=== PATIENT | male | born 1965 | race Caucasian/White ===

== ENCOUNTER → 2018-01-17 10:23 | Outpatient (CLI) | payer OTHER, SELFPAY ==
[2018-01-17 12:30] LABS: Hematocrit 45.5 % (40-54); Mean Corpuscular Hgb 28.1 pg (27.0-32.0); Mean Corpuscular Volume 85.4 fL (80-94); Mean Platelet Vol. 10.8 fl (6.2-12.0); Platelet Count 152 K/mm3 (150-450); RBC Distribution Width CV 13.4 % (11.6-14.6); RBC Distribution Width SD 41.2 fl (35.1-43.9); Red Blood Count 5.33 M/mm3 (4.6-6.2); White Blood Count 5.8 K/mm3 (4.4-11.0)
[2018-01-17 12:39] LABS: ALB/GLOB Ratio 0.9 RATIO (0.9-2.4); AST(SGOT) 23 U/L (15-37); Alanine Aminotransfer ALT/SGPT 50 U/L (16-61); Albumin, Serum 3.7 g/dL (3.2-5.0); Alkaline Phosphatase 77 U/L (45-117); Anion Gap 5 (5-15); BUN 16 mg/dL (7-18); BUN/Creat Ratio 20.4 RATIO (10-20); Calcium,Total 9.2 mg/dL (8.5-10.1); Chloride 102 mmol/L (98-107); Cholesterol 190 mg/dL (200); Creatinine, Serum 0.78 mg/dL (0.70-1.30); EST Glomerular Filtration Rate 110 mL/min (>60); Est Glom Filt Rate - Afr Amer 133 mL/min (>60); Globulin 3.9 g/dL (2.2-4.2); Glucose 96 mg/dL (74-106); High Density Lipoprotein 36 mg/dL; Potassium 3.9 mmol/L (3.5-5.1); Protein, Total 7.6 g/dL (6.4-8.2); Sodium Level 139 mmol/L (136-145); Triglycerides 289 mg/dL; Very Low Density Lipoprotein 58 mg/dL (5-40)
[2018-01-17 12:44] LABS: Scan Indicated on CBC? Y/N NO
[2018-01-17 12:56] LABS: BNP,B-Type NATRIURETIC PEPTIDE 6.3 pg/mL (0-100); Vitamin D,25 Hydroxy 38.8 ng/mL (19.95-100.01)
== END ==
PROVIDERS: Family Provider Family Medicine; PCP Family Medicine; Visit Provider Family Medicine
DX: E55.9 Vitamin D deficiency, unspecified (principal); E78.5 Hyperlipidemia, unspecified; K21.9 Gastro-esophageal reflux disease without esophagitis
CPT/HCPCS: 36415; 80053; 80061; 82306; 83880; 85027

== ENCOUNTER → 2018-02-04 06:13 | Outpatient (CLI) | payer OTHER, SELFPAY ==
--- NOTE | 2018-02-04 11:05 | PFT ---
INTRODUCTION: The patient is a 52-year-old male currently under the care of myself the presents for pulmonary function testing secondary to a diagnosis of restrictive lung disease. Respiratory therapy reports good patient effort reports no other concerns. Bronchodilators were used during testing. INTERPRETATION: Forced expiration spirometry demonstrates no evidence of a large airways obstructive ventilatory defect. There was no significant response to aerosolized bronchodilators, based upon strict ATS criteria. Spirogram is of good quality and plateau gradually indicating slow emptying of the lungs. Body plethysmography was performed and reveals a decreased TLC to 5.4 L, 83% of predicted, indicative of a mild restrictive ventilatory impairment. The remainder of the lung volumes are symmetrically reduced. Diffusing capacity by single breath CO is at the lower limits of normal at 79% of predicted. When compared to previous pulmonary function studies dated June 2017, there has been a 12% improvement in the patient's TLC. IMPRESSION: These pulmonary function studies demonstrate the presence of a mild restrictive ventilatory impairment with a symmetric reduction in diffusing capacity.
== END ==
PROVIDERS: Family Provider Family Medicine; PCP Family Medicine; Visit Provider Internal Medicine Critical Care Medicine
DX: G47.33 Obstructive sleep apnea (adult) (pediatric) (principal); J98.4 Other disorders of lung; F17.200 Nicotine dependence, unspecified, uncomplicated; I27.20 Pulmonary hypertension, unspecified
CPT/HCPCS: 94060; 94726; 94729

== ENCOUNTER → 2018-02-06 07:02 | Outpatient (CLI) | payer OTHER, SELFPAY ==
[2018-02-06 09:06] VITALS: PULSE 115; PULSE 75; PULSE 77; PULSE 97; PULSE 98; PULSE 99; O2SAT 92; O2SAT 93; O2SAT 94; O2SAT 95
--- NOTE | 2018-02-06 13:26 | WT_ITS ---
PSN 6 Minute Walk Test - 6 Minute Walk Test 6 Minute Walk Test: 6 Minute Walk Test PSN:6-Minute Walk Test Start: 02/06/18 09: 06 Freq: Status: Active Protocol: RESP.6MINW Document 02/06/18 09:06 CYNDY (Rec: 02/06/18 09:08 CYNDY [id number]) 6 Minute Walk Test Date Performed 02/06/18 Time Performed 08:50 Height 5 ft 9 in Weight: 300 lb Weight in Pounds 300.[address]: Alfredo Arias Assistive device used: None Pre-test Oxygen Delivery Method Room Air Pulse Ox (%) 93 Pulse Rate (60-100 beats/min) 77 1st minute Oxygen Delivery Method Room Air Pulse Ox (%) 92 Pulse Rate (60-100 beats/min) 97 2nd minute Oxygen Delivery Method Room Air Pulse Ox (%) 92 Pulse Rate (60-100 beats/min) 99 3rd minute Oxygen Delivery Method Room Air Pulse Ox (%) 94 Pulse Rate (60-100 beats/min) 115 H 4th minute Oxygen Delivery Method Room Air Pulse Ox (%) 94 Pulse Rate (60-100 beats/min) 99 5th minute Oxygen Delivery Method Room Air Pulse Ox (%) 93 Pulse Rate (60-100 beats/min) 99 6th minute Oxygen Delivery Method Room Air Pulse Ox (%) 92 Pulse Rate (60-100 beats/min) 98 Dyspnea Sole Scale (0-10) 0 Exertion Sole Scale (6-20) 12 Post-test Oxygen Delivery Method Room Air Pulse Ox (%) 95 Pulse Rate (60-100 beats/min) 75 Full Laps Walked 15 Partial Lap, Number of Tiles Walked 0 Total Distance Walked (ft) 885 - Interpretation Interpretation: The patient ambulated 885 feet over the course of 6 minutes on room air without assistive devices or braces. Pretesting oxygen saturation was noted to be 93% on room air. With ambulation, the lucio oxygen saturation was 92%. There was no significant exertional oxygen desaturation noted. - Recommendations Recommendations: There is no indication for the use of supplemental oxygen at this time.
== END ==
PROVIDERS: Family Provider Family Medicine; PCP Family Medicine; Visit Provider Internal Medicine Critical Care Medicine
DX: G47.33 Obstructive sleep apnea (adult) (pediatric) (principal); F17.200 Nicotine dependence, unspecified, uncomplicated; I27.20 Pulmonary hypertension, unspecified
CPT/HCPCS: 94618

== ENCOUNTER → 2018-03-13 12:53 | Outpatient (CLI) | payer OTHER, SELFPAY ==
--- NOTE | 2018-03-13 12:56 | STE_ITS ---
Reason For Study: DYSPNEA Stress Results Protocol: Dobutamine Stress Echocardiogram Maximum Predicted HR: 166 bpm Target HR: 141 bpm% Maximum Predicted HR: 87 % DurationHeart Rate Stage (mm:ss) (bpm) BPDos e Comment BASELINE 77 114/86 DILUTED DEFINITY 4 ML USED DSE- 10 MCG 3:09 90 134/6610.00 DSE- 20 MCG 3:08 12 0 122/7920.00 DSE- 30 MCG 4:36 14 4 104/6530.00 RECOVERY 98 126/66 Stress Duration: 10:53 mm:ss Maximum Stress HR: 144 bpm Baseline Echocardiogram Findings The estimated ejection fraction is 65 %. Stress Echo Wall motion Data Resting WMIntermediate WMStress WM Resting Wall Motion Wall Motion Stress No regional wall motion No regional wall motion abnormalities noted. abnormalities noted. EKG Data Normal intervals are noted. The baseline ECG displays normal sinus rhythm. The patient was titrated from 10 mcg to a maximun of 30 mcg of dobutamine during the stress. During dobutamine infusion, there were no ST or T wave changes noted to suggest ischemia. No clinical angina was noted. This was 86% of maximum predicted heart rate. The maximum heart rate attained was 144 beats per minute. Interpretation Summary The patient was titrated from 10 mcg to a maximun of 30 mcg of dobutamine during the stress. Normal adequate dobutamine echocardiogram. Negative for ischemia by EKG and echocardiographic criteria. No anginal symptoms noted. Appropriate blood pressure response to dobutamine. Final LVEF of 75%. Patient tolerated procedure well. Rare PVCs noted. Decreased sensitivity due to poor echo windows requiring Definity enhancing agent. No complications. Ordering Physician: Kamran Thornton Referring Physician: Kamran Thornton Performed By: Corrine Bills, RDJAQUELINE, RVT
== END ==
PROVIDERS: Family Provider Family Medicine; PCP Family Medicine; Visit Provider Internal Medicine Cardiovascular Disease
DX: I27.21 Secondary pulmonary arterial hypertension (principal); R06.02 Shortness of breath
CPT/HCPCS: 93017; 93350; J7030; Q9957; A4216; C8928

== ENCOUNTER → 2018-09-02 11:00 | Outpatient (CLI) | payer OTHER, SELFPAY | PROVIDERS: Family Provider Family Medicine; PCP Family Medicine; Visit Provider Nurse Practitioner Acute Care | DX: R09.02 Hypoxemia (principal) | CPT/HCPCS: 94762 ==

== ENCOUNTER → 2018-09-23 12:11 | Outpatient (CLI) | payer OTHER, SELFPAY ==
--- NOTE | 2018-09-23 12:13 | ECHOCS_ITS ---
Reason For Study: PHTN Procedure This was a 2D Doppler, Color Flow transthoracic echocardiogram. Contrast injection was performed. The study was technically difficult. Exam performed in department. Left Ventricle Normal size and thickness. The estimated ejection fraction is 55 %. Normal diastology for age. No regional wall motion abnormalities noted. Right Ventricle Mildly dilated right ventricle. Normal systolic function. Atria The left atrium is severely enlarged. Normal right atrium. Normal atrial septum. Mitral Valve The mitral valve is structurally normal. No prolapse or stenosis seen. Trivial mitral valve insufficiency. Tricuspid Valve Normal tricuspid valve. Trivial tricuspid valve insufficiency. Right ventricular systolic pressure estimated to be 34 mmHg. Aortic Valve Normal aortic valve. Trisinus/trileaflet aortic valve. Pulmonic Valve Normal pulmonic valve. Great Vessels Normal aortic root. Normal arch. Normal inferior vena cava. Inferior vena cava collapse with sniff. Pericardium/Pleural No pericardial effusion. Medication 22 gauge I.V. with prn adaptor inserted into right arm. Diluted definity 3.5ml given slow IV push to enhance endocardial definition. MMode/2D Measurements & Calculations LVIDd: 5.1 cm IVSd: 1.2 cm Ao root diam: 3.6 cm LVIDs: 3.8 cm LVPWd: 1.1 cm RVDd: 3.8 cm FS: 26.4 % LAV(MOD-bp): 77.1 ml EDV(MOD-sp4): 183.5 ml EDV(MOD-sp2): 160.8 ml LAV(MOD-bp) Indexed: 32.9 ml/m2 ESV(MOD-sp4): 95.9 ml EF(MOD-sp2): 51.3 % LAV(MOD-sp2): 64.0 ml EF(MOD-sp4): 47.8 % LAV(MOD-sp4): 84.7 ml SV(MOD-sp4): 87.7 ml SV(MOD-sp2): 82.5 ml LA A4 area: 26.0 cm2 LA dimension(2D): 4.5 cm RA A4 area: 18.8 cm2 Time Measurements MV dec time: 0.17 sec Doppler Measurements & Calculations MV E max reece: 107.3 cm/sec Lat Peak E' Reece: 15.6 cm/sec Med Peak E' Reece: 7.3 cm/sec MV A max reece: 81.2 cm/sec E/E' lat: 6.9 E/E' med: 14.7 MV E/A: 1.3 Ao V2 max: 135.7 cm/sec LV V1 max: 98.1 cm/sec PA V2 max: 99.8 cm/sec Ao max P.4 mmHg LV V1 max P.8 mmHg TR max reece: 265.8 cm/sec TR max P.3 mmHg Interpretation Summary The estimated ejection fraction is 55 %. Normal diastology for age. Mildly dilated right ventricle. The left atrium is severely enlarged. Trivial mitral valve insufficiency. Trivial tricuspid valve insufficiency. Right ventricular systolic pressure estimated to be 34 mmHg. Compared to echo report dated 06/24/2017, LV function has remained the same; RVSP has improved from 56 to 34 mm Hg. The study was technically difficult. Contrast injection was performed. Ordering Physician: Kamran Thornton Referring Physician: LILIA OSORIO Performed By: Savanna Mike, GRADY, RVT
== END ==
PROVIDERS: Family Provider Family Medicine; PCP Family Medicine; Referring Provider Internal Medicine Cardiovascular Disease; Visit Provider Internal Medicine Cardiovascular Disease
DX: G47.33 Obstructive sleep apnea (adult) (pediatric) (principal); R06.00 Dyspnea, unspecified; I50.32 Chronic diastolic (congestive) heart failure; I27.21 Secondary pulmonary arterial hypertension
CPT/HCPCS: 93306; Q9957; A4216; C8929

== ENCOUNTER → 2018-10-03 13:17 | Outpatient (CLI) | payer OTHER, SELFPAY ==
--- NOTE | 2018-10-03 13:19 | RAD_ITS ---
STUDY: X-RAY CHEST REASON FOR EXAM: Male, 53 years old. Bronchitis TECHNIQUE: 2 views COMPARISON: June 26, 2017 FINDINGS: There is no pneumonia or failure. There are bronchi with opaque cholecystectomy. Chronic bronchitis suspected. There are no pleural effusions.. Normal visualized thoracic spine. Normal visualized ribs, clavicles, and shoulders. There is no demonstrated abnormality of the visualized soft tissue structures of the upper abdomen. RAD/Chest PA and Lateral IMPRESSION: Mild chronic bronchitis. No acute pneumonia or failure. Electronically Signed: Paxton Pimentel MD at 4:31 EST Tel , Service support ,
== END ==
PROVIDERS: Family Provider Family Medicine; PCP Family Medicine; Referring Provider Family Medicine; Visit Provider Family Medicine
DX: J40 Bronchitis, not specified as acute or chronic (principal)
CPT/HCPCS: 71046

== ENCOUNTER → 2018-10-22 16:55 | Outpatient (CLI) | payer OTHER, SELFPAY ==
[2018-10-02 07:30] VITALS: BMI 40.0
--- NOTE | 2018-10-22 16:57 | RAD_ITS ---
HISTORY: Right chest pain COMPARISON: 2 view chest 10/03/2018 FINDINGS: XR Ribs Unilateral W/ PA Chest: 5 views Intact right ribs. No fracture or suspicious lesion. No pneumothorax or pleural fluid collection. An accompanying PA view of the chest shows no acute disease. RAD/Ribs Uni Min 3V w/PA Chest IMPRESSION: Negative right ribs. No fracture seen. at 0716 Reported and signed by: Red Groves MD Electronically Signed: Red Groves, at 7:14 EST Tel , Service support ,
--- OUTSIDE RECORDS SUMMARY | 2018-12-18 03:07 | XMS RPT_ITS ---
:1965 Author Organization OHIP Support Name Relationship Address Phone ERIKA KEARNEY Unavailable [address] + [place] [address] BALL, DAISHA Unavailable [address] + [place] [address] D Unavailable Unavailable Unavailable BALL, ERIKA Unavailable [address] + [place] [address] BALL, DAISHA Unavailable [address] + [place] [address] D Unavailable Unavailable Unavailable BALL, ERIKA Unavailable [address] + [place] [address] BALL, DAISHA Unavailable [address] + [place] [address] D Unavailable Unavailable Unavailable BALL, ERIKA Unavailable [address] + [place] [address] BALL, DAISHA Unavailable [address] + [place] [address] D Unavailable Unavailable Unavailable BALL, ERIKA Unavailable [address] + [place] [address] BALL, DAISHA Unavailable [address] + [place] [address] D Unavailable Unavailable Unavailable BALL, ERIKA Unavailable [address] + [place] [address] BALL, DAISHA Unavailable [address] + [place] [address] D Unavailable Unavailable Unavailable BALL, ERIKA Unavailable [address] + [place] [address] BALL, DAISHA Unavailable [address] + [place] [address] D Unavailable Unavailable Unavailable BALL, ERIKA Unavailable [address] + [place] [address] BALL, DAISHA Unavailable [address] + [place] [address] D Unavailable Unavailable Unavailable BALL, ERIKA Unavailable [address] + [place] [address] BALL, DAISHA Unavailable Unavailable + [place] [address] D Unavailable Unavailable Unavailable BALL, ERIKA Unavailable [address] + [place] [address] BALL, DAISHA Unavailable Unavailable + [place] [address] D Unavailable Unavailable Unavailable BALL, ERIKA Unavailable [address] + [place] [address] BALL, DAISHA Unavailable . + [place] [address] D Unavailable Unavailable Unavailable BALL, ERIKA Unavailable [address] + [place] [address] BALL, DAISHA Unavailable . + [place] [address] D Unavailable Unavailable Unavailable BALL, ERIKA Unavailable [address] + [place] [address] BALL, DAISHA Unavailable . + [place] [address] D Unavailable Unavailable Unavailable BALL, ERIKA Unavailable [address] + [place] [address] BALL, DAISHA Unavailable Unavailable + [place] [address] D Unavailable Unavailable Unavailable BALL, ERIKA Unavailable [address] + [place] [address] BALL, DAISHA Unavailable Unavailable + [place] [address] D Unavailable Unavailable Unavailable BALL, ERIKA Unavailable [address] + [place] [address] BALL, DAISHA Unavailable . + [place] [address] D Unavailable Unavailable Unavailable BALL, ERIKA Unavailable [address] + [place] [address] BALL, DAISHA Unavailable Unavailable + [place] [address] D Unavailable Unavailable Unavailable BALL, ERIKA Unavailable [address] + [place] [address] SLICK DAISHA Unavailable . + [place] [address] D Unavailable Unavailable Unavailable ERIKA KEARNEY Unavailable [address] + [place] [address] ELIZABETH KEARNEYEN Unavailable / + [place] [address] BOBSUMEREL Unavailable [address] + [place] [address] Care Team Providers Name Role Phone Lilia Hong Attending Unavailable Ranney, Christopher Primary Care Unavailable Carmen Moran.Ravinder. Attending Unavailable Carmen Moran.Jaime Referring Unavailable Ranney, Christopher Primary Care Unavailable Carmen Moran.O. Attending Unavailable Carmen Moran.O. Referring Unavailable Ranney, Christopher Primary Care Unavailable Mikaela Zaldivar Attending Unavailable Kamran Thornton Attending Unavailable Ranney, Christopher Referring Unavailable Ranney, Christopher Primary Care Unavailable Carmen Moran.O. Attending Unavailable Carmen Moran.O. Referring Unavailable Carmen Moran.Ravinder. Attending Unavailable Carmen Moran.O. Referring Unavailable Amita Neville Attending Unavailable Carmen Moran.Ravinder. Attending Unavailable Ranney, Christopher Referring Unavailable Ranney, Christopher Primary Care Unavailable Kamran Thornton Attending Unavailable Kamran Thornton Referring Unavailable Ranney, Christopher Primary Care Unavailable Kamran Thornton Attending Unavailable Kamran Thornton Referring Unavailable Reena Brooks Attending Unavailable Ranney, Christopher Referring Unavailable Reena Brooks Attending Unavailable Ranney, Christopher Primary Care Unavailable Kamran Thornton Attending Unavailable Ranney, Christopher Referring Unavailable Kamran Thornton Attending Unavailable Thornton, Kamran Referring Unavailable Ranney, Christopher Primary Care Unavailable Reena Brooks Attending Unavailable Ranney, Christopher Referring Unavailable Ranney, Christopher Attending Unavailable Ranney, Christopher Referring Unavailable Ranney, Christopher Primary Care Unavailable Kamran Thornton Attending Unavailable Kamran Thornton Referring Unavailable Ranney, Christlauraer Attending Unavailable Ranney, Christopher Referring Unavailable Ranney, Christopher Primary Care Unavailable PROBLEMS PROBLEMS DATE TYPE CONDITION / CODE ATTENDING STATUS SOURCE 10/22/2018 Unknown R07.81 - Hal, Active [facility] Pleurodynia / [facility] R07.81(ICD-10) Hospital Repository 10/03/2018 Unknown J40 - Bronchitis, Hal, Active [facility] not specified as [facility] acute or chronic / Hospital J40(ICD-10) Repository 10/09/2018 Unknown R06.09 - Other Kamran Thornton Active [facility] forms of dyspnea / Community R06.09(ICD-10) Hospital Repository 09/15/2018 Unknown G47.33 - Kamran Thornton Active [facility] Obstructive sleep Community apnea (adult) Hospital (pediatric) / Repository G47.33(ICD-10) 09/15/2018 Unknown I27.21 - Secondary Kamran Thornton Active [facility] pulmonary arterial Community hypertension / Hospital I27.21(ICD-10) Repository 09/15/2018 Unknown R06.00 - Dyspnea, Kamran Thornton Active [facility] unspecified / Community R06.00(ICD-10) Hospital Repository 09/15/2018 Unknown I50.32 - Chronic Kamran Thornton Active [facility] diastolic Community (congestive) heart Hospital failure / Repository I50.32(ICD-10) 09/15/2018 Unknown E78.5 - Kamran Thornton Active [facility] Hyperlipidemia, Community unspecified / Hospital E78.5(ICD-10) Repository 09/15/2018 Unknown Z72.0 - Tobacco use Kamran Thornton Active [facility] / Z72.0(ICD-10) [facility] Hospital Repository 09/05/2018 Unknown R09.02 - Hypoxemia Reena Brooks Active [facility] / R09.02(ICD-10) [facility] Hospital Repository 02/06/2018 Unknown I37.2 - Alfredo Arias D.O. Active [facility] Nonrheumatic [facility] pulmonary valve Hospital stenosis with Repository insufficiency / I37.2(ICD-10) 02/04/2018 Unknown I27.2 - Other Alfredo Arias D.O. Active [facility] secondary pulmonary Community hypertension / Hospital I27.2(ICD-10) Repository PROCEDURES PROCEDURES No Procedure Records FoundRESULTS RESULTS RIBS UNI MIN 3V Observed: 10/22/2018 Status: F Source: [place] W/PA CHEST 4:58 PM [facility] REPOSITORY [facility] Imaging Services [address] [place] [address] Ribs Uni Min 3V w/PA Chest MR#: [id number] Acct: [id number] Name: PEDRO LUIS KEARNEY R Rep #: [id number] : 1965 M 53 From: Red Groves MD PCP: Lilia Hong MD Status: REG CLI Study: Ribs Uni Min 3V w/PA Chest Date of Exam: 10/22/18 Exam# [id number] Ordering Dr: Abdifatah Hong MD HISTORY: Right chest pain COMPARISON: 2 view chest 10/03/2018 FINDINGS: XR Ribs Unilateral W/ PA Chest: 5 views Intact right ribs. No fracture or suspicious lesion. No pneumothorax or pleural fluid collection. An accompanying PA view of the chest shows no acute disease. RAD/Ribs Uni Min 3V w/PA Chest IMPRESSION: Negative right ribs. No fracture seen. at 0716 Reported and signed by: Red Groves MD Electronically Signed: Red Groves, at 7:14 EST Tel , Service support , CC: Lilia Hong MD Photo Mask Cleaner: Signed CHEST PA AND LATERAL Observed: 10/03/2018 Status: F Source: [place] 1:19 PM [facility] [place] Imaging Services [address] [place] [address] Chest PA and Lateral MR#: [id number] Acct: [id number] Name: PEDRO LUIS KEARNEY Rep #: [id number] : 1965 M 53 From: Paxton Pimentel MD PCP: Lilia Hong MD Status: REG CLI Study: Chest PA and Lateral Date of Exam: 10/03/18 Exam# [id number] Ordering Dr: Abdifatah Hong MD STUDY: X-RAY CHEST REASON FOR EXAM: Male, 53 years old. Bronchitis TECHNIQUE: 2 views COMPARISON: June 26, 2017 FINDINGS: There is no pneumonia or failure. There are bronchi with opaque cholecystectomy. Chronic bronchitis suspected. There are no pleural effusions.. Normal visualized thoracic spine. Normal visualized ribs, clavicles, and shoulders. There is no demonstrated abnormality of the visualized soft tissue structures of the upper abdomen. RAD/Chest PA and Lateral IMPRESSION: Mild chronic bronchitis. No acute pneumonia or failure. Electronically Signed: Paxton Pimentel MD at 4:31 EST Tel , Service support , CC: Lilia Hong MD Photo Mask Cleaner: Signed PULMONARY VISIT REPORT Observed: 10/02/2018 Status: F Source: [place] 10:54 AM [facility] [address] [place] [address] OFFICE VISIT Date of Service: 10/02/18 MR#: [id number] Acct: [id number] Name: PEDRO LUIS KEARNEY Rep #: [id number] : 1965 Provider: Reena Brooks Age/Sex: 53/M Location: [facility] Status: Signed Assessment AND Plan 1. DEBI (obstructive sleep apnea) G47.33 Plan Patient is using and benefiting from Pap therapy. No indication for titration study at this time. Continue to encourage weight loss. Encouraged to get a replacement cushion, as I believe this will alleviate or at least improve his difficulty with mask leaks. As he continues to lose weight it is quite possible that he may require less pressure, this was discussed with the patient at approximately after 20 pound weight loss he may require less pressure. Contact the office for any new or worsening symptoms in the meantime. Follow-up in 6 months. 2. Tobacco abuse Z72.0 Plan Encourage smoking cessation. Plan Detail Other Orders Orders: Follow Up 6 Months (DMB) HPI 1 M FU: Chief Complaint: Sore throat HPI Comments Details: This is a 53 year old M, here to follow up for sleep apnea. He reports that since his last office visit he has been treated for bronchitis with an antibiotic and prednisone, which he completed both. Currently he only has a sore throat that is remaining. He does have a dry cough that is occasional. He denies any sputum production or hemoptysis. He continues to have shortness of breath on exertion only, this has not worsened. He denies any shortness of breath with conversation or at rest. He has occasional wheezing and chest tightness. He continues to smoke a little over 1 pack/day per his own words. He has been successful at losing 9 pounds since his last office visit. He is intentionally trying to lose weight and would like to get down to 250 pounds before he tries to quit smoking. He is not currently on any maintenance inhalers. Current use of pressure support therapy is on average of 8 hours per night with current settings of 16 cmH2O. PEDRO LUIS denies any daytime somnolence, dry mouth in the morning, nocturia, snoring through the mask, or morning headaches, but is experiencing difficulty with mask leaks. PEDRO LUIS reports feeling rested in the morning and is benefitting from current therapy. Compliance report was reviewed and shows 100% compliance, AHI is controlled at an average of 2.6 events per hour and leaks appear to be a continued issue. Intake Vital Signs10/02/18 Height 5 ft 9 in 10/02/18 Weight: 271 lb Intake Visit Reasons: 1 M FU Physical Aerodynamicist Required: No DME Vendor: Linda Corrales Accompanied by: Self Is patient in pain?: Yes Allergies aspirin Allergy (Severe, Verified 10/02/18 06:36) Unknown NSAIDS (Non-Steroidal Anti-Inflamma Allergy (Verified 10/02/18 06:36) Swelling Medications Multivitamin [Multiple Vitamins] 1 ea PO DAILY 06/22/17 [History Confirmed 10/02/18] omeprazole 20 mg capsule,delayed release 20 mg PO QDAY 02/09/18 [History Confirmed 10/02/18] potassium chloride ER 20 mEq tablet,extended release 20 meq PO QDAY 02/09/18 [History Confirmed 10/02/18] cholecalciferol (vitamin D3) 2,000 unit capsule 2,000 unit PO QDAY cap 02/10/18 [History Confirmed 10/02/18] cyanocobalamin (vitamin B-12) 2,500 mcg tablet 2,500 mcg PO DAILY 09/15/18 [History Confirmed 10/02/18] furosemide 40 mg tablet 40 mg PO .COMPLEX tab 09/15/18 [History Confirmed 10/02/18] pravastatin 80 mg tablet 80 mg PO DAILY 09/15/18 [History Confirmed 10/02/18] [facility] Medical History Dyspnea (Resolved) DEBI (obstructive sleep apnea) (Chronic) Hypersomnia (Chronic) Pneumonia (Resolved) Non-rheumatic tricuspid valve insufficiency (Chronic) Chronic diastolic heart failure (Chronic) Restrictive lung disease (Chronic) Secondary pulmonary arterial hypertension (Chronic) Tobacco abuse (Chronic) Obesity (Chronic) GERD (gastroesophageal reflux disease) (Chronic) Hyperlipidemia (Chronic) Surgical History skin graft/muscle reconstruction of legs (Chronic) Family History Father Heart disease Sister Cancer Social History Smoking Status: Heavy Smoker (>10/day) second hand exposure: Yes alcohol intake: never substance use type: does not use caffeine: Yes Type: coffee Number of servings: 1 Review of Systems Const CONSTITUTIONAL: Negative anorexia, body ache, chills, daytime sleepiness, fever(s), night sweats, oral thrush, stops breathing during sleep, weight loss, sleeping in chair, fatigue, weight loss, weight gain, frequent colds, seasonal allergies, other, headache(s) or orthopnea EETM Ear Nose Throat Mouth: Positive hearing normal and sore throat; negative hard of hearing, hoarseness, dry mouth in morning, change in vision, itchy eyes, eye pain, swallowing Difficulty, ear pain, nose bleed, headache(s), mouth pain, nasal congestion, nasal discharge, post nasal drip, sinus pain, sinus pressure or other Cardio Cardiovascular: Positive edema Location: lower extremity Right/Left: Left; negative chest pain, chest pain at rest, chest pain with activity, irregular heart rhythm, shortness of breath when lying down, palpitations, murmur or other Resp Respiratory: Positive as per HPI, shortness of breath shortness of breath: Positive with activity, wheezing, cough cough: Positive non-productive and chest tightness; negative pain with cough, chest congestion, pain on inspiration, inhalers, increase use of rescue inhalers, snoring, apnea or other Gastro Gastrointestional: Negative bloody stools, change in appetite, difficulty swallowing, reflux, hematemesis, melena stool, loose stool, constipation or other Genitourinary: Negative blood in urine, nocturia, pain with urination or other Musc Musculoskeletal: Positive body pain; negative back pain, neck pain or other Skin/Breast Skin/Breast: Negative dry skin, itching, rash, unusual bruising, breast lump or other Neuro Neurological: Negative restless legs, confusion, weakness or other Psych Psychocological: Negative abnormal sleep pattern, anxiety, thoughts of hurting self/others, hopelessness or other Lymph Lymphatic: Negative easy bleeding, easy bruising, swollen lymph nodes or other Exam Const Constitutional: Positive conversant, cooperative, in no acute respiratory distress, healthy appearing, well developed, well nourished, good hygiene and obese Head Head: Positive normocephalic and atraumatic; negative cyanosis of lips/distal nose Eyes Eye: Positive clear conjunctiva; negative nystagmus or scleral abnormality Ears Ear: Positive hearing normal and external ears normal; negative hard of hearing Nose Nose: Positive external nose normal and no nasal discharge; negative epistaxis Mouth Mouth: Positive dentures, oral mucosae normal, no lesions and crowded posterior oropharynx; negative post nasal drip, malodorous breath or oral thrush present Mallampati Score: IV: Mallampati Score Neck Neck: Positive normal visual inspection, full ROM, trachea midline, thick neck and male neck greater than 43 cm (17 in); negative lymphadenopathy, JVD or tender Chest Wall Chest: Positive normal inspection of the chest and symmetric chest movement; negative increased A/P diameter Resp lung sounds: Positive clear to auscultation, good air exchange, normal expiratory time and normal respiratory effort; negative diminished, wheezes, rhonchi, rales, dullness to percussion or wheeze present on forced exhalation Cardio Cardiac: Positive regular rate, regular rhythm, S1 normal and S2 normal; negative murmur GI GI: Positive normal to inspection and obese; negative distended Genitourinary: Positive deferred Musc Musculoskeletal: Positive steady gait and ROM normal; negative kyphosis or scoliosis Skin Pulmonary Skin Exam: Positive intact; negative rash Pulses Pulse: Yes pulses normal x4 extremities Extremities Extremities: Yes capillary refill normal, No clubbing, No cyanosis Neuro Neurologic: Yes conversant, Yes no focal neuro deficits, Yes normal concentration, Yes understands questions, Yes cooperative, Yes normal cognition, Yes normal coordination Lymph Lymphatic: No lymphadenopathy, No tenderness, No cervical adenopathy Psych Appearance: Positive grossly normal, eye contact and well kempt Mental Status: Positive mental status grossly normal Mood: Positive congruent mood Affect: Positive normal affect Coding Level of Care Code Off vis,est,level 3 Diagnoses DEBI (obstructive sleep apnea) G47.33 Tobacco abuse Z72.0 10/02/18 1054 <Electronically signed by Reena ALICIAC> Date Reena Brooks NP-C Cosigner Signature: Date (if applicable) CC: Lilia Hong MD ECHO, COMPLETE W/ Observed: 09/23/2018 Status: F Source: [place] CONTRAST 4:44 PM [facility] [place] Cardiovascular Services [address] [place] [address] Echo Complete W/ Contrast 09/23/18 1256 MR#: [id number] Acct: [id number] Name: PEDRO LUIS KEARNEY Rep #: [id number] : 1965 53 From: Kamran Thornton MD Attending Dr: Kamran Thornton MD Status: [facility] Ordering Dr: Kamran Thornton MD Date: 09/23/18 Location: [facility] Sex: M C Admitted: Reason For Study: PHTN Procedure This was a 2D Doppler, Color Flow transthoracic echocardiogram. Contrast injection was performed. The study was technically difficult. Exam performed in department. Left Ventricle Normal size and thickness. The estimated ejection fraction is 55 %. Normal diastology for age. No regional wall motion abnormalities noted. Right Ventricle Mildly dilated right ventricle. Normal systolic function. Atria The left atrium is severely enlarged. Normal right atrium. Normal atrial septum. Mitral Valve The mitral valve is structurally normal. No prolapse or stenosis seen. Trivial mitral valve insufficiency. Tricuspid Valve Normal tricuspid valve. Trivial tricuspid valve insufficiency. Right ventricular systolic pressure estimated to be 34 mmHg. Aortic Valve Normal aortic valve. Trisinus/trileaflet aortic valve. Pulmonic Valve Normal pulmonic valve. Great Vessels Normal aortic root. Normal arch. Normal inferior vena cava. Inferior vena cava collapse with sniff. Pericardium/Pleural No pericardial effusion. Medication 22 gauge I.V. with prn adaptor inserted into right arm. Diluted definity 3.5ml given slow IV push to enhance endocardial definition. MMode/2D Measurements AND Calculations LVIDd: 5.1 cm IVSd: 1.2 cm Ao root diam: 3.6 cm LVIDs: 3.8 cm LVPWd: 1.1 cm RVDd: 3.8 cm FS: 26.4 % LAV(MOD-bp): 77.1 ml EDV(MOD-sp4): 183.5 ml EDV(MOD-sp2): 160.8 ml LAV(MOD-bp) Indexed: 32.9 ml/m2 ESV(MOD-sp4): 95.9 ml EF(MOD-sp2): 51.3 % LAV(MOD-sp2): 64.0 ml EF(MOD-sp4): 47.8 % LAV(MOD-sp4): 84.7 ml SV(MOD-sp4): 87.7 ml SV(MOD-sp2): 82.5 ml LA A4 area: 26.0 cm2 LA dimension(2D): 4.5 cm RA A4 area: 18.8 cm2 Time Measurements MV dec time: 0.17 sec Doppler Measurements AND Calculations MV E max reece: 107.3 cm/sec Lat Peak E' Reece: 15.6 cm/sec Med Peak E' Reece: 7.3 cm/sec MV A max reece: 81.2 cm/sec E/E' lat: 6.9 E/E' med: 14.7 MV E/A: 1.3 Ao V2 max: 135.7 cm/sec LV V1 max: 98.1 cm/sec PA V2 max: 99.8 cm/sec Ao max P.4 mmHg LV V1 max P.8 mmHg TR max reece: 265.8 cm/sec TR max P.3 mmHg Interpretation Summary The estimated ejection fraction is 55 %. Normal diastology for age. Mildly dilated right ventricle. The left atrium is severely enlarged. Trivial mitral valve insufficiency. Trivial tricuspid valve insufficiency. Right ventricular systolic pressure estimated to be 34 mmHg. Compared to echo report dated 06/24/2017, LV function has remained the same; RVSP has improved from 56 to 34 mm Hg. The study was technically difficult. Contrast injection was performed. Ordering Physician: Kamran Thornton Referring Physician: LILIA HONG Performed By: Savanna Mike, GRADY, RVT 09/23/18 1644 Date Kamran Thornton MD CC: Lilia Hong MD; Kamran Thornton MD Date Dictated: 09/23/18 1256 Date Transcribed: 09/23/181643 Photo Mask Cleaner: Signed CARDIOLOGY VISIT Observed: 09/15/2018 Status: F Source: [place] REPORT 2:53 PM [facility] [place] [address] [place] [address] OFFICE VISIT Date of Service: 09/15/18 MR#: [id number] Acct: [id number] Name: PEDRO LUIS KEARNEY Rep #: [id number] : 1965 Provider: Kamran Thornton MD Age/Sex: 53/M Location: [facility] Status: Signed HPI HPI Chief Complaint: Routine f/u Details: Mr. 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 Subsequent to that the patient has had multiple surgeries with skin grafting, and intermittently develops weepage from the medial portion of his left upper thigh. This occurred in late May 2017 which deteriorated into a cellulitis infection presenting to [facility] on 06/26/17 with shortness of breath and generalized weakness. He is a chronic smoker. Upon arrival to the ER he was tachypneic and tachycardic and hypoxic with 89% on room air requiring 4 L supplementation. Chest x-ray demonstrated cardiomegaly and bilateral interstitial infiltrates more prominent on the right. Patient was admitted for community acquired pneumonia and sepsis, developed acute hypoxia and hypercapnic respiratory failure requiring BiPAP therapy. CT scan of the chest demonstrated no acute pulmonary embolism but did confirm right upper lobe pneumonia. He was also treated with IV steroids, aerosols, and IV Lasix. Patient underwent a 2D echo with Doppler on 06/24/17 which demonstrated normal LV function at least moderate pulmonary hypertension with an RVSP of approximately 56 mmHg. He apparently has not had a stress test. Unfortunately he continues to smoke. His EKG dated 12/24/16 showed normal sinus rhythm with PACs, nonspecific lateral T-wave inversion. Patient apparently is doing better now, compliant with his CPAP, but unfortunately continues to smoke. His weepage in his legs has resolved, and he may require knee replacement surgery in the next year or so on the left side. As part of his cardiac workup he underwent a dobutamine echocardiogram on 03/13/18 which was negative for inducible ischemia. Patient has not undergone a repeat echocardiogram since his pulmonary embolism in May 2017. Since her last visit, the patient has been doing fairly well. He denies any chest pain, angina, is compliant with his CPAP every night as well as his oxygen, but does complain of mild left lower extremity edema. He is taking and tolerating his medicines well. He has lost about 35 pounds since her last visit intentionally. In our office today his blood pressure is 112/60, pulse is 80 and regular. Physical exam demonstrates distant breath sounds bilaterally, regular rate and rhythm, normal S1/S2, no S3-S4. Patient has 1+ bilateral lower extremity edema up to his knees. Lipids are pending. EKG dated 06/22/17 shows normal sinus rhythm with PACs, nonspecific lateral T-wave inversion, no previous myocardial infarction noted. Echocardiogram dated 06/24/17 showed mild concentric LVH, EF 55%, RVSP of 56 mmHg consistent with at least moderate pulmonary hypertension. Repeat echo is pending. His lipids as of 01/17/18 show an LDL of 96 and HDL 36. Intake Vital Signs09/15/18 Height 5 ft 9 in 09/15/18 Weight: 279 lb 09/15/18 Body Mass Index (BMI) 41.2 09/15/18 Blood Pressure 112/60 Intake Visit Reasons: 6 M Physical Aerodynamicist Required: No Accompanied by: Is patient in pain?: No Allergies aspirin Allergy (Severe, Verified 09/15/18 14:33) Unknown NSAIDS (Non-Steroidal Anti-Inflamma Allergy (Verified 09/15/18 14:33) Swelling Medications Multivitamin [Multiple Vitamins] 1 ea PO DAILY 06/22/17 [History Confirmed 09/15/18] omeprazole 20 mg capsule,delayed release 20 mg PO QDAY 02/09/18 [History Confirmed 09/15/18] potassium chloride ER 20 mEq tablet,extended release 20 meq PO QDAY 02/09/18 [History Confirmed 09/15/18] cholecalciferol (vitamin D3) 2,000 unit capsule 2,000 unit PO QDAY cap 02/10/18 [History Confirmed 09/15/18] cyanocobalamin (vitamin B-12) 2,500 mcg tablet 2,500 mcg PO DAILY 09/15/18 [History Confirmed 09/15/18] furosemide 40 mg tablet 40 mg PO .COMPLEX tab 09/15/18 [History Confirmed 09/15/18] pravastatin 80 mg tablet 80 mg PO DAILY 09/15/18 [History Confirmed 09/15/18] Ejection fraction %: 55 to 59 [facility] Medical History Dyspnea (Resolved) DEBI (obstructive sleep apnea) (Chronic) Hypersomnia (Chronic) Pneumonia (Resolved) Non-rheumatic tricuspid valve insufficiency (Chronic) Chronic diastolic heart failure (Chronic) Restrictive lung disease (Chronic) Secondary pulmonary arterial hypertension (Chronic) Tobacco abuse (Chronic) Obesity (Chronic) GERD (gastroesophageal reflux disease) (Chronic) Hyperlipidemia (Chronic) Surgical History skin graft/muscle reconstruction of legs (Chronic) Family History Father Heart disease Sister Cancer Social History Smoking Status: Heavy Smoker (>10/day) second hand exposure: Yes alcohol intake: never substance use type: does not use caffeine: Yes Type: coffee Number of servings: 1 ROS Const Const: Negative for fatigue, frequent falls, weakness, excessive sweating, headache(s) or difficulty sleeping Eyes Eyes: Negative for loss of peripheral vision, transient loss of vision, double vision, blurry vision or tunnel vision ENT ENT: Negative for headache(s), dizziness, Nosebleed/epistaxis or balance problems Cardio Chest Pain: No Palpitations: No Edema: Left Muscle aches with walking: None Resp Respiratory: Negative for SOB with activity, SOB at rest, SOB orthopnea\SOB lying down, Cough or paroxysmal nocturnal dyspnea GI GI: Negative nausea, vomiting, heartburn or black,tarry stools : Negative for hematuria Musc Musc: Negative for balance problems, muscle aches/ myalgia, muscle weakness or joint pain Skin Skin: Negative non-healing lesions, rash or unusual bruising Neuro Neuro: Negative for frequent falls, weakness, headache(s), double vision, blurry vision, dizziness, lightheadedness, near syncope, syncope or lack of coordination Torsten Hematologic/Lymphatic: Negative for easy bruising or easy bleeding Endo Endo: Negative for fatigue, excessive sweating or increased thirst/drinking Psych Psych: Negative for anxiety or depression Allergy Allergy/Immunology: Negative for rash, Negative for hives Cardiology Exam Const Appearance: cooperative, healthy appearing and no acute distress Nutritional Appearance: well nourished Orientation: alert, oriented x3 and oriented to person Head Head: normal to inspection, atraumatic and normocephalic Nose: external nose normal Face and Sinus: face symmetric Mouth: oral mucosae normal Eyes General: appearance normal, both eyes and all related structures Eyelids: eyelids normal Conjunctivae: conjunctivae normal Pupils: PERRL and normal by confrontation EOM: EOM intact bilaterally Neck Neck: normal visual inspection and full ROM Carotids: normal carotid upstroke Chest Chest inspection: normal inspection of the chest Auscultation: Bilateral: Clear to Auscultation Cardio Palpation: normal PMI Rate: regular rate Rhythm: regular rhythm Heart sounds: S1 normal and S2 normal GI GI: normal to inspection, no hepatosplenomegaly and bowel sounds present Neuro General: alert, oriented x3, awake, CN's II-XI intact bilaterally and moves all extremities Skin Skin: no rashes or lesions noted Extremities Pulses: Normal: Right Femoral Pulse, Left Femoral Pulse, Right Dorsalis Pedis Pulse, Left Dorsalis Pedis Pulse, Right Posterior Tibial Pulse, Left Posterior Tibial Pulse, Right Radial Pulse, Left Radial Pulse Lower Extremity Edema: None: Bilateral Psych Psychological: normal affect Assessment AND Plan 1. Secondary pulmonary arterial hypertension I27.21 Plan 1. Pulmonary hypertension: The patient has obstructive sleep apnea but is compliant with his CPAP. I recommended he undergo a repeat echocardiogram to determine if his pulmonary pressures have improved with medical therapy and CPAP. Recommend he continue his Lasix potassium supplementation. No indication for repeat stress testing at this time. I recommended the patient use Gordon bandages on a daily basis to assist with venous return versus increasing his Lasix as his blood pressure is somewhat on the low side anyhow. Patient agrees to live. Orders Orders: 2. Hyperlipidemia E78.5 Plan 2. Hyperlipidemia: His LDL and HDL cholesterol are fairly well-controlled. Continue Pravachol. 3. Tobacco abuse Z72.0 Plan 3. Tobacco abuse: I had a long and thorough discussion with the patient regarding tobacco abuse, and strongly recommended that he discontinue all tobacco products. Patient is voiced understanding and agrees to comply. 4. Return office in 6 months. This note was generated using a voice recognition system and there may be incorrect words, spelling or punctuation that were not noted when reviewing the office note prior to saving. Plan Detail Other Orders Orders: Other Medications Discontinued: albuterol sulfate Discontinued Reason: Pt2.5 mg (3 mL) Inhalation Q2H PRN PRN #25 0RF no longer taking SHORTNESS OF BREATH Follow Up +6M (Norberto) Coding Level of Care Code Off vis,est,level 3 Diagnoses Secondary pulmonary arterial hypertension I27.21 Hyperlipidemia E78.5 Tobacco abuse Z72.0 Coding Level of Care Code Off vis,est,level 3 Diagnoses Secondary pulmonary arterial hypertension I27.21 Hyperlipidemia E78.5 Tobacco abuse Z72.0 09/15/18 2305 <Electronically signed by Kamran Thornton MD> Date Kamran Thornton MD [facility] Signature: Date (if applicable) CC: Lilia Hong MD PULMONARY VISIT REPORT Observed: 09/01/2018 Status: F Source: [place] [facility] [place] [address] [place] [address] OFFICE VISIT Date of Service: 09/01/18 MR#: [id number] Acct: [id number] Name: PEDRO LUIS KEARNEY Rep #: [id number] : 1965 Provider: Reena Brooks Age/Sex: 53/M Location: [facility] Status: Signed Assessment AND Plan 1. DEBI (obstructive sleep apnea) G47.33 Plan Stable, using and benefitting from PAP. Change PAP setting from 50lxX6I to 16 cmH2O to assist with amount of leaks and as patient continues to lose weight. Nocturnal oximetry testing to assess further need for additional oxygen at night. Follow-up in 3 months to assess changes made to PAP therapy. 2. Chronic diastolic heart failure I50.32 PASP 56 mmHg Plan Currently stable. Nocturnal oximetry ordered. Spoke about need to decrease sodium intake in his diet. 3. Class 3 obesity due to excess calories with serious comorbidity and body mass index (BMI) of 45.0 to 49.9 in adult E66.09 Plan Continue with current weight loss plan with additional exercise and diet modifications. In place of high sodium foods for snacking, patient was encouraged to use healthy items such as vegetable (radishes, green peppers) that he can consume without the need for his lower dentures. As patient continues to lose weight, patient may require an additional titration study assessing continued need for PAP. Plan Detail Other Medications New: Follow Up 1 Month (CSM) HPI 6 M FU: Chief Complaint: none HPI Comments Details: This is a 53 year old M, here to follow up for sleep apnea. He is feeling well today, and has been waking up less tired in the morning from sleep. He denies shortness of breath or dyspnea. He has no complaints of dry mouth. He denies fever, cough, and nasal discharge. His flu vaccine was received prior to this visit. Current use of pressure support therapy is on average of 7 hours per night with current settings of 18 cmH2O. PEDRO LUIS denies any daytime somnolence, dry mouth in the morning, nocturia, snoring through the mask, or morning headaches, but is experiencing difficulty with mask leaks. PEDRO LUIS reports feeling rested in the morning and is benefitting from current therapy. Compliance report was reviewed and shows 100% compliance, AHI 1.8 events per hour and leaks do appear to be an issue. His weight has improved. He has lost > 20 lbs and is feeling better. Walks daily, and has improved his eating habits. He still eats all previous foods but in moderation. Reports eating cheese and crackers and cheese and peanut butter. This was discussed, and was told that these foods have high sodium content which will contribute to his lower extremity swelling and water weight gain. Alternatives were discussed, and he agrees to make changes. He denies any shortness of breath, chest pain or palpitations. He denies any cough, sputum production or hemoptysis. No fever, chills or body aches. He continues to smoke 1.5 PPD. Intake Vital Signs09/01/18 Height 5 ft 9 in 09/01/18 Weight: 280 lb Intake Visit Reasons: 6 M FU Chief Complaint: Routine f/u DME Vendor: [employer] Accompanied by: Self Allergies aspirin Allergy (Severe, Verified 09/01/18 07:30) Unknown NSAIDS (Non-Steroidal Anti-Inflamma Allergy (Verified 09/01/18 07:30) Swelling Medications Cyanocobalamin (Vitamin B-12) [B-12] 5,000 mcg PO DAILY 06/22/17 [History Confirmed 09/01/18] Multivitamin [Multiple Vitamins] 1 ea PO DAILY 06/22/17 [History Confirmed 09/01/18] Pravastatin [Pravachol] 40 mg PO DAILY 06/22/17 [History Confirmed 09/01/18] traMADol [Ultram] 1 - 2 mg PO Q12H PRN PRN 06/22/17 [History Confirmed 09/01/18] Albuterol Aerosols [Ventolin Aerosols] 2.5 mg INHALATION Q2H PRN PRN #25 06/27/17 [Rx Confirmed 09/01/18] omeprazole 20 mg capsule,delayed release 20 mg PO QDAY 02/09/18 [History Confirmed 09/01/18] potassium chloride ER 20 mEq tablet,extended release 20 meq PO QDAY 02/09/18 [History Confirmed 09/01/18] cholecalciferol (vitamin D3) 2,000 unit capsule 2,000 unit PO QDAY cap 02/10/18 [History Confirmed 09/01/18] furosemide 40 mg tablet 40 mg PO TID tab 10/08/18 [History Confirmed 09/01/18] [facility] Medical History Dyspnea (Acute) DEBI (obstructive sleep apnea) (Chronic) Hypersomnia (Chronic) Pneumonia (Acute) Non-rheumatic tricuspid valve insufficiency (Chronic) Chronic diastolic heart failure (Chronic) Restrictive lung disease (Chronic) Secondary pulmonary arterial hypertension (Chronic) Tobacco abuse (Chronic) Obesity (Chronic) GERD (gastroesophageal reflux disease) (Chronic) Hyperlipidemia (Chronic) Surgical History skin graft/muscle reconstruction of legs (Chronic) Family History Father Heart disease Sister Cancer Social History Smoking Status: Current every day smoker second hand exposure: Yes alcohol intake: never substance use type: does not use Review of Systems Const CONSTITUTIONAL: Positive weight loss; negative anorexia, body ache, chills, daytime sleepiness, fever(s), night sweats, oral thrush, stops breathing during sleep, weight loss, sleeping in chair, fatigue, weight gain, frequent colds, seasonal allergies, other, headache(s) or orthopnea EETM Ear Nose Throat Mouth: Positive hearing normal; negative hard of hearing, hoarseness, dry mouth in morning, change in vision, itchy eyes, eye pain, swallowing Difficulty, ear pain, nose bleed, headache(s), mouth pain, nasal congestion, nasal discharge, post nasal drip, sinus pain, sinus pressure, sore throat or other Cardio Cardiovascular: Positive edema Location: lower extremity; negative chest pain, chest pain at rest, chest pain with activity, irregular heart rhythm, shortness of breath when lying down, palpitations, murmur or other Resp Respiratory: Positive as per HPI; negative shortness of breath, pain with cough, wheezing, chest congestion, cough, chest tightness, pain on inspiration, inhalers, increase use of rescue inhalers, snoring, apnea or other Gastro Gastrointestional: Negative bloody stools, change in appetite, difficulty swallowing, reflux, hematemesis, melena stool, loose stool, constipation or other Genitourinary: Negative blood in urine, nocturia, pain with urination or other Musc Musculoskeletal: Negative body pain, back pain, neck pain or other Skin/Breast Skin/Breast: Negative dry skin, itching, rash, unusual bruising, breast lump or other Neuro Neurological: Negative restless legs, confusion, weakness or other Psych Psychocological: Negative abnormal sleep pattern, anxiety, thoughts of hurting self/others, hopelessness or other Lymph Lymphatic: Negative easy bleeding, easy bruising, swollen lymph nodes or other Exam Const Constitutional: Positive conversant, cooperative, in no acute respiratory distress, healthy appearing, well nourished, obese and smells of smoke Head Head: Positive normocephalic and atraumatic; negative cyanosis of lips/distal nose, frontal sinus tenderness or maxillary sinus tenderness Eyes Eye: Positive clear conjunctiva Ears Ear: Positive hearing normal and external ears normal; negative hard of hearing Nose Nose: Positive external nose normal and no nasal discharge; negative epistaxis, clear nasal discharge or purulent nasal discharge Mouth Mouth: Positive oral mucosae normal, no lesions and crowded posterior oropharynx; negative post nasal drip Mallampati Score: III: Mallampati Score Neck Neck: Positive normal visual inspection and trachea midline Chest Wall Chest: Positive normal inspection of the chest and symmetric chest movement Resp lung sounds: Positive clear to auscultation, good air exchange, normal expiratory time and normal respiratory effort; negative wheeze present on forced exhalation or increased work of breathing Cardio Cardiac: Positive regular rate and regular rhythm; negative murmur GI GI: Positive normal to inspection, normal bowel sounds and obese Genitourinary: Positive deferred Musc Musculoskeletal: Positive steady gait and using an assistive device for ambulation Skin Pulmonary Skin Exam: Positive intact; negative rash Pulses Pulse: Yes pulses normal x4 extremities Extremities Extremities: Yes capillary refill normal, No clubbing, Yes edema Location: lower extremity location: Bilateral Neuro Neurologic: Yes conversant, Yes no focal neuro deficits, Yes cooperative, Yes normal concentration Lymph Lymphatic: No lymphadenopathy, No tenderness, No cervical adenopathy Psych Appearance: Positive grossly normal Mental Status: Positive mental status grossly normal Mood: Positive congruent mood Affect: Positive normal affect Coding Level of Care Code Off vis,est,level 3 Diagnoses DEBI (obstructive sleep apnea) G47.33 Chronic diastolic heart failure I50.32 Class 3 obesity due to excess calories with serious comorbidity and body mass index (BMI) of 45.0 to 49.9 in adult E66.09 Obesity type: due to excess calories Obesity classification: adult class 3 (BMI >= 40) Serious obesity comorbidity presence: with serious comorbidity Body mass index: BMI 45.0-49.9 09/01/18 0842 <Electronically signed by Reena MARTINEZ> Date Reena MARTINEZ Cosigner Signature: Date (if applicable) CC: Lilia Hong MD STRESS TEST ECHO W/O Observed: 03/13/2018 Status: F Source: [place] CONTRAST 3:56 PM [facility] Cardi[facility] Services [address] [place] [id number] Stress Test Echo W/Contrast MR#: [id number] Acct: [id number] Name: PEDRO LUIS KEARNEY Rep #: [id number] : 1965 53 From: Kamran Thornton MD Primary Care: Lilia Hong MD Status: REG CLI Ordering Dr: Kamran Thornton MD Sex: M C Reason For Study: DYSPNEA Stress Results Protocol: Dobutamine Stress Echocardiogram Maximum Predicted HR: 166 bpm Target HR: 141 bpm% Maximum Predicted HR: 87 % DurationHeart Rate Stage (mm:ss) (bpm) BPDos e Comment BASELINE 77 114/86 DILUTED DEFINITY 4 ML USED DSE- 10 MCG 3:09 90 134/6610.00 DSE- 20 MCG 3:08 12 0 122/7920.00 DSE- 30 MCG 4:36 14 4 104/6530.00 RECOVERY 98 126/66 Stress Duration: 10:53 mm:ss Maximum Stress HR: 144 bpm Baseline Echocardiogram Findings The estimated ejection fraction is 65 %. Stress Echo Wall motion Data Resting WMIntermediate WMStress WM Resting Wall Motion Wall Motion Stress No regional wall motion No regional wall motion abnormalities noted. abnormalities noted. EKG Data Normal intervals are noted. The baseline ECG displays normal sinus rhythm. The patient was titrated from 10 mcg to a maximun of 30 mcg of dobutamine during the stress. During dobutamine infusion, there were no ST or T wave changes noted to suggest ischemia. No clinical angina was noted. This was 86% of maximum predicted heart rate. The maximum heart rate attained was 144 beats per minute. Interpretation Summary The patient was titrated from 10 mcg to a maximun of 30 mcg of dobutamine during the stress. Normal adequate dobutamine echocardiogram. Negative for ischemia by EKG and echocardiographic criteria. No anginal symptoms noted. Appropriate blood pressure response to dobutamine. Final LVEF of 75%. Patient tolerated procedure well. Rare PVCs noted. Decreased sensitivity due to poor echo windows requiring Definity enhancing agent. No complications. Ordering Physician: Kamran Thornton Referring Physician: Kamran Thornton Performed By: Corrine Bills, GRADY, RVT 03/13/18 1555 Date Kamran Thornton MD CC: Lilia Hong MD; Kamran Thornton MD Date Dictated: 03/13/18 1316 Date Transcribed: 03/13/18 1555 Photo Mask Cleaner: Signed PULMONARY VISIT REPORT Observed: 02/26/2018 Status: F Source: [place] 7:36 AM [facility] [address] [place] [address] OFFICE VISIT Date of Service: 02/26/18 MR#: [id number] Acct: [id number] Name: PEDRO LUIS KEARNEY Rep #: [id number] : 1965 Provider: Alfredo Brown, D.O. Age/Sex: 53/M [place] [facility] [place]: Signed Assessment AND Plan 1. Restrictive lung disease J98.4 Plan The patient's pulmonary function tests on several occasions has only demonstrated the presence of a mild restrictive ventilatory impairment, likely secondary to the patient's body habitus. He has not yet demonstrated evidence of obstructive lung disease on PFTs. However, he does continue to smoke 0.5 packs per day. We will plan to repeat PFTs in 1 year. For now, the patient has been counseled regarding the importance of smoking cessation. 2. Tobacco abuse Z72.0 Plan The patient is currently utilizing Chantix in hopes of quitting smoking very soon. Encouragement has been provided. 3. DEBI (obstructive sleep apnea) G47.33 Plan The patient has been compliant with use of his nocturnal CPAP therapy. We will plan to continue the same without change. He is benefiting clinically from use of nocturnal CPAP. 4. Class 3 obesity due to excess calories with serious comorbidity and body mass index (BMI) of 45.0 to 49.9 in adult E66.09 Plan Weight loss through dietary modification and a graded exercise regimen is strongly encouraged. Plan Detail Follow Up 6 Months (CSM) HPI HPI Comments Details: The patient is a 53-year-old male who presents to the clinic today for a routine scheduled follow-up office visit. If you recall, I initially saw the patient in May 2017 when he was admitted to the hospital with generalized weakness and shortness of breath. At that time, he was treated for acute combined respiratory failure secondary to a right upper lobe pneumonia. Pulmonary function testing completed in June 2017 revealed the presence of mild restrictive ventilatory defect with preserved diffusing capacity. A subsequent 6 minute walk test was completed and revealed significant oxygen desaturation to 91% with ambulation. Surface echocardiogram from May 2017 revealed mild concentric LVH with an ejection fraction of 55%. Right ventricular systolic pressure was estimated to be 56 mmHg. The patient underwent a split-night sleep study in June 2017 which revealed evidence of severe obstructive sleep apnea for which it was recommended that the patient be placed on CPAP therapy with a pressure setting of 18 cm of water with a 2 L supplemental oxygen bleed in. The patient currently smokes 1 pack of cigarettes daily. The patient did complete repeat 6 minute walk test in January 2018 which reveals no significant exertional oxygen desaturation. Repeat pulmonary function testing also completed in January 2018 again demonstrated the presence of a mild restrictive ventilatory impairment with symmetric reduction in diffusing capacity. The patient's nocturnal Pap compliance report was personally reviewed at today's office visit. Over the last 30 days, he has demonstrated 100% compliance with use of therapy. He is sleeping on average just under 8.5 hours per night. His current settings include CPAP with a pressure support setting of 18 cm water with humidification. He has a residual AHI of 2.2. There is a demonstrated significant air leak nightly. The patient reports that his degree of dyspnea is unchanged. He is currently utilizing Chantix in an attempt to quit smoking completely. He denies the presence of a cough, chest tightness or wheezing. His weight has been stable. Reports no issues with his CPAP machine and/or mask. He reports feeling refreshed upon awakening in the morning. He denies significant daytime hypersomnolence. He does report occasional afternoon naps. He denies fevers, chills or night sweats. He denies chest pain, dizziness or lightheadedness. Intake Vital Signs02/26/18 Height 5 ft 9 in 02/26/18 Weight: 304 lb Intake Visit Reasons: 6 M FU [facility] Vendor: [employer] Allergies aspirin Allergy (Severe, Verified 02/25/18 15:21) Unknown NSAIDS (Non-Steroidal Anti-Inflamma Allergy (Verified 02/25/18 15:21) Swelling Medications Cyanocobalamin (Vitamin B-12) [B-12] 5,000 mcg PO DAILY 06/22/17 [History Confirmed 02/10/18] Multivitamin [Multiple Vitamins] 1 ea PO DAILY 06/22/17 [History Confirmed 02/10/18] Pravastatin [Pravachol] 40 mg PO DAILY 06/22/17 [History Confirmed 02/10/18] traMADol [Ultram] 1 - 2 mg PO Q12H PRN PRN 06/22/17 [History Confirmed 02/10/18] Albuterol Aerosols [Ventolin Aerosols] 2.5 mg INHALATION Q2H PRN PRN #25 06/27/17 [Rx Confirmed 02/10/18] omeprazole 20 mg capsule,delayed release 20 mg PO QDAY 02/09/18 [History Confirmed 02/10/18] potassium chloride ER 20 mEq tablet,extended release 20 meq PO QDAY 02/09/18 [History Confirmed 02/10/18] cholecalciferol (vitamin D3) 2,000 unit capsule 2,000 unit PO QDAY cap 02/10/18 [History Confirmed 02/10/18] furosemide 40 mg tablet 40 mg PO QPM tab 02/10/18 [History Confirmed 02/10/18] furosemide 40 mg tablet 80 mg PO QAM tab 02/10/18 [History Confirmed 02/10/18] [facility] Medical History Dyspnea (Acute) DEBI (obstructive sleep apnea) (Chronic) Hypersomnia (Chronic) Pneumonia (Acute) Non-rheumatic tricuspid valve insufficiency (Chronic) Chronic diastolic heart failure (Chronic) Restrictive lung disease (Chronic) Secondary pulmonary arterial hypertension (Chronic) Tobacco abuse (Chronic) Obesity (Chronic) GERD (gastroesophageal reflux disease) (Chronic) Hyperlipidemia (Chronic) Surgical History skin graft/muscle reconstruction of legs (Chronic) Family History Father Heart disease Sister Cancer Social History Smoking Status: Current every day smoker second hand exposure: Yes alcohol intake: never substance use type: does not use Review of Systems Const CONSTITUTIONAL: Negative anorexia, body ache, chills, daytime sleepiness, fever(s), night sweats, oral thrush, stops breathing during sleep, weight loss, sleeping in chair, fatigue, weight loss, weight gain, frequent colds, seasonal allergies, other, headache(s) or orthopnea EETM Ear Nose Throat Mouth: Positive hearing normal and dry mouth in morning; negative hard of hearing, hoarseness, change in vision, itchy eyes, eye pain, swallowing Difficulty, ear pain, nose bleed (in the morning), headache(s), mouth pain, nasal congestion, nasal discharge, post nasal drip, sinus pain, sinus pressure, sore throat or other Cardio Cardiovascular: Negative chest pain, chest pain at rest, chest pain with activity, irregular heart rhythm, edema, shortness of breath when lying down, palpitations, murmur or other Resp Respiratory: Positive as per HPI; negative shortness of breath, pain with cough, wheezing, chest congestion, cough, chest tightness, pain on inspiration, inhalers, increase use of rescue inhalers, snoring, apnea or other Gastro Gastrointestional: Negative bloody stools, change in appetite, difficulty swallowing, reflux, hematemesis, melena stool, loose stool, constipation or other Genitourinary: Negative blood in urine, nocturia, pain with urination or other Musc Musculoskeletal: Negative body pain, back pain, neck pain or other Skin/Breast Skin/Breast: Negative dry skin, itching, rash, unusual bruising, breast lump or other Neuro Neurological: Negative restless legs, confusion, weakness or other Psych Psychocological: Negative abnormal sleep pattern, anxiety, thoughts of hurting self/others, hopelessness or other Lymph Lymphatic: Negative easy bleeding, easy bruising, swollen lymph nodes or other Exam Const Constitutional: Positive conversant, cooperative, in no acute respiratory distress, well developed, well nourished, smells of smoke and obese Head Head: Positive normocephalic and atraumatic; negative cyanosis of lips/distal nose Eyes Eye: Positive clear conjunctiva; negative nystagmus or scleral abnormality Ears Ear: Positive hearing normal and external ears normal; negative hard of hearing Nose Nose: Positive external nose normal; negative epistaxis (in the morning) Mouth Mouth: Positive oral mucosae normal and crowded posterior oropharynx; negative no lesions or post nasal drip Mallampati Score: II: Mallampati Score Neck Neck: Positive normal visual inspection, trachea midline and thick neck; negative lymphadenopathy Chest Wall Chest: Positive symmetric chest movement Normal AP diameter. Resp lung sounds: Positive diminished; negative wheezes, rhonchi or rales Cardio Cardiac: Positive regular rate, regular rhythm, S1 normal and S2 normal; negative rub, gallop or murmur GI GI: Positive normal bowel sounds and obese Soft without distention Genitourinary: Positive [place] [facility] [place] Musculoskeletal: Positive steady gait Skin Pulmonary Skin Exam: Positive intact; negative lesion, ulcers, dermal atrophy or rash Pulses Pulse: Yes Pedal pulses present: Extremities Extremities: No clubbing, No cyanosis, No edema Neuro Neurologic: Yes conversant, Yes no focal neuro deficits, Yes cooperative Lymph Lymphatic: No lymphadenopathy Psych Appearance: Positive grossly normal Mental Status: Positive mental status grossly normal Mood: Positive congruent mood Affect: Positive normal affect Coding Level of Care Code Off vis,est,level 3 Diagnoses Restrictive lung disease J98.4 Tobacco abuse Z72.0 DEBI (obstructive sleep apnea) G47.33 Class 3 obesity due to excess calories with serious comorbidity and body mass index (BMI) of 45.0 to 49.9 in adult E66.09 Body mass index: BMI 45.0-49.9 Obesity classification: adult class 3 (BMI >= 40) Obesity type: due to excess calories Serious obesity comorbidity presence: with serious comorbidity 02/26/18 0736 <Electronically signed by Alfredo Arias DO> Date Alfredo Arias DO Cosigner Signature: Date (if applicable) CC: Lilia Hong MD CARDIOLOGY VISIT Observed: 02/10/2018 Status: F Source: [place] RE[place] 3:04 PM [facility] [place] [address] [place] [address] OFFICE VISIT Date of Service: 02/10/18 MR#: [id number] Acct: [id number] Name: PEDRO LUIS KEARNEY Rep #: [id number] : 1965 Provider: Kamran Thornton MD Age/Sex: 52/M Location: [facility] [place] Status: Signed HPI HPI Chief Complaint: Routine f/u Details: Referring physician: Dr. Jeremy Ayon Mr. 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 Subsequent to that the patient has had multiple surgeries with skin grafting, and intermittently develops weepage from the medial portion of his left upper thigh. This occurred in late May 2017 which deteriorated into a cellulitis infection presenting to [facility] on 06/26/17 with shortness of breath and generalized weakness. He is a chronic smoker. Upon arrival to the ER he was tachypneic and tachycardic and hypoxic with 89% on room air requiring 4 L supplementation. Chest x-ray demonstrated cardiomegaly and bilateral interstitial infiltrates more prominent on the right. Patient was admitted for community acquired pneumonia and sepsis, developed acute hypoxia and hypercapnic respiratory failure requiring BiPAP therapy. CT scan of the chest demonstrated no acute pulmonary embolism but did confirm right upper lobe pneumonia. He was also treated with IV steroids, aerosols, and IV Lasix. Patient underwent a 2D echo with Doppler which demonstrated normal LV function at least moderate pulmonary hypertension with an RVSP of approximately 56 mmHg. He apparently has not had a stress test. Unfortunately he continues to smoke. His EKG dated 12/24/16 showed normal sinus rhythm with PACs, nonspecific lateral T-wave inversion. Patient apparently is doing better now, compliant with his CPAP, but unfortunately continues to smoke. His weepage in his legs has resolved, and he may require knee replacement surgery in the next year or so on the left side. The patient occasionally has atypical nonexertional sharp knifelike chest pain over his right chest, when he is cleaning himself up in the bathroom. He also complains of bilateral lower extremity edema, left greater than right and has been prescribed TI hose but has not been able to use them. His PCP increased his Lasix to 80 mg in the morning and 40 in the evening. In addition, the patient has complained of progressively worsening shortness of breath and dyspnea on exertion although for the most part he is in a chair most of the day. In addition he revealed he has a positive family history of triple bypass in his brother and double bypass in his father. He has never had a stress test or a catheterization. In our office today his blood pressure is 124/64, pulse is 78 and regular. Physical exam demonstrates distant breath sounds bilaterally, regular rate and rhythm, normal S1/S2, no S3-S4. Patient has 1+ bilateral lower extremity edema up to his knees. Lipids are pending. EKG dated 06/22/17 shows normal sinus rhythm with PACs, nonspecific lateral T-wave inversion, no previous myocardial infarction noted. Echocardiogram dated 06/24/17 showed mild concentric LVH, EF 55%, RVSP of 56 mmHg consistent with at least moderate pulmonary hypertension. His lipids as of 01/17/18 show an LDL of 96 and HDL 36. Intake Vital Signs02/10/18 Height 5 ft 9 in Intake Visit Reasons: 3 M FU Allergies NSAIDS (Non-Steroidal Anti-Inflamma Allergy (Verified 02/10/18 14:37) Swelling Medications Cyanocobalamin (Vitamin B-12) [B-12] 5,000 mcg PO DAILY 06/22/17 [History Confirmed 02/10/18] Multivitamin [Multiple Vitamins] 1 ea PO DAILY 06/22/17 [History Confirmed 02/10/18] Pravastatin [Pravachol] 40 mg PO DAILY 06/22/17 [History Confirmed 02/10/18] TraMADol [Ultram] 1 - 2 mg PO Q12H PRN PRN 06/22/17 [History Confirmed 02/10/18] Albuterol Aerosols [Ventolin Aerosols] 2.5 mg INHALATION Q2H PRN PRN #25 06/27/17 [Rx Confirmed 02/10/18] omeprazole 20 mg capsule,delayed release 20 mg PO QDAY 02/09/18 [History Confirmed 02/10/18] potassium chloride ER 20 mEq tablet,extended release 20 meq PO QDAY 02/09/18 [History Confirmed 02/10/18] cholecalciferol (vitamin D3) 2,000 unit capsule 2,000 unit PO QDAY cap 02/10/18 [History Confirmed 02/10/18] furosemide 40 mg tablet 40 mg PO QPM tab 02/10/18 [History Confirmed 02/10/18] furosemide 40 mg tablet 80 mg PO QAM tab 02/10/18 [History Confirmed 02/10/18] PFSH Medical History Non-rheumatic tricuspid valve insufficiency (Chronic) Chronic diastolic heart failure (Chronic) Restrictive lung disease (Chronic) Secondary pulmonary arterial hypertension (Chronic) Tobacco abuse (Chronic) Obesity (Chronic) GERD (gastroesophageal reflux disease) (Chronic) Hyperlipidemia (Chronic) Surgical History skin graft/muscle reconstruction of legs (Chronic) Family History Father Heart disease Sister Cancer Social History Smoking Status: Current every day smoker ROS Const Const: Positive for fatigue; negative for weakness, difficulty sleeping, frequent falls, headache(s) or excessive sweating Eyes Eyes: Negative for loss of peripheral vision, transient loss of vision, blurry vision or double vision ENT ENT: Negative for headache(s), dizziness, Nosebleed/epistaxis or balance problems Cardio Chest Pain: No Edema: None, Bilateral (Left > Right) Muscle aches with walking: None Resp Respiratory: Positive for SOB with activity and other (diminished T/O); negative for SOB at rest, SOB orthopnea\SOB lying down or paroxysmal nocturnal dyspnea GI GI: Negative nausea or heartburn : Negative for hematuria Musc Musc: Positive for muscle weakness (BLE weakness); negative for muscle aches/ myalgia, joint pain or balance problems Skin Skin: Negative non-healing lesions, unusual bruising or rash Neuro Neuro: Negative for weakness, frequent falls, blurry vision, headache(s), dizziness, lightheadedness, orthostatic symptoms or double vision [place] Hematologic/Lymphatic: Negative for easy bruising Endo Endo: Positive for fatigue; negative for excessive sweating or increased thirst/drinking Psych Psych: Negative for anxiety or depression Allergy Allergy/Immunology: Negative for hives, Negative for rash Cardiology Exam Const Appearance: cooperative, healthy appearing and no acute distress Nutritional Appearance: well nourished Orientation: alert, oriented x3 and oriented to person Head Head: normal to inspection, atraumatic and normocephalic Nose: external nose normal Face and Sinus: face symmetric Mouth: oral mucosae normal Eyes General: appearance normal, both eyes and all related structures Eyelids: eyelids normal Conjunctivae: conjunctivae normal Pupils: PERRL and normal by confrontation EOM: EOM intact bilaterally Neck Neck: normal visual inspection and full ROM Carotids: normal carotid upstroke Chest Chest inspection: normal inspection of the chest Auscultation: Bilateral: Clear to Auscultation Cardio Palpation: normal PMI Rate: regular rate Rhythm: regular rhythm Heart sounds: S1 normal and S2 normal GI GI: normal to inspection, no hepatosplenomegaly and bowel sounds present Neuro General: alert, oriented x3, awake, CN's II-XI intact bilaterally and moves all extremities Skin Skin: no rashes or lesions noted Extremities Pulses: Normal: Right Femoral Pulse, Left Femoral Pulse, Right Dorsalis Pedis Pulse, Left Dorsalis Pedis Pulse, Right Posterior Tibial Pulse, Left Posterior Tibial Pulse, Right Radial Pulse, Left Radial Pulse Lower Extremity Edema: None: Bilateral Psych Psychological: normal affect Assessment AND Plan 1. Dyspnea on exertion R06.09 Plan 1. Dyspnea on exertion: I am concerned that given the patient's risk factors of age, tobacco abuse, and strong positive family history, and the fact that his dyspnea on exertion is not really improving with antihypertensive medications and diuretics, that he may also have concomitant coronary artery disease. He has never had a stress test, and his edema in his legs may be compounded because of his previous injury. Nonetheless I recommend that he undergo a dobutamine echocardiogram to determine if he has any ischemia that may require further investigative work such as a diagnostic coronary angiogram. If his stress test is abnormal or even weekly positive, and have a low threshold for diagnostic coronary angiogram. In the meantime he will continue his Lasix 80 mg in the morning and 40 mg in the evening with potassium assistance. 2. Hyperlipidemia:His LDL and HDL cholesterol are fairly well-controlled given his risk factors. Continue pravastatin. 3. Return office in 6 months. This note was generated using a voice recognition system and there may be incorrect words, spelling or punctuation that were not noted when reviewing the office note prior to saving. Plan Detail Other Orders Orders: Follow Up 6 Months (Norberto) Coding Level of Care Code Off vis,est,level 3 Diagnoses Dyspnea on exertion R06.09 Coding Level of Care Code Off vis,est,level 3 Diagnoses Dyspnea on exertion R06.09 02/10/18 1504 <Electronically signed by Kamran Thornton MD> Date Kamran Thornton MD Cosigner Signature: Date (if applicable) CC: 6 MINUTE WALK TEST Observed: 02/06/2018 Status: F Source: [place] 1:26 PM [facility] [place] [facility] Pulmonary Services/Neurology [address] [place] [address] MR#: [id number] Acct: [id number] Name: PEDRO LUIS KEARNEY Luz Rep #: [id number] : 1965 52 From: Alfredo Arias DO Referring Dr: Alfredo Arias D.O. Date: Ordering Dr: Sex: M C Location: PSN PSN 6 Minute Walk Test - 6 Minute Walk Test 6 Minute Walk Test: 6 Minute Walk Test PSN:6-Minute Walk Test Start: 02/06/18 09:06 Freq: Status: Active Protocol: RESP.6MINW Document 02/06/18 09:06 CYNDY (Rec: 02/06/18 09:08 SFENTON [id number]) 6 Minute Walk Test Date Performed 02/06/18 Time Performed 08:50 Height 5 ft 9 in Weight: 300 lb Weight in Pounds 300.[address]: Alfredo Arias Assistive device used: None Pre-test Oxygen Delivery Method Room Air Pulse Ox (%) 93 Pulse Rate (60-100 beats/min) 77 1st minute Oxygen Delivery Method Room Air Pulse Ox (%) 92 Pulse Rate (60-100 beats/min) 97 2nd minute Oxygen Delivery Method Room Air Pulse Ox (%) 92 Pulse Rate (60-100 beats/min) 99 3rd minute Oxygen Delivery Method Room Air Pulse Ox (%) 94 Pulse Rate (60-100 beats/min) 115 H 4th minute Oxygen Delivery Method Room Air Pulse Ox (%) 94 Pulse Rate (60-100 beats/min) 99 5th minute Oxygen Delivery Method Room Air Pulse Ox (%) 93 Pulse Rate (60-100 beats/min) 99 6th minute Oxygen Delivery Method Room Air Pulse Ox (%) 92 Pulse Rate (60-100 beats/min) 98 Dyspnea Sole Scale (0-10) 0 Exertion Sole Scale (6-20) 12 Post-test Oxygen Delivery Method Room Air Pulse Ox (%) 95 Pulse Rate (60-100 beats/min) 75 Full Laps Walked 15 Partial Lap, Number of Tiles Walked 0 Total Distance Walked (ft) 885 - Interpretation Interpretation: The patient ambulated 885 feet over the course of 6 minutes on room air without assistive devices or braces. Pretesting oxygen saturation was noted to be 93% on room air. With ambulation, the lucio oxygen saturation was 92%. There was no significant exertional oxygen desaturation noted. - Recommendations Recommendations: There is no indication for the use of supplemental oxygen at this time. 02/06/18 1326 <Electronically signed by Alfredo Arias DO> Date Alfredo Arias DO CC: Date Dictated: 02/06/181324 Date Transcribed: 02/06/181324 Photo Mask Cleaner: Alfredo Arias DO Signed PULMONARY FUNCTION Observed: 02/04/2018 Status: F Source: [place] TEST 11:09 AM [facility] [place] [facility] Pulmonary Services/Neurology [address] [place] [address] MR#: [id number] Acct: [id number] Name: PEDRO LUIS KEARNEY Rep #: [id number] : 1965 52 From: Alfredo Arias DO Referring Dr: Alfredo Arias D.O. Status: REG CLI Ordering Dr: Date: Location: [facility] Sex: M C INTRODUCTION: The patient is a 52-year-old male currently under the care of myself the presents for pulmonary function testing secondary to a diagnosis of restrictive lung disease. Respiratory therapy reports good patient effort reports no other concerns. Bronchodilators were used during testing. INTERPRETATION: Forced expiration spirometry demonstrates no evidence of a large airways obstructive ventilatory defect. There was no significant response to aerosolized bronchodilators, based upon strict ATS criteria. Spirogram is of good quality and plateau gradually indicating slow emptying of the lungs. Body plethysmography was performed and reveals a decreased TLC to 5.4 L, 83% of predicted, indicative of a mild restrictive ventilatory impairment. The remainder of the lung volumes are symmetrically reduced. Diffusing capacity by single breath CO is at the lower limits of normal at 79% of predicted. When compared to previous pulmonary function studies dated June 2017, there has been a 12% improvement in the patient's TLC. IMPRESSION: These pulmonary function studies demonstrate the presence of a mild restrictive ventilatory impairment with a symmetric reduction in diffusing capacity. 02/04/181108 <Electronically signed by Alfredo Arias DO> Date Alfredo Arias DO CC: Lilia Hong MD; Alfredo Arias D.O. Date Dictated: 02/04/181104 Date Transcribed: 02/04/181104 Photo Mask Cleaner: MEGAN Signed COMPREHENSIVE METABOLIC Collected: 01/17/2018 Status: F Source: [place] 10:30 AM [facility] Order Comment: Order Date: 11/11/17 Order Info: [id number] - CMP Order Info: 48609-7 - LIPID TYPE CODE TESTS RESULT OUT OF RANGE REFERENCE UNITS LAB L501.0100 74-106 mg/dL Normal GLU 96 Result Comment: Please note revised GLUCOSE reference range effective 2017. LAB L501.1000 7-18 mg/dL Normal BUN 16 LAB L501.1100 0.70-1.30 mg/dL Normal CREAT,SERUM 0.78 Result Comment: The validity of the calculated GFR AND GFRAA in patients over 70 years has not been determined. Clinical correlation is essential. LAB L501.1110 >60 mL/min Normal EST GFR 110 Result Comment: Non- GFR Calc LAB L501.1115 >60 mL/min Normal EST GFR - AA 133 Result Comment: GFR Calc LAB L501.1300 10-20 RATIO High BUN/CRE 20.4 LAB L501.1500 6.4-8.2 g/dL T Normal PROT 7.6 LAB L501.1800 3.2-5.0 g/dL Normal ALB 3.7 LAB L501.1950 2.2-4.2 g/dL Normal GLOB 3.9 LAB L501.2000 0.9-2.4 RATIO Normal A/G 0.9 LAB L501.2200 8.5-10.1 mg/dL CA Normal 9.2 LAB L501.4100 15-37 U/L Normal AST 23 LAB L501.4305 45-117 U/L Normal ALK P 77 LAB L501.4405 16-61 U/L Normal ALT 50 Result Comment: Please note revised ALT reference range effective 2017. LAB L501.4600 0.20-1.00 mg/dL Normal T BILI 0.50 LAB L501.5300 136-145 mmol/L Normal NA 139 LAB L501.5600 3.5-5.1 mmol/L Normal K 3.9 LAB L501.5900 98-107 mmol/L Normal CL 102 LAB L501.6100 21.0-32.0 mmol/L Normal CO2 32.0 LAB L501.6200 5-15 Normal GAP 5 Performed By: #### L500.4050, L500.4100, L100.0500, L506.1000 #### [facility] [address] [place], [place], [address] LIPID PROFILE Collected: 01/17/2018 Status: F Source: [place] 10:30 AM [facility] Order Comment: Order Date: 11/11/17 Order Info: [id number] - CMP Order Info: [id number] - LIPID TYPE CODE TESTS RESULT OUT OF RANGE REFERENCE UNITS LAB L501.4900 200 mg/dL Normal CHOL 190 Result Comment: <200 mg/dL Desirable 200-240 mg/dL Borderline >240 mg/dL High Risk LAB L501.5000 mg/dL High TRIG 289 Result Comment: The drugs N-Acetylcysteine and Metamizole may falsely depress this assay. Serum Triglycerides Reference Interval Normal <150 mg/dL Borderline high 150 - 199 mg/dL High 200 - 499 mg/dL Very High > or = 500 mg/dL LAB L501.6400 mg/dL Low HDL 36 Result Comment: The drugs N-Acetylcysteine and Metamizole may falsely depress this assay. Reference Range HDL <40 mg/dL Low HDL Cholesterol HDL >or= 60 mg/dL High HDL Cholesterol LAB L501.6500 0-130 mg/dL Normal LDL 96 LAB L501.6600 5-40 mg/dL High VLDL 58 Performed By: #### L500.4050, L500.4100, L100.0500, L506.1000 #### [facility] [address] [place], [address] CBC-COMPLETE BLOOD CNT Collected: 01/17/2018 Status: F Source: [place] NO DIFF 10:30 AM [facility] Order Comment: Order Date: 11/11/17 Order Info: [id number] - CBC TYPE CODE TESTS RESULT OUT OF RANGE REFERENCE UNITS LAB L100.1000 4.4-11.0 K/mm3 Normal WBC 5.8 LAB L100.1200 4.6-6.2 M/mm3 Normal RBC 5.33 LAB L100.1300 13.0-16.5 g/dl Normal HGB 15.0 LAB L100.1400 40-54 % Normal HCT 45.5 LAB L100.1500 80-94 fL Normal MCV 85.4 LAB L100.1600 27.0-32.0 pg Normal MCH 28.1 LAB L100.1700 32-36 g/gl Normal MCHC 33.0 LAB L100.1810 11.6-14.6 % Normal RDW CV 13.4 LAB L100.1820 35.1-43.9 fl Normal RDW SD 41.2 LAB L100.1900 150-450 K/mm3 Normal PLT 152 LAB L100.2000 6.2-12.0 fl Normal MPV 10.8 Performed By: #### L500.4050, L500.4100, L100.0500, L506.1000 #### [facility] [address] [place], [place], [id number] VITAMIN D,25 HYDROXY Collected: 01/17/2018 Status: F Source: [place] 10:30 AM [facility] Order Comment: Order Date: 11/11/17 Order Info: [id number] - VITD25 TYPE CODE TESTS RESULT OUT OF RANGE REFERENCE UNITS LAB L506.1000 19.95-100.01 ng/mL Normal Vitamin D 38.8 25-OH Result Comment: Vitamin D 25(OH) Status Range Deficiency <20 ng/mL (50nmol/L) Insuffciency 20 - 30 ng/mL (50 - 75 nmol/L) Sufficiency 30 - 100 ng/mL (75 - 250 nmol/L) Toxicity >100 ng/mL (>250 nmol/L) Performed By: #### L500.4050, L500.4100, L100.0500, L506.1000 #### [facility] [address] [place], [place], [id number] BNP,B-TYPE NATRIURETIC Collected: 01/17/2018 Status: F Source: [place] PEPTIDE 10:30 AM [facility] [place] [place] TYPE CODE TESTS RESULT OUT OF RANGE REFERENCE UNITS LAB L503.6620 0-100 pg/mL Normal B-TYPE 6.3 RAMOS PEP Performed By: #### L503.6620 #### [facility] [address] [place], [place], [id number] ALLERGIES ALLERGIES DATE TYPE / CODE NAME / CODE REACTION SEVERITY SOURCE 10/02/2018 Drug NSAIDS Swelling Unknown [place] [facility] Allergy/4160 (Non-Steroidal Hospital 33418(SNOMED Anti-Inflamma/ Repository CT) [id number](RXN ORM) 10/02/2018 Drug aspirin/M99040 Unknown [place] [facility] Allergy/4160 1587(RXNORM) Hospital 59010(SNOMED Repository CT) ENCOUNTERS ENCOUNTERS ADMIT/DISCHARGE ACCOUNT ADMITTING ENCOUNTER LOCATION SOURCE NUMBER CLASS 10/22/2018 [id number] Ambulatory [place] 7 [facility] ing:MTRAD Repository 10/03/2018 [id number] Ambulatory [place] 1 [facility] ing:RAD.FUTUR Repository E 10/02/2018/ [id number] [place]ulatory [facility] [facility] [place] [place] 09/23/2018 [id number] Amb[place] 4 [facility] ing:[facility] Repository 09/23/2018 [id number] Ambulatory BMSBuilding:W [place] 7 [facility] Repository 09/15/2018/ [id number] Ambulatory BMSBuilding:B [place] 8 8 [facility] Repository 09/02/2018 [id number] [place]ulatory [place] [facility] ing: Repository 09/01/2018/ [id number] Ambulatory [facility] 8 [facility] [place] 03/13/2018 [id number] Ambulatory [place] 6 [facility] ing:[facility] Repository 03/13/2018 [id number] Ambulatory BMSBuilding:W [place] 6 [facility] Repository 02/26/2018/ [id number] Ambulatory [facility] 8 [facility] [place] [place] 02/25/2018 [id number] Ambulatory [facility] 8 [facility] Repository 02/10/2018/ [id number] Ambulatory BMSBuilding:B [place] 8 1 [facility] Repository 02/09/2018 [id number] Ambulatory B[facility]Building:B [place] 1 [facility] Repository 02/06/2018 [id number] [facility] [place] [facility] [place] ing:PSN Repository 02/06/2018 [id number] Ambulatory BMSBuilding:W [place] [facility] Repository 02/04/2018 [id number] Ambulatory [place] [facility] [place] ing:PSN Repository 02/04/2018 [id number] Ambulatory BMSBuilding:W [place] [facility] Repository 01/17/2018 [id number] Ambulatory Jacinda [place] [facility] [place] ing:MFPLAB Repository PAYERS PAYERS ENCOUNTER GUARANTOR PAYER SUBSCRIBER SOURCE 10/22/2018 PEDRO LUIS SCHAEFER: Jacinda [id number] [place] Insurance:MEDICAL [id number] [facility] [address]Qgd: (330) Number: Repository [phone] () [id number] Date:4545-54-68DV [place] [id number]: 10/22/2018 Secondary NOT GIVENUNK Jacinda Insurance:SELF PAY [facility] Number: Effective Repository Date:2018-10-22 10/03/2018 PEDRO LUIS SCHAEFER: [place] [id number] [place] Insurance:MEDICAL [id number] [facility] [address]Tve: (330) Number: Repository [phone] () [id number] Date:0929-55-70NAChrist[place] [id number]: 10/03/2018 Secondary NOT GIVENUNK [place] Insurance:SELF PAY [facility] Number: Effective Repository Date:2018-10-03 10/02/2018 PEDRO LUIS SCHAEFER: Jacinda [id number] [place] Insurance:MEDICAL [id number] Wert County Hospital [address]Nqi: (330) Number: Repository [phone] () [id number] Date:7548-05-59BV [place] [id number]: 10/02/2018 Secondary NOT GIVENUNK Jacinda Insurance:SELF PAY [facility] Number: Effective Repository Date:2018-09-25 09/23/2018 PEDRO LUIS VASQUEZB: [place] [id number] [place] Insurance:MEDICAL [id number] Wert County Hospital [address]Fti: [phone]) Number: Repository [phone] () [id number] Date:5918-07-52XP [place] [id number]: 09/23/2018 Secondary NOT GIVENUNK [place] Insurance:SELF PAY [facility] Number: Effective Repository Date:2018-09-15 09/23/2018 PEDRO LUIS VASQUEZB: [place] [id number] [place] Insurance:MEDICAL [id number] Wert County Hospital [address]Wgx: (330) Number: Repository [phone] () [id number] Date:6587-45-62WJ [place] [id number]: 09/23/2018 Secondary NOT GIVENUNK [place] Insurance:SELF PAY [facility] Number: Effective Repository Date:2018-09-23 09/15/2018 PEDRO LUIS VASQUEZB: [place] [id number] [place] Insurance:MEDICAL [id number] [facility]ert [facility] Hospital [address]Qih: (330) Number: Repository [phone] () [id number] Date:3060-36-18DS [address] [address]UE: 09/15/2018 Secondary NOT GIVENUNK Jac[place] Insurance:SELF PAY [facility] Number: Effective Repository Date:2018-09-15 09/02/2018 PEDRO LUIS VASQUEZB: Jacinda [id number] [place] Insurance:MEDICAL [id number] [facility] Hospital [address]Xng: [phone]) Number: Repository [phone] () [id number] Date:8872-26-88LL [address] [address]KU: 09/02/2018 Secondary NOT GIVENUNK [place] Insurance:SELF PAY [facility] Number: Effective Repository Date:2018-09-01 09/01/2018 PEDRO LUIS Escobar Primary ERIKA VASQUEZB: Jacinda [id number] [place] Insurance:MEDICAL [id number] [place] [address]Tel: [phone]) Number: Repository [phone] () [id number] Date:7634-72-96UL [place] [id number]: 09/01/2018 Secondary NOT GIVENUNK Jacinda Insurance:SELF PAY [facility] Number: Effective Repository Date:2018-08-25 03/13/2018 PEDRO LUIS Escobar Primary ERIKA VASQUEZB: [place] [id number] [place] Insurance:MEDICAL [id number] [place]ille [address]Tel: (330) Number: Repository [phone] () [id number] Date:1657-85-25LX [place] [id number]: 03/13/2018 Secondary NOT GIVENUNK [place] Insurance:SELF PAY [facility] Number: Effective Repository Date:2018-02-10 03/13/2018 PEDRO LUIS Escobar Primary ERIKA VASQUEZB: [place] [id number] [place] Insurance:MEDICAL [id number] [place] [address]Tel: (330) Number: Repository [phone] () [id number] Date:9027-48-31NG [place] [id number]: 03/13/2018 Secondary NOT GIVENUNK [place] Insurance:SELF PAY [facility] Number: Effective Repository Date:2018-03-13 02/26/2018 PEDRO LUIS Escobar Primary ERIKA VASQUEZB: Jacinda [id number] [place] Insurance:MEDICAL [id number] Wert County Hospital [address]Dqt: (330) Number: Repository [phone] () [id number] Date:9846-73-26FF [address] [place] [address]NB: 02/26/2018 Secondary NOT GIVENUNK [place] Insurance:SELF PAY [facility] Number: Effective Repository Date:2018-02-24 02/25/2018 PEDRO LUIS Escobar Primary ERIKA KEARNEYDOB: Jacinda [id number] [place] Insurance:MEDICAL [id number] Wert County Hospital [address]Uky: [phone]) Number: Repository [phone] () [id number] Date:5544-48-63XG [place] [id number]: 02/25/2018 Secondary NOT GIVENUNK [place] Insurance:SELF PAY [facility] Number: Effective Repository Date:2018-02-25 02/10/2018 PEDRO LUIS Escobar Primary ERIKA KEARNEYDOB: Jacinda [id number] [place] Insurance:MEDICAL [id number] Wert County Hospital [address]Ylt: (330) Number: Repository [phone] () [id number] Date:0464-36-45ME [address] [address]NO: 02/10/2018 Secondary NOT GIVENUNK [place] Insurance:SELF PAY [facility] Number: Effective Repository Date:2017-11-04 02/09/2018 Pedro Luis Escobar Primary ERIKA VASQUEZB: [place] [id number] [place] Insurance:MEDICAL [id number] County Hospital [address]Nlv: (330) Number: Repository [phone] () [id number] Date:6434-89-72KL [address] [place] [address]KR: 02/09/2018 Secondary NOT GIVENUNK [place] Insurance:SELF PAY [facility] Number: Effective Repository Date:2018-02-09 02/06/2018 Pedro Luis Escobar Primary ERIKA VASQUEZB: [place] [id number] [place] Insurance:MEDICAL [id number] County Hospital [address]Lge: (330) Number: Repository [phone] () [id number] Date:0568-18-66LH [place] [id number]: 02/06/2018 Secondary NOT GIVENUNK [place] Insurance:SELF PAY [facility] Number: Effective Repository Date:2017-08-27 02/06/2018 PEDRO LUIS Escobar Primary ERIKA VASQUEZB: [place] [id number] [place] Insurance:MEDICAL [id number] Wert County Hospital [address]Vnv: (330) Number: Repository [phone] () [id number] Date:1508-31-49JQ [place] [id number]: 02/06/2018 Secondary NOT GIVENUNK Jac[place] Insurance:SELF PAY [facility] Number: Effective Repository Date:2018-02-06 02/04/2018 Pedro Luis Escobar Primary ERIKA VASQUEZB: Jacinda [id number] [place] Insurance:MEDICAL [id number] County Hospital [address]Kew: (330) Number: Repository [phone] () [id number] Date:1227-31-39KX [place] [id number]: 02/04/2018 Secondary NOT GIVENUNK Jac[place] Insurance:SELF PAY [facility] Number: Effective Repository Date:2017-08-27 02/04/2018 PEDRO LUIS Escobar Primary ERIKA VASQUEZB: Jacinda [id number] [place] Insurance:MEDICAL [id number] Wert County Hospital [address]Bug: (330) Number: Repository [phone] () [id number] Date:1243-12-97AL [place] [id number]: 02/04/2018 Secondary NOT GIVENUNK Jac[place] Insurance:SELF PAY [facility] Number: Effective Repository Date:2018-02-04 01/17/2018 Pedro Luis SCHAEFER: Jacinda [id number] [place] Insurance:MEDICAL [id number] [facility] [address]Jaf: (330) Number: Repository [phone] () [id number] Date:9351-31-59RF [address], [place] [address]MR: 01/17/2018 Secondary NOT GIVENUNK [place] Insurance:SELF PAY [facility] Number: Effective Repository Date:2018-01-17
== END ==
PROVIDERS: Family Provider Family Medicine; PCP Family Medicine; Referring Provider Family Medicine; Visit Provider Family Medicine
DX: R07.81 Pleurodynia (principal)
CPT/HCPCS: 71101

== ENCOUNTER → 2019-01-12 09:05 | Outpatient (CLI) | payer OTHER, SELFPAY ==
[2019-01-12 10:43] LABS: ALB/GLOB Ratio 1.1 RATIO (0.9-2.4); AST(SGOT) 19 U/L (15-37); Alanine Aminotransfer ALT/SGPT 31 U/L (16-61); Albumin, Serum 4.1 g/dL (3.2-5.0); Alkaline Phosphatase 82 U/L (45-117); Anion Gap 10 (5-15); BUN 17 mg/dL (7-18); BUN/Creat Ratio 21.3 RATIO (10-20); Chloride 103 mmol/L (98-107); Cholesterol 173 mg/dL (200); EST Glomerular Filtration Rate 107 mL/min (>60); Est Glom Filt Rate - Afr Amer 130 mL/min (>60); Globulin 3.8 g/dL (2.2-4.2); Glucose 93 mg/dL (74-106); High Density Lipoprotein 38 mg/dL; Protein, Total 7.9 g/dL (6.4-8.2); Sodium Level 139 mmol/L (136-145); Thyroid Stim Hormone (TSH) 0.43 uIU/mL (0.358-3.74); Triglycerides 198 mg/dL; Very Low Density Lipoprotein 40 mg/dL (5-40)
[2019-01-12 11:14] LABS: Hematocrit 46.1 % (40-54); Hemoglobin 15.7 g/dl (13.0-16.5); Mean Corp Hgb Conc 34.1 g/gl (32-36); Mean Corpuscular Hgb 29.2 pg (27.0-32.0); Mean Corpuscular Volume 85.7 fL (80-94); Mean Platelet Vol. 10.8 fl (6.2-12.0); Platelet Count 163 K/mm3 (150-450); RBC Distribution Width CV 13.2 % (11.6-14.6); RBC Distribution Width SD 40.9 fl (35.1-43.9); Red Blood Count 5.38 M/mm3 (4.6-6.2); White Blood Count 6.3 K/mm3 (4.4-11.0)
[2019-01-12 11:15] LABS: Scan Indicated on CBC? Y/N NO
[2019-01-12 11:45] LABS: BNP,B-Type NATRIURETIC PEPTIDE 9.1 pg/mL (0-100)
== END ==
PROVIDERS: Family Provider Family Medicine; PCP Family Medicine; Visit Provider Family Medicine
DX: E11.9 Type 2 diabetes mellitus without complications (principal); E78.5 Hyperlipidemia, unspecified; I50.9 Heart failure, unspecified
CPT/HCPCS: 36415; 80053; 80061; 83880; 84403; 84443; 85027

== ENCOUNTER 2019-01-16 09:43 | Emergency (ER) | payer OTHER, SELFPAY ==
[2019-01-16 09:44] VITALS: BP 132/77; PULSE 75; RESP 20; TEMP 37.9; O2SAT 94; BMI 39.9
--- NOTE | 2019-01-16 09:55 | RAD_ITS ---
STUDY: X-RAY CHEST REASON FOR EXAM: Male, 53 years old. Wheezing and body aches TECHNIQUE: PA and lateral views of the chest. COMPARISON: 10/22/2018 FINDINGS: The lungs are clear and expanded. There is no demonstrated pleural abnormality. Normal size heart. Normal mediastinum and jaret. Normal visualized pulmonary arteries. Normal visualized aortic arch and descending thoracic aorta. Normal visualized thoracic spine. Normal visualized ribs, clavicles, and shoulders. There is no demonstrated abnormality of the visualized soft tissue structures of the upper abdomen. RAD/Chest PA and Lateral IMPRESSION: Normal x-ray examination of the chest. Electronically Signed: Donn Bill DO at 11:09 EST Tel , Service support ,
--- NOTE | 2019-01-16 09:55 | EKG12_ITS ---
Test Reason : SOB Blood Pressure : / mmHG Vent. Rate : 076 BPM Atrial Rate : 076 BPM P-R Int : 130 ms QRS Dur : 102 ms QT Int : 390 ms P-R-T Axes : 063 -02 056 degrees QTc Int : 438 ms Normal sinus rhythm Normal ECG Confirmed by MARCO ANTONIO MARTINEZ, LYNDSAY ([id number]), sports editor SHARAN GUERRIER ([id number]) on 01/20/2019 4:40:20 PM Referred By: SUMAYA Confirmed By:LYNDSAY BERNARD MD
--- NOTE | 2019-01-16 09:59 | ED.DCSUM_ITS ---
- ER Visit Summary Date of Service: 01/16/19 Chief Complaint: Cough, shortness of breath, nausea, diarrhea History of Present Illness: The patient is a 53 M with cough, congestion, fever, myalgias. Symptoms began about 36 hours ago. He states that he had a mild sore throat nasal congestion. The past 24 hours, he had worsening cough, fevers, chills, myalgias. He had 2 episodes of loose watery diarrhea. The patient is concerned because he does have a history of congestive heart failure. He states he was diagnosed with pneumonia before but they found that it was his heart. He denies any chest pain. He denies orthopnea. He denies any weight gain. He is been compliant with his medications. He did get a flu shot this year. Physical Examination: Vital signs reviewed General: Well-nourished, well-developed Head: Normocephalic, atraumatic Eyes: Pupils equal and reactive, extraocular muscles intact Neck, supple, no lymphadenopathy Heart: Regular rate and rhythm Respiratory: No distress, clear bilaterally Abdomen: Soft, nontender, nondistended, no peritoneal signs Back: Nontender Extremities: Nontender, no edema, no cords Skin: Normal color no rash Neuro: Alert and oriented, no focal or lateralizing deficits Test Results: [] Emergency Department Course and Treatment: The patient symptoms did seem most consistent with influenza. No focal change in lung sounds, but did have a scant wheeze. He was given nebulized breathing treatments and Tylenol. His rapid flu was positive. Chest x-ray shows no focal infiltrate. Treatments his aeration is improved. The patient does have oxygen at home. He was ambulated without oxygen. Saturations remained greater than 92% without tachypnea. He was also given Tamiflu. At this time, I do feel the patient is safe for outpatient therapy. He will be continued on prednisone and Tamiflu at home. He also has his inhaler. I did developmental training counselor him concerning symptoms and reasons to return. He wants to attempt outpatient management I feel this is reasonable. The patient will be discharged. Treatment Plan: [] Disposition: Discharge Impression: 1. Influenza This note was generated with [employer] software. It may contain incorrect words, spelling, and punctuation that were not noted in review of the chart prior to signing ED Disposition - Plan for ED Patient: Instructions: ED Flu Prescriptions: Prednisone [Deltasone] 40 mg PO DAILY #10 tab Oseltamivir Phosphate [Tamiflu] 75 mg PO BID #10 cap Referrals: Abdifatah Hong MD [Primary Care Provider] -
[2019-01-16] MEDS: Ipratropium/Albuterol Sulfate 3 ML AMPUL.NEB INHALATION (10:15)
[2019-01-16] MEDS: Ondansetron 4 MG/2 ML Vial IV (10:24)
[2019-01-16] MEDS: Acetaminophen 500 MG Tablet 1000 MG PO (10:24)
[2019-01-16 10:28] VITALS: O2SAT 88
[2019-01-16 10:32] LABS: Absolute Lymphocyte Count 0.79 X10^3/ul (0.83-4.51); Absolute Neutrophil Count 3.3 X10^3/uL (2.0-7.7); Basophil# 0.01 X10^3/uL; Basophil% 0.2 % (0-1); Eosinophil# 0.03 X10^3/uL; Eosinophils% 0.6 % (0-5); Hematocrit 43.4 % (40-54); Lymphocyte # 0.79 X10^3/ul (4.0); Lymphocyte % 16.9 % (19-41); Mean Corp Hgb Conc 32.3 g/gl (32-36); Mean Corpuscular Hgb 27.7 pg (27.0-32.0); Mean Corpuscular Volume 85.8 fL (80-94); Mean Platelet Vol. 10.1 fl (6.2-12.0); Monocyte# 0.58 X10^3/uL; Monocyte% 12.4 % (0-10); Neutrophil # 3.25 X10^3/uL (2.7-7.7); Neutrophil % 69.7 % (47-70); Platelet Count 145 K/mm3 (150-450); RBC Distribution Width CV 13.5 % (11.6-14.6); RBC Distribution Width SD 41.6 fl (35.1-43.9); Red Blood Count 5.06 M/mm3 (4.6-6.2); White Blood Count 4.7 K/mm3 (4.4-11.0)
[2019-01-16 10:33] LABS: POSITIVE COUNT NO; POSITIVE DIFFERENTIAL NO; POSITIVE MORPHOLOGY NO
[2019-01-16 10:51] LABS: ALB/GLOB Ratio 0.9 RATIO (0.9-2.4); AST(SGOT) 20 U/L (15-37); Alanine Aminotransfer ALT/SGPT 27 U/L (16-61); Albumin, Serum 3.7 g/dL (3.2-5.0); Alkaline Phosphatase 76 U/L (45-117); Anion Gap 6 (5-15); BUN 16 mg/dL (7-18); BUN/Creat Ratio 18.2 RATIO (10-20); Calcium,Total 8.5 mg/dL (8.5-10.1); Chloride 105 mmol/L (98-107); Creatinine, Serum 0.88 mg/dL (0.70-1.30); EST Glomerular Filtration Rate 96 mL/min (>60); Est Glom Filt Rate - Afr Amer 116 mL/min (>60); Estimated Creatinine Clearance 95.96 ml/min; Globulin 3.9 g/dL (2.2-4.2); Glucose 107 mg/dL (74-106); Potassium 3.9 mmol/L (3.5-5.1); Protein, Total 7.6 g/dL (6.4-8.2); Sodium Level 136 mmol/L (136-145)
[2019-01-16 11:26] VITALS: BP 130/57; PULSE 82; RESP 17; O2SAT 94; O2SAT 95
[2019-01-16] MEDS: Oseltamivir Phosphate 75 MG Capsule PO (11:31)
== END 2019-01-16 11:32 | disposition home or self-care (01) ==
PROVIDERS: Emergency Provider Emergency Medicine; Family Provider Family Medicine; PCP Family Medicine
DX: J11.1 Influenza due to unidentified influenza virus with other respiratory manifestations (principal); I50.9 Heart failure, unspecified; Z72.0 Tobacco use
CPT/HCPCS: 71046; 80053; 84484; 85025; 87804; 93005; 96374; 99285; A4216; J2405

== ENCOUNTER → 2019-03-10 06:51 | Outpatient (CLI) | payer OTHER, SELFPAY ==
--- NOTE | 2019-03-10 13:48 | PFTCOMP_ITS ---
COMPLETE PULMONARY FUNCTION TEST INTERPRETATION Brief HPI: Patient is a 54 year old male, currently under the care of Reena Brooks, who presents to [facility] for complete pulmonary function tests secondary to diagnosis of dyspnea. Respiratory therapist reports good effort and reproducible results. Interpretation: Forced expiration spirometry shows no large airways obstructive ventilatory defect with an FEV1 of 74% predicted. There is no significant bronchodilator response by strict ATS criteria. Spirograms are of good quality and plateau normally. The respiratory flow volume loop shows a normal pattern. Lung volumes by body plethysmography show a normal total lung capacity at 6.12 L, 94% predicted. All other lung volumes are within normal limits. Diffusion capacity by carbon monoxide is normal at 101% predicted. The airway resistance is elevated. Compared to previous pulmonary function tests from 02/04/2018, there has been a significant improvement in TLC and DLCO by 13% and 17% respectively. Impression: These pulmonary function tests are within normal limits. There has been significant improvement compared to 2018.
== END ==
PROVIDERS: Family Provider Family Medicine; PCP Family Medicine; Referring Provider Nurse Practitioner Acute Care; Visit Provider Nurse Practitioner Acute Care
DX: R06.00 Dyspnea, unspecified (principal)
CPT/HCPCS: 94060; 94726; 94729

== ENCOUNTER → 2019-04-07 08:00 | Outpatient (CLI) | payer OTHER, SELFPAY ==
[2019-03-26 07:39] VITALS: BMI 39.9
[2019-04-07 09:16] VITALS: PULSE 78; PULSE 79; PULSE 81; PULSE 85; PULSE 86; PULSE 87; O2SAT 95; O2SAT 96
--- NOTE | 2019-04-07 11:37 | WT_ITS ---
PSN 6 Minute Walk Test - 6 Minute Walk Test 6 Minute Walk Test: 6 Minute Walk Test PSN:6-Minute Walk Test Start: 04/07/19 09:16 Freq: Status: Active Protocol: RESP.6MINW Document 04/07/19 09:16 [facility] (Rec: 04/07/19 09:18 [facility] [id number]) 6 Minute Walk Test Date Performed 04/07/19 Time Performed 08:10 Height 5 ft 9 in Weight: 122.47 kg Weight in Pounds 270.[address]: Alfredo Arias Assistive device used: None Pre-test Oxygen Delivery Method Room Air Pulse Ox (%) 96 Pulse Rate (60-100 beats/min) 79 Dyspnea Sole Scale (0-10) 0 Exertion Sole Scale (6-20) 11 1st minute Oxygen Delivery Method Room Air Pulse Ox (%) 96 Pulse Rate (60-100 beats/min) 86 2nd minute Oxygen Delivery Method Room Air Pulse Ox (%) 95 Pulse Rate (60-100 beats/min) 85 3rd minute Oxygen Delivery Method Room Air Pulse Ox (%) 96 Pulse Rate (60-100 beats/min) 78 4th minute Oxygen Delivery Method Room Air Pulse Ox (%) 95 Pulse Rate (60-100 beats/min) 87 5th minute Oxygen Delivery Method Room Air Pulse Ox (%) 96 Pulse Rate (60-100 beats/min) 86 6th minute Oxygen Delivery Method Room Air Pulse Ox (%) 96 Pulse Rate (60-100 beats/min) 85 Post-test Oxygen Delivery Method Room Air Pulse Ox (%) 96 Pulse Rate (60-100 beats/min) 81 Dyspnea Sole Scale (0-10) 0 Exertion Sole Scale (6-20) 12 Full Laps Walked 18 Partial Lap, Number of Tiles Walked 25 Total Distance Walked (ft) 1087 - Interpretation Interpretation: Patient is able to ambulate 1087 feet over the course of 6 minutes on room air with no assistive devices or breaks. The patient experienced no significant desaturation or tachycardia during testing. These findings are consistent with a musculoskeletal limitation exercise tolerance. - Recommendations Recommendations: No supplemental oxygen is indicated at this time.
== END ==
PROVIDERS: Family Provider Family Medicine; PCP Family Medicine; Referring Provider Internal Medicine Critical Care Medicine; Visit Provider Internal Medicine Critical Care Medicine
DX: J98.4 Other disorders of lung (principal)
CPT/HCPCS: 94618

== ENCOUNTER → 2019-12-25 06:02 | Outpatient (CLI) | payer MEDICARE, SELFPAY ==
[2019-11-03 06:40] VITALS: BMI 40.4
[2019-12-25 07:30] LABS: Hematocrit 47.8 % (40-54); Hemoglobin 15.2 g/dL (13.0-16.5); Mean Corp Hgb Conc 31.8 g/dL (32-36); Mean Corpuscular Hgb 27.4 pg (27.0-32.0); Mean Corpuscular Volume 86.3 fL (80-94); Mean Platelet Vol. 10.5 fl (6.2-12.0); Platelet Count 155 K/mm3 (150-450); RBC Distribution Width CV 12.9 % (11.6-14.6); RBC Distribution Width SD 40.3 fl (35.1-43.9); Red Blood Count 5.54 M/mm3 (4.6-6.2); White Blood Count 6.2 K/mm3 (4.4-11.0)
[2019-12-25 07:59] LABS: AST(SGOT) 16 U/L (15-37); Alanine Aminotransfer ALT/SGPT 39 U/L (16-61); Albumin, Serum 3.8 g/dL (3.2-5.0); Alkaline Phosphatase 74 U/L (45-117); Anion Gap 2 (5-15); BUN 21 mg/dL (7-18); BUN/Creat Ratio 24.8 RATIO (10-20); Calcium,Total 9.2 mg/dL (8.5-10.1); Chloride 110 mmol/L (98-107); Cholesterol 194 mg/dL (200); Creatinine, Serum 0.85 mg/dL (0.70-1.30); EST Glomerular Filtration Rate 100 mL/min (>60); Est Glom Filt Rate - Afr Amer 121 mL/min (>60); Globulin 3.7 g/dL (2.2-4.2); Glucose 97 mg/dL (74-106); High Density Lipoprotein 41 mg/dL; PSA,Total - Annual Screen 0.13 ng/mL (0.00-4.00); Potassium 4.2 mmol/L (3.5-5.1); Protein, Total 7.5 g/dL (6.4-8.2); Sodium Level 141 mmol/L (136-145); Thyroid Stim Hormone (TSH) 1.03 uIU/mL (0.358-3.74); Triglycerides 181 mg/dL; Very Low Density Lipoprotein 36 mg/dL (5-40)
[2019-12-25 10:12] LABS: BNP,B-Type NATRIURETIC PEPTIDE 8.9 pg/mL (0-100)
== END ==
PROVIDERS: PCP Family Medicine; Referring Provider Family Medicine; Visit Provider Family Medicine
DX: Z00.00 Encounter for general adult medical examination without abnormal findings (principal); I50.9 Heart failure, unspecified; E11.9 Type 2 diabetes mellitus without complications; Z12.5 Encounter for screening for malignant neoplasm of prostate
CPT/HCPCS: 36415; 80053; 80061; 83880; 84153; 84403; 84443; 85027; G0103

== ENCOUNTER → 2020-01-07 06:27 | Outpatient (CLI) | payer MEDICARE, SELFPAY ==
[2019-11-03 06:40] VITALS: BMI 40.4
--- NOTE | 2020-01-07 06:29 | CT_ITS ---
STUDY: LOW DOSE CT LUNG CANCER SCREENING REASON FOR EXAM: Male, 54 years old. TOBACCO ABUSE, 1.5 PPD X 40 YRS, RM=138, HX-CHF RADIATION DOSAGE (If Supplied By Facility): CTDIvol = ( 4.02 ) mGy, DLP = ( 131.9 ) mGycm TECHNIQUE: No contrast was administered. Low dose technique was utilized (average mAS-38 and kVp 120). 1.25 mm axial source images with a slice interval of 1.25-mm were reconstructed in lung windows. 2.5 mm axial source images with a slice interval of 2.5-mm were reconstructed in lung windows. 5.0 mm axial source images with a slice interval of 5.0-mm were reconstructed in soft tissue windows. Nodule measured using lung windows on PACS and/or independent workstation with automated measurement of minimum and maximum diameter. Nodule measurement reported as average diameter rounded to the nearest whole number. Growth is defined as an increase ins size of greater than 1.5 mm. COMPARISON: CTA chest 06/22/2017. Findings: Heart and great vessels: Heart size upper normal. No aneurysm of the thoracic aorta. Coronary artery atherosclerosis. Lungs, pleura: No pneumonia, edema, or acute abnormality in the lungs. No pleural effusion. No pneumothorax. Coronary artery atherosclerosis. Mediastinum: No adenopathy or mass or hematoma. Osseous:No fracture or acute osseous abnormality. Degenerative changes thoracic spine and mild S-shaped scoliosis. Chest wall: No concerning findings. Upper abdomen: No acute findings. CT/Low Dose CT Lung Screening IMPRESSION: No acute findings. No nodules. Lung RADS 1. Continued annual screening suggested. IMPORTANT NOTES FOR USE: ACR Lung-RADS Version 1.0 Assessment Categories Release Date: March 22, 2014 Category: Coded 0-4 bases on nodule(s) with highest degree of suspicion. Negative screen is defined as categories 1 and 2; a positive screen is defined as categories 3 and 4. Category 3 and 4A nodules that are unchanged on interval CT should be coded as category 2, and individuals returned to screening in 12 months. Category 4X: Category 3 or 4 nodules with additional imaging findings that increase the suspicion of lung cancer, such as spiculation, GGN that doubles in size in 1 year, enlarged lymph notes, etc. Category Modifiers: S (significant finding unrelated to lung cancer) and C (prior history of treated lung cancer) may be added to the 0-4 Lung-RADS Electronically Signed: Conner Hernandez, at 7:54 EST Tel , Service support ,
== END ==
PROVIDERS: PCP Family Medicine; Referring Provider Family Medicine; Visit Provider Family Medicine
DX: F17.210 Nicotine dependence, cigarettes, uncomplicated (principal)
CPT/HCPCS: G0297

== ENCOUNTER → 2020-04-26 07:40 | Outpatient (CLI) | payer MEDICARE, SELFPAY ==
[2020-04-07 09:27] VITALS: BMI 42.0
--- NOTE | 2020-04-26 07:41 | ECHOCS_ITS ---
Reason For Study: PHTN Procedure This was a 2D Doppler, Color Flow transthoracic echocardiogram. The study was technically difficult. Contrast injection was performed. Exam performed in department. Left Ventricle Mild concentric left ventricular hypertrophy. The estimated ejection fraction is 55 %. Stage 2 diastolic dysfunction. No regional wall motion abnormalities noted. Right Ventricle Normal size and thickness. Normal systolic function. Atria The left atrium is moderately enlarged. The right atrium is moderately enlarged. Normal atrial septum. Mitral Valve The mitral valve is structurally normal. No prolapse or stenosis seen. Mild-Moderate (1-2+) eccentric mitral valve insufficiency. Tricuspid Valve Normal tricuspid valve. Mild (1+) tricuspid valve insufficiency. Right ventricular systolic pressure estimated to be 32 mmHg. Aortic Valve Trisinus/trileaflet aortic valve. Normal aortic valve. Pulmonic Valve Normal pulmonic valve. Great Vessels Normal aortic root. Normal arch. Normal inferior vena cava. Inferior vena cava collapse with sniff. Pericardium/Pleural No pericardial effusion. Medication 22 gauge I.V. with prn adaptor inserted into right arm. Diluted definity 3ml given slow IV push to enhance endocardial definition. MMode/2D Measurements & Calculations LVIDd: 5.5 cm IVSd: 1.4 cm Ao root diam: 3.8 cm LVIDs: 4.4 cm LVPWd: 1.3 cm LA dimension: 4.3 cm FS: 20.1 % LAV(MOD-bp): 96.1 ml LA A4 area: 27.1 cm2 RA A4 area: 23.8 cm2 LAV(MOD-bp) Indexed: 40.3 ml/m2 LAV(MOD-sp2): 87.8 ml LAV(MOD-sp4): 99.3 ml Time Measurements MV dec time: 0.25 sec Doppler Measurements & Calculations MV E max reece: 106.4 cm/sec Lat Peak E' Reece: 12.6 cm/sec Med Peak E' Reece: 8.5 cm/sec MV A max reece: 52.4 cm/sec E/E' lat: 8.5 E/E' med: 12.5 MV E/A: 2.0 MV V2 max: 109.8 cm/sec MV P1/2t max reece: 108.8 cm/sec Ao V2 max: 120.4 cm/sec MV max P.8 mmHg MV P1/2t: 128.3 msec Ao max P.8 mmHg MV V2 mean: 58.7 cm/sec MV dec slope: 248.5 cm/sec2 Ao V2 mean: 82.6 cm/sec MV mean P.6 mmHg Ao mean P.0 mmHg MV V2 VTI: 34.5 cm MVA(P1/2t): 1.7 cm2 Ao V2 VTI: 25.6 cm LV V1 max: 99.4 cm/sec PA V2 max: 94.4 cm/sec TR max reece: 261.1 cm/sec LV V1 max P.9 mmHg TR max P.3 mmHg LV V1 mean P.7 mmHg LV V1 mean: 57.5 cm/sec LV V1 VTI: 24.8 cm Interpretation Summary Mild concentric left ventricular hypertrophy. The estimated ejection fraction is 55 %. Stage 2 diastolic dysfunction. The left atrium is moderately enlarged. Mild-Moderate (1-2+) eccentric mitral valve insufficiency. Mild (1+) tricuspid valve insufficiency. Right ventricular systolic pressure estimated to be 32 mmHg. Compared to echo report dated 09/23/2018, LV function is about the same, patient now appears to have mild to moderate right regurgitation. RVSP is about the same. The study was technically difficult. Contrast injection was performed. Ordering Physician: Kamran Thornton Referring Physician: Kamran Thornton Performed By: Michael Olivera RCS
== END ==
PROVIDERS: PCP Family Medicine; Referring Provider Internal Medicine Cardiovascular Disease; Visit Provider Internal Medicine Cardiovascular Disease
DX: I27.21 Secondary pulmonary arterial hypertension (principal); G47.33 Obstructive sleep apnea (adult) (pediatric)
CPT/HCPCS: 93306; Q9957; A4216; C8929

== ENCOUNTER → 2020-09-26 05:55 | Outpatient (CLI) | payer MEDICARE, SELFPAY ==
[2020-05-16 12:36] VITALS: BMI 41.8
[2020-09-26 07:58] LABS: AST(SGOT) 18 U/L (15-37); Alanine Aminotransfer ALT/SGPT 38 U/L (16-61); Albumin, Serum 3.8 g/dL (3.2-5.0); Alkaline Phosphatase 80 U/L (45-117); Anion Gap 5 (5-15); BUN 15 mg/dL (7-18); BUN/Creat Ratio 18.5 RATIO (10-20); Bilirubin, Direct 0.16 mg/dL (0.00-0.30); Calcium,Total 9.1 mg/dL (8.5-10.1); Chloride 107 mmol/L (98-107); Cholesterol 181 mg/dL (200); Creatinine, Serum 0.81 mg/dL (0.70-1.30); EST Glomerular Filtration Rate 105 mL/min (>60); Est Glom Filt Rate - Afr Amer 127 mL/min (>60); Globulin 3.7 g/dL (2.2-4.2); Glucose 99 mg/dL (74-106); High Density Lipoprotein 39 mg/dL; Protein, Total 7.5 g/dL (6.4-8.2); Sodium Level 142 mmol/L (136-145); Triglycerides 191 mg/dL; Very Low Density Lipoprotein 38 mg/dL (5-40)
== END ==
PROVIDERS: PCP Family Medicine; Referring Provider Family Medicine; Visit Provider Family Medicine
DX: E11.9 Type 2 diabetes mellitus without complications (principal); E78.5 Hyperlipidemia, unspecified
CPT/HCPCS: 36415; 80053; 80061; 82248

== ENCOUNTER → 2021-01-20 07:27 | Outpatient (CLI) | payer MEDICARE, SELFPAY ==
[2020-11-15 06:33] VITALS: BMI 42.2
--- NOTE | 2021-01-20 07:29 | CT_ITS ---
STUDY: LOW DOSE CT LUNG CANCER SCREENING REASON FOR EXAM: Male, 55 years old. Tobacco Dependency, smokes average 2 packs/day x 40+ years. RADIATION DOSAGE (If Supplied By Facility): CTDIvol = ( 4.02 ) mGy, DLP = ( 140.44 ) mGycm TECHNIQUE: No contrast was administered. Low dose technique was utilized (average mAS-38 and kVp 120). 1.25 mm axial source images with a slice interval of 1.25-mm were reconstructed in lung windows. 2.5 mm axial source images with a slice interval of 2.5-mm were reconstructed in lung windows. 5.0 mm axial source images with a slice interval of 5.0-mm were reconstructed in soft tissue windows. Nodule measured using lung windows on PACS and/or independent workstation with automated measurement of minimum and maximum diameter. Nodule measurement reported as average diameter rounded to the nearest whole number. Growth is defined as an increase ins size of greater than 1.5 mm. COMPARISON: Comparison is made with prior examination dated 01/07/2020. NODULES: No nodules are seen. Emphysema: Minimal degree of increased linear markings at the lung bases suggestive of minimal scarring. Endobronchial lesion: None Aorta: Minimal atherosclerotic calcific plaque seen at the level of the aortic arch. Coronary arteries: Mild Coronary artery calcification. Heart: Unremarkable Pulmonary artery: Unremarkable Mediastinal nodes: Small benign-appearing mediastinal lymph nodes. Other chest and abdominal findings: CT/Low Dose CT Lung Screening IMPRESSION: Lung-RADS category 2 - Continue annual screening with LDCT in 12 months. IMPORTANT NOTES FOR USE: ACR Lung-RADS Version 1.0 Assessment Categories Release Date: March 22, 2014 Category: Coded 0-4 bases on nodule(s) with highest degree of suspicion. Negative screen is defined as categories 1 and 2; a positive screen is defined as categories 3 and 4. Category 3 and 4A nodules that are unchanged on interval CT should be coded as category 2, and individuals returned to screening in 12 months. Category 4X: Category 3 or 4 nodules with additional imaging findings that increase the suspicion of lung cancer, such as spiculation, GGN that doubles in size in 1 year, enlarged lymph notes, etc. Category Modifiers: S (significant finding unrelated to lung cancer) and C (prior history of treated lung cancer) may be added to the 0-4 Lung-RADS Electronically Signed: Denny Melendez MD at 9:17 EST , Service support ,
== END ==
PROVIDERS: PCP Family Medicine; Referring Provider Internal Medicine Critical Care Medicine; Visit Provider Internal Medicine Critical Care Medicine
DX: Z12.2 Encounter for screening for malignant neoplasm of respiratory organs (principal); F17.210 Nicotine dependence, cigarettes, uncomplicated
CPT/HCPCS: 71271

== ENCOUNTER → 2021-01-27 05:59 | Outpatient (CLI) | payer MEDICARE, SELFPAY ==
[2020-11-15 06:33] VITALS: BMI 42.2
[2021-01-27 08:03] LABS: ALB/GLOB Ratio 1.1 RATIO (0.9-2.4); AST(SGOT) 25 U/L (15-37); Alanine Aminotransfer ALT/SGPT 42 U/L (16-61); Albumin, Serum 3.8 g/dL (3.2-5.0); Alkaline Phosphatase 78 U/L (45-117); Anion Gap 3 (5-15); BUN 18 mg/dL (7-18); BUN/Creat Ratio 21.3 RATIO (10-20); Calcium,Total 8.7 mg/dL (8.5-10.1); Chloride 108 mmol/L (98-107); Cholesterol 189 mg/dL (200); Creatinine, Serum 0.85 mg/dL (0.70-1.30); EST Glomerular Filtration Rate 99 mL/min (>60); Est Glom Filt Rate - Afr Amer 120 mL/min (>60); Globulin 3.6 g/dL (2.2-4.2); Glucose 106 mg/dL (74-106); High Density Lipoprotein 36 mg/dL; PSA,Total - Annual Screen 0.84 ng/mL (0.00-4.00); Protein, Total 7.4 g/dL (6.4-8.2); Sodium Level 142 mmol/L (136-145); Thyroid Stim Hormone (TSH) 0.87 uIU/mL (0.358-3.74); Triglycerides 193 mg/dL; Very Low Density Lipoprotein 39 mg/dL (5-40)
== END ==
PROVIDERS: PCP Family Medicine; Referring Provider Family Medicine; Visit Provider Family Medicine
DX: E55.9 Vitamin D deficiency, unspecified (principal); E11.9 Type 2 diabetes mellitus without complications; Z12.5 Encounter for screening for malignant neoplasm of prostate
CPT/HCPCS: 36415; 80053; 80061; 82306; 84153; 84403; 84443; G0103

== ENCOUNTER → 2021-06-15 07:48 | Outpatient (CLI) | payer MEDICARE, SELFPAY ==
[2021-06-02 08:07] VITALS: BMI 41.6
--- NOTE | 2021-06-15 07:50 | VDLE_ITS ---
Reason For Study: pain Procedure LEFT This is a venous duplex using B-mode, color GSV is normal. flow and spectral Doppler. CFV is compressible, spontaneous, phasic, Exam performed in department. competent, and demonstrates normal The exam was abbreviated due to the COVID 19 augmentation. protocol. FV is compressible, spontaneous, phasic, The exam was of fair technical quality due competent and demonstrates normal to swelling and previous trauma. augmentation. A preliminary report was called and/or faxed POP V is compressible, spontaneous, phasic, to Dr. aJved. competent and demonstrates normal augmentation. T/P Trunk is compressible. PTV is compressible. LT PerV is compressible. VL/Venous Duplex US, Unilateral Interpretation Summary Deep veins of the left lower extremity are patent and compressible segmentally. There is no evidence of left lower extremity deep vein thrombosis. Valvular competence appears intac t within the proximal deep venous system on the left . The left great saphenous vein appears patent a nd compressible segmentally. Ordering Physician: Adolfo Javed Performed By: Edgar Palencia RVT and Student
== END ==
PROVIDERS: PCP Family Medicine; Referring Provider Specialist; Visit Provider Specialist
DX: M79.662 Pain in left lower leg (principal)
CPT/HCPCS: 93971

== ENCOUNTER → 2021-08-17 10:32 | Outpatient (CLI) | payer MEDICARE, SELFPAY ==
--- NOTE | 2021-08-17 10:34 | VDLE_ITS ---
Reason For Study: edema Procedure LEFT This is a venous duplex using B-mode, color GSV is normal. flow and spectral Doppler. CFV is compressible, spontaneous, phasic, Exam performed in department. competent, and demonstrates normal The exam was abbreviated due to the COVID 19 augmentation. protocol. FV is compressible, spontaneous, phasic, The exam was diagnostic. competent and demonstrates normal A preliminary report was called and/or faxed augmentation. to Dr. Hong. POP V is compressible, spontaneous, phasic, competent and demonstrates normal augmentation. T/P Trunk is compressible. PTV is compressible. LT PerV is compressible. VL/Venous Duplex US, Unilateral Interpretation Summary There is no evidence of left lower extremity deep vein thrombosis. Left great s aphenous vein appears patent and compressible segmentally. Abbreviated COVID-19 protocol Ordering Physician: Abdifatah Hong Performed By: Pedro Palencia RVT
== END ==
PROVIDERS: PCP Family Medicine; Referring Provider Family Medicine; Visit Provider Family Medicine
DX: R60.0 Localized edema (principal)
CPT/HCPCS: 93971

== ENCOUNTER → 2021-08-21 10:59 | Outpatient (CLI) | payer MEDICARE, SELFPAY ==
[2021-08-21 12:33] LABS: Anion Gap 3 (5-15); BUN 15 mg/dL (7-18); BUN/Creat Ratio 19.9 RATIO (10-20); Calcium,Total 9.4 mg/dL (8.5-10.1); Chloride 104 mmol/L (98-107); Creatinine, Serum 0.75 mg/dL (0.70-1.30); EST Glomerular Filtration Rate 113 mL/min (>60); Est Glom Filt Rate - Afr Amer 137 mL/min (>60); Glucose 120 mg/dL (74-106); Potassium 3.8 mmol/L (3.5-5.1); Sodium Level 139 mmol/L (136-145)
== END ==
PROVIDERS: PCP Family Medicine; Visit Provider Family Medicine
DX: R60.9 Edema, unspecified (principal)
CPT/HCPCS: 36415; 80048

== ENCOUNTER → 2021-10-02 17:57 | Outpatient (CLI) | payer MEDICARE, SELFPAY | PROVIDERS: PCP Family Medicine; Visit Provider Family Medicine | DX: Z20.822 Contact with and (suspected) exposure to COVID-19 (principal) | CPT/HCPCS: 87635; U0005; U0003 ==

== ENCOUNTER 2021-12-06 10:31 | Outpatient (CLI) | payer MEDICARE, SELFPAY ==
[2021-12-06 11:38] LABS: Erythrocyte Sedimentation Rate 19 mm/hr (0-20)
[2021-12-06 11:39] LABS: Absolute Neutrophil Count 3.8 X10^3/uL (2.0-7.7); Basophil# 0.01 X10^3/uL; Basophil% 0.1 % (0-1); Eosinophil# 0.17 X10^3/uL; Eosinophils% 2.5 % (0-5); Hematocrit 44.4 % (40-54); Hemoglobin 14.2 g/dL (13.0-16.5); Lymphocyte % 32.6 % (19-41); Mean Corpuscular Hgb 26.7 pg (27.0-32.0); Mean Corpuscular Volume 83.6 fL (80-94); Mean Platelet Vol. 10.4 fl (6.2-12.0); Monocyte# 0.51 X10^3/uL; Monocyte% 7.6 % (0-10); NRBC Flagged by Analyzer 0 % (0-5); Neutrophil # 3.82 X10^3/uL (2.7-7.7); Neutrophil % 56.8 % (47-70); Platelet Count 192 K/mm3 (150-450); RBC Distribution Width CV 13.4 % (11.6-14.6); Red Blood Count 5.31 M/mm3 (4.6-6.2); White Blood Count 6.7 K/mm3 (4.4-11.0)
== END 2021-12-06 23:59 | disposition short-term general hospital (02) ==
LOC: LAB 10:36
PROVIDERS: PCP Family Medicine; Referring Provider Specialist; Visit Provider Specialist
DX: Z96.652 Presence of left artificial knee joint (principal)
CPT/HCPCS: 36415; 85025; 85652; 86140

== ENCOUNTER 2022-01-03 05:59 | Outpatient (CLI) | payer MEDICARE, SELFPAY ==
[2022-01-03 07:04] LABS: Hematocrit 47.6 % (40-54); Hemoglobin 15.7 g/dL (13.0-16.5); Mean Corpuscular Hgb 27.8 pg (27.0-32.0); Mean Corpuscular Volume 84.4 fL (80-94); Mean Platelet Vol. 10.8 fl (6.2-12.0); Platelet Count 157 K/mm3 (150-450); RBC Distribution Width CV 13.3 % (11.6-14.6); RBC Distribution Width SD 41.2 fl (35.1-43.9); Red Blood Count 5.64 M/mm3 (4.6-6.2); White Blood Count 5.7 K/mm3 (4.4-11.0)
[2022-01-03 07:37] LABS: Anion Gap 4 (5-15); BUN 17 mg/dL (7-18); BUN/Creat Ratio 22.1 RATIO (10-20); Calcium,Total 9.4 mg/dL (8.5-10.1); Chloride 103 mmol/L (98-107); Creatinine, Serum 0.77 mg/dL (0.70-1.30); EST Glomerular Filtration Rate 110 mL/min (>60); Est Glom Filt Rate - Afr Amer 134 mL/min (>60); Glucose 105 mg/dL (74-106); Potassium 4.1 mmol/L (3.5-5.1); Sodium Level 138 mmol/L (136-145)
[2022-01-03 07:39] LABS: Cholesterol 164 mg/dL (200); High Density Lipoprotein 41 mg/dL; Triglycerides 128 mg/dL; Very Low Density Lipoprotein 26 mg/dL (5-40)
[2022-01-03 10:00] LABS: BNP,B-Type NATRIURETIC PEPTIDE 18.2 pg/mL (0-100)
== END 2022-01-03 23:59 | disposition home or self-care (01) ==
LOC: LAB 06:01
PROVIDERS: Nurse Practitioner Family; PCP Family Medicine; Referring Provider Family Medicine; Visit Provider Family Medicine
DX: I11.0 Hypertensive heart disease with heart failure (principal); I50.32 Chronic diastolic (congestive) heart failure; R60.0 Localized edema; R06.00 Dyspnea, unspecified; E78.5 Hyperlipidemia, unspecified
CPT/HCPCS: 36415; 80048; 80061; 83880; 85027

== ENCOUNTER 2022-01-16 07:38 | Outpatient (CLI) | payer MEDICARE, SELFPAY ==
[2022-01-16 08:11] VITALS: PULSE 100; PULSE 84; PULSE 91; PULSE 92; PULSE 93; PULSE 94; PULSE 95; PULSE 97; O2SAT 94; O2SAT 95; O2SAT 96; O2SAT 97; O2SAT 98
--- NOTE | 2022-01-17 10:31 | WT_ITS ---
PSN 6 Minute Walk Test 6 Minute Walk Test 6 Minute Walk Test: 6 Minute Walk Test PSN:6-Minute Walk Test Start: 01/16/22 08:10 Freq: Status: Active Protocol: [id number] Document 01/16/22 08:11 URIEL (Rec: 01/16/22 08:13 URIEL [id number]) 6 Minute Walk Test Date Performed 01/16/22 Time Performed 08:00 Height 5 ft 9 in Weight: 135.171 kg Weight in Pounds 298.[address]: Reena Brooks [employer] Assistive device used: None Pre-test Oxygen Delivery Method Room Air Pulse Ox (%) 97 Pulse Rate (60-100 beats/min) 92 Dyspnea Sole Scale (0-10) 0 Exertion Sole Scale (6-20) 6 1st minute Oxygen Delivery Method Room Air Pulse Ox (%) 96 Pulse Rate (60-100 beats/min) 93 2nd minute Oxygen Delivery Method Room Air Pulse Ox (%) 94 Pulse Rate (60-100 beats/min) 97 3rd minute Oxygen Delivery Method Room Air Pulse Ox (%) 95 Pulse Rate (60-100 beats/min) 95 4th minute Oxygen Delivery Method Room Air Pulse Ox (%) 96 Pulse Rate (60-100 beats/min) 91 5th minute Oxygen Delivery Method Room Air Pulse Ox (%) 97 Pulse Rate (60-100 beats/min) 94 6th minute Oxygen Delivery Method Room Air Pulse Ox (%) 97 Pulse Rate (60-100 beats/min) 100 Dyspnea Sole Scale (0-10) 0 Exertion Sole Scale (6-20) 11 Post-test Oxygen Delivery Method Room Air Pulse Ox (%) 98 Pulse Rate (60-100 beats/min) 84 Full Laps Walked 15 Partial Lap, Number of Tiles Walked 10 Total Distance Walked (ft) 895 Interpretation Interpretation: The patient ambulated 895 feet over the course of 6 minutes beginning on room air without assistive devices. Pretesting oxygen saturation was noted to be 97% on room air. With ambulation, the lucio oxygen saturation was 94%. There was no significant exertional oxygen desaturation. Recommendations Recommendations: There is no indication for the use of supplemental oxygen at this time.
== END 2022-01-16 23:59 | disposition home or self-care (01) ==
LOC: PSN 07:39
PROVIDERS: PCP Family Medicine; Referring Provider Nurse Practitioner Acute Care; Visit Provider Nurse Practitioner Acute Care
DX: R06.00 Dyspnea, unspecified (principal)
CPT/HCPCS: 94618

== ENCOUNTER 2022-07-24 08:32 | Outpatient (RCR) | payer MEDICARE, SELFPAY ==
[2022-07-24 08:44] VITALS: BP 140/70; PULSE 70; RESP 18; TEMP 36; BMI 43.9
--- NOTE | 2022-07-25 07:47 | PCM.WC.HP ---
History of Present Illness Date of Service: 07/24/22 Chief Complaint: Lower extremity swelling and edema History of Wound: This is a 57-year-old male who presents with swelling and edema in his lower extremities, particularly on the left. In 1990, the patient suffered a severe left thigh injury as a result of trauma from a reinforcement maker. He sustained left femur fractures and extensive soft tissue injury. He required 6 reconstructive surgical procedures. Since that time, the patient has had severe swelling and edema in his left leg. The swelling is said to be worse late in the day. He obtained bach-oul-gxjowin compression stockings, that have been difficult to don, and the degree of compression is uncertain. He has not been compliant in wearing the compression stockings. Patient also underwent a left total knee replacement procedure in May 2021. He has a chronically draining site in a focal area on the left medial thigh which intermittently drains serous fluid. The swelling and edema in his left lower extremity is painful. He denies a history of thrombophlebitis. The patient is active. He sleeps on a flat mattress at night. The patient has multiple pre-existing medical problems, as listed below. [facility] Medical History (Updated 07/25/22 @ 07:[address] Bradley Hayes MD) Chronic diastolic heart failure Chronic venous insufficiency Dependence on nocturnal oxygen therapy Diabetes mellitus Dyspnea Gastroesophageal reflux disease GERD (gastroesophageal reflux disease) Hyperlipidemia Hypersomnia Leg edema Leg swelling Mild pulmonary arterial systolic hypertension Morbid obesity Obesity DEBI (obstructive sleep apnea) Restrictive lung disease Varicose veins of both lower extremities with inflammation Home Medications multivitamin 1 ea PO DAILY 06/22/17 [History Last Taken 06/22/17] omeprazole 20 mg capsule,delayed release 20 mg PO QDAY 02/09/18 [History Last Taken Unknown] potassium chloride 20 mEq tablet,extended release 20 meq PO QDAY 02/09/18 [History Last Taken Unknown] cholecalciferol (vitamin D3) 50 mcg (2,000 unit) capsule 2,000 unit PO QDAY 02/10/18 [History Last Taken Unknown] cyanocobalamin (vitamin B-12) 2,500 mcg tablet 2,500 mcg PO Q OTHER DAY 11/06/21 [History Last Taken Unknown] furosemide 40 mg tablet 40 mg PO .COMPLEX 11/06/21 [History Last Taken Unknown] rosuvastatin 40 mg tablet 40 mg PO DAILY 06/21/22 [History Last Taken Unknown] acetaminophen 500 mg tablet 500 mg PO TID PRN PRN Pain 07/24/22 [History Last Taken Unknown] coenzyme Q10 100 mg capsule (CoQ-10) 100 mg PO 3XD 07/24/22 [History Last Taken Unknown] turmeric 400 mg capsule 400 mg PO DAILY 07/24/22 [History Last Taken Unknown] Allergy/AdvReac Type Severity Reaction Status Date / Time aspirin Allergy Severe Unknown Verified 06/21/22 13:02 NSAIDS (Non-Steroidal Allergy Swelling Verified 06/21/22 13:02 Anti-Inflamma Family History Father Heart disease Sister Cancer Surgical History History of total left knee replacement (06/06/21) skin graft/muscle reconstruction of legs Social History Smoking Status: Current every day smoker tobacco type: cigarettes Tobacco: How many years used: 35 second hand exposure: Yes alcohol intake: never substance use type: does not use caffeine: Yes Type: coffee Number of servings: 6 Vital Signs Vital Signs Vital Signs: 07/24/22 08:44 Temperature 96.8 F L Temperature Source Temporal Pulse Rate 70 Respiratory Rate 18 Blood Pressure 140/70 H Blood Pressure Mean 93 Blood Pressure Source Monitor Blood Pressure Position Sitting Blood Pressure Location Left Arm Oxygen Delivery Method Room Air Weight Weight: 298 lb Body Mass Index (BMI) 43.9 Physical Exam Const alert, oriented x3, no apparent distress and well nourished Constitutional Narrative: The patient is morbidly obese. General Appearance: cooperative, comfortable and well developed Orientation / Consciousness: awake, oriented to person, oriented to place and oriented to time Exam Limitations: no limitations HEENT normocephalic and head/scalp atraumatic Head and Scalp: normal to inspection, normocephalic and atraumatic External Ear: external ears normal Eyes PERRL and EOMs intact bilaterally General Eye: normal appearance of both eyes Resp normal respiratory effort, normal air movement, no retractions and no use of accessory muscles Effort and Inspection: able to speak in complete sentences Extremity no calf tenderness General Extremity: Negative for clubbing or cyanosis Skin Wound Narrative: Severe swelling and edema noted in the patient's left lower extremity. Extensive scarring and deformity is noted in the patient's left thigh, the site of a remote traumatic injury requiring extensive reconstructive surgery. There are no open wounds or ulcerations. Scattered telangiectasias are noted in the lower extremities bilaterally. Alonso phlebectasia Is noted at ankle level bilaterally. Neuro oriented x3, CN's II-XII intact bilaterally, moves all extremities and no focal motor deficits Sensorium / Orientation: awake, alert, oriented to person, oriented to place and oriented to time Psych Appearance: grossly normal and appropriate Attitude: calm Activity / Motor Behavior: appropriate eye contact Speech: normal speech Mood & Affect: euthymic mood Thought Process: normal thought process Thought Content: normal thought content Attention / Concentration: attention grossly intact Debridement Note Debridement Note No debridement was completed: No debridement was completed today (There are no open wounds or ulcerations.) Post-Debridement Measurements and Additional Note: Post-Debridement Measurements/Treatment JULIETTE - Nurse 1 - General Ulcer Assessment Start: 07/24/22 08:44 Freq: Status: Active Protocol: RENÉ Activity Type Activity Date Activity User E-sign Co-sign Detail Recorded Client Recorded Date Recorded By Document 07/24/22 08:44 MW [id number] 07/24/22 08:54 MW 07/24/22 08:44 - Today's Visit Information Type of service Initial Visit Arrival Mode Ambulatory,Cane Transfer Assistance None Accompanied by self Patient Identification Verified (Name & Yes ) Patient Requires Transmission-Based No Precautions Safety Precautions NA Height and Weight Height 5 ft 9 in Weight 298 lb Weight in Pounds 298.0 lbs Weight Measurement Method Estimated by Patient Body Mass Index (BMI) 43.9 BMI Classification Obese BSA - [employer] 2.45 Vital Signs Temperature (97.8 F-99.1 F) 96.8 F L Temperature Source Temporal Pulse Rate (60-100) 70 Pulse Location Monitor Respiratory Rate (12-18) 18 Respiratory rate source Observation Oxygen Delivery Method Room Air Blood Pressure (90/60-120/80) 140/70 H Blood Pressure Mean 93 Source Monitor Position Sitting Blood Pressure Location Left Arm History Since Last Visit- (Skip if this is Patient's initial visit) Left Footwear Regular Shoe Right Footwear Regular Shoe Pain Scale: 0-10 Numeric Is Patient Pain Free? Yes Lower Extremity Assessment/ Foot Assessment/ Toe Nail Assessment Right -Posterior Tibial Palpable No -Posterior Tibial Doppler Multiphasic -Dorsalis Pedis Palpable Yes -Dorsalis Pedis Doppler Multiphasic -Extremity Color Normal -Hair Growth on Legs Yes -Hair Growth on Toes Yes -Temperature of Extremity Warm -Capillary Refill Less than 3 Seconds -Dependent Rubor No -Lipodermatosclerosis No Left -Claudication Assessment None -Posterior Tibial Palpable No -Posterior Tibial Doppler Multiphasic -Dorsalis Pedis Palpable Yes -Dorsalis Pedis Doppler Multiphasic -Extremity Color Normal -Hair Growth on Legs Yes -Hair Growth on Toes Yes -Temperature of Extremity Warm -Capillary Refill Less than 3 Seconds -Dependent Rubor No -Lipodermatosclerosis No -Other Deformity No -Prior Foot Ulcer No -Charcot Joint No -Prior Amputation No -Thick No -Discolored No -Deformed No -Improper Length & Hygeine No Neuropathy Assessment Feet - Top Side and Bottom <Entered> (a) Communication Assessment Preferred language Stateless Pattern Marker Required No Able to Read Yes Able to Write Yes Communication Tools None Right Hearing Abillity Normal Left Hearing Abillity Normal Visual Assistive Devices Glasses Teaching Assessment Preferences Verbal,Written, Audio/Visual, Demonstration Barriers to Learning None Readiness To Learn Excellent Willingness to Engage in Self Management High Activies Readiness to Engage in Self Management High Activities Anxiety Level Calm Cooperation Cooperative Perception Coherent Interest in Health Problem Asks Questions Education Importance Acknowledges Need Does Patient Smoke tobacco or other Yes substances Smoking Status Current every day smoker Is Patient Diabetic No Functional Assessment Recent Decline in Ability to Perform Denies Any Declines Assistive Device With Patient Yes List Device(s) with Patient cane Culture/Yarsani/Chain Saw Driver Cultural/Yarsani Needs that may affect No Treatment Plan Would you allow our hospital aerospace physiological technician to No meet you for the purpose of spiritual/ emotional support? Chain Saw Driver to contact place of orthodox No (a) 1 - - 2 - + 3 - + WC - Nurse 1 - General Ulcer Measurement Start: 07/24/22 08:44 Freq: Status: Active Protocol: Activity Type Activity Date Activity User E-sign Co-sign Detail Recorded Client Recorded Date Recorded By Document 07/24/22 08:44 MW [id number] 07/24/22 08:54 MW 07/24/22 08:44 Wound Center Nurse 1 Lower Limb Edema Present Yes Right Calf (cm) 46.0 Right Ankle (cm) 27.0 Left Calf (cm) 52.0 Left Ankle (cm) 31.0 WC - Nurse 3 - General Ulcer D/C NN Start: 07/24/22 08:44 Freq: Status: Active Protocol: Activity Type Activity Date Activity User E-sign Co-sign Detail Recorded Client Recorded Date Recorded By Document 07/24/22 09:50 MW [id number] 07/24/22 09:51 MW 07/24/22 09:50 Wound Care Nurse 3 bilateral LE -Lotion applied to leg before No compression wrap -Multi-Layered Wrap Application Multi-Layer Comp - Bilat ($ ) Pain Scale: 0-10 Numeric Is Patient Pain Free? Yes Teaching: Wound Center Compression Wraps & Stockings -Person Taught Patient -Teaching Method Discussion, Demonstration -Response to teaching Verbalize understanding Control Swelling with Leg Elevation -Person Taught Patient -Teaching Method Discussion -Response to teaching Verbalize understanding WC - Visit Discharge Discharge Condition Stable Ambulatory Status Ambulatory,Cane Transportation Private Auto Accompanied by self Medication Reconcilliation completed & No provided to patient/care provider Clinical Summary of Care Provided Yes Assessment/Plan Assessment/Plan (1) Leg swelling: CODE(S): M79.89 - Other specified soft tissue disorders (2) Leg edema: CODE(S): R60.0 - Localized edema (3) Chronic diastolic heart failure: CODE(S): I50.32 - Chronic diastolic (congestive) heart failure (4) Mild pulmonary arterial systolic hypertension: CODE(S): I27.21 - Secondary pulmonary arterial hypertension (5) Hyperlipidemia: CODE(S): E78.5 - Hyperlipidemia, unspecified QUALIFIERS: Hyperlipidemia type: unspecified Qualified Code(s): E78.5 - Hyperlipidemia, unspecified (6) Nicotine dependence, cigarettes, uncomplicated: CODE(S): F17.210 - Nicotine dependence, cigarettes, uncomplicated (7) DEBI (obstructive sleep apnea): CODE(S): G47.33 - Obstructive sleep apnea (adult) (pediatric) (8) Hypersomnia: CODE(S): G47.10 - Hypersomnia, unspecified (9) Smoking greater than 20 pack years: CODE(S): F17.210 - Nicotine dependence, cigarettes, uncomplicated (10) Restrictive lung disease: CODE(S): J98.4 - Other disorders of lung (11) Morbid obesity: CODE(S): E66.01 - Morbid (severe) obesity due to excess calories (12) Diabetes mellitus: CODE(S): E11.9 - Type 2 diabetes mellitus without complications (13) Dependence on nocturnal oxygen therapy: CODE(S): Z99.81 - Dependence on supplemental oxygen (14) Gastroesophageal reflux disease: CODE(S): K21.9 - Gastro-esophageal reflux disease without esophagitis (15) Varicose veins of both lower extremities with inflammation: CODE(S): I83.11 - Varicose veins of right lower extremity with inflammation; I83.12 - Varicose veins of left lower extremity with inflammation (16) Chronic venous insufficiency: CODE(S): I87.2 - Venous insufficiency (chronic) (peripheral) PLAN: Plan This is a 57-year-old male who presents with bilateral lower extremity swelling and edema, more severe in the left lower extremity, presumably due to a severe traumatic injury many years ago. There are no open wounds or ulcerations. We are to implement conservative treatment measures as initial management. These measures have been discussed with the patient in detail. It is felt that the swelling in his left leg is due to a combination of prolonged idle sitting, morbid obesity, lack of activity, and the injury sustained in the remote past. It is likely that his left thigh injury has resulted in impairment of venous and lymphatic outflow from the left lower extremity. We have discussed leg elevation. The patient sleeps on a flat mattress at night, and is to continue doing so. He has been encouraged to elevate his lower extremities even during daytime hours. His legs are to be elevated to heart level, or higher. Activity has been encouraged. Prolonged idle sitting has been discouraged. Weight loss has also been advised. We are to implement compression to the lower extremities by means of 3M 2 layer compression wraps which will be applied bilaterally. These will be changed twice weekly. Patient is to return in 1 week for reassessment. The goal is to minimize the swelling in the patient's lower extremities to baseline, then to provide the patient with a means of compression for the long-term, whether by graduated compression stockings or CircAid garments. Patient may also benefit from pneumatic mechanical compression pumps as well. Total time: 45 minutes
== END 2022-07-25 23:59 | disposition home or self-care (01) ==
LOC: WC 08:32
PROVIDERS: PCP Family Medicine; Visit Provider Surgery
DX: M79.89 Other specified soft tissue disorders (principal); E11.51 Type 2 diabetes mellitus with diabetic peripheral angiopathy without gangrene; I11.0 Hypertensive heart disease with heart failure; I50.32 Chronic diastolic (congestive) heart failure; E11.40 Type 2 diabetes mellitus with diabetic neuropathy, unspecified; E11.59 Type 2 diabetes mellitus with other circulatory complications; E66.01 Morbid (severe) obesity due to excess calories; K21.9 Gastro-esophageal reflux disease without esophagitis; Z99.81 Dependence on supplemental oxygen; E78.5 Hyperlipidemia, unspecified; G47.10 Hypersomnia, unspecified; I83.93 Asymptomatic varicose veins of bilateral lower extremities; I87.2 Venous insufficiency (chronic) (peripheral); G47.33 Obstructive sleep apnea (adult) (pediatric); F17.210 Nicotine dependence, cigarettes, uncomplicated; R60.0 Localized edema; I83.11 Varicose veins of right lower extremity with inflammation; I83.12 Varicose veins of left lower extremity with inflammation; J98.4 Other disorders of lung
CPT/HCPCS: 29581; 99213; G0463

== ENCOUNTER 2022-08-14 08:15 | Outpatient (RCR) | payer MEDICARE, SELFPAY ==
[2022-07-26 00:48] VITALS: BP 140/70; PULSE 70; RESP 18; TEMP 36; BMI 43.9
[2022-07-27 12:47] VITALS: BP 133/75; PULSE 77; RESP 20; TEMP 36.3; BMI 43.9
[2022-07-31 08:52] VITALS: BP 143/85; PULSE 79; RESP 17; TEMP 36.1; BMI 43.9
--- NOTE | 2022-07-31 09:17 | PCM.WC.HP ---
History of Present Illness Date of Service: 07/31/22 Chief Complaint: Lower extremity swelling and edema History of Wound: This is a 57-year-old male who presented with swelling and edema in his lower extremities, particularly on the left. 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 He sustained left femur fractures and extensive soft tissue injury. He required 6 reconstructive surgical procedures. Since that time, the patient has had severe swelling and edema in his left leg. The swelling is said to be worse late in the day. He obtained [id number] compression stockings, that have been difficult to don, and the degree of compression is uncertain. He has not been compliant in wearing the compression stockings. Patient also underwent a left total knee replacement procedure in May 2021. He has a chronically draining site in a focal area on the left medial thigh which intermittently drains serous fluid. The swelling and edema in his left lower extremity is painful. He denies a history of thrombophlebitis. The patient is active. He sleeps on a flat mattress at night. The patient has multiple pre-existing medical problems, as listed below. [facility] Medical History Chronic diastolic heart failure Chronic venous insufficiency Dependence on nocturnal oxygen therapy Diabetes mellitus Dyspnea Gastroesophageal reflux disease GERD (gastroesophageal reflux disease) Hyperlipidemia Hypersomnia Leg edema Leg swelling Mild pulmonary arterial systolic hypertension Morbid obesity Obesity DEBI (obstructive sleep apnea) Restrictive lung disease Varicose veins of both lower extremities with inflammation Home Medications multivitamin 1 ea PO DAILY 06/22/17 [History Last Taken 06/22/17] omeprazole 20 mg capsule,delayed release 20 mg PO QDAY 02/09/18 [History Last Taken Unknown] potassium chloride 20 mEq tablet,extended release 20 meq PO QDAY 02/09/18 [History Last Taken Unknown] cholecalciferol (vitamin D3) 50 mcg (2,000 unit) capsule 2,000 unit PO QDAY 02/10/18 [History Last Taken Unknown] cyanocobalamin (vitamin B-12) 2,500 mcg tablet 2,500 mcg PO Q OTHER DAY 11/06/21 [History Last Taken Unknown] furosemide 40 mg tablet 40 mg PO .COMPLEX 11/06/21 [History Last Taken Unknown] rosuvastatin 40 mg tablet 40 mg PO DAILY 06/21/22 [History Last Taken Unknown] acetaminophen 500 mg tablet 500 mg PO TID PRN PRN Pain 07/24/22 [History Last Taken Unknown] coenzyme Q10 100 mg capsule (CoQ-10) 100 mg PO 3XD 07/24/22 [History Last Taken Unknown] turmeric 400 mg capsule 400 mg PO DAILY 07/24/22 [History Last Taken Unknown] Allergy/AdvReac Type Severity Reaction Status Date / Time aspirin Allergy Severe Unknown Verified 06/21/22 13:02 NSAIDS (Non-Steroidal Allergy Swelling Verified 06/21/22 13:02 Anti-Inflamma Family History Father Heart disease Sister Cancer Surgical History History of total left knee replacement (06/06/21) skin graft/muscle reconstruction of legs Social History Smoking Status: Current every day smoker tobacco type: cigarettes Tobacco: How many years used: 35 second hand exposure: Yes alcohol intake: never substance use type: does not use caffeine: Yes Type: coffee Number of servings: 6 Vital Signs Vital Signs Vital Signs: 07/31/22 08:52 Temperature 97.0 F L Temperature Source Temporal Pulse Rate 79 Respiratory Rate 17 Blood Pressure 143/85 H Blood Pressure Mean 104 Blood Pressure Source Monitor Blood Pressure Position Sitting Blood Pressure Location Right Arm Weight Weight: 298 lb Body Mass Index (BMI) 43.9 Physical Exam Const alert, oriented x3, no apparent distress and well nourished Constitutional Narrative: The patient is morbidly obese. General Appearance: cooperative, comfortable and well developed Orientation / Consciousness: awake, oriented to person, oriented to place and oriented to time Exam Limitations: no limitations HEENT normocephalic and head/scalp atraumatic Head and Scalp: normal to inspection, normocephalic and atraumatic External Ear: external ears normal Eyes PERRL and EOMs intact bilaterally General Eye: normal appearance of both eyes Resp normal respiratory effort, normal air movement, no retractions and no use of accessory muscles Effort and Inspection: able to speak in complete sentences Extremity no calf tenderness General Extremity: Negative for clubbing or cyanosis Skin Wound Narrative: Mild swelling and edema noted in the patient's left lower extremity. Only slight swelling is noted in the patient's right lower extremity. The swelling has improved significantly within the last week. Extensive scarring and deformity is noted in the patient's left thigh, the site of a remote traumatic injury requiring extensive reconstructive surgery. There are no open wounds or ulcerations. Scattered telangiectasias are noted in the lower extremities bilaterally. Alonso phlebectasia is noted at ankle level bilaterally. Neuro oriented x3, CN's II-XII intact bilaterally, moves all extremities and no focal motor deficits Sensorium / Orientation: awake, alert, oriented to person, oriented to place and oriented to time Psych Appearance: grossly normal and appropriate Attitude: calm Activity / Motor Behavior: appropriate eye contact Speech: normal speech Mood & Affect: euthymic mood Thought Process: normal thought process Thought Content: normal thought content Attention / Concentration: attention grossly intact Debridement Note Debridement Note No debridement was completed: No debridement was completed today (There are no open wounds or ulcerations.) Post-Debridement Measurements and Additional Note: Post-Debridement Measurements/Treatment - Nurse 1 - General Ulcer Assessment Start: 07/27/22 12:47 Freq: Status: Active Protocol: WC.LOWILDAT Activity Type Activity Date Activity User E-sign Co-sign Detail Recorded Client Recorded Date Recorded By Document 07/27/22 12:47 KR [id number] 07/27/22 12:52 KR Document 07/31/22 08:52 ML [id number] 07/31/22 09:00 ML 07/27/22 07/31/22 12:47 08:52 - Today's Visit Information Type of service Nurse-only Follow-up Visit 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 ) Arrival Mode Ambulatory Ambulatory,Cane Transfer Assistance None None Patient Identification Verified (Name & Yes Yes ) Patient Requires Transmission-Based No No Precautions Safety Precautions NA Height and Weight Body Mass Index (BMI) 43.9 43.9 BMI Classification Obese Obese Vital Signs Temperature (97.8 F-99.1 F) 97.3 F L 97.0 F L Temperature Source Temporal Temporal Pulse Rate (60-100) 77 79 Pulse Location Monitor Monitor Respiratory Rate (12-18) 20 H 17 Respiratory rate source Observation Observation Blood Pressure (90/60-120/80) 133/75 H 143/85 H Blood Pressure Mean 94 104 Source Monitor Monitor Position Sitting Blood Pressure Location Right Arm History Since Last Visit- (Skip if this is Patient's initial visit) Have you changed medications since your No No last visit? Any new allergies or adverse reactions No No Had a fall/change in ADL's that may No No increase risk of falls Signs or symptoms of abuse and/or No No neglect since last visit Have you been in the hospital since your No No last visit? Has dressing in place as prescribed Yes No Has compression in place as prescribed Yes N/A Has offloadiing in place as prescribed N/A N/A Experienced any changes in pain level or No No management Left Footwear Regular Shoe Right Footwear Regular Shoe Pain Scale: 0-10 Numeric Is Patient Pain Free? Yes Yes - Nurse 1 - General Ulcer Measurement Start: 07/27/22 12:47 Freq: Status: Active Protocol: Activity Type Activity Date Activity User E-sign Co-sign Detail Recorded Client Recorded Date Recorded By Document 07/27/22 12:47 KR [id number] 07/27/22 12:52 KR Document 07/31/22 08:52 ML [id number] 07/31/22 09:00 ML 07/27/22 07/31/22 12:47 08:52 Wound Center Nurse 1 Right Calf (cm) 44.7 45 Right Ankle (cm) 26.8 27 Left Calf (cm) 48.5 48 Left Ankle (cm) 29.8 30 - Nurse 3 - General Ulcer D/C NN Start: 07/27/22 12:47 Freq: Status: Active Protocol: Activity Type Activity Date Activity User E-sign Co-sign Detail Recorded Client Recorded Date Recorded By Document 07/27/22 12:47 KR [id number] 07/27/22 12:52 KR 07/27/22 12:47 Vital Signs Temperature (97.8 F-99.1 F) 97.3 F L Temperature Source Temporal Pulse Rate (60-100) 77 Pulse Location Monitor Respiratory Rate (12-18) 20 H Respiratory rate source Observation Blood Pressure (90/60-120/80) 133/75 H Blood Pressure Mean 94 Source Monitor Pain Scale: 0-10 Numeric Is Patient Pain Free? Yes Wound Care Nurse 3 Right -Multi-Layered Wrap Application Multi-Layer Comp - Bilat ($ ) Treatment Response Procedure Tolerated Well WC - Visit Discharge Discharge Condition Stable Ambulatory Status Ambulatory Transportation Private Auto Assessment/Plan Assessment/Plan (1) Leg swelling: CODE(S): M79.89 - Other specified soft tissue disorders (2) Leg edema: CODE(S): R60.0 - Localized edema (3) Chronic venous insufficiency: CODE(S): I87.2 - Venous insufficiency (chronic) (peripheral) (4) Varicose veins of both lower extremities with inflammation: CODE(S): I83.11 - Varicose veins of right lower extremity with inflammation; I83.12 - Varicose veins of left lower extremity with inflammation (5) Chronic diastolic heart failure: CODE(S): I50.32 - Chronic diastolic (congestive) heart failure (6) Mild pulmonary arterial systolic hypertension: CODE(S): I27.21 - Secondary pulmonary arterial hypertension (7) Hyperlipidemia: CODE(S): E78.5 - Hyperlipidemia, unspecified QUALIFIERS: Hyperlipidemia type: unspecified Qualified Code(s): E78.5 - Hyperlipidemia, unspecified (8) Nicotine dependence, cigarettes, uncomplicated: CODE(S): F17.210 - Nicotine dependence, cigarettes, uncomplicated (9) DEBI (obstructive sleep apnea): CODE(S): G47.33 - Obstructive sleep apnea (adult) (pediatric) (10) Hypersomnia: CODE(S): G47.10 - Hypersomnia, unspecified (11) Smoking greater than 20 pack years: CODE(S): F17.210 - Nicotine dependence, cigarettes, uncomplicated (12) Restrictive lung disease: CODE(S): J98.4 - Other disorders of lung (13) Morbid obesity: CODE(S): E66.01 - Morbid (severe) obesity due to excess calories (14) Diabetes mellitus: CODE(S): E11.9 - Type 2 diabetes mellitus without complications (15) Dependence on nocturnal oxygen therapy: CODE(S): Z99.81 - Dependence on supplemental oxygen (16) Gastroesophageal reflux disease: CODE(S): K21.9 - Gastro-esophageal reflux disease without esophagitis PLAN: Plan This is a 57-year-old male who presented with bilateral lower extremity swelling and edema, more severe in the left lower extremity, presumably due to a severe traumatic injury many years ago. There are no open wounds or ulcerations. We are to continue conservative treatment measures as initial management. These measures have been discussed with the patient in detail. It is felt that the swelling in his left leg is due to a combination of prolonged idle sitting, morbid obesity, lack of activity, and the injury sustained in the remote past. It is likely that his left thigh injury has resulted in impairment of venous and lymphatic outflow from the left lower extremity. We have discussed leg elevation. The patient sleeps on a flat mattress at night, and is to continue doing so. He has been encouraged to elevate his lower extremities even during daytime hours. His legs are to be elevated to heart level, or higher. Activity has been encouraged. Prolonged idle sitting has been discouraged. Weight loss has also been advised. We are to implement compression to the lower extremities by means of Tubigrip's of 20 to 30 mmHg compression. He has also been provided a prescription for knee-high graduated compression stockings of 20 to 30 mmHg compression, and is to present to a local medical supply store for proper fitting. These are to be worn on a daily basis. Patient is to return in 2 weeks for reassessment. If the patient continues to show the expected improvement, it is likely that discharge can be considered within the next several weeks. Total time: 29 minutes
[2022-08-14 08:17] VITALS: TEMP 35.9; BMI 43.9
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
== END 2022-08-14 16:05 | disposition home or self-care (01) ==
LOC: WC 08:15
PROVIDERS: PCP Family Medicine; Visit Provider Surgery
DX: M79.89 Other specified soft tissue disorders (principal); I11.0 Hypertensive heart disease with heart failure; I50.32 Chronic diastolic (congestive) heart failure; E66.01 Morbid (severe) obesity due to excess calories; K21.9 Gastro-esophageal reflux disease without esophagitis; G47.33 Obstructive sleep apnea (adult) (pediatric); I83.11 Varicose veins of right lower extremity with inflammation; E78.5 Hyperlipidemia, unspecified; Z99.81 Dependence on supplemental oxygen; F17.210 Nicotine dependence, cigarettes, uncomplicated; Z79.899 Other long term (current) drug therapy; R60.0 Localized edema
CPT/HCPCS: 29581; 36415; 80053; 80061; 85027; 99212; 99213; G0463

== ENCOUNTER → 2022-08-14 | Outpatient (CLI) | payer MEDICARE, SELFPAY ==
[2022-08-14 07:28] LABS: Hematocrit 46.2 % (40-54); Mean Corp Hgb Conc 32.5 g/dL (32-36); Mean Corpuscular Hgb 27.9 pg (27.0-32.0); Mean Platelet Vol. 10.8 fl (6.2-12.0); Platelet Count 169 K/mm3 (150-450); RBC Distribution Width SD 40.4 fl (35.1-43.9); Red Blood Count 5.37 M/mm3 (4.6-6.2); White Blood Count 5.8 K/mm3 (4.4-11.0)
[2022-08-14 08:16] LABS: ALB/GLOB Ratio 0.9 RATIO (0.9-2.4); AST(SGOT) 19 U/L (15-37); Alanine Aminotransfer ALT/SGPT 39 U/L (16-61); Albumin, Serum 3.7 g/dL (3.2-5.0); Alkaline Phosphatase 73 U/L (45-117); Anion Gap 7 (5-15); BUN 17 mg/dL (7-18); BUN/Creat Ratio 20.2 RATIO (10-20); Calcium,Total 9.2 mg/dL (8.5-10.1); Chloride 106 mmol/L (98-107); Cholesterol 148 mg/dL (200); Creatinine, Serum 0.84 mg/dL (0.70-1.30); EST Glomerular Filtration Rate 100 mL/min (>60); Est Glom Filt Rate - Afr Amer 121 mL/min (>60); Globulin 3.9 g/dL (2.2-4.2); Glucose 107 mg/dL (74-106); High Density Lipoprotein 37 mg/dL; Potassium 4.1 mmol/L (3.5-5.1); Protein, Total 7.6 g/dL (6.4-8.2); Sodium Level 142 mmol/L (136-145); Triglycerides 175 mg/dL; Very Low Density Lipoprotein 35 mg/dL (5-40)
== END | disposition home or self-care (01) ==
LOC: LAB 06:00
PROVIDERS: PCP Family Medicine; Referring Provider Family Medicine; Visit Provider Family Medicine
DX: E11.9 Type 2 diabetes mellitus without complications (principal); J44.9 Chronic obstructive pulmonary disease, unspecified; I50.9 Heart failure, unspecified
CPT/HCPCS: 36415; 80053; 80061; 85027

== ENCOUNTER → 2022-08-20 | Outpatient (CLI) | payer MEDICARE, SELFPAY ==
[2022-08-20 21:50] LABS: Probe Check PASS; Specimen Processing Control PASS
== END | disposition home or self-care (01) ==
PROVIDERS: PCP Family Medicine; Visit Provider Family Medicine
DX: Z20.822 Contact with and (suspected) exposure to COVID-19 (principal)
CPT/HCPCS: 87635; U0003; U0005

== ENCOUNTER 2022-08-26 08:48 | Emergency (ER) | payer MEDICARE, SELFPAY ==
[2022-08-26 08:50] VITALS: BP 129/70; PULSE 89; RESP 20; TEMP 38.2; O2SAT 94; BMI 42.3
--- NOTE | 2022-08-26 09:17 | RAD_ITS ---
EXAM: XR CHEST, 2 VIEWS CLINICAL INDICATION: cough, chest tightness, sob TECHNIQUE: Frontal and lateral views of the chest. This report was created using MD-IT report generation technology. COMPARISON: XR Chest dated 01/16/2019 FINDINGS: LUNGS AND PLEURAL SPACES: Bilateral peribronchial thickening suggestive of chronic inflammatory change. No pneumothorax. No effusion. HEART: Normal heart size. MEDIASTINUM: No mediastinal or hilar mass. BONES/JOINTS: No acute abnormality. SOFT TISSUES: Normal. RAD/Chest PA and Lateral IMPRESSION: Chronic peribronchial thickening. Electronically Signed: Scot Rojas MD at 10:09 EDT ,
--- NOTE | 2022-08-26 09:19 | EDS_ITS ---
HPI History of Present Illness Chief Complaint: Shortness of Breath Informant: patient Onset/Context/Timing Onset: Days (10) Context: gradual and onset Timing: Waxes and wanes Quality: Positive for Dyspnea on exertion, Orthopnea and Wheezing Current Severity: Moderate Maximum Severity: Moderate Worsened by: Exertion, Lying flat and Coughing Relieved by: Rest; Not Relieved By Albuterol (tried MDI at home) Associated Symptoms cough Chest Pain: Positive for Tightness (off and on when more sob) Narrative Narrative: Patient has been having an illness with congestion and a cough for the past 10 days or so, gradually getting more wheezy/short of breath. Associated with chest tightness. No diaphoresis or syncope or palpitations. He has a history of smoking heavily. Never been diagnosed with COPD but he does have heart failure, his last echocardiogram which was a little more than 2 years ago showed stage II diastolic dysfunction with a normal EF of 55% and 2+ mitral insufficiency. He has chronic leg edema he states that does not seem any worse than usual. He denies any fevers or chills although he has a temperature of 100.8 here. He saw his PCP for this in the past week and was put on antibiotics did not seem to do anything. Cough is nonproductive. Had a negative COVID test about 3 days ago. Is vaccinated against COVID. [facility] Medical History Chronic diastolic heart failure Chronic venous insufficiency Dependence on nocturnal oxygen therapy Diabetes mellitus Dyspnea Gastroesophageal reflux disease GERD (gastroesophageal reflux disease) Hyperlipidemia Hypersomnia Leg edema Leg swelling Mild pulmonary arterial systolic hypertension Morbid obesity Obesity DEBI (obstructive sleep apnea) Restrictive lung disease Varicose veins of both lower extremities with inflammation Home Medications multivitamin 1 ea PO DAILY 06/22/17 [History Last Taken 06/22/17] omeprazole 20 mg capsule,delayed release 20 mg PO QDAY 02/09/18 [History Last Taken Unknown] potassium chloride 20 mEq tablet,extended release 20 meq PO QDAY 02/09/18 [History Last Taken Unknown] cholecalciferol (vitamin D3) 50 mcg (2,000 unit) capsule 2,000 unit PO QDAY 02/10/18 [History Last Taken Unknown] cyanocobalamin (vitamin B-12) 2,500 mcg tablet 2,500 mcg PO Q OTHER DAY 11/06/21 [History Last Taken Unknown] furosemide 40 mg tablet 40 mg PO .COMPLEX 11/06/21 [History Last Taken Unknown] rosuvastatin 40 mg tablet 40 mg PO DAILY 06/21/22 [History Last Taken Unknown] acetaminophen 500 mg tablet 500 mg PO TID PRN PRN Pain 07/24/22 [History Last Taken Unknown] coenzyme Q10 100 mg capsule (CoQ-10) 100 mg PO 3XD 07/24/22 [History Last Taken Unknown] turmeric 400 mg capsule 400 mg PO DAILY 07/24/22 [History Last Taken Unknown] prednisone 20 mg tablet 40 mg PO DAILY #8 TABLETS 08/26/22 [Rx Last Taken Unknown] Allergy/AdvReac Type Severity Reaction Status Date / Time aspirin Allergy Severe Swelling Verified 08/26/22 08:50 NSAIDS (Non-Steroidal Allergy Swelling Verified 08/26/22 08:50 Anti-Inflamma Family History Father Heart disease Sister Cancer Surgical History History of total left knee replacement (06/06/21) skin graft/muscle reconstruction of legs Social History Smoking Status: Current every day smoker tobacco type: cigarettes Tobacco: How many years used: 35 second hand exposure: Yes alcohol intake: never substance use type: does not use caffeine: Yes Type: coffee Number of servings: 6 ROS ROS ED Constitutional Constitutional ED: Reports body ache(s) and malaise; Denies chills or fever(s) Eyes Eyes: Denies change in vision or diplopia ENT ENT ED: Denies rhinorrhea or sore throat Cardiovascular Cardiovascular: Reports as per HPI, chest pain, leg edema and orthopnea; Denies palpitations Respiratory/Chest Respiratory/Chest: Reports cough, dyspnea, dyspnea on exertion and orthopnea; Denies sputum Gastrointestinal Gastrointestinal: Reports diarrhea; Denies abdominal pain, nausea or vomiting Genitourinary Genitourinary ED: Denies dysuria or hematuria Musculoskeletal Musculoskeletal: Denies back pain or neck pain Integumentary Denies abscess or rash Neurologic Neurologic: Denies headache(s), paresthesias or weakness Psychiatric Psychiatric: Denies anxiety or suicidal thoughts EXAM Physical Exam Const Vital Signs: 08/26/22 08:50 08/26/22 09:44 08/26/22 09:40 Temperature 100.8 F H Temperature Source Temporal Pulse Rate 89 82 Respiratory Rate 20 H 24 H Respiratory Effort Short of Breath Respiratory Depth Shallow Respiratory Pattern Tachypnea Blood Pressure 129/70 H Blood Pressure Mean 89 Pulse Ox 94 Oxygen Delivery Method Room Air Oxygen Flow Rate (L/min) 08/26/22 09:40 08/26/22 09:46 Temperature Temperature Source Pulse Rate Respiratory Rate Respiratory Effort Respiratory Depth Respiratory Pattern Blood Pressure Blood Pressure Mean Pulse Ox 89 93 Oxygen Delivery Method Room Air Nasal Cannula Oxygen Flow Rate (L/min) 2 Positive well nourished, well developed and obese General Appearance ED: well developed and NAD Nutritional Appearance: obese HEENT Reports moist mucous membranes normocephalic and atraumatic Eyes PERRL and EOMs intact bilaterally Neck full ROM, supple and no JVD Resp normal respiratory effort Effort and Inspection: able to speak in complete sentences Auscultation: wheezes expiratory wheezes (end-expiratory) and throughout (More prominent at bases) Cardio regular rate, regular rhythm and no murmurs GI non-tender and non-distended Auscultation: normoactive bowel sounds Palpation: soft Back/Spine no CVA tenderness General Back: other FROM Extremity normal to inspection General Extremety ED: Yes edema; Negative for pulses abnormal or tenderness General Extremity: edema bilateral lower extremity Details: moderate; Negative for pulses abnormal Neuro oriented x3, CN's II-XII intact bilaterally and no sensory deficits noted Sensorium / Orientation: awake and alert Gait (Neuro): normal gait Motor Exam: strength 5/5 throughout Skin no rashes or lesions noted and no wounds MDM MDM MDM Narrative Medical decision making narrative: Patient was given a set of aerosol treatments which really helped his breathing. He does have a temperature here of 100.8 which I treated with Tylenol, for this reason I did an infectious work-up in addition to a cardiac given his orthopnea, bibasilar wheezes, and history of diastolic heart failure. His chest x-ray 2 views of my interpretation does not show CHF, radiology is in agreement, it also does not show infiltrates/acute pneumonia. His EKG does not show acute injury, his troponin and BNP are within normal limits he does not have significant leukocytosis. He already had a negative COVID test. In my judgment this is probably viral bronchitis which is why the antibiotics are not curing him, I see no reason to change that but since he started them I see no problem continuing them. If he has undiagnosed COPD, this could be reactive airway, which is why he is needing beta agonist. I will start him on some prednisone but will just do a short burst since he already has lower extremity edema that is chronic, in case this is COPD, as it might help then, he was advised that if this is just viral bronchitis with wheezing and he has no component of COPD then steroids may not help. He understands that has an inhaler at home to use as needed. We discussed reasons to return. Lab Data Attestation: I reviewed the patient's lab results. Labs: Laboratory Results - last 24 hr 08/26/22 08/26/22 08/26/22 09:30 09:30 09:30 WBC 8.6 RBC 5.64 Hgb 16.0 Hct 46.6 MCV 82.6 MCH 28.4 MCHC 34.3 RDW Std Deviation 38.6 RDW Coeff of Carri 12.9 Plt Count 141 L MPV 10.2 Immature Gran % (Auto) 0.400 Neut % (Auto) 81.9 H Lymph % (Auto) 11.0 L [place] % (Auto) 6.5 Eos % (Auto) 0.1 Baso % (Auto) 0.1 Absolute Neuts (auto) 7.0 Absolute Lymphs (auto) 0.94 Nucleated RBC % 0 Sodium 136 Potassium 3.9 Chloride 98 Carbon Dioxide 28.0 Anion Gap 10 BUN 14 Creatinine 1.01 Estim Creat Clear Calc 79.72 Est GFR (MDRD) Af Amer 97 Est GFR (MDRD) Non-Af 81 BUN/Creatinine Ratio 13.9 Glucose 127 H Calcium 9.2 Troponin I High Sens 22 B-Natriuretic Peptide 33.2 Radiography Chest X-Ray - ED: 2 View and Read by ED Physician Diagnostic Testing: Clinical Impression(s) from Imaging Studies Chest X-Ray 08/26/22 09:17 IMPRESSION: Chronic peribronchial thickening. Electronically Signed: Scot Rojas MD at 10:09 EDT , Rhythm Strip Rhythm Strip: Sinus Rhythm Rate: 90 Ectopy: None Discharge Plan Triage Chief Complaint: Shortness of Breath ED Provider: Edmond Magallanes Dx/Rx/DC Orders Clinical Impression: Acute bronchitis with wheezing, Chronic diastolic heart failure, Chest tightness Instructions: Acute Bronchitis Prescriptions: New prednisone 20 mg tablet 40 mg PO DAILY Qty: 8 0RF Rx Instructions: start 08/27 No Action cholecalciferol (vitamin D3) 2,000 unit capsule 2,000 unit PO QDAY omeprazole 20 mg capsule,delayed release(DR/EC) 20 mg PO QDAY potassium chloride 20 mEq tablet extended release 20 meq PO QDAY cyanocobalamin (vitamin B-12) 2,500 mcg tablet 2,500 mcg PO Q OTHER DAY rosuvastatin 40 mg tablet 40 mg PO DAILY multivitamin 1 EACH tablet 1 ea PO DAILY Label Comments: VITAMIN furosemide 40 mg tablet 40 mg PO .COMPLEX Rx Instructions: 40 mg PO; 2 tabs qam, 1 tab qpm acetaminophen 500 mg Tablet 500 mg PO TID PRN PRN (Reason: Pain) coenzyme Q10 [CoQ-10] 100 mg Capsule 100 mg PO 3XD turmeric 400 mg Capsule 400 mg PO DAILY Primary Care Provider: Abdifatah Hong Referrals: Abdifatah Hong MD [Primary Care Provider] - 3-5 Days if not improving Disposition Disposition: Home, Self Care
[2022-08-26] MEDS: Albuterol 2.5 MG/3 ML VIAL.NEB. INHALATION (09:29)
[2022-08-26] MEDS: Ipratropium/Albuterol Sulfate 3 ML AMPUL.NEB INHALATION (09:29)
[2022-08-26 09:40] VITALS: PULSE 82; RESP 24; O2SAT 89
[2022-08-26 09:42] LABS: Absolute Lymphocyte Count 0.94 X10^3/uL (0.83-4.51); Basophil# 0.01 X10^3/uL; Basophil% 0.1 % (0-1); Eosinophil# 0.01 X10^3/uL; Eosinophils% 0.1 % (0-5); Hematocrit 46.6 % (40-54); Lymphocyte # 0.94 X10^3/ul (0.83-4.51); Mean Corp Hgb Conc 34.3 g/dL (32-36); Mean Corpuscular Hgb 28.4 pg (27.0-32.0); Mean Corpuscular Volume 82.6 fL (80-94); Mean Platelet Vol. 10.2 fl (6.2-12.0); Monocyte# 0.56 X10^3/uL; Monocyte% 6.5 % (0-10); NRBC Flagged by Analyzer 0 % (0-5); Neutrophil # 7.01 X10^3/uL (2.7-7.7); Neutrophil % 81.9 % (47-70); Platelet Count 141 K/mm3 (150-450); RBC Distribution Width CV 12.9 % (11.6-14.6); RBC Distribution Width SD 38.6 fl (35.1-43.9); Red Blood Count 5.64 M/mm3 (4.6-6.2); White Blood Count 8.6 K/mm3 (4.4-11.0)
[2022-08-26 09:46] VITALS: O2SAT 93
[2022-08-26 09:56] LABS: BNP,B-Type NATRIURETIC PEPTIDE 33.2 pg/mL (0-100)
[2022-08-26 10:12] LABS: Anion Gap 10 (5-15); BUN 14 mg/dL (7-18); BUN/Creat Ratio 13.9 RATIO (10-20); Calcium,Total 9.2 mg/dL (8.5-10.1); Chloride 98 mmol/L (98-107); Creatinine, Serum 1.01 mg/dL (0.70-1.30); EST Glomerular Filtration Rate 81 mL/min (>60); Est Glom Filt Rate - Afr Amer 97 mL/min (>60); Estimated Creatinine Clearance 79.72 ml/min; Glucose 127 mg/dL (74-106); Potassium 3.9 mmol/L (3.5-5.1); Sodium Level 136 mmol/L (136-145); Troponin-I HS 22 pg/mL (3.0-78.0)
[2022-08-26] MEDS: predniSONE 20 MG Tablet 40 MG PO (10:38)
[2022-08-26] MEDS: Acetaminophen 500 MG Tablet 1000 MG PO (10:38)
[2022-08-26 11:32] VITALS: BP 117/65; PULSE 84; RESP 18; O2SAT 98
== END 2022-08-26 11:33 | disposition home or self-care (01) ==
PROVIDERS: Emergency Provider Emergency Medicine; PCP Family Medicine; Visit Provider Emergency Medicine
DX: J20.9 Acute bronchitis, unspecified (principal); I50.32 Chronic diastolic (congestive) heart failure; E11.9 Type 2 diabetes mellitus without complications; I34.0 Nonrheumatic mitral (valve) insufficiency; R07.89 Other chest pain; F17.210 Nicotine dependence, cigarettes, uncomplicated; R06.01 Orthopnea; E78.5 Hyperlipidemia, unspecified
CPT/HCPCS: 71046; 80048; 83880; 84484; 85025; 93005; 94640; 99285; A4216

== ENCOUNTER → 2022-11-22 | Outpatient (CLI) | payer MEDICARE, SELFPAY ==
--- NOTE | 2022-11-22 07:04 | CT_ITS ---
STUDY: LOW DOSE CT LUNG CANCER SCREENING REASON FOR EXAM: Male, 57 years old. 1 1/2 pack per day smoker x45 years RADIATION DOSAGE (If Supplied By Facility): CTDIvol = ( 4.02 ) mGy, DLP = ( 156.02 ) mGycm TECHNIQUE: No contrast was administered. Low dose technique was utilized (average mAS-38 and kVp 120). 1.25 mm axial source images with a slice interval of 1.25-mm were reconstructed in lung windows. 2.5 mm axial source images with a slice interval of 2.5-mm were reconstructed in lung windows. 5.0 mm axial source images with a slice interval of 5.0-mm were reconstructed in soft tissue windows. COMPARISON: 01/20/2021 FINDINGS: Lung windows show the lungs to be normally expanded. Chronic interstitial changes noted in both lung henry without a superimposed infiltrate, or suspicious noncalcified mass or nodule. No significant interval change is noted since the previous study. Limited soft tissue evaluation shows a normal appearing thyroid gland. No suspicious adenopathy. There are calcified coronary vessels. No pleural or pericardial effusions. Bony structures show degenerative change. Limited cuts through the upper abdomen do not show a suspicious abnormality. CT/Low Dose CT Lung Screening IMPRESSION: Lung-RADS category 2 - Continue annual screening with LDCT in 12 months. IMPORTANT NOTES FOR USE: ACR Lung-RADS Version 1.1 Assessment Categories Release Date: 2018 Category: Coded 0-4 bases on nodule(s) with highest degree of suspicion. Negative screen is defined as categories 1 and 2; a positive screen is defined as categories 3 and 4. Category 3 and 4A nodules that are unchanged on interval CT should be coded as category 2, and individuals returned to screening in 12 months. Category 4X: Category 3 or 4 nodules with additional imaging findings that increase the suspicion of lung cancer, such as spiculation, GGN that doubles in size in 1 year, enlarged lymph notes, etc. Category Modifiers: S (significant finding unrelated to lung cancer) Electronically Signed: Matty Barrios MD at 11:57 EST ,
== END | disposition home or self-care (01) ==
PROVIDERS: PCP Family Medicine; Visit Provider Internal Medicine Critical Care Medicine
DX: Z12.2 Encounter for screening for malignant neoplasm of respiratory organs (principal); R91.8 Other nonspecific abnormal finding of lung field; M19.90 Unspecified osteoarthritis, unspecified site; F17.210 Nicotine dependence, cigarettes, uncomplicated
CPT/HCPCS: 71271

== ENCOUNTER → 2023-04-09 | Outpatient (CLI) | payer MEDICARE, SELFPAY ==
[2023-04-09 17:37] LABS: Hematocrit 47.3 % (40-54); Hemoglobin 15.4 g/dL (13.0-16.5); Mean Corp Hgb Conc 32.6 g/dL (32-36); Mean Corpuscular Hgb 27.9 pg (27.0-32.0); Mean Corpuscular Volume 85.8 fL (80-94); Mean Platelet Vol. 10.7 fl (6.2-12.0); Platelet Count 178 K/mm3 (150-450); RBC Distribution Width SD 40.3 fl (35.1-43.9); Red Blood Count 5.51 M/mm3 (4.6-6.2); White Blood Count 7.9 K/mm3 (4.4-11.0)
[2023-04-09 18:50] LABS: BNP,B-Type NATRIURETIC PEPTIDE 11.8 pg/mL (0-100)
[2023-04-09 18:57] LABS: AST(SGOT) 26 U/L (15-37); Alanine Aminotransfer ALT/SGPT 41 U/L (16-61); Albumin, Serum 3.9 g/dL (3.2-5.0); Alkaline Phosphatase 77 U/L (45-117); Anion Gap 7 (5-15); BUN 23 mg/dL (7-18); BUN/Creat Ratio 21.5 RATIO (10-20); Calcium,Total 9.5 mg/dL (8.5-10.1); Chloride 106 mmol/L (98-107); Creatinine, Serum 1.07 mg/dL (0.70-1.30); EST Glomerular Filtration Rate 75 mL/min (>60); Est Glom Filt Rate - Afr Amer 91 mL/min (>60); Glucose 129 mg/dL (74-106); Potassium 3.9 mmol/L (3.5-5.1); Protein, Total 7.9 g/dL (6.4-8.2); Sodium Level 140 mmol/L (136-145); Thyroid Stim Hormone (TSH) 0.74 uIU/mL (0.358-3.74)
== END | disposition home or self-care (01) ==
LOC: MFPLAB 14:25
PROVIDERS: PCP Family Medicine; Visit Provider Family Medicine
DX: I50.9 Heart failure, unspecified (principal); E11.9 Type 2 diabetes mellitus without complications
CPT/HCPCS: 36415; 80053; 83880; 84443; 85027

== ENCOUNTER 2023-08-29 16:05 | Inpatient (IN) | payer MEDICARE, SELFPAY ==
[2023-08-29] VITALS (11 sets, daily range): BP systolic 87–119; BP diastolic 56–88; PULSE 103–161; RESP 14–35; TEMP 36.9–37.1; O2SAT 90–97; BMI 42.8
--- NOTE | 2023-08-29 17:27 | EKG12_ITS ---
Test Reason : SOB Blood Pressure : / mmHG Vent. Rate : 154 BPM Atrial Rate : 154 BPM P-R Int : 130 ms QRS Dur : 092 ms QT Int : 270 ms P-R-T Axes : 077 -30 175 degrees QTc Int : 432 ms Critical Test Result: High HR Atrial Flutter with occasional Premature ventricular complexes Left axis deviation T wave abnormality, consider lateral ischemia Abnormal ECG Confirmed by MARCO ANTONIO MARTINEZ, LYNDSAY ([id number]), material expeditor SAMAN HORTON ([id number]) on 09/03/2023 12:25:33 PM Referred By: Confirmed By:LYNDSAY BERNARD MD
[2023-08-29] MEDS: Ipratropium/Albuterol Sulfate 3 ML AMPUL.NEB INHALATION (17:44)
[2023-08-29 17:59] LABS: Absolute Lymphocyte Count 1.93 X10^3/uL (0.83-4.51); Absolute Neutrophil Count 9.5 X10^3/uL (2.0-7.7); Basophil# 0.02 X10^3/uL; Basophil% 0.2 % (0-1); Eosinophil# 0.06 X10^3/uL; Eosinophils% 0.5 % (0-5); Hematocrit 46.8 % (40-54); Hemoglobin 15.4 g/dL (13.0-16.5); Lymphocyte # 1.93 X10^3/ul (0.83-4.51); Lymphocyte % 15.4 % (19-41); Mean Corp Hgb Conc 32.9 g/dL (32-36); Mean Corpuscular Hgb 27.7 pg (27.0-32.0); Mean Corpuscular Volume 84.3 fL (80-94); Mean Platelet Vol. 10.5 fl (6.2-12.0); Monocyte# 1.01 X10^3/uL; NRBC Flagged by Analyzer 0 % (0-5); Neutrophil % 75.6 % (47-70); Platelet Count 161 K/mm3 (150-450); RBC Distribution Width CV 13.1 % (11.6-14.6); RBC Distribution Width SD 39.9 fl (35.1-43.9); Red Blood Count 5.55 M/mm3 (4.6-6.2); White Blood Count 12.6 K/mm3 (4.4-11.0)
--- NOTE | 2023-08-29 18:10 | RAD_ITS ---
STUDY: X-RAY CHEST REASON FOR EXAM: Male, 58 years old. Dyspnea TECHNIQUE: Single frontal view of the chest. COMPARISON: August 26, 2022 FINDINGS: Possible subtle interstitial infiltrates on the right. There is no demonstrated pleural abnormality. Normal size heart. Normal mediastinum and jaret. Normal visualized pulmonary arteries. Normal visualized aortic arch and descending thoracic aorta. Normal visualized thoracic spine. Normal visualized ribs, clavicles, and shoulders. There is no demonstrated abnormality of the visualized soft tissue structures of the upper abdomen. RAD/Chest PA and Lateral IMPRESSION: Possible mild interstitial infiltrates in the right Electronically Signed: Cr Jimenez MD at 18:28 EDT ,
[2023-08-29 18:17] LABS: Anion Gap 4 (5-15); BUN 19 mg/dL (7-18); BUN/Creat Ratio 18.4 RATIO (10-20); Calcium,Total 8.9 mg/dL (8.5-10.1); Chloride 106 mmol/L (98-107); Creatinine, Serum 1.03 mg/dL (0.70-1.30); EST Glomerular Filtration Rate 78 mL/min (>60); Est Glom Filt Rate - Afr Amer 95 mL/min (>60); Estimated Creatinine Clearance 77.22 ml/min; Glucose 120 mg/dL (74-106); Potassium 3.7 mmol/L (3.5-5.1); Sodium Level 138 mmol/L (136-145); Troponin-I HS 32 pg/mL (3.0-78.0)
--- NOTE | 2023-08-29 18:39 | EDS_ITS ---
HPI History of Present Illness Chief Complaint: Shortness of Breath Informant: patient Onset/Context/Timing Onset: Days (3) Context: gradual Timing: Continuous Quality: Positive for Dyspnea on exertion Worsened by: Nothing Relieved by: Nothing Associated Symptoms cough and rhinorrhea; Negative for post nasal drip, ear pain, fever, sore throat, chills, sweats, clear sputum, white sputum, yellow sputum or green sputum Chest Pain: Positive for Dull and Tightness Narrative Narrative: Patient presents with shortness of breath that has been getting worse over the last 3 days. Patient states it has been constant. Patient states he feels some tightness in his chest. Patient states nothing makes it better and nothing makes it worse. Patient admits to a cough but denies any sputum production. Patient admits to some lightheadedness and dizziness. Patient admits to some rhinorrhea. Patient denies any fevers or chills. PE Risk Factors: Negative for Cancer, OCP + Smoking + > 35, Prior DVT or PE, Recent immobilization or Recent surgery PFSH [facility] Medical History Chronic diastolic heart failure Chronic venous insufficiency Dependence on nocturnal oxygen therapy Diabetes mellitus Dyspnea Gastroesophageal reflux disease GERD (gastroesophageal reflux disease) Hyperlipidemia Hypersomnia Leg edema Leg swelling Mild pulmonary arterial systolic hypertension Morbid obesity Obesity DEBI (obstructive sleep apnea) Restrictive lung disease Varicose veins of both lower extremities with inflammation Home Medications multivitamin 1 ea PO DAILY 06/22/17 [History Last Taken 06/22/17] omeprazole 20 mg capsule,delayed release 20 mg PO QDAY 02/09/18 [History Last Taken Unknown] potassium chloride 20 mEq tablet,extended release 20 meq PO QDAY 02/09/18 [History Last Taken Unknown] cholecalciferol (vitamin D3) 50 mcg (2,000 unit) capsule 2,000 unit PO QDAY 02/10/18 [History Last Taken Unknown] cyanocobalamin (vitamin B-12) 2,500 mcg tablet 2,500 mcg PO Q OTHER DAY 11/06/21 [History Last Taken Unknown] furosemide 40 mg tablet 40 mg PO .COMPLEX 11/06/21 [History Last Taken Unknown] rosuvastatin 40 mg tablet 40 mg PO DAILY 06/21/22 [History Last Taken Unknown] acetaminophen 500 mg tablet 500 mg PO TID PRN PRN Pain 07/24/22 [History Last Taken Unknown] coenzyme Q10 100 mg capsule (CoQ-10) 100 mg PO 3XD 07/24/22 [History Last Taken Unknown] turmeric 400 mg capsule 400 mg PO DAILY 07/24/22 [History Last Taken Unknown] Allergy/AdvReac Type Severity Reaction Status Date / Time aspirin Allergy Severe Swelling Verified 08/29/23 16:07 NSAIDS (Non-Steroidal Allergy Swelling Verified 08/29/23 16:07 Anti-Inflamma Family History Father Heart disease Sister Cancer Surgical History History of total left knee replacement (06/06/21) skin graft/muscle reconstruction of legs Social History Smoking Status: Current every day smoker tobacco type: cigarettes Tobacco: How many years used: 35 second hand exposure: Yes alcohol intake: never substance use type: does not use caffeine: Yes Type: coffee Number of servings: 6 ROS ROS ED Constitutional Constitutional ED: Denies chills or fever(s) Eyes Eyes: Denies blurry vision or change in vision ENT ENT ED: Denies rhinorrhea or sore throat Cardiovascular Cardiovascular: Reports chest pain; Denies palpitations Respiratory/Chest Respiratory/Chest: Reports cough and dyspnea Gastrointestinal Gastrointestinal: Denies nausea or vomiting Genitourinary Genitourinary ED: Denies dysuria or hematuria Musculoskeletal Musculoskeletal: Reports myalgias; Denies back pain or neck pain Integumentary Denies abscess or rash Neurologic Neurologic: Denies headache(s) or weakness Allergic/Immunologic Allergic/Immunologic ED: Denies mouth swelling or urticaria EXAM Physical Exam Const Vital Signs: 08/29/23 16:08 08/29/23 17:06 08/29/23 17:45 Temperature 98.4 F Temperature Source Temporal Pulse Rate 103 H 120 H Respiratory Rate 18 16 Respiratory Effort Normal Respiratory Pattern Normal Normal Blood Pressure 119/88 H Blood Pressure Mean 98 Pulse Ox 97 Oxygen Delivery Method Room Air 08/29/23 19:49 08/29/23 20:00 08/29/23 21:00 Temperature Temperature Source Pulse Rate 161 H 135 H 153 H Respiratory Rate 28 H 27 H 17 Respiratory Effort Respiratory Pattern Blood Pressure Blood Pressure Mean Pulse Ox 95 Oxygen Delivery Method 08/29/23 22:00 08/29/23 22:29 Temperature Temperature Source Pulse Rate 151 H 154 H Respiratory Rate 34 H 35 H Respiratory Effort Respiratory Pattern Blood Pressure Blood Pressure Mean Pulse Ox 90 94 Oxygen Delivery Method Room Air Positive well nourished, well developed and obese General Appearance ED: well developed and NAD Nutritional Appearance: obese HEENT Reports moist mucous membranes Neck supple and no JVD Resp normal respiratory effort Auscultation: diminished lung sounds Cardio regular rhythm Rate: tachycardic GI non-tender and non-distended Palpation: soft Extremity General Extremety ED: Yes edema; Negative for tenderness General Extremity: edema Neuro oriented x3, CN's II-XII intact bilaterally and no sensory deficits noted Palo Coma Scale: document GCS findings Spontaneous Obeys Commands Oriented 15 Sensorium / Orientation: alert Speech: speech normal Motor Exam: strength 5/5 throughout Psych mental status grossly normal MDM MDM MDM Narrative Medical decision making narrative: Differential diagnosis includes cardiac dysrhythmia, cardiac ischemia, pneumonia, COVID-19 infection, influenza infection, viral upper respiratory inf ection, congestive heart failure, and asthma. EKG will be obtained to assess for cardiac dysrhythmia and cardiac ischemia. Chest x-ray will be obtained to assess for pneumonia and congestive heart failure. CBC will be obtained to assess for leukocytosis and anemia. Basic metabolic profile will be obtained to assess for electrolyte abnormality and renal function. High-sensitivity troponin will be obtained to assess for cardiac ischemia. COVID-19 rapid antigen will be obtained to assess for COVID-19 infection influenza A and influenza B antigens will be obtained to assess for influenza infection. Lab Data Attestation: I reviewed the patient's lab results. Lab results narrative: CBC was reviewed. There is a mild leukocytosis of 12.6. The remainder is within normal limits. Basic metabolic profile was reviewed and was essentially within normal limits. High-sensitivity troponin was reviewed and was normal at 32. BNP was reviewed and was slightly elevated at 123.2. 19 rapid antigen was reviewed and was negative. Influenza A and influenza B antigens were reviewed and were negative. Labs: Laboratory Results - last 24 hr 08/29/23 08/29/23 17:46 18:20 WBC 12.6 H RBC 5.55 Hgb 15.4 Hct 46.8 MCV 84.3 MCH 27.7 MCHC 32.9 RDW Std Deviation 39.9 RDW Coeff of Carri 13.1 Plt Count 161 MPV 10.5 Immature Gran % (Auto) 0.300 Neut % (Auto) 75.6 H Lymph % (Auto) 15.4 L [place] % (Auto) 8.0 Eos % (Auto) 0.5 Baso % (Auto) 0.2 Absolute Neuts (auto) 9.5 H Absolute Lymphs (auto) 1.93 Nucleated RBC % 0 Sodium 138 Potassium 3.7 Chloride 106 Carbon Dioxide 28.0 Anion Gap 4 L BUN 19 H Creatinine 1.03 Estim Creat Clear Calc 77.22 Est GFR (MDRD) Af Amer 95 Est GFR (MDRD) Non-Af 78 BUN/Creatinine Ratio 18.4 Glucose 120 H Calcium 8.9 Troponin I High Sens 32 B-Natriuretic Peptide Cancelled 123.2 H Radiography Chest X-Ray - ED: 2 View, Read by ED Physician, Read by Radiologist and No Acute Disease Diagnostic Testing: Clinical Impression(s) from Imaging Studies Chest X-Ray 08/29/23 18:10 IMPRESSION: Possible mild interstitial infiltrates in the right Electronically Signed: Cr Jimenez MD at 18:28 EDT , Chest CTA 08/29/23 20:56 IMPRESSION: Possible pancreatic mass. Recommend follow-up dedicated CT of the pancreas and abdomen and pelvis with IV contrast. Otherwise no acute disease. Electronically Signed: Cr Jimenez MD at 22:19 EDT , PA and lateral chest x-ray was obtained. There are 2 views. On my independent interpretation, lung henry show questionable interstitial infiltrates on the right. There is normal cardiac silhouette. Bony thorax is normal. There is no acute process noted. Radiologist also interpreted the x-ray and agrees. Because of the persistent tachycardia, CTA of the chest was obtained. There is no pulmonary embolism noted. There is no aortic dissection. There is a questionable pancreatic mass. EKG Initial EKG: Attestation: I personally reviewed and interpreted this EKG as follows: Interpretation: Sinus Tachycardia (154) and Non-Specific ST Changes Comments: EKG was obtained. On my independent interpretation, it shows sinus tachycardia with a rate of 154 with occasional PVCs. NH interval was normal at 130 ms. QRS interval was normal at 92 ms. QTc interval was normal at 432 ms. There is left axis deviation at -30. There are nonspecific ST-T wave changes noted. This is unchanged compared to previous EKG dated 08/26/2022. Prior EKG tracings: available for review Prior: Unchanged (09-15) Management Discussion w/another healthcare provider: Hospitalist Additional Tests and Interventions Additional Tests or Interventions: Because of the CT findings, lipase was added. Treatment and Re-Evaluation :: Patient was given a bolus of Cardizem initially. Patient had minimal improvement with this. Patient was given a dose of adenosine with no change. Patient was given a repeat dose of adenosine 12 mg with no change. Patient was then started on a Cardizem drip. Case was discussed with the hospitalist. He will admit the patient to her service. Patient understood and was agreeable with the plan. All questions were answered. Discharge Plan Dx/Rx/DC Orders Clinical Impression: DEBI (obstructive sleep apnea), Dyspnea, Tachycardia Disposition Disposition: Acute Care Hospital [facility]
[2023-08-29 19:27] LABS: BNP,B-Type NATRIURETIC PEPTIDE 123.2 pg/mL (0-100)
[2023-08-29] MEDS: dilTIAZem 25 MG/5 ML Vial IV BOLUS (19:54)
--- NOTE | 2023-08-29 20:56 | CT_ITS ---
STUDY: CTA CHEST REASON FOR EXAM: Male, 58 years old. Pulmonary embolus RADIATION DOSAGE (If Supplied By Facility): CTDIvol = ( 12.66 ) mGy, DLP = ( 600.80 ) mGycm TECHNIQUE: The examination was performed with the intravenous administration of IV 100mL [id number]-[id number]. Post-processing of the angiographic images was performed, with multiplanar reformation and 3D reconstruction. Individualized dose optimization techniques were used for this CT. COMPARISON: CT chest June 22, 2017. FINDINGS: Normal enhancement of the main pulmonary artery and right and left pulmonary arteries. Normal enhancement of the bilateral peripheral pulmonary arteries. There is no demonstrated pulmonary embolism. Normal thoracic aorta and visualized great vessels. There is no demonstrated aortic dissection. Normal heart and pericardium. Normal mediastinum. Normal hilar regions. Normal visualized trachea and bronchi. The lungs are well expanded. Normal pulmonary parenchyma. Normal pleura. Normal chest wall structures. Slight anterior wedging mid thoracic spine unchanged. There appears to be fullness in the possible ill-defined hypodense mass within the tail of the pancreas measuring up to 3.[address]/CTA Chest W/WO Contrast IMPRESSION: Possible pancreatic mass. Recommend follow-up dedicated CT of the pancreas and abdomen and pelvis with IV contrast. Otherwise no acute disease. Electronically Signed: Cr Jimenez MD at 22:19 EDT ,
[2023-08-29] MEDS: Adenosine 6 MG/2 ML Syringe IV (22:29)
[2023-08-29] MEDS: Adenosine 6 MG/2 ML Syringe 12 MG IV (22:33)
--- NOTE | 2023-08-29 22:36 | HP.PCM.HOS_ITS ---
HPI - General General Date of Admission: 08/29/23 Date of Service: 08/29/23 Chief Complaint: Dyspnea, cough, congestion, rhinorrhea. HPI Narrative The patient is a 58 y/o M w/ PMHx: Chronic Diastolic CHF, HTN, HLD, Diabetes mellitus type II, GERD, BL LE Chronic venous stasis disease, Morbid obesity, DEBI on CPAP nightly, Restrictive lung disease, Mild Pulmonary Hypertension, Chronic BL LE Lymphedema, Tobacco use who presents to the [facility] ED on 08/29/23 with history of shortness of breath, worse with exertion with cough and rhinorrhea with sensation of chest congestion and tightness worsening over the last 3 days, constant in nature with no markedly productive sputum but some lightheadedness and dizziness with no fevers or chills prompting eventual ED evaluation. He denies any sensation of palpitations or racing heart. Work-up in the ED included T98.4, heart rate initially 103 however increased in the ED into the 140 and 150s, most recently 120, BP 119/88, respiratory rate 18, 97% on room air, CBC with WBC 12.6, hemoglobin 15.4, platelet 161 with left shift, BMP with BUN/creatinine 19/1.03, glucose 120 otherwise not marked appearing, troponin 32, BNP 123.2, chest x-ray with possible mild interstitial infiltrates in the right, rapid SARS COVID and influenza negative, CTPA with no evidence of PE, normal- appearing heart and pericardium, lungs well-expanded with no acute findings with normal pulmonary parenchyma, unchanged slight anterior wedging of the mid thoracic spine, notable fullness within the tail of the pancreas possibly hypodense mass measuring up to 3.8 cm in diameter, EKG with suspected sinus tachycardia with visible P waves with no acute evidence of ischemia. In the ED patient ministered DuoNeb therapy as well as diltiazem 25 mg IV x1. Patient did transiently improve with Cardizem bolus with then trial of adenosine initially 6 mg and then 12 mg IV without any change. Patient was then placed on a Cardizem drip. [facility] Medical History Chronic diastolic heart failure Chronic venous insufficiency Dependence on nocturnal oxygen therapy Diabetes mellitus Dyspnea Gastroesophageal reflux disease GERD (gastroesophageal reflux disease) Hyperlipidemia Hypersomnia Leg edema Leg swelling Mild pulmonary arterial systolic hypertension Morbid obesity Obesity DEBI (obstructive sleep apnea) Restrictive lung disease Varicose veins of both lower extremities with inflammation Home Medications multivitamin 1 ea PO DAILY 06/22/17 [History Last Taken 06/22/17] omeprazole 20 mg capsule,delayed release 20 mg PO QDAY 02/09/18 [History Last Taken Unknown] potassium chloride 20 mEq tablet,extended release 20 meq PO QDAY 02/09/18 [History Last Taken Unknown] cholecalciferol (vitamin D3) 50 mcg (2,000 unit) capsule 2,000 unit PO QDAY 02/10/18 [History Last Taken Unknown] cyanocobalamin (vitamin B-12) 2,500 mcg tablet 2,500 mcg PO Q OTHER DAY 11/06/21 [History Last Taken Unknown] furosemide 40 mg tablet 40 mg PO .COMPLEX 11/06/21 [History Last Taken Unknown] rosuvastatin 40 mg tablet 40 mg PO DAILY 06/21/22 [History Last Taken Unknown] acetaminophen 500 mg tablet 500 mg PO TID PRN PRN Pain 07/24/22 [History Last Taken Unknown] coenzyme Q10 100 mg capsule (CoQ-10) 100 mg PO 3XD 07/24/22 [History Last Taken Unknown] turmeric 400 mg capsule 400 mg PO DAILY 07/24/22 [History Last Taken Unknown] Allergy/AdvReac Type Severity Reaction Status Date / Time aspirin Allergy Severe Swelling Verified 08/29/23 16:07 NSAIDS (Non-Steroidal Allergy Swelling Verified 08/29/23 16:07 Anti-Inflamma Family History Father Heart disease Sister Cancer Surgical History History of total left knee replacement (06/06/21) skin graft/muscle reconstruction of legs Social History (Updated 08/29/23 @ 23:[address] Jerica Hou MD) household members: spouse Smoking Status: Current every day smoker tobacco type: cigarettes Smoking packs per day: 1.5 Smoking cigarettes per day: 30.0 Tobacco: How many years used: 35 second hand exposure: Yes alcohol intake: never substance use type: does not use caffeine: Yes Type: coffee Number of servings: 6 ROS ROS Narrative Admission Review of Systems: CONSTITUTIONAL: No weight loss, fever, chills, + weakness or fatigue. HEENT: + Congestion, rhinorrhea. Eyes: No visual loss, blurred vision, double vision or yellow sclerae. Ears, Nose, Throat: No hearing loss, sneezing, sore throat. SKIN: No rash or itching, lesions, wounds except + chronic venous stasis skin changes. CARDIOVASCULAR: + Chest tightness, lightheadedness, dizziness, chronic lower extremity lymphedema. No orthopnea, syncopal events. RESPIRATORY: + shortness of breath, cough without marked sputum. No wheezing, hemoptysis. GASTROINTESTINAL: No anorexia, nausea, vomiting or diarrhea, abdominal pain, melena, BRBPR. GENITOURINARY: No dysuria, frequency, urgency or retention. NEUROLOGICAL: + Lightheadedness/dizziness. No headache, syncope, paralysis, ataxia, numbness or tingling in the extremities, focal weakness, change in bowel or bladder control, seizure. MUSCULOSKELETAL: + muscle, back pain, joint pain or stiffness. HEMATOLOGIC: No anemia, bleeding or bruising. LYMPHATICS: No enlarged nodes. No history of splenectomy. PSYCHIATRIC: No history of depression or anxiety. ENDOCRINOLOGIC: No reports of sweating, cold or heat intolerance. No polyuria or polydipsia. ALLERGIES: + history of rhinitis. Vital Signs Vital Signs Vital Signs: 08/29/23 16:08 08/29/23 17:06 08/29/23 17:45 Temperature 98.4 F Temperature Source Temporal Pulse Rate 103 H 120 H Respiratory Rate 18 16 Respiratory Effort Normal Respiratory Pattern Normal Normal Blood Pressure 119/88 H Blood Pressure Mean 98 Pulse Ox 97 Oxygen Delivery Method Room Air 08/29/23 19:49 08/29/23 20:00 08/29/23 21:00 Temperature Temperature Source Pulse Rate 161 H 135 H 153 H Respiratory Rate 28 H 27 H 17 Respiratory Effort Respiratory Pattern Blood Pressure Blood Pressure Mean Pulse Ox 95 Oxygen Delivery Method 08/29/23 22:00 08/29/23 22:29 Temperature Temperature Source Pulse Rate 151 H 154 H Respiratory Rate 34 H 35 H Respiratory Effort Respiratory Pattern Blood Pressure Blood Pressure Mean Pulse Ox 90 94 Oxygen Delivery Method Room Air Weight Weight: 290 lb 6.4 oz Body Mass Index (BMI) 42.8 Physical Exam Narrative Physical Examination: General: Awake, alert, oriented x 3 and cooperative, seated upright in the ED bed in no apparent distress, denies any current chest discomfort or dyspnea but he is at rest. Skin: Normal color, normal turgor, no icterus, no cyanosis. HEENT: AT/NC, EOMI, PERRLA, MMM, no carotid bruits, no obvious appreciated JVD however thickened neck makes evaluation difficult. Lungs: Mildly diminished, greater bases, mildly increased respiratory rate but no distress, no rales, ronchi or wheezing. Heart: Tachycardic, regular; no gallop, rub audible. Abdomen: Soft, morbidly obese, NTTP, distant BS, difficult to discern distention or HSM given habitus. Extremities: No cyanosis, no clubbing, bilateral lower extremity lymphedema, left greater than right secondary to prior orthopedic surgical interventions and grafting. Neurological: Patient awake, alert, oriented as noted, cognitive function intact; pupils equally reactive to light and accommodation, cranial nerves grossly normal, moving all 4 extremities, no focal deficits, strength moderately to severely decreased secondary to acute complaints. Psychiatric: Affect appears fatigued otherwise normal, no acute evidence of depressive or anxiety feelings. Results Lab / Micro Data 08/29/23 17:46 08/29/23 17:46 Labs: Laboratory Results - last 24 hr 08/29/23 17:46: WBC 12.6 H, RBC 5.55, Hgb 15.4, Hct 46.8, MCV 84.3, MCH 27.7, MCHC 32.9, RDW Std Deviation 39.9, RDW Coeff of Carri 13.1, Plt Count 161, MPV 10.5, Immature Gran % (Auto) 0.300, Neut % (Auto) 75.6 H, Lymph % (Auto) 15.4 L, [place] % (Auto) 8.0, Eos % (Auto) 0.5, Baso % (Auto) 0.2, Absolute Neuts (auto) 9.5 H, Absolute Lymphs (auto) 1.93, Nucleated RBC % 0, Sodium 138, Potassium 3.7, Chloride 106, Carbon Dioxide 28.0, Anion Gap 4 L, BUN 19 H, Creatinine 1.0 3, Estim Creat Clear Calc 77.22, Est GFR (MDRD) Af Amer 95, Est GFR (MDRD) Non- Af 78, BUN/Creatinine Ratio 18.4, Glucose 120 H, Calcium 8.9, Troponin I High Sens 32, B-Natriuretic Peptide Cancelled 08/29/23 18:20: B-Natriuretic Peptide 123.2 H Micro: Microbiology 08/29/23 17:45 Nasal Secretion SARS-CoV-2 & FLU Antigen (Rapid) - Final Radiology Impression Chest X-Ray 08/29/23 18:10 IMPRESSION: Possible mild interstitial infiltrates in the right Electronically Signed: Cr Jimenez MD at 18:28 EDT , Chest CTA 08/29/23 20:56 IMPRESSION: Possible pancreatic mass. Recommend follow-up dedicated CT of the pancreas and abdomen and pelvis with IV contrast. Otherwise no acute disease. Electronically Signed: Cr Jimenez MD at 22:19 EDT , Assessment & Plan Assessment/Plan (1) Tachycardia: PLAN: Plan The patient is a 58 y/o M w/ PMHx: Chronic Diastolic CHF, HTN, HLD, Diabetes mellitus type II, GERD, BL LE Chronic venous stasis disease, Morbid obesity, DEBI on CPAP nightly, Restrictive lung disease, Mild Pulmonary Hypertension, Chronic BL LE Lymphedema, Tobacco use who presents to the [facility] ED on 08/29/23 with history of shortness of breath, worse with exertion with cough and rhinorrhea with se nsation of chest congestion and tightness worsening over the last 3 days, constant in nature with no markedly productive sputum but some lightheadedness and dizziness with no fevers or chills prompting eventual ED evaluation. #1. Suspected Acute Viral Syndrome with recent Dyspnea, Cough, Rhinorrhea worsened by #2: Will admit to PCU especially given #2, will maintain on oxygen with wean as tolerated to room air, continue ATC budesonide, HOB, IS parameters, request COVID PCR, request full respiratory viral panel. #2. Suspect SVT: Suspect secondary to #1, possibly #3 but also recent aerosols administered in the ED, improved with IV cardizem, no change with adenosine, will continue Cardizem drip initiated in the ED and if not effective may need to trial lopressor with labetolol transition if necessary but responded initially in the ED, will maintain on telemetry, will continue to cycle cardiac enzymes, TSH requested, magnesium level requested, echocardiogram requested, FLP in AM, will request cardiology involvement. #3. Incidental Possible Pancreatic Mass: CTPA with no evidence of PE, normal- appearing heart and pericardium, lungs well-expanded with no acute findings with normal pulmonary parenchyma, unchanged slight anterior wedging of the mid thoracic spine, notable fullness within the tail of the pancreas possibly hypodense mass measuring up to 3.8 cm in diameter, given recent contrast administration will need to wait and will request CT pancrease/abd/pelvis 08/30/23 with IV contrast to further assess and to decide on hematology oncology consultant involvement. #4. HFpEF: ECHO 04/26/2020 with mild concentric LVH, EF 55%, stage II diastolic dysfunction, moderately enlarged LA, mild to moderate MVI, mild TVI, RVSP 32 mmHg with RSVP similar to previous however onset of valvular changes. We will continue aspirin, statin, Lasix, not on beta-laura nor GORDON inhibitor/ARB with last cardiology visit noted 11/06/2021. #5. Chart reported borderline diabetes mellitus type II: Noted chart history, clarifying as per current list not on medication, will add once reconciled, will in the interim obtain hemoglobin A1c and maintain on ADA diet, accu checks w/ ISS. #6. Restrictive lung disease, pulmonary hypertension: Following with Dr. Arias although last note 11/12/2022, most recent echocardiogram noted 04/26/2020 with mild concentric LVH, EF 55%, stage II diastolic dysfunction, moderately enlarged LA, mild to moderate MVI, mild TVI, RVSP 32 mmHg with RSVP similar to previous, encourage continued outpatient follow-up and evaluation. #7. Hypertension: Continue home regimen including Lasix, PRN hydralazine. #8. Hyperlipidemia: Continue home statin regimen. AM FLP. #9. Morbid Obesity: Weight loss and lifestyle changes encouraged. #10. DEBI: We will continue CPAP therapy nightly with 2 L nasal cannula bled in noted to be most recently per pulmonary note to be 16 cm of water. #11. Chronic bilateral lower extremity lymphedema, L > R (secondary to prior surgical intervention/ortho and skin grafting: We will place neck Gordon wraps with elevation. #12. Tobacco Abuse: Encouraged cessation, inpatient consultation per RT, NR if desired. #13. GERD: Within the patient on PPI. #14. DVT prophylaxis: Lovenox. #15. 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 Discussed CODE status at length including difference between FULL code, DNR-CCA and DNR-CC status. Following discussions about the differences in these status, requested Full Code. Advanced Care Planning Face to Face Time: 16 minutes. Charges/Coding Visit Charges Inpatient E&M: 60053 Init Hosp L3 Procedures Hospitalists Procedures: 39958 Advncd Care Plan 30 Min
[2023-08-29] MEDS: Diltiazem 125 MG in Dextrose 5%-Water (100mL Bag) 100 ML CONT INF (22:38)
[2023-08-29 23:00] LABS: Lipase 32 U/L (13-75)
[2023-08-29 23:25] LABS: Magnesium 1.9 mg/dL (1.6-2.6)
[2023-08-30] VITALS (33 sets, daily range): BP systolic 92–126; BP diastolic 57–101; PULSE 64–145; RESP 12–35; TEMP 36.1–36.7; O2SAT 88–98; BMI 44.1; BMI 44.6
[2023-08-30 00:11] LABS: Procalcitonin < 0.04 ng/mL (0.00-0.09)
--- NOTE | 2023-08-30 00:46 | ECHOCS_ITS ---
Reason For Study: Arrhythmia Procedure This was a 2D Doppler, Color Flow transthoracic echocardiogram. The study was technically difficult. Contrast injection was performed. Exam performed portable in patient room. Left Ventricle Normal LV size. The left ventricular ejection fraction is 50 %. Stage 3 diastolic dysfunction. [place] : Hypokinetic. Right Ventricle Normal RV size. Normal systolic function. Atria The left atrium is mildly enlarged. The right atrium is mildly enlarged. Mitral Valve Mitral valve not well visualized. Tricuspid Valve The tricuspid valve is not well visualized. Aortic Valve The aortic valve is not well visualized. Pulmonic Valve The pulmonic valve is not well visualized. Great Vessels Normal aortic root. The pulmonary artery is normal size. Pericardium/Pleural No pericardial effusion. Medication Diluted definity 4ml given slow IV push to enhance endocardial definition. MMode/2D Measurements & Calculations LVIDd: 6.0 cm IVSd: 0.89 cm Ao root diam: 3.3 cm LVIDs: 4.6 cm LVPWd: 1.0 cm LA dimension: 4.6 cm FS: 23.0 % LAV(MOD-bp): 100.5 ml LA A4 area: 24.9 cm2 RA A4 area: 21.7 cm2 LAV(MOD-bp) Indexed: 41.5 ml/m2 LAV(MOD-sp2): 91.5 ml LAV(MOD-sp4): 76.5 ml Time Measurements MV dec time: 0.14 sec Doppler Measurements & Calculations MV E max reece: 105.3 cm/sec Lat Peak E' Reece: 14.8 cm/sec Med Peak E' Reece: 7.1 cm/sec MV A max reece: 43.6 cm/sec E/E' lat: 7.1 E/E' med: 14.8 MV E/A: 2.4 MV V2 max: 124.5 cm/sec MV dec slope: 762.8 cm/sec2 Ao V2 max: 92.6 cm/sec MV max P.2 mmHg Ao max P.4 mmHg MV V2 mean: 63.1 cm/sec MV mean P.0 mmHg MV V2 VTI: 23.7 cm LV V1 max: 65.9 cm/sec PA V2 max: 60.7 cm/sec LV V1 max P.7 mmHg ECHO/Echo Complete W/ Contrast Interpretation Summary The left ventricular ejection fraction is 50 %. Stage 3 diastolic dysfunction. Normal LV size. Contrast injection was performed. The study was technically difficult. Ordering Physician: Jerica Hou Performed By: Michael Olivera RCS
[2023-08-30] MEDS: Enoxaparin 40 MG/0.4 ML Syringe SC (01:31)
[2023-08-30 02:01] LABS: Troponin-I HS 33 pg/mL (3.0-78.0)
[2023-08-30] MEDS: Metoprolol Tartrate 5 MG/5 ML Vial IV (02:52)
[2023-08-30] MEDS: 0.9% Saline Lock 10 ML Syringe IV ×2 (02:52→20:27)
[2023-08-30 03:41] LABS: Absolute Lymphocyte Count 1.78 X10^3/uL (0.83-4.51); Absolute Neutrophil Count 3.9 X10^3/uL (2.0-7.7); Basophil# 0.01 X10^3/uL; Basophil% 0.2 % (0-1); Eosinophils% 1.6 % (0-5); Hematocrit 44.5 % (40-54); Hemoglobin 14.5 g/dL (13.0-16.5); Lymphocyte # 1.78 X10^3/ul (0.83-4.51); Lymphocyte % 28.3 % (19-41); Mean Corp Hgb Conc 32.6 g/dL (32-36); Mean Corpuscular Hgb 27.9 pg (27.0-32.0); Mean Corpuscular Volume 85.6 fL (80-94); Mean Platelet Vol. 10.7 fl (6.2-12.0); Monocyte# 0.48 X10^3/uL; Monocyte% 7.6 % (0-10); NRBC Flagged by Analyzer 0 % (0-5); Neutrophil # 3.91 X10^3/uL (2.7-7.7); Platelet Count 138 K/mm3 (150-450); RBC Distribution Width CV 13.2 % (11.6-14.6); White Blood Count 6.3 K/mm3 (4.4-11.0)
[2023-08-30 04:05] LABS: Troponin-I HS 34 pg/mL (3.0-78.0)
[2023-08-30] MEDS: Insulin Lispro 100 UNIT/ML INSULN.PEN SC (06:54)
[2023-08-30 07:22] LABS: Bedside Glucose 164 mg/dL (74-106)
[2023-08-30] MEDS: Budesonide Respules 0.5 MG/2 ML AMPUL.NEB. INHALATION ×2 (07:29→20:00)
[2023-08-30] MEDS: Diltiazem 125 MG in Dextrose 5%-Water (100mL Bag) 100 ML 15 MG CONT INF (07:40)
[2023-08-30 07:55] LABS: AST(SGOT) 13 U/L (15-37); Alanine Aminotransfer ALT/SGPT 30 U/L (16-61); Albumin, Serum 3.6 g/dL (3.2-5.0); Alkaline Phosphatase 65 U/L (45-117); Anion Gap 3 (5-15); BUN 18 mg/dL (7-18); BUN/Creat Ratio 20.3 RATIO (10-20); Calcium,Total 8.7 mg/dL (8.5-10.1); Chloride 108 mmol/L (98-107); Cholesterol 126 mg/dL (200); Creatinine, Serum 0.89 mg/dL (0.70-1.30); EST Glomerular Filtration Rate 93 mL/min (>60); Est Glom Filt Rate - Afr Amer 113 mL/min (>60); Estimated Creatinine Clearance 86.46 ml/min; Globulin 3.5 g/dL (2.2-4.2); Glucose 148 mg/dL (74-106); High Density Lipoprotein 32 mg/dL; Potassium 3.6 mmol/L (3.5-5.1); Protein, Total 7.1 g/dL (6.4-8.2); Sodium Level 140 mmol/L (136-145); Thyroid Stim Hormone (TSH) 0.71 uIU/mL (0.358-3.74); Triglycerides 180 mg/dL; Troponin-I HS 32 pg/mL (3.0-78.0); Very Low Density Lipoprotein 36 mg/dL (5-40)
[2023-08-30 07:59] LABS: Hemoglobin A1c 6.4 % (3.8-5.6)
[2023-08-30] MEDS: Furosemide 40 MG/4 ML Vial IV ×3 (08:41→20:27)
[2023-08-30] MEDS: Metoprolol Tartrate 25 MG Tablet PO ×2 (08:42→20:26)
[2023-08-30] MEDS: Potassium Chloride Oral Tablet 20 MEQ PO (08:42)
[2023-08-30] MEDS: Enoxaparin 150 MG/ML Syringe 130 MG SC ×2 (08:42→20:27)
[2023-08-30] MEDS: Pantoprazole Sodium 20 MG Tablet PO (08:43)
--- NOTE | 2023-08-30 09:23 | PCM.PN.HOSP ---
Reason for Visit Reason for Visit: Diagnoses Tachycardia, unspecified (08/29/23) Subjective Subjective Patient is a 58-year-old gentleman admitted with progressive shortness of breath. Patient was found to be in PSVT on admission admitted to monitored bed for further management Objective Data Objective Data Vital Signs: Vital Signs Temp Pulse Resp BP Pulse Ox O2 Del Method O2 Flow Rate 98.0 F 77 35 H 108/82 H 89 Nasal Cannula 2 08/30/23 00:50 08/30/23 08:42 08/30/23 07:40 08/30/23 07:40 08/30/23 07:40 08/30/23 07:40 08/30/23 07:40 FiO2 35 08/30/23 02:05 Oxygen Flow Rate (L/min) 2 Oxygen Delivery Method Nasal Cannula Weight: 133.3 kg Body Mass Index (BMI) 44.6 Intake & Output: Intake and Output for Last 24 Hours 08/28/23 08/29/23 08/30/23 23:59 23:59 23:59 Intake Total 9.17 / 9.17 115.83 / 115.83 Balance 9.17 / 9.17 115.83 / 115.83 Lab / Micro Data 08/30/23 03:26 08/30/23 07:10 Labs: Laboratory Results - last 24 hr 08/29/23 17:46: WBC 12.6 H, RBC 5.55, Hgb 15.4, Hct 46.8, MCV 84.3, MCH 27.7, MCHC 32.9, RDW Std Deviation 39.9, RDW Coeff of Carri 13.1, Plt Count 161, MPV 10.5, Immature Gran % (Auto) 0.300, Neut % (Auto) 75.6 H, Lymph % (Auto) 15.4 L, [place] % (Auto) 8.0, Eos % (Auto) 0.5, Baso % (Auto) 0.2, Absolute Neuts (auto) 9.5 H, Absolute Lymphs (auto) 1.93, Nucleated RBC % 0, Sodium 138, Potassium 3.7, Chloride 106, Carbon Dioxide 28.0, Anion Gap 4 L, BUN 19 H, Creatinine 1.03, Estim Creat Clear Calc 77.22, Est GFR (MDRD) Af Amer 95, Est GFR (MDRD) Non-Af 78, BUN/Creatinine Ratio 18.4, Glucose 120 H, Calcium 8.9, Magnesium 1.9, Troponin I High Sens 32, B-Natriuretic Peptide Cancelled, Lipase 32 08/29/23 18:20: B-Natriuretic Peptide 123.2 H 08/29/23 23:20: Procalcitonin < 0.04 08/30/23 01:35: Troponin I High Sens 33 08/30/23 03:26: WBC 6.3, RBC 5.20, Hgb 14.5, Hct 44.5, MCV 85.6, MCH 27.9, MCHC 32.6, RDW Std Deviation 41.0, RDW Coeff of Carri 13.2, Plt Count 138 L, MPV 10.7, Immature Gran % (Auto) 0.300, Neut % (Auto) 62.0, Lymph % (Auto) 28.3, [place] % (Auto) 7.6, Eos % (Auto) 1.6, Baso % (Auto) 0.2, Absolute Neuts (auto) 3.9, Absolute Lymphs (auto) 1.78, Nucleated RBC % 0, Hemoglobin A1c 6.4 H, Troponin I High Sens 34 08/30/23 06:48: POC Glucose 164 H 08/30/23 07:10: Sodium 140, Potassium 3.6, Chloride 108 H, Carbon Dioxide 29.0, Anion Gap 3 L, BUN 18, Creatinine 0.89, Estim Creat Clear Calc 86.46, Est GFR (MDRD) Af Amer 113, Est GFR (MDRD) Non-Af 93, BUN/Creatinine Ratio 20.3 H, Glucose 148 H, Calcium 8.7, Total Bilirubin 0.70, AST 13 L, ALT 30, Alkaline Phosphatase 65, Troponin I High Sens 32, Total Protein 7.1, Albumin 3.6, Globulin 3.5, Albumin/Globulin Ratio 1.0, Triglycerides 180, Cholesterol 126, LDL Cholesterol 58, VLDL Cholesterol 36, HDL Cholesterol 32 L, TSH 0.71 Micro: Microbiology 08/30/23 02:00 Mucosa - Nose Coronavirus COVID-19 PCR - Final 08/30/23 02:00 Mucosa - Nose Respiratory Panel (PCR) - Final Rhinovirus 08/29/23 17:45 Nasal Secretion SARS-CoV-2 & FLU Antigen (Rapid) - Final Radiography Diagnostic Testing: Radiology Impression Chest X-Ray 08/29/23 18:10 IMPRESSION: Possible mild interstitial infiltrates in the right Electronically Signed: Cr Jimenez MD at 18:28 EDT Reading Location ID and State: [facility] / [place] Tel , Service support , Chest CTA 08/29/23 20:56 IMPRESSION: Possible pancreatic mass. Recommend follow-up dedicated CT of the pancreas and abdomen and pelvis with IV contrast. Otherwise no acute disease. Electronically Signed: Cr Jimenez MD at 22:19 EDT , Physical Exam Narrative GENERAL: cooperative HEENT: Atraumatic; normocephalic EYES; Anicteric, Normal Conjunctiva NECK; supple, normal thyroid, RESPIRATORY: Diminished to auscultation CARDIOVASCULAR: Irregular S1-S2 GI: soft, normoactive bowel sounds, : No Renal angle tenderness; EXTREMITIES: Bilateral stasis dermatitis MUSCULOSKELETAL: no muscle wasting NEURO: Awake; no lateralizing signs. SKIN: No Rash PSYCH; Flat affect Assessment & Plan Assessment/Plan (1) Tachycardia: PLAN: Plan Patient is a 58-year-old gentleman admitted with progressive shortness of breath. Patient was found to be in PSVT on admission admitted to monitored bed for further management 1. Acute dyspnea ? Suspected to be secondary to acute on chronic congestive heart failure with preserved ejection fraction. Patient is known to have congestive heart failure with preserved ejection fraction started on diuretics echo ordered for further evaluation patient was also placed on fluid restriction, strict input and output, daily weights and low-sodium diet 2. Acute viral syndrome with rhino virus ? Symptomatic treatment with bronchodilator treatment 3. New onset A-flutter ? Noticed on continuous telemetry. On Cardizem drip. Patient is on beta-blockers ordered 2D echo TSH and started on systemic anticoagulation with therapeutic Lovenox 4. Tobacco dependence - Counseled on cessation, offered nicotine patch for tobacco cravings 5. Suspected pancreatic mass ? MRI of the abdomen ordered for further eval 6. Obstructive sleep apnea ? Consistent use of CPAP encouraged 7. GERD ? On PPI 8. Class III obesity with BMI of 44.7 ? Complicating care weight loss advised 9. Dyslipidemia -Patient is on statin therapy, continued at home dose 10. Chronic bilateral stasis dermatitis ? Wound care consulted 11. DVT prophylaxis ? SC Lovenox Time spent in the patient's overall evaluation,decision-making process, review of diagnostic data, adjustment of management, discussion with other providers, nursing nursing and ancillary staff involved in patient's care documentation, 50 Minutes
--- NOTE | 2023-08-30 10:20 | CT_ITS ---
STUDY: CT ABDOMEN AND PELVIS WITH AND WITHOUT CONTRAST REASON FOR EXAM: Male, 58 years old. Pancreatic mass concern -- CT A/P with pancreatic focus also RADIATION DOSAGE (If Supplied By Facility): CTDIvol = ( 27.46 ) mGy, DLP = ( 2671.33 ) mGycm TECHNIQUE: Transaxial images were obtained from the dome of the diaphragm to the symphysis pubis with oral contrast. IV 100mL [id number]-300 was administered. Sagittal and coronal images were reconstructed. Individualized dose optimization techniques were used for this CT. COMPARISON: Comparison is made with prior CTA of the chest dated August 29, 2023. FINDINGS: The visualized lung bases are unremarkable. The visualized portions of the heart are within normal limits. There is decreased attenuation of the liver consistent with steatosis. Mild hepatomegaly. Normal gallbladder and extrahepatic biliary system. Normal spleen. There is evidence of a 3.3 cm x 3.5 cm mass in the tail of the pancreas. A neoplastic process should be ruled out. Normal bilateral adrenal glands. Punctate nonobstructive calculus in the lower pole calyx of the right kidney. Normal left kidney. Normal visualized stomach. Normal small intestine. There are scattered colonic diverticula consistent with diverticulosis. The appendix is visualized and appears normal. There is scattered atherosclerotic calcification of the abdominal aorta, without a demonstrated aneurysm. Normal inferior vena cava. Normal retroperitoneum. Normal urinary bladder. Normal abdominal wall. There are mild degenerative changes of the visualized lumbar spine. Disc space narrowing and sclerosis of the T10 and T11 vertebrae. CT/CT Abd/Pelvis W/WO Contrast IMPRESSION: 3.3 cm x 3.5 cm mass in the tail the pancreas. A neoplastic process should BE ruled out. Punctate nonobstructive calculus in the lower pole calyx of the right kidney. Degenerative changes at the T10-T11 level with the foci of sclerosis in the vertebral bodies. Electronically Signed: Denny Melendez MD at 10:42 EDT ,
[2023-08-30 11:13] LABS: Thyroid Stim Hormone (TSH) 0.87 uIU/mL (0.358-3.74)
[2023-08-30 12:06] LABS: Bedside Glucose 138 mg/dL (74-106)
--- NOTE | 2023-08-30 12:15 | CASEMGMT ---
Addendum entered by Mino Arambula 08/30/23 17:02: also informed about Eliquis savings card, instructed on use, and questions answered. Addendum entered by Mino Arambula 08/30/23 14:32: Per Dr Ross, anticipates pt will discharge on Eliquis. Eliquis 30-day savings card provided to pt and instructed on use. Original Note: RN?CM?APPLICATION SYSTEMS ENGINEER?CM?to room to meet with patient for initial transition planning/care coordination?assessment.?RN?CM?introduced self and role at [facility].? Pt voices understanding and consents to?assessment?at this time.? Pt sitting on edge of bed in no distress at this time.? and dtr, Lorie, @ bedside and pt agreeable to them being present during assessment. Pt is A/O at this time and answers all questions appropriately.?? Care providers, pharmacy, and demographics verified/updated at this time. PCP: Dr Hong Specialists: WALTER/Cardiology, Dr Arias/pulmonology, Dr Javed/ortho [facility] Insurance: [place] Cover[place] Prescription Benefit:? Yes Living Will/HPOA:? Pt does not currently have LW/HCPOA LNOK: , Elle. One adult child--dtrLorie. Brother, Mateusz Living Arrangements: Lives w/his in one-story home w/2 steps to enter. Independent w/ADL's. and pt share home mgnt tasks. Transportation:?Pt states drives self and states no transportation concerns at this time.? also drives. DME: ?States has the following DME:?Pt has a cane he uses on occasion and a CPAP that he got from [facility]. Has O2 concentrator that he got from [facility] years ago and states he wears O2 @ 2 l/m @ HS via bleed-in to CPAP. Pt does not have portability. Discussed possibility of needing home O2 @ discharge. Questions answered. Pt made aware, if he discharges over the weekend that [facility] does not do new Home o2 set-ups on the weekend. Discussed other DME options. Pt chooses [employer]. Pt states no need for further DME at this time.? HHC/SNF: No hx of SNF. Had HHC many (over 30) yrs ago. Denies need for HHC. Discussed Pt Link, but pt declines at this time. Pt wishes to return home and states has no concerns with going home at time of discharge.? CM?to follow for home oxygen needs and any further discharge planning/needs.? Pt voices no further concerns/needs at this time.? Advised pt to ask for?CM?if any further questions/concerns/needs arise.? Voices understanding. PLAN:??Home w/spousal support and discharge plans in place. Follow for possilbe need of Home O2. If pt qualifies for any O2 @ rest or w/exertion, he will need new Home O2 set-up. Green sheet placed on chart. Linda BSN?RN?CM
--- NOTE | 2023-08-30 15:46 | CON.PCM.CA_ITS ---
Assessment & Plan Assessment/Plan (1) Atrial flutter: PLAN: Patient presents with atrial flutter with a rapid ventricular response rate. The above is likely secondary to his respiratory condition. His heart rate is better controlled at this time. His echocardiogram demonstrated borderline ejection fraction of 50% with mild apical hypokinesis. My recommendation will be to continue with intravenous diltiazem * Transition to oral beta-laura or calcium channel laura * Anticoagulation * Continue to treat respiratory infection * Further recommendations will depend on the response to the above (2) Chronic diastolic heart failure: PLAN: He does have evidence of chronic diastolic heart failure. We will continue to treat blood pressure as well as the underlying cause. He does have mild segmental wall motion abnormality involving the apex and I will recommend repeating the echocardiogram in a few weeks. Thank you for allowing me to participate in the care of your patient. Please don't hesitate to call if any issues arise. HPI Consult Data Date of Consult: 08/30/23 HPI Narrative HPI Narrative: PEDRO LUIS KRUGER, is a 58 M who presents to the emergency room with shortness of breath worse with exertion associated with a cough rhinorrhea and a sensation of chest congestion which has been worsening over the preceding 3 to 4 days. In the emergency room he was noted to be afebrile tachycardic with an EKG demonstrating a narrow complex tachycardia with a rate of 140 250 bpm. COVID test was negative and CT demonstrated no evidence of pulmonary embolism. Troponins were noted to be normal. However the patient continued to be tachycardic and was placed on diltiazem with improvement in his heart rate. EKG then showed evidence of atrial flutter with a controlled ventricular response rate. Patient turned out to be positive for rhinovirus. Cardiology was called for further evaluation and management. At this time he appears to be stable. He has had no dizziness or diaphoresis near syncope or syncope. His past medical history is significant for hypertension, diastolic heart failure, diabetes mellitus, and chronic venous stasis in addition to morbid obesity. [facility] Medical History Chronic diastolic heart failure Chronic venous insufficiency Dependence on nocturnal oxygen therapy Diabetes mellitus Dyspnea Gastroesophageal reflux disease GERD (gastroesophageal reflux disease) Hyperlipidemia Hypersomnia Leg edema Leg swelling Mild pulmonary arterial systolic hypertension Morbid obesity Obesity DEBI (obstructive sleep apnea) Restrictive lung disease Varicose veins of both lower extremities with inflammation Home Medications multivitamin 1 ea PO DAILY supplement 06/22/17 [History Last Taken 06/22/17] omeprazole 20 mg capsule,delayed release 20 mg PO QDAY acid reflux 02/09/18 [History Last Taken Unknown] potassium chloride 20 mEq tablet,extended release 20 meq PO QDAY supplement 02/09/18 [History Last Taken Unknown] cholecalciferol (vitamin D3) 50 mcg (2,000 unit) capsule 2,000 unit PO QDAY supplement 02/10/18 [History Last Taken Unknown] cyanocobalamin (vitamin B-12) 2,500 mcg tablet 2,500 mcg PO Q OTHER DAY supplement 11/06/21 [History Last Taken Unknown] furosemide 40 mg tablet 40 mg PO .COMPLEX diuresis 11/06/21 [History Last Taken Unknown] rosuvastatin 40 mg tablet 40 mg PO DAILY cholesterol 06/21/22 [History Last Taken Unknown] acetaminophen 500 mg tablet 500 mg PO TID PRN PRN Pain 07/24/22 [History Last Taken Unknown] coenzyme Q10 100 mg capsule (CoQ-10) 100 mg PO DAILY antioxidant 07/24/22 [History Last Taken Unknown] turmeric 400 mg capsule 400 mg PO DAILY supplement 07/24/22 [History Last Taken Unknown] Allergy/AdvReac Type Severity Reaction Status Date / Time aspirin Allergy Severe Swelling Verified 08/29/23 16:07 NSAIDS (Non-Steroidal Allergy Swelling Verified 08/29/23 16:07 Anti-Inflamma Family History Father Heart disease Sister Cancer Surgical History History of total left knee replacement (06/06/21) skin graft/muscle reconstruction of legs Social History household members: spouse Smoking Status: Current every day smoker tobacco type: cigarettes Smoking packs per day: 1.5 Smoking cigarettes per day: 30.0 Tobacco: How many years used: 35 second hand exposure: Yes alcohol intake: never substance use type: does not use caffeine: Yes Type: coffee Number of servings: 6 ROS Constitutional Constitutional: Denies fever(s) or weight loss Eyes Eyes: Reports systems reviewed and no addt'l complaints, except as documented ENT HEENT: Reports systems reviewed and no addt'l complaints, except as documented Cardiovascular Cardiovascular: Denies chest pain at rest, chest pain with activity, dyspnea at rest, dyspnea on exertion, edema, palpitations or paroxysmal nocturnal dyspnea Respiratory/Chest Respiratory/Chest: Reports dyspnea on exertion, shortness of breath at rest and shortness of breath with exertion; Denies productive cough Gastrointestinal Gastrointestinal: Denies change in bowel habits, nausea, vomiting or weight changes Genitourinary Genitourinary: Denies difficulty urinating Musculoskeletal Musculoskeletal: Denies joint stiffness or muscle weakness Integumentary Integumentary: Denies lesions Neurologic Neurologic: Denies dizziness or syncope Psychiatric Psychiatric: Denies anxiety Endocrine Endocrinology: Denies excessive sweating or fatigue Hematologic/Lymphatic Hematologic/Lymphatic: Denies anemia Allergic/Immunologic Allergic/Immunologic: Denies seasonal rhinorrhea Physical Exam Const alert, oriented x3 and no apparent distress General Appearance: cooperative HEENT hearing grossly normal bilaterally Head and Scalp: atraumatic Eyes EOMs intact bilaterally Neck General: normal visual inspection Chest inspection of chest normal and palpation of chest normal Resp normal respiratory effort Auscultation: clear to auscultation bilaterally Cardio regular rate, regular rhythm, S1 normal heart sound and S2 normal heart sound Jugular Venous Distention: JVD GI normal to inspection, nondistended, normoactive bowel sounds Extremity normal capillary refill and no pedal edema Peripheral Pulses: Yes pulses 2+ throughout and femoral pulses present Skin no rashes or lesions noted Neuro oriented x3 and CN's II-XII intact bilaterally Psych Appearance: grossly normal and appropriate Risk Stratification Risk Stratification Applicable: No Objective Data Vital Signs: Vital Signs Temp Pulse Resp BP Pulse Ox O2 Del Method O2 Flow Rate 97.6 F L 76 25 H 108/80 97 Nasal Cannula 4 08/30/23 12:00 08/30/23 12:00 08/30/23 12:00 08/30/23 12:00 08/30/23 12:00 08/30/23 12:00 08/30/23 12:00 FiO2 35 08/30/23 02:05 Oxygen Flow Rate (L/min) 4 Oxygen Delivery Method Nasal Cannula Weight: 293 lb 14.019 oz Body Mass Index (BMI) 44.6 Intake & Output: Intake and Output for Last 24 Hours 08/28/23 08/29/23 08/30/23 23:59 23:59 23:59 Intake Total 9. / 9. 300.83 / 300.83 Balance 9.17 / .17 300.83 / 300.83 Lab / Micro Data 08/30/23 03:26 08/30/23 07:10 Labs: Laboratory Results - last 24 hr 08/29/23 17:46: WBC 12.6 H, RBC 5.55, Hgb 15.4, Hct 46.8, MCV 84.3, MCH 27.7, MCHC 32.9, RDW Std Deviation 39.9, RDW Coeff of Carri 13.1, Plt Count 161, MPV 10.5, Immature Gran % (Auto) 0.300, Neut % (Auto) 75.6 H, Lymph % (Auto) 15.4 L, [place] % (Auto) 8.0, Eos % (Auto) 0.5, Baso % (Auto) 0.2, Absolute Neuts (auto) 9.5 H, Absolute Lymphs (auto) 1.93, Nucleated RBC % 0, Sodium 138, Potassium 3.7 , Chloride 106, Carbon Dioxide 28.0, Anion Gap 4 L, BUN 19 H, Creatinine 1.03, Estim Creat Clear Calc 77.22, Est GFR (MDRD) Af Amer 95, Est GFR (MDRD) Non-Af 78, BUN/Creatinine Ratio 18.4, Glucose 120 H, Calcium 8.9, Magnesium 1.9, Troponin I High Sens 32, B-Natriuretic Peptide Cancelled, Lipase 32 08/29/23 18:20: B-Natriuretic Peptide 123.2 H 08/29/23 23:20: Procalcitonin < 0.04 08/30/23 01:35: Troponin I High Sens 33 08/30/23 03:26: WBC 6.3, RBC 5.20, Hgb 14.5, Hct 44.5, MCV 85.6, MCH 27.9, MCHC 32.6, RDW Std Deviation 41.0, RDW Coeff of Carri 13.2, Plt Count 138 L, MPV 10.7, Immature Gran % (Auto) 0.300, Neut % (Auto) 62.0, Lymph % (Auto) 28.3, [place] % (Auto) 7.6, Eos % (Auto) 1.6, Baso % (Auto) 0.2, Absolute Neuts (auto) 3.9, Absolute Lymphs (auto) 1.78, Nucleated RBC % 0, Hemoglobin A1c 6.4 H, Troponin I High Sens 34, TSH 0.87 08/30/23 06:48: POC Glucose 164 H 08/30/23 07:10: Sodium 140, Potassium 3.6, Chloride 108 H, Carbon Dioxide 29.0, Anion Gap 3 L, BUN 18, Creatinine 0.89, Estim Creat Clear Calc 86.46, Est GFR (MDRD) Af Amer 113, Est GFR (MDRD) Non-Af 93, BUN/Creatinine Ratio 20.3 H, Glucose 148 H, Calcium 8.7, Total Bilirubin 0.70, AST 13 L, ALT 30, Alkaline P hosphatase 65, Troponin I High Sens 32, Total Protein 7.1, Albumin 3.6, Globulin 3.5, Albumin/Globulin Ratio 1.0, Triglycerides 180, Cholesterol 126, LDL Cholesterol 58, VLDL Cholesterol 36, HDL Cholesterol 32 L, TSH 0.71 08/30/23 11:48: POC Glucose 138 H Micro: Microbiology 08/30/23 02:00 Mucosa - Nose Coronavirus COVID-19 PCR - Final 08/30/23 02:00 Mucosa - Nose Respiratory Panel (PCR) - Final Rhinovirus 08/29/23 17:45 Nasal Secretion SARS-CoV-2 & FLU Antigen (Rapid) - Final Cardiology Labs/Tests 08/29/23 17:46: WBC 12.6 H, RBC 5.55, Hgb 15.4, Hct 46.8, MCV 84.3, MCH 27.7, MCHC 32.9, Plt Count 161, MPV 10.5, Immature Gran % (Auto) 0.300, Neut % (Auto) 75.6 H, Lymph % (Auto) 15.4 L, [place] % (Auto) 8.0, Eos % (Auto) 0.5, Baso % (Auto) 0.2, Absolute Neuts (auto) 9.5 H, Nucleated RBC % 0, Sodium 138, Potassium 3.7, Chloride 106, Carbon Dioxide 28.0, Anion Gap 4 L, BUN 19 H, Creatinine 1.03, Est GFR (MDRD) Af Amer 95, Est GFR (MDRD) Non-Af 78, BUN/Creatinine Ratio 18.4, Glucose 120 H, Calcium 8.9, Magnesium 1.9, B- Natriuretic Peptide Cancelled 08/29/23 18:20: B-Natriuretic Peptide 123.2 H 08/30/23 03:26: WBC 6.3, RBC 5.20, Hgb 14.5, Hct 44.5, MCV 85.6, MCH 27.9, MCHC 32.6, Plt Count 138 L, MPV 10.7, Immature Gran % (Auto) 0.300, Neut % (Auto) 62.0, Lymph % (Auto) 28.3, [place] % (Auto) 7.6, Eos % (Auto) 1.6, Baso % (Auto) 0.2, Absolute Neuts (auto) 3.9, Nucleated RBC % 0, Hemoglobin A1c 6.4 H 08/30/23 07:10: Sodium 140, Potassium 3.6, Chloride 108 H, Carbon Dioxide 29.0, Anion Gap 3 L, BUN 18, Creatinine 0.89, Est GFR (MDRD) Af Amer 113, Est GFR (MDRD) Non-Af 93, BUN/Creatinine Ratio 20.3 H, Glucose 148 H, Calcium 8.7, Total Bilirubin 0.70, Triglycerides 180, Cholesterol 126, LDL Cholesterol 58, VLDL Cholesterol 36, HDL Cholesterol 32 L Rhythm: EKG: ECHO: Stress Test: Cardiac Cath: PCI: CT Surgery: Holter monitor: EPS: PPM: CXR: Chest CT Scan: Radiography Diagnostic Testing: Radiology Impression Chest X-Ray 08/29/23 18:10 IMPRESSION: Possible mild interstitial infiltrates in the right Electronically Signed: Cr Jimenez MD at 18:28 EDT Reading Location ID and State: [address] [place] [address] Tel , Service support , Chest CTA 08/29/23 20:56 IMPRESSION: Possible pancreatic mass. Recommend follow-up dedicated CT of the pancreas and abdomen and pelvis with IV contrast. Otherwise no acute disease. Electronically Signed: Cr Jimenez MD at 22:19 EDT Reading Location ID and State: [address] [place] [address] Tel , Service support , Echocardiogram 08/30/23 00:46 Interpretation Summary The left ventricular ejection fraction is 50 %. Stage 3 diastolic dysfunction. Normal LV size. Contrast injection was performed. The study was technically difficult. Ordering Physician: Jerica Hou Performed By: Michael Olivera RCS Abdomen/Pelvis CT 08/30/23 10:20 IMPRESSION: 3.3 cm x 3.5 cm mass in the tail the pancreas. A neoplastic process should BE ruled out. Punctate nonobstructive calculus in the lower pole calyx of the right kidney. Degenerative changes at the T10-T11 level with the foci of sclerosis in the vertebral bodies. Electronically Signed: Denny Melendez MD at 10:42 EDT ,
[2023-08-30 17:12] LABS: Bedside Glucose 131 mg/dL (74-106)
--- NOTE | 2023-08-30 19:33 | EKG12_ITS ---
Test Reason : RHYTHM CHANGE Blood Pressure : / mmHG Vent. Rate : 076 BPM Atrial Rate : 076 BPM P-R Int : 144 ms QRS Dur : 102 ms QT Int : 376 ms P-R-T Axes : 068 -14 118 degrees QTc Int : 423 ms Sinus rhythm with Premature atrial complexes Nonspecific T wave abnormality Abnormal ECG When compared with ECG of 29-AUG-2023 17:47, MANUAL COMPARISON REQUIRED, DATA IS UNCONFIRMED Confirmed by MARCO ANTONIO MARTINEZ, LYNDSAY ([id number]), subeditor DONY MANCUSO ([id number]) on 09/19/2023 11:32:33 AM Referred By: MARCO ANTONIO Confirmed By:LYNDSAY BERNARD MD
[2023-08-30] MEDS: Atorvastatin Calcium 80 MG Tablet PO (20:26)
[2023-08-30 21:44] LABS: Bedside Glucose 136 mg/dL (74-106)
[2023-08-31] VITALS (9 sets, daily range): BP systolic 101–127; BP diastolic 59–82; PULSE 65–77; RESP 14–20; TEMP 35.6–36.9; O2SAT 94–98; BMI 44.3
[2023-08-31] MEDS: Furosemide 40 MG/4 ML Vial IV (06:30)
[2023-08-31] MEDS: 0.9% Saline Lock 10 ML Syringe IV (06:30)
[2023-08-31 06:33] LABS: Absolute Lymphocyte Count 2.37 X10^3/uL (0.83-4.51); Absolute Neutrophil Count 5.7 X10^3/uL (2.0-7.7); Basophil# 0.04 X10^3/uL; Basophil% 0.4 % (0-1); Eosinophil# 0.13 X10^3/uL; Eosinophils% 1.4 % (0-5); Hematocrit 46.7 % (40-54); Hemoglobin 14.7 g/dL (13.0-16.5); Lymphocyte # 2.37 X10^3/ul (0.83-4.51); Lymphocyte % 26.3 % (19-41); Mean Corp Hgb Conc 31.5 g/dL (32-36); Mean Corpuscular Hgb 27.5 pg (27.0-32.0); Mean Corpuscular Volume 87.3 fL (80-94); Mean Platelet Vol. 10.5 fl (6.2-12.0); Monocyte# 0.71 X10^3/uL; Monocyte% 7.9 % (0-10); NRBC Flagged by Analyzer 0 % (0-5); Neutrophil # 5.73 X10^3/uL (2.7-7.7); Neutrophil % 63.6 % (47-70); Platelet Count 156 K/mm3 (150-450); RBC Distribution Width CV 13.2 % (11.6-14.6); RBC Distribution Width SD 42.2 fl (35.1-43.9); Red Blood Count 5.35 M/mm3 (4.6-6.2)
[2023-08-31] MEDS: Budesonide Respules 0.5 MG/2 ML AMPUL.NEB. INHALATION ×2 (06:51→19:32)
[2023-08-31 06:53] LABS: Bedside Glucose 139 mg/dL (74-106)
[2023-08-31 06:56] LABS: Anion Gap 4 (5-15); BUN 20 mg/dL (7-18); Calcium,Total 9.4 mg/dL (8.5-10.1); Chloride 103 mmol/L (98-107); Creatinine, Serum 0.95 mg/dL (0.70-1.30); EST Glomerular Filtration Rate 86 mL/min (>60); Est Glom Filt Rate - Afr Amer 104 mL/min (>60); Glucose 147 mg/dL (74-106); Magnesium 2.2 mg/dL (1.6-2.6); Phosphorus 3.5 mg/dL (2.5-4.9); Potassium 3.7 mmol/L (3.5-5.1); Sodium Level 137 mmol/L (136-145)
[2023-08-31] MEDS: Enoxaparin 150 MG/ML Syringe 130 MG SC ×2 (08:45→20:54)
[2023-08-31] MEDS: Potassium Chloride Oral Tablet 20 MEQ PO (08:45)
[2023-08-31] MEDS: Metoprolol Tartrate 25 MG Tablet PO (08:45)
[2023-08-31] MEDS: Pantoprazole Sodium 20 MG Tablet PO (08:45)
--- NOTE | 2023-08-31 09:30 | PN.HOSP_ITS ---
Reason for Visit Reason for Visit: Diagnoses Unspecified atrial flutter (08/29/23) Chronic diastolic (congestive) heart failure (08/29/23) Tachycardia, unspecified (08/29/23) Subjective Subjective Patient anxious to hear about his CT results, no chest pain or shortness of breath Objective Data Objective Data Vital Signs: Vital Signs Temp Pulse Resp BP Pulse Ox O2 Del Method O2 Flow Rate 97.9 F 73 18 127/77 H 95 Nasal Cannula 3 08/31/23 08:00 08/31/23 08:45 08/31/23 08:00 08/31/23 08:45 08/31/23 08:00 08/31/23 08:00 08/31/23 08:00 FiO2 35 08/31/23 02:10 Oxygen Flow Rate (L/min) 3 Oxygen Delivery Method Nasal Cannula Weight: 132.3 kg Body Mass Index (BMI) 44.3 Intake & Output: Intake and Output for Last 24 Hours 08/29/23 08/30/23 08/31/23 23:59 23:59 23:59 Intake Total 9.17 / 9.17 600.83 / 600.83 Output Total 400 / 400 1000 / 1000 Balance 9.17 / .17 200.83 / 200.83 -1000 / -1000 Lab / Micro Data 08/31/23 06:25 08/31/23 06:25 Labs: Laboratory Results - last 24 hr 08/30/23 03:26: TSH 0.87 08/30/23 11:48: POC Glucose 138 H 08/30/23 16:50: POC Glucose 131 H 08/30/23 20:34: POC Glucose 136 H 08/31/23 06:25: WBC 9.0, RBC 5.35, Hgb 14.7, Hct 46.7, MCV 87.3, MCH 27.5, MCHC 31.5 L, RDW Std Deviation 42.2, RDW Coeff of Carri 13.2, Plt Count 156, MPV 10.5, Immature Gran % (Auto) 0.400, Neut % (Auto) 63.6, Lymph % (Auto) 26.3, [place] % (Auto) 7.9, Eos % (Auto) 1.4, Baso % (Auto) 0.4, Absolute Neuts (auto) 5.7, Absolute Lymphs (auto) 2.37, Nucleated RBC % 0, Sodium 137, Potassium 3.7, Chloride 103, Carbon Dioxide 30.0, Anion Gap 4 L, BUN 20 H, Creatinine 0.95, Estim Creat Clear Calc 81.00, Est GFR (MDRD) Af Amer 104, Est GFR (MDRD) Non-Af 86, BUN/Creatinine Ratio 21.0 H, Glucose 147 H, Calcium 9.4, Phosphorus 3.5, Magnesium 2.2 08/31/23 06:29: POC Glucose 139 H Micro: Microbiology 08/30/23 02:00 Mucosa - Nose Coronavirus COVID-19 PCR - Final 08/30/23 02:00 Mucosa - Nose Respiratory Panel (PCR) - Final Rhinovirus 08/29/23 17:45 Nasal Secretion SARS-CoV-2 & FLU Antigen (Rapid) - Final Radiography Diagnostic Testing: Radiology Impression Echocardiogram 08/30/23 00:46 Interpretation Summary The left ventricular ejection fraction is 50 %. Stage 3 diastolic dysfunction. Normal LV size. Contrast injection was performed. The study was technically difficult. Ordering Physician: Jerica Hou Performed By: Michael Olivera RCS Abdomen/Pelvis CT 08/30/23 10:20 IMPRESSION: 3.3 cm x 3.5 cm mass in the tail the pancreas. A neoplastic process should BE ruled out. Punctate nonobstructive calculus in the lower pole calyx of the right kidney. Degenerative changes at the T10-T11 level with the foci of sclerosis in the vertebral bodies. Electronically Signed: Denny Melendez MD at 10:42 EDT , Physical Exam Narrative General: Alert, oriented, no apparent distress HEENT: Atraumatic, normocephalic Eyes: Anicteric, normal conjunctiva, extraocular movements grossly intact Neck: Supple Respiratory: Clear to auscultation bilaterally, normal respiratory effort Cardiovascular: Regular rate GI: Slightly firm, nontender, no rebound, guarding, rigidity Extremities: No edema Musculoskeletal: Moving all extremities Neuro: No overt focal neurological deficits Skin: No rashes appreciated Psych: Cooperative Assessment & Plan Assessment/Plan (1) Tachycardia: PLAN: Plan Patient is a 58-year-old gentleman admitted with progressive shortness of breath. Patient was found to be in PSVT on admission admitted to monitored bed for further management 1. Acute dyspnea-secondary to rhinovirus, with possible component of fluid overload ? Suspected to be secondary to acute on chronic congestive heart failure with preserved ejection fraction. Patient is known to have congestive heart failure with preserved ejection fraction started on diuretics echo ordered for further evaluation patient was also placed on fluid restriction, strict input and output, daily weights and low-sodium diet -08/31: Negative roughly 1 L, continue diuresis, this was changed to p.o. today. Echocardiogram with some mild segmental wall motion abnormality of the apex and borderline ejection fraction of 50%, cardiology recommended repeating echocardiogram in several weeks. De-escalating Lasix to twice daily p.o. 2. Acute viral syndrome with rhino virus ? Symptomatic treatment with bronchodilator treatment -08/31: Continue supportive care 3. New onset A-flutter ? Noticed on continuous telemetry. On Cardizem drip. Patient is on beta- blockers ordered 2D echo TSH and started on systemic anticoagulation with therapeutic Lovenox -08/31: Transitioning to beta-blockers, may be able to avoid long-term anticoagulation per cardiology, off Cardizem drip 4. Tobacco dependence - Counseled on cessation, offered nicotine patch for tobacco cravings 5. Suspected pancreatic mass ? MRI of the abdomen ordered for further eval -08/31: CT scan with 3.3 cm x 3.5 cm mass in pancreatic tail suspicious for malignancy. Talked with Dr. Vo, oncologist on-call, who recommended patient call his office Saturday morning for follow-up and further coordination and work-up. Discussed this with patient and daughter and they verbalized understanding 6. Obstructive sleep apnea ? Consistent use of CPAP encouraged -08/31: Continue to advise Pap therapy 7. GERD ? On PPI 8. Class III obesity with BMI of 44.3 ? Complicating care weight loss advised 9. Dyslipidemia -Patient is on statin therapy, continued at home dose 10. Chronic bilateral stasis dermatitis ? Wound care consulted 11. DVT prophylaxis ? SC Lovenox Time spent in the patient's overall evaluation,decision-making process, review of diagnostic data, adjustment of management, discussion with other providers, nursing nursing and ancillary staff involved in patient's care documentation, 51 Minutes Charges/Coding Visit Charges Inpatient E&M: 62667 Subs Hosp L3
--- NOTE | 2023-08-31 10:20 | PN.CARD_ITS ---
Subjective Subjective Patient seen and evaluated Objective Data Vital Signs: Vital Signs Temp Pulse Resp BP Pulse Ox O2 Del Method O2 Flow Rate 97.9 F 73 18 127/77 H 95 Nasal Cannula 3 08/31/23 08:00 08/31/23 08:45 08/31/23 08:00 08/31/23 08:45 08/31/23 08:00 08/31/23 08:30 08/31/23 08:00 FiO2 35 08/31/23 02:10 Oxygen Flow Rate (L/min) 3 Oxygen Delivery Method Nasal Cannula Weight: 291 lb 10.745 oz Body Mass Index (BMI) 44.3 Intake & Output: Intake and Output for Last 24 Hours 08/29/23 08/30/23 08/31/23 23:59 23:59 23:59 Intake Total 9.17 / 9.17 600.83 / 600.83 Output Total 400 / 400 1000 / 1000 Balance 9.17 / .17 200.83 / 200.83 -1000 / -1000 Lab / Micro Data 08/31/23 06:25 08/31/23 06:25 Labs: Laboratory Results - last 24 hr 08/30/23 03:26: TSH 0.87 08/30/23 11:48: POC Glucose 138 H 08/30/23 16:50: POC Glucose 131 H 08/30/23 20:34: POC Glucose 136 H 08/31/23 06:25: WBC 9.0, RBC 5.35, Hgb 14.7, Hct 46.7, MCV 87.3, MCH 27.5, MCHC 31.5 L, RDW Std Deviation 42.2, RDW Coeff of Carri 13.2, Plt Count 156, MPV 10.5, Immature Gran % (Auto) 0.400, Neut % (Auto) 63.6, Lymph % (Auto) 26.3, [place] % (Auto) 7.9, Eos % (Auto) 1.4, Baso % (Auto) 0.4, Absolute Neuts (auto) 5.7, Absolute Lymphs (auto) 2.37, Nucleated RBC % 0, Sodium 137, Potassium 3.7, C hloride 103, Carbon Dioxide 30.0, Anion Gap 4 L, BUN 20 H, Creatinine 0.95, Estim Creat Clear Calc 81.00, Est GFR (MDRD) Af Amer 104, Est GFR (MDRD) Non-Af 86, BUN/Creatinine Ratio 21.0 H, Glucose 147 H, Calcium 9.4, Phosphorus 3.5, Magnesium 2.2 08/31/23 06:29: POC Glucose 139 H Micro: Microbiology 08/30/23 02:00 Mucosa - Nose Coronavirus COVID-19 PCR - Final 08/30/23 02:00 Mucosa - Nose Respiratory Panel (PCR) - Final Rhinovirus Cardiology Labs/Tests 08/31/23 06:25: WBC 9.0, RBC 5.35, Hgb 14.7, Hct 46.7, MCV 87.3, MCH 27.5, MCHC 31.5 L, Plt Count 156, MPV 10.5, Immature Gran % (Auto) 0.400, Neut % (Auto) 63.6, Lymph % (Auto) 26.3, [place] % (Auto) 7.9, Eos % (Auto) 1.4, Baso % (Auto) 0.4, Absolute Neuts (auto) 5.7, Nucleated RBC % 0, Sodium 137, Potassium 3.7, Chloride 103, Carbon Dioxide 30.0, Anion Gap 4 L, BUN 20 H, Creatinine 0.95, Est GFR (MDRD) Af Amer 104, Est GFR (MDRD) Non-Af 86, BUN/Creatinine Ratio 21.0 H, Glucose 147 H, Calcium 9.4, Phosphorus 3.5, Magnesium 2.2 Rhythm: EKG: ECHO: Stress Test: Cardiac Cath: PCI: CT Surgery: Holter monitor: EPS: PPM: CXR: Chest CT Scan: Radiography Diagnostic Testing: Radiology Impression Echocardiogram 08/30/23 00:46 Interpretation Summary The left ventricular ejection fraction is 50 %. Stage 3 diastolic dysfunction. Normal LV size. Contrast injection was performed. The study was technically difficult. Ordering Physician: Jerica Hou Performed By: Michael Olivera RCS Abdomen/Pelvis CT 08/30/23 10:20 IMPRESSION: 3.3 cm x 3.5 cm mass in the tail the pancreas. A neoplastic process should BE ruled out. Punctate nonobstructive calculus in the lower pole calyx of the right kidney. Degenerative changes at the T10-T11 level with the foci of sclerosis in the vertebral bodies. Electronically Signed: Denny Melendez MD at 10:42 EDT , Physical Exam Const alert, oriented x3 and no apparent distress General Appearance: cooperative HEENT hearing grossly normal bilaterally Head and Scalp: atraumatic Eyes EOMs intact bilaterally Neck General: normal visual inspection Chest inspection of chest normal and palpation of chest normal Resp normal respiratory effort Auscultation: clear to auscultation bilaterally Cardio regular rate, regular rhythm, S1 normal heart sound and S2 normal heart sound Jugular Venous Distention: JVD GI normal to inspection, nondistended, normoactive bowel sounds Extremity normal capillary refill and no pedal edema Peripheral Pulses: Yes pulses 2+ throughout and femoral pulses present Skin no rashes or lesions noted Neuro oriented x3 and CN's II-XII intact bilaterally Psych Appearance: grossly normal and appropriate Assessment & Plan Assessment/Plan (1) Atrial flutter: PLAN: Patient presents with atrial flutter with a rapid ventricular response rate. The above is likely secondary to his respiratory condition. His heart r ate is better controlled at this time. His echocardiogram demonstrated borderline ejection fraction of 50% with mild apical hypokinesis. My recommendation will be to continue with intravenous diltiazem * Transition to oral beta-laura or calcium channel laura * Will hold off on anticoagulation for now * Continue to treat respiratory infection * Further recommendations will depend on the response to the above (2) Chronic diastolic heart failure: PLAN: He does have evidence of chronic diastolic heart failure. We will continue to treat blood pressure as well as the underlying cause. He does have mild segmental wall motion abnormality involving the apex and I will recommend repeating the echocardiogram in a few weeks. Thank you for allowing me to participate in the care of your patient. Please don't hesitate to call if any issues arise.
[2023-08-31 11:16] LABS: Bedside Glucose 122 mg/dL (74-106)
[2023-08-31] MEDS: Furosemide 40 MG Tablet PO (16:12)
[2023-08-31] MEDS: Atorvastatin Calcium 80 MG Tablet PO (20:54)
[2023-08-31] MEDS: Metoprolol Tartrate 50 MG Tablet PO (20:58)
[2023-09-01 03:20] VITALS: BP 99/58; PULSE 90; RESP 18; TEMP 36.6; O2SAT 100
--- NOTE | 2023-09-01 04:24 | NURSING ---
Informed pt that he is on a 1500 ml fluid restriction pt states I need my morning coffees and I'm going to be discharged today anyway Assured pt that we are just needing to monitor his intake and output because he is on a fluid restriction and on diuretics. Coffee given per request.
[2023-09-01 04:47] VITALS: BMI 44.5
[2023-09-01 06:30] LABS: Absolute Lymphocyte Count 2.33 X10^3/uL (0.83-4.51); Absolute Neutrophil Count 4.4 X10^3/uL (2.0-7.7); Basophil# 0.02 X10^3/uL; Basophil% 0.3 % (0-1); Eosinophil# 0.09 X10^3/uL; Eosinophils% 1.2 % (0-5); Hematocrit 43.5 % (40-54); Hemoglobin 13.9 g/dL (13.0-16.5); Lymphocyte # 2.33 X10^3/ul (0.83-4.51); Lymphocyte % 31.5 % (19-41); Mean Corpuscular Hgb 27.2 pg (27.0-32.0); Mean Corpuscular Volume 85.1 fL (80-94); Mean Platelet Vol. 10.3 fl (6.2-12.0); Monocyte# 0.58 X10^3/uL; Monocyte% 7.8 % (0-10); NRBC Flagged by Analyzer 0 % (0-5); Neutrophil # 4.36 X10^3/uL (2.7-7.7); Neutrophil % 58.9 % (47-70); Platelet Count 147 K/mm3 (150-450); RBC Distribution Width SD 40.1 fl (35.1-43.9); Red Blood Count 5.11 M/mm3 (4.6-6.2); White Blood Count 7.4 K/mm3 (4.4-11.0)
[2023-09-01] MEDS: Budesonide Respules 0.5 MG/2 ML AMPUL.NEB. INHALATION (07:19)
[2023-09-01 07:32] LABS: Anion Gap 4 (5-15); BUN 18 mg/dL (7-18); Calcium,Total 9.3 mg/dL (8.5-10.1); Chloride 105 mmol/L (98-107); Creatinine, Serum 0.82 mg/dL (0.70-1.30); EST Glomerular Filtration Rate 102 mL/min (>60); Est Glom Filt Rate - Afr Amer 123 mL/min (>60); Estimated Creatinine Clearance 93.84 ml/min; Glucose 133 mg/dL (74-106); Potassium 3.8 mmol/L (3.5-5.1); Sodium Level 138 mmol/L (136-145)
[2023-09-01 07:45] VITALS: O2SAT 91
[2023-09-01 08:51] VITALS: BP 118/82; PULSE 72; RESP 18; TEMP 36.7; O2SAT 95
[2023-09-01] MEDS: Enoxaparin 150 MG/ML Syringe 130 MG SC (09:02)
[2023-09-01 09:03] VITALS: BP 118/82; PULSE 72
[2023-09-01] MEDS: Potassium Chloride Oral Tablet 20 MEQ PO (09:03)
[2023-09-01] MEDS: Metoprolol Tartrate 50 MG Tablet PO (09:03)
[2023-09-01] MEDS: Pantoprazole Sodium 20 MG Tablet PO (09:03)
[2023-09-01] MEDS: Furosemide 40 MG Tablet PO (09:04)
--- NOTE | 2023-09-01 09:30 | PN.CARD_ITS ---
Subjective Subjective Patient seen and evaluated. Appears to be doing well. In sinus rhythm. Objective Data Vital Signs: Vital Signs Temp Pulse Resp BP Pulse Ox O2 Del Method O2 Flow Rate 98.0 F 72 18 118/82 H 95 Room Air 2 09/01/23 08:51 09/01/23 09:03 09/01/23 08:51 09/01/23 09:03 09/01/23 08:51 09/01/23 09:00 09/01/23 07:45 FiO2 30 08/31/23 19:33 Oxygen Flow Rate (L/min) 2 Oxygen Delivery Method Room Air Weight: 292 lb 15.909 oz Body Mass Index (BMI) 44.5 Intake & Output: Intake and Output for Last 24 Hours 08/30/23 08/31/23 09/01/23 23:59 23:59 23:59 Intake Total 600.83 / 600.83 720 / 720 Output Total 400 / 400 1000 / 1000 Balance 200.83 / 200.83 -1000 / -760 720 / 720 Lab / Micro Data 09/01/23 06:17 09/01/23 06:17 Labs: Laboratory Results - last 24 hr 08/31/23 10:54: POC Glucose 122 H 09/01/23 06:17: WBC 7.4, RBC 5.11, Hgb 13.9, Hct 43.5, MCV 85.1, MCH 27.2, MCHC 32.0, RDW Std Deviation 40.1, RDW Coeff of Carri 13.0, Plt Count 147 L, MPV 10.3, Immature Gran % (Auto) 0.300, Neut % (Auto) 58.9, Lymph % (Auto) 31.5, [place] % (Auto) 7.8, Eos % (Auto) 1.2, Baso % (Auto) 0.3, Absolute Neuts (auto) 4.4, Absolute Lymphs (auto) 2.33, Nucleated RBC % 0, Sodium 138, Potassium 3.8, Chloride 105, Carbon Dioxide 29.0, Anion Gap 4 L, BUN 18, Creatinine 0.82, Estim Creat Clear Calc 93.84, Est GFR (MDRD) Af Amer 123, Est GFR (MDRD) Non-Af 102, BUN/Creatinine Ratio 22.0 H, Glucose 133 H, Calcium 9.3 Cardiology Labs/Tests 09/01/23 06:17: WBC 7.4, RBC 5.11, Hgb 13.9, Hct 43.5, MCV 85.1, MCH 27.2, MCHC 32.0, Plt Count 147 L, MPV 10.3, Immature Gran % (Auto) 0.300, Neut % (Auto) 58.9, Lymph % (Auto) 31.5, [place] % (Auto) 7.8, Eos % (Auto) 1.2, Baso % (Auto) 0.3, Absolute Neuts (auto) 4.4, Nucleated RBC % 0, Sodium 138, Potassium 3.8, Chloride 105, Carbon Dioxide 29.0, Anion Gap 4 L, BUN 18, Creatinine 0.82, Est GFR (MDRD) Af Amer 123, Est GFR (MDRD) Non-Af 102, BUN/Creatinine Ratio 22.0 H, Glucose 133 H, Calcium 9.3 Rhythm: EKG: ECHO: Stress Test: Cardiac Cath: PCI: CT Surgery: Holter monitor: EPS: PPM: CXR: Chest CT Scan: Physical Exam Const alert, oriented x3 and no apparent distress General Appearance: cooperative HEENT hearing grossly normal bilaterally Head and Scalp: atraumatic Eyes EOMs intact bilaterally Neck General: normal visual inspection Chest inspection of chest normal and palpation of chest normal Resp normal respiratory effort Auscultation: clear to auscultation bilaterally Cardio regular rate, regular rhythm, S1 normal heart sound and S2 normal heart sound Jugular Venous Distention: JVD GI normal to inspection, nondistended, normoactive bowel sounds Extremity normal capillary refill and no pedal edema Peripheral Pulses: Yes pulses 2+ throughout and femoral pulses present Skin no rashes or lesions noted Neuro oriented x3 and CN's II-XII intact bilaterally Psych Appearance: grossly normal and appropriate Assessment & Plan Assessment/Plan (1) Atrial flutter: PLAN: Patient presents with atrial flutter with a rapid ventricular response rate. The above is likely secondary to his respiratory condition. His heart rate is better controlled at this time. His echocardiogram demonstrated b orderline ejection fraction of 50% with mild apical hypokinesis. My recommendation will be to continue with intravenous diltiazem * Continue current dose of beta-laura * No anticoagulation for now. * Patient is in sinus rhythm and the plan to be to continue current management. (2) Chronic diastolic heart failure: PLAN: He does have evidence of chronic diastolic heart failure. We will continue to treat blood pressure as well as the underlying cause. He does have mild segmental wall motion abnormality involving the apex and I will recommend repeating the echocardiogram in a few weeks. Thank you for allowing me to participate in the care of your patient. Please don't hesitate to call if any issues arise.
--- NOTE | 2023-09-01 10:07 | DCINST_ITS ---
Discharge Instructions Diet Discharge Diet: - (-DASH diet, 3000 mg sodium restriction, 2 L fluid restriction) Activity Discharge Activity: Return to Normal Activity Follow Up Care Test Results: Test results from this visit will be discussed in further detail at your follow- up appointment, if applicable. Discharge Plan Admission Admit Date/Time: 08/29/23 23:02 Primary Reason for Your Visit: Shortness of breath Attending Provider: Sona Pierre Primary Care Provider: Abdifatah Hong Consulting Providers: Ethan Stanford; Jerica Hou; Melo Ross Instructions Patient Instructions: Understanding the Cold Virus Additional Instructions / Restrictions: DISCHARGE INSTRUCTIONS PLEASE READ *Please take this with you to your next doctors appointment* -You will be discharged on metoprolol tartrate 50 mg twice daily, you were deemed to not need to take a blood thinner on discharge at this time but you will need to follow up with cardiology -You will need to follow-up with cardiology upon discharge, please call the office of Dr. Stanford upon discharge to schedule your hospital follow-up appointment ). You will need a repeat echocardiogram in several weeks, this can be coordinated through the cardiology office -Please follow-up with Dr. Vo with oncology upon discharge for further evaluation and/or management of the mass seen on your pancreas. Please call their office Saturday morning to schedule hospital follow-up appointment upon discharge. -Please call your primary care provider's office upon discharge to schedule a hospital follow up within 1 week. -For any concerning signs or symptoms please call 911 or proceed to the nearest emergency department Discharge Orders/Prescriptions Prescriptions: New metoprolol tartrate 50 mg Tablet 50 mg PO BID 30 Days Qty: 60 0RF Continued cholecalciferol (vitamin D3) 2,000 unit capsule 2,000 unit PO QDAY omeprazole 20 mg capsule,delayed release(DR/EC) 20 mg PO QDAY potassium chloride 20 mEq tablet extended release 20 meq PO QDAY cyanocobalamin (vitamin B-12) 2,500 mcg tablet 2,500 mcg PO Q OTHER DAY rosuvastatin 40 mg tablet 40 mg PO DAILY multivitamin 1 EACH tablet 1 ea PO DAILY Patient Comments: VITAMIN furosemide 40 mg tablet 40 mg PO .COMPLEX Rx Instructions: 40 mg PO; 2 tabs qam, 1 tab qpm acetaminophen 500 mg Tablet 500 mg PO TID PRN PRN (Reason: Pain) coenzyme Q10 [CoQ-10] 100 mg Capsule 100 mg PO DAILY turmeric 400 mg Capsule 400 mg PO DAILY Referrals / Follow Up: Ethan Stanford MD [Med Staff - Active Staff] - Within 2 Weeks Abdifatah Hong MD [Primary Care Provider] - Within 1 Week Anastasiya Vo MD [Med Staff - Active Staff] - Within 1 Week Disposition Disposition (needs filled in before D/C Order can be placed): Home, Self Care
--- NOTE | 2023-09-01 10:09 | PCM.DC.SUM ---
Providers Date of Admission: 08/29/23 Date of Discharge: 09/01/23 Primary Care Physician: Dr. Abdifatah Hong MD Consultations 08/30/23 00:46 Consult: Cardiology Routine Consulting Provider: Ethan Stanford Reason for Consult: SVT EMERGENT Consult: No MD Notified: Yes Date Notified: 08/29/23 Time Notified: 23:03 Method of Notification: Text Reason For Visit: VIRAL SYNDROME, SVT, POSSIBLE PANCREATIC MASS Diagnosis Discharge Diagnosis (1) Atrial flutter: Status: Acute Code(s): I48.92 - Unspecified atrial flutter (2) Chronic diastolic heart failure: Status: Chronic Code(s): I50.32 - Chronic diastolic (congestive) heart failure Plan #Acute dyspnea-secondary to rhinovirus#New onset A-flutter- resolved #Chronic diastolic heart failure #Wall motion abnormalities on echo #Tobacco dependence #pancreatic mass- CT scan with 3.3 cm x 3.5 cm mass in pancreatic tail suspicious for malignancy #Obstructive sleep apnea #GERD #Class III obesity with BMI of 44.3 #Dyslipidemia #Chronic bilateral stasis dermatitis Medications at Discharge Home Medications multivitamin 1 ea PO DAILY supplement 06/22/17 omeprazole 20 mg capsule,delayed release 20 mg PO QDAY acid reflux 02/09/18 potassium chloride 20 mEq tablet,extended release 20 meq PO QDAY supplement 02/09/18 cholecalciferol (vitamin D3) 50 mcg (2,000 unit) capsule 2,000 unit PO QDAY supplement 02/10/18 cyanocobalamin (vitamin B-12) 2,500 mcg tablet 2,500 mcg PO Q OTHER DAY supplement 11/06/21 furosemide 40 mg tablet 40 mg PO .COMPLEX diuresis 11/06/21 rosuvastatin 40 mg tablet 40 mg PO DAILY cholesterol 06/21/22 acetaminophen 500 mg tablet 500 mg PO TID PRN PRN Pain 07/24/22 coenzyme Q10 100 mg capsule (CoQ-10) 100 mg PO DAILY antioxidant 07/24/22 turmeric 400 mg capsule 400 mg PO DAILY supplement 07/24/22 metoprolol tartrate 50 mg tablet 50 mg PO BID 30 days #60 tabs 09/01/23 Hospital Course Summary of Care Provided Minutes Spent on Discharge: 35 Hospital Course: The patient is a 58 y/o M w/ PMHx: Chronic Diastolic CHF, HTN, HLD, Diabetes mellitus type II, GERD, BL LE Chronic venous stasis disease, Morbid obesity, DEBI on CPAP nightly, Restrictive lung disease, Mild Pulmonary Hypertension, Chronic BL LE Lymphedema, Tobacco use who presents to the [facility] ED on 08/29/23 with worsening shortness of breath. He was found to have new onset a flutter and was placed on Cardizem drip and therapeutic Lovenox. He was found to have rhinovirus which was thought to be the impetus of his a flutter and he was transition to oral beta-blockers and cardiology recommended to hold long-term anticoagulation at this time. He also had borderline EF with wall motion abnormalities and it was recommended to repeat echocardiogram in several weeks on outpatient basis. During his admission he also had a CT scan with 3.3 cm x 3.5 cm mass in pancreatic tail suspicious for malignancy. Talked with Dr. Vo, oncologist on-call, who recommended patient call his office Saturday morning for follow-up and further coordination and work-up. This was discussed with patient and his daughter and they verbalized their understanding. On day of discharge patient feeling better and anxious to go home. Discharge instructions as follows: DISCHARGE INSTRUCTIONS PLEASE READ *Please take this with you to your next doctors appointment* -You will be discharged on metoprolol tartrate 50 mg twice daily, you were deemed to not need to take a blood thinner on discharge at this time but you will need to follow up with cardiology -You will need to follow-up with cardiology upon discharge, please call the office of Dr. Stanofrd upon discharge to schedule your hospital follow-up appointment (ph [phone]). You will need a repeat echocardiogram in several weeks, this can be coordinated through the cardiology office -Please follow-up with Dr. Vo with oncology upon discharge for further evaluation and/or management of the mass seen on your pancreas. Please call their office Saturday morning to schedule hospital follow-up appointment upon discharge. -Please call your primary care provider's office upon discharge to schedule a hospital follow up within 1 week. -For any concerning signs or symptoms please call 911 or proceed to the nearest emergency department Physical Exam Narrative General: Alert, oriented, no apparent distress HEENT: Atraumatic, normocephalic Eyes: Anicteric, normal conjunctiva, extraocular movements grossly intact Neck: Supple Respiratory: Clear to auscultation bilaterally, normal respiratory effort Cardiovascular: Regular rate GI: Slightly firm, nontender, no rebound, guarding, rigidity Extremities: No edema Musculoskeletal: Moving all extremities Neuro: No overt focal neurological deficits Skin: No rashes appreciated Psych: Cooperative Weight / BMI Weight Weight: 132.9 kg Body Mass Index (BMI) 44.5 ABG / Lab / Microbiology Data 09/01/23 06:17 09/01/23 06:17 Laboratory: Laboratory Results - last 24 hr 08/31/23 10:54: POC Glucose 122 H 09/01/23 06:17: WBC 7.4, RBC 5.11, Hgb 13.9, Hct 43.5, MCV 85.1, MCH 27.2, MCHC 32.0, RDW Std Deviation 40.1, RDW Coeff of Carri 13.0, Plt Count 147 L, MPV 10.3, Immature Gran % (Auto) 0.300, Neut % (Auto) 58.9, Lymph % (Auto) 31.5, [place] % (Auto) 7.8, Eos % (Auto) 1.2, Baso % (Auto) 0.3, Absolute Neuts (auto) 4.4, Absolute Lymphs (auto) 2.33, Nucleated RBC % 0, Sodium 138, Potassium 3.8, Chloride 105, Carbon Dioxide 29.0, Anion Gap 4 L, BUN 18, Creatinine 0.82, Estim Creat Clear Calc 93.84, Est GFR (MDRD) Af Amer 123, Est GFR (MDRD) Non-Af 102, BUN/Creatinine Ratio 22.0 H, Glucose 133 H, Calcium 9.3 Microbiology: Microbiology 08/30/23 02:00 Mucosa - Nose Coronavirus COVID-19 PCR - Final 08/30/23 02:00 Mucosa - Nose Respiratory Panel (PCR) - Final Rhinovirus 08/29/23 17:45 Nasal Secretion SARS-CoV-2 & FLU Antigen (Rapid) - Final D/C Instructions Discharge Diet: - (-DASH diet, 3000 mg sodium restriction, 2 L fluid restriction) Meaningful Use Info Meaningful Use Diagnoses (Choose all that apply): None applicable Discharge Plan Admission Admit Date/Time: 08/29/23 23:02 Primary Reason for Your Visit: Shortness of breath Attending Provider: Sona Pierre Primary Care Provider: Abdifatah Hong Consulting Providers: Abdoulaye,[place]; Jerica Hou; Melo Ross Instructions Patient Instructions: Understanding the Cold Virus Additional Instructions / Restrictions: DISCHARGE INSTRUCTIONS PLEASE READ *Please take this with you to your next doctors appointment* -You will be discharged on metoprolol tartrate 50 mg twice daily, you were deemed to not need to take a blood thinner on discharge at this time but you will need to follow up with cardiology -You will need to follow-up with cardiology upon discharge, please call the office of Dr. Stanford upon discharge to schedule your hospital follow-up appointment ). You will need a repeat echocardiogram in several weeks, this can be coordinated through the cardiology office -Please follow-up with Dr. Vo with oncology upon discharge for further evaluation and/or management of the mass seen on your pancreas. Please call their office Saturday to schedule hospital follow-up appointment upon discharge. -Weigh yourself every day. A sudden weight gain can mean you are retaining fluid. Weigh yourself at the same time of day and in the same kind of clothes. Ideally, weigh yourself first thing in the morning after you empty your bladder, but before you eat breakfast. -Please call your physician if your weight goes up by more than 2 pounds in 1 day or 5 pounds in 1 week. This can be a sign that you are retaining more fluid than you should be. Clues to weight gain include checking your ankles for swelling, or noticing you are short of breath when you lie down -Please limit your sodium intake to less than 3 g/day. Here are tips: Limit canned, dried, packaged, and fast foods. Don't add salt to your food at the table. Season foods with herbs instead of salt when you cook. When you eat out, ask that the underwriting operations manager not add any salt to your dish. Don't eat fried or greasy foods. Be careful of bottled beverages. They can contain a lot of salt -Call 911 right away if you have: -Severe shortness of breath, such that you can't catch your breath even while resting -Severe chest pain that does not resolve with rest or nitroglycerin -[place], foamy mucus with cough and shortness of breath -An ongoing rapid or irregular heartbeat -Passing out or fainting -Stroke symptoms such as sudden numbness or weakness on one side of your face, arm, or leg or sudden confusion, trouble speaking or vision changes -Please call your primary care provider's office upon discharge to schedule a hospital follow up within 1 week. -For any concerning signs or symptoms please call 911 or proceed to the nearest emergency department Discharge Orders/Prescriptions Prescriptions: New metoprolol tartrate 50 mg Tablet 50 mg PO BID 30 Days Qty: 60 0RF Continued cholecalciferol (vitamin D3) 2,000 unit capsule 2,000 unit PO QDAY omeprazole 20 mg capsule,delayed release(DR/EC) 20 mg PO QDAY potassium chloride 20 mEq tablet extended release 20 meq PO QDAY cyanocobalamin (vitamin B-12) 2,500 mcg tablet 2,500 mcg PO Q OTHER DAY rosuvastatin 40 mg tablet 40 mg PO DAILY multivitamin 1 EACH tablet 1 ea PO DAILY Patient Comments: VITAMIN furosemide 40 mg tablet 40 mg PO .COMPLEX Rx Instructions: 40 mg PO; 2 tabs qam, 1 tab qpm acetaminophen 500 mg Tablet 500 mg PO TID PRN PRN (Reason: Pain) coenzyme Q10 [CoQ-10] 100 mg Capsule 100 mg PO DAILY turmeric 400 mg Capsule 400 mg PO DAILY Referrals / Follow Up: Ethan Stanford MD [Med Staff - Active Staff] - Within 2 Weeks Abdifatah Hong MD [Primary Care Provider] - Within 1 Week Anastasiya Vo MD [Med Staff - Active Staff] - Within 1 Week Disposition Disposition (needs filled in before D/C Order can be placed): Home, Self Care Charges/Coding Visit Charges Inpatient E&M: 98774 Disch Hosp >30min
[2023-09-01 11:00] VITALS: BP 118/82; PULSE 72; RESP 18; TEMP 36.7; O2SAT 95
== END 2023-09-01 11:12 | disposition home or self-care (01) | DRG 309 ==
LOC: ED 22:52 → PCU 23:13
PROVIDERS: Internal Medicine; Admitting Provider Family Medicine; Emergency Provider Emergency Medicine; PCP Family Medicine; Visit Provider Internal Medicine
DX: I48.92 Unspecified atrial flutter (principal); I50.32 Chronic diastolic (congestive) heart failure; Z68.41 Body mass index [BMI] 40.0-44.9, adult; I11.0 Hypertensive heart disease with heart failure; B34.8 Other viral infections of unspecified site; E66.01 Morbid (severe) obesity due to excess calories; G47.33 Obstructive sleep apnea (adult) (pediatric); K21.9 Gastro-esophageal reflux disease without esophagitis; F17.210 Nicotine dependence, cigarettes, uncomplicated; E78.5 Hyperlipidemia, unspecified; I87.2 Venous insufficiency (chronic) (peripheral); K86.9 Disease of pancreas, unspecified; R93.1 Abnormal findings on diagnostic imaging of heart and coronary circulation; Z79.899 Other long term (current) drug therapy
CPT/HCPCS: 36415; 71046; 71275; 74178; 80048; 80053; 80061; 82962; 83036; 83690; 83735; 83880; 84100; 84145; 84443; 84484; 85025; 87428; 87633; 87635; 93005; 93306; 94002; 94640; 94660; 94668; 99284; Q9957; Q9967; A4216; C8929; J0153; J1940

== ENCOUNTER → 2023-09-19 | Outpatient (CLI) | payer MEDICARE, SELFPAY ==
[2023-09-19] VITALS (9 sets, daily range): BP systolic 116–125; BP diastolic 63–81; PULSE 63–80; RESP 18; TEMP 36.6–36.7; O2SAT 92–98; BMI 43.8
--- NOTE | 2023-09-19 | ASPIGT_PTH ---
PATIENT: PEDRO LUIS KRUGER LOC: CT U#:[id number] AGE/SX: 58/M ROOM: RE09/19/[address]: Dr. Anastasiya Vo MD : 1965 BED: DIS: 09/19/2023 SPEC #: [id number] RECD: 09/19/23 10:17 STATUS: ROSEANNA DERICK #: [id number] PRINCE: 09/19/23 00:[address]: Anastasiya Vo DEPT: SURGICAL PATHOLOGY RECD BY: Amy Garcia ENTERED: 09/19/23 10:18 SP TYPE: ASP RAD OTHR DR: Dr. Julio Hong MD Tissues: Pancreas, NOS Procedures: FNA Specimen Adequacy Special Stain Group II Surgery Specimen Level IV Surgery Specimen Level Imprint (control) HEADER OPERATION: CT-guided pancreatic biopsy PRE-OP DIAGNOSIS: Pancreatic mass TISSUE SUBMITTED: Pancreatic mass 18-gauge x5 MICROSCOPIC DIAGNOSIS Pancreatic mass, CT-guided core biopsy: Negative for carcinoma. See comment. YADIEL:kirstie 09/23/2023 COMMENT The specimen is evaluated at the time of biopsy by Dr. Goldberg. Immediate Evaluation = Negative for malignant cells. Immunohistochemistry ([id number]) supports the above diagnosis, IHC profile suggests benign vascular neoplasm. Correlation with clinical, radiologic findings and appropriate follow up are necessary. Case has been reviewed in consultation with Dr. Lew who concurs with the above diagnosis. IDC:AM MICROSCOPIC DESCRIPTION Slides are reviewed. GROSS DESCRIPTION Received in fixative is one container labeled with the patient's name and designated pancreatic mass. The specimen consists of multiple irregular fragments of denney soft tissue that in aggregate measure 1.5 x 0.1 x 0.1 cm. The specimen is totally submitted in one cassette. Four touch imprints are prepared at the time of core biopsy. / YADIEL:kirstie 09/19/2023 TC:1 CPT: 52288, 95281
--- NOTE | 2023-09-19 | IMM_PTH ---
PATIENT: PEDRO LUIS KRUGER LOC: CT U#:[id number] AGE/SX: 58/M ROOM: RE09/19/[address]: Dr. Anastasiya Vo MD : [id number] BED: DIS: 09/19/2023 SPEC #: [id number] RECD: 09/20/23 12:55 STATUS: ROSEANNA REAnnetta #: [id number] PRINCE: 09/19/23 00:[address]: Anastasiya Vo DEPT: IMMUNOHISTOCHEMISTRY RECD BY: Gia Griffiths ENTERED: 09/20/23 12:56 SP TYPE: IMMUNO OTHR DR: Dr. Julio Hong MD Tissues: Pancreas, NOS Procedures: Jm Ret (add) CD31 (add) CK7 (add) CK8 (add) Vimentin (add) FACTOR VIII (add) Pankeratin (initial) PHYSICIAN & INSTITUTION [place] [address] SPECIMEN INFORMATION: Tissue Source: Pancreatic biopsy Clinical Info: Pancreatic mass Specimen Number: [id number] CPT code: 62520, 39539 x6 METHODOLOGY: Deparaffinized sections of prefer/formalin-fixed tissue or PAP/DQ stained slides are incubated with monoclonal/polyclonal antibodies/oligonucleotide probes. Localization is made via biotin free immunoperoxidase method. Appropriate controls are performed and reacted as expected. Results on target cell population are indicated in the following table: RESULTS: ANTIBODY / CLONE RESULT AE1-3 (AE1/AE3/PCK26) negative CK7 (OV-TL12/30) negative CK8 (80hjssV70) negative Vimentin (V9) positive CD31 (VAISHALI/70A) positive Factor VIII (R Ag) positive CALRET (polyclonal) negative These tests were developed and their performance characteristics determined by [facility]. They may not have been cleared or approved by the U.S. Food and Drug Administration. The FDA has determined that such clearance or approval is not necessary. The above immunohistochemical/dualISH markers are ordered and reviewed by the Pathologist. INTERPRETATION: Pancreatic mass, CT-guided core biopsy: Negative for carcinoma. See comment. YADIEL:kirstie 09/23/2023 Comment: IHC profile suggests benign vascular neoplasm. Case has been reviewed in consultation with Dr. Lew who concurs with the above diagnosis. IDC:[id number]
--- NOTE | 2023-09-19 07:36 | CT_ITS ---
PROCEDURE: CT GUIDED biopsy of the tail of the pancreas. DATE: September 19, 2023. INDICATION: Male, 58 years old. Mass in the tail of the pancreas. PHYSICIAN: Denny Melendez M.D. RADIATION DOSAGE (If Supplied By Facility): CTDIvol = ( 23 ) mGy, DLP = ( 771.75 ) mGycm. Individualized dose optimization techniques were utilized. PROCEDURE: The risks, benefits, and alternatives to the procedure were explained to the patient. The specific risk of hemorrhage requiring further treatment or intervention was detailed and accepted. Follow-up instructions were discussed with the patient as well. Written informed consent was obtained. The patient was brought into the CT suite and placed in the supine position. . An appropriate entry site was identified. The overlying skin was prepped and draped in the usual sterile fashion. 1% lidocaine was administered subcutaneously for local anesthesia. Conscious sedation was performed. The patient received 2 mg of Versed and 50 mcg of fentanyl intravenously. Conscious sedation was started at 9:20 AM and terminated at 9:46 AM. The Patient was independently monitored by the department nurse. Under CT guidance, a total of 5 passes were performed utilizing an 18-gauge core biopsy needle system. The specimens were then placed in the appropriate fluid and transported to the laboratory for analysis. Hemostasis was obtained. The patient tolerated the procedure well without immediate complications. CT/Biopsy/Inj or Needle Placement IMPRESSION: Successful CT guided biopsy of the tail of the pancreas, as described above. Conscious sedation protocol was followed. Electronically Signed: Denny Melendez MD at 10:37 EDT ,
[2023-09-19 07:41] LABS: Platelet Count 150 K/mm3 (150-450)
[2023-09-19 08:06] LABS: International Normalized Ratio 0.9; Prothrombin Time (Protime)PT. 12.4 SECONDS (11.7-14.9)
[2023-09-19 08:07] LABS: Partial Thromboplast Time 25.3 Seconds (24.1-36.2)
[2023-09-19] MEDS: 0.9% Saline Lock 10 ML Syringe IV (08:30)
[2023-09-19] MEDS: 0.9% Normal Saline (250mL Bag) 250 ML 15 ML IV (09:20)
[2023-09-19] MEDS: fentaNYL 100 MCG/2 ML Ampul IV (09:20)
[2023-09-19] MEDS: Midazolam 2 MG/2 ML Syringe IV (09:20)
[2023-09-19] MEDS: Lidocaine 2% (20 ml mdv) 20 ML Vial INFILT (09:30)
--- NOTE | 2023-09-19 09:58 | PRO.PCM_ITS ---
Procedures Radiology Radiology CT Procedures: [id number] Biopsy Lymph Node/gland/etc
--- NOTE | 2023-09-19 09:58 | PCM.OP.PRO ---
Procedures Radiology Radiology CT Procedures: [id number] Biopsy Lymph Node/gland/etc
== END | disposition home or self-care (01) ==
PROVIDERS: Nurse Practitioner Acute Care; PCP Family Medicine; Referring Provider Internal Medicine Hematology & Oncology; Visit Provider Internal Medicine Hematology & Oncology
DX: K86.89 Other specified diseases of pancreas (principal); Z01.818 Encounter for other preprocedural examination
CPT/HCPCS: 48102; 36415; 77012; 85049; 85610; 85730; 88172; 88305; 88309; 88313; 88341; 88342; 99156; J7050; A4216

== ENCOUNTER → 2023-11-28 | Outpatient (CLI) | payer MEDICARE, SELFPAY ==
--- NOTE | 2023-11-28 12:39 | CT_ITS ---
STUDY: LOW DOSE CT LUNG CANCER SCREENING REASON FOR EXAM: Male, 58 years old. smoker and gt; 20 pack years RADIATION DOSAGE (If Supplied By Facility): CTDIvol = ( 4.02 ) mGy, DLP = ( 143.46 ) mGycm TECHNIQUE: No contrast was administered. Low dose technique was utilized (average mAS-38 and kVp 120). 1.25 mm axial source images with a slice interval of 1.25-mm were reconstructed in lung windows. 2.5 mm axial source images with a slice interval of 2.5-mm were reconstructed in lung windows. 5.0 mm axial source images with a slice interval of 5.0-mm were reconstructed in soft tissue windows. COMPARISON: 11/22/2022 Emphysema: Mild emphysema. No noncalcified nodule or mass Endobronchial lesion: None Aorta: Some calcified plaque in the aortic arch but no aortic aneurysm. CORONARY ARTERIES: Coronary artery calcification is seen. Heart: No cardiomegaly. Pulmonary artery: Normal Mediastinal nodes: Normal Other chest and abdominal findings: None CT/Low Dose CT Lung Screening IMPRESSION: Lung-RADS category 1 - Continue annual screening with LDCT in 12 months. IMPORTANT NOTES FOR USE: ACR Lung-RADS Version 1.1 Assessment Categories Release Date: 2018 Category: Coded 0-4 bases on nodule(s) with highest degree of suspicion. Negative screen is defined as categories 1 and 2; a positive screen is defined as categories 3 and 4. Category 3 and 4A nodules that are unchanged on interval CT should be coded as category 2, and individuals returned to screening in 12 months. Category 4X: Category 3 or 4 nodules with additional imaging findings that increase the suspicion of lung cancer, such as spiculation, GGN that doubles in size in 1 year, enlarged lymph notes, etc. Category Modifiers: S (significant finding unrelated to lung cancer) Electronically Signed: Richard Sharp MD at 23:45 EST ,
--- NOTE | 2023-11-28 12:39 | ECHOCS_ITS ---
Reason For Study: Dyspnea/SOB Procedure This was a 2D Doppler, Color Flow transthoracic echocardiogram. The study was technically difficult. Contrast injection was performed. Exam performed in department. Left Ventricle Normal LV size. Left ventricular systolic function is lower limits of normal. The estimated ejection fraction is 50 %. Depauw : Hypokinetic. Right Ventricle Normal RV size. Normal systolic function. Atria The left atrium is moderately enlarged. Normal right atrium. Mitral Valve Mitral valve not well visualized. Tricuspid Valve The tricuspid valve is not well visualized. Aortic Valve The aortic valve is not well visualized. Pulmonic Valve The pulmonic valve is not well visualized. Great Vessels Normal aortic root. The pulmonary artery is normal size. Pericardium/Pleural No pericardial effusion. Medication 22 gauge I.V. with prn adaptor inserted into left arm. Diluted definity 4ml given slow IV push to enhance endocardial definition. MMode/2D Measurements & Calculations LVIDd: 6.3 cm IVSd: 1.1 cm LA dimension: 5.1 cm LVIDs: 4.9 cm LVPWd: 1.2 cm RVDd: 4.1 cm FS: 22.2 % LAV(MOD-bp): 86.2 ml LA A4 area: 26.2 cm2 RA A4 area: 21.6 cm2 LAV(MOD-bp) Indexed: 35.0 ml/m2 LAV(MOD-sp2): 81.8 ml LAV(MOD-sp4): 90.5 ml Time Measurements MV dec time: 0.24 sec Doppler Measurements & Calculations MV E max reece: 92.8 cm/sec Lat Peak E' Reece: 11.0 cm/sec Med Peak E' Reece: 7.2 cm/sec MV A max reece: 52.5 cm/sec E/E' lat: 8.4 E/E' med: 12.9 MV E/A: 1.8 MV V2 max: 121.4 cm/sec MV P1/2t max reece: 120.4 cm/sec Ao V2 max: 136.9 cm/sec MV max P.9 mmHg MV P1/2t: 90.6 msec Ao max P.5 mmHg MV V2 mean: 65.8 cm/sec MV dec slope: 389.4 cm/sec2 MV mean P.1 mmHg MV V2 VTI: 32.9 cm MVA(P1/2t): 2.4 cm2 LV V1 max: 100.8 cm/sec PA V2 max: 105.2 cm/sec LV V1 max P.1 mmHg ECHO/Echo Complete W/ Contrast Interpretation Summary Normal LV size. Left ventricular systolic function is lower limits of normal. The estimated ejection fraction is 50 %. Depauw : Hypokinetic. Contrast injection was performed. Ordering Physician: Eri Gutierrez Referring Physician: Reena Brooks Performed By: Michael Olivera RCS
== END | disposition home or self-care (01) ==
LOC: CVS 12:35
PROVIDERS: PCP Family Medicine; Referring Provider Nurse Practitioner Acute Care; Visit Provider Nurse Practitioner Acute Care
DX: I50.32 Chronic diastolic (congestive) heart failure (principal); F17.210 Nicotine dependence, cigarettes, uncomplicated
CPT/HCPCS: 71271; 93306; Q9957; A4216; C8929

== ENCOUNTER → 2024-05-09 | Outpatient (CLI) | payer MEDICARE, SELFPAY ==
[2024-05-09 11:53] LABS: International Normalized Ratio 1.4; Prothrombin Time (Protime)PT. 16.6 SECONDS (11.7-14.9)
== END | disposition home or self-care (01) ==
LOC: LAB 11:05
PROVIDERS: PCP Family Medicine; Referring Provider Nurse Practitioner Gerontology; Visit Provider Nurse Practitioner Gerontology
DX: I48.92 Unspecified atrial flutter (principal); Z79.01 Long term (current) use of anticoagulants
CPT/HCPCS: 36415; 85610

== ENCOUNTER 2024-06-15 05:55 | Outpatient (RCR) | payer MEDICARE, SELFPAY ==
[2024-05-30 12:15] LABS: International Normalized Ratio 1.3; Prothrombin Time (Protime)PT. 15.9 SECONDS (11.7-14.9)
[2024-06-06 10:11] LABS: International Normalized Ratio 1.6; Prothrombin Time (Protime)PT. 18.6 SECONDS (11.7-14.9)
[2024-06-15 06:39] LABS: International Normalized Ratio 1.6; Prothrombin Time (Protime)PT. 18.9 SECONDS (11.7-14.9)
[2024-06-15 06:44] LABS: AST(SGOT) 19 U/L (15-37); Alanine Aminotransfer ALT/SGPT 33 U/L (16-61); Albumin, Serum 3.7 g/dL (3.2-5.0); Alkaline Phosphatase 63 U/L (45-117); Anion Gap 4 (5-15); BUN 19 mg/dL (7-18); BUN/Creat Ratio 24.6 RATIO (10-20); Calcium,Total 9.2 mg/dL (8.5-10.1); Chloride 106 mmol/L (98-107); Cholesterol 156 mg/dL (200); Creatinine, Serum 0.77 mg/dL (0.70-1.30); EST Glomerular Filtration Rate 109 mL/min (>60); Est Glom Filt Rate - Afr Amer 132 mL/min (>60); Globulin 3.7 g/dL (2.2-4.2); Glucose 130 mg/dL (74-106); High Density Lipoprotein 41 mg/dL; PSA,Total - Annual Screen 0.12 ng/mL (0.00-4.00); Potassium 4.1 mmol/L (3.5-5.1); Protein, Total 7.4 g/dL (6.4-8.2); Sodium Level 138 mmol/L (136-145); Triglycerides 176 mg/dL; Very Low Density Lipoprotein 35 mg/dL (5-40)
== END 2024-06-24 18:00 | disposition home or self-care (01) ==
LOC: LAB 05:55
PROVIDERS: PCP Family Medicine; Referring Provider Nurse Practitioner Gerontology; Visit Provider Nurse Practitioner Gerontology
DX: Z79.01 Long term (current) use of anticoagulants (principal); I48.92 Unspecified atrial flutter; E11.9 Type 2 diabetes mellitus without complications; Z12.5 Encounter for screening for malignant neoplasm of prostate
CPT/HCPCS: 36415; 80053; 80061; 84153; 85610; G0103

== ENCOUNTER 2024-07-06 13:19 | Outpatient (RCR) | payer MEDICARE, SELFPAY ==
[2024-06-30 06:58] LABS: International Normalized Ratio 1.6; Prothrombin Time (Protime)PT. 19.2 SECONDS (11.7-14.9)
[2024-07-06 15:57] LABS: International Normalized Ratio 2.5; Prothrombin Time (Protime)PT. 26.5 SECONDS (11.7-14.9)
== END 2024-07-06 18:00 | disposition home or self-care (01) ==
LOC: LAB 13:19
PROVIDERS: PCP Family Medicine; Referring Provider Nurse Practitioner Gerontology; Visit Provider Nurse Practitioner Gerontology
DX: Z79.01 Long term (current) use of anticoagulants (principal); I48.92 Unspecified atrial flutter
CPT/HCPCS: 36415; 85610

== ENCOUNTER 2024-08-03 10:12 | Emergency (ER) | payer MEDICARE, SELFPAY ==
[2024-08-03] VITALS (9 sets, daily range): BP systolic 79–145; BP diastolic 54–117; PULSE 103–150; RESP 20–28; TEMP 36.1; O2SAT 84–97; BMI 42.8
--- NOTE | 2024-08-03 10:25 | ED.VIS.DYS ---
HPI History of Present Illness Chief Complaint: Shortness of Breath [facility] Medical History (Updated 08/03/24 @ 14:[address] Froylan Mason, DO) FDC (current) use of anticoagulants Pancreatic cyst Wears dentures Wears glasses Former smoker CPAP (continuous positive airway pressure) dependence On home oxygen therapy Mass of pancreas Atrial flutter Chronic venous insufficiency Varicose veins of both lower extremities with inflammation Gastroesophageal reflux disease Dependence on nocturnal oxygen therapy Diabetes mellitus Morbid obesity Leg edema Leg swelling Mild pulmonary arterial systolic hypertension Dyspnea DEBI (obstructive sleep apnea) Hypersomnia Chronic diastolic heart failure Restrictive lung disease Obesity GERD (gastroesophageal reflux disease) Hyperlipidemia Home Medications ?Medication ?Instructions ?Recorded ?Last Taken ?Type multivitamin 1 ea PO DAILY supplement 06/22/17 06/22/17 History omeprazole 20 mg capsule,delayed 20 mg PO QDAY acid reflux 02/09/18 Unknown History release potassium chloride 20 mEq 20 meq PO QDAY supplement 02/09/18 Unknown History tablet,extended release cholecalciferol (vitamin D3) 50 2,000 unit PO QDAY supplement 02/10/18 Unknown History mcg (2,000 unit) capsule cyanocobalamin (vitamin B-12) 2,500 mcg PO Q OTHER DAY supplement 11/06/21 Unknown History 2,500 mcg tablet furosemide 40 mg tablet 40 mg PO .COMPLEX diuresis 11/06/21 Unknown History rosuvastatin 40 mg tablet 40 mg PO DAILY cholesterol 06/21/22 Unknown History acetaminophen 500 mg tablet 500 mg PO TID PRN PRN Pain 07/24/22 Unknown History coenzyme Q10 100 mg capsule 100 mg PO DAILY antioxidant 07/24/22 Unknown History (CoQ-10) turmeric 400 mg capsule 400 mg PO DAILY supplement 07/24/22 Unknown History semaglutide 3 mg tablet (Rybelsus) 3 mg PO DAILY 09/05/23 Unknown History albuterol sulfate 90 mcg/actuation 2 inh inhalation Q4-6H PRN 03/04/24 Unknown History aerosol inhaler warfarin 4 mg tablet 4 mg PO .COMPLEX #60 tabs 06/17/24 Unknown Rx Allergy/AdvReac Type Severity Reaction Status Date / Time aspirin Allergy Severe Swelling Verified 08/03/24 10:13 NSAIDS (Non-Steroidal Allergy Swelling Verified 08/03/24 10:13 Anti-Inflamma Family History Father Heart disease Sister Cancer GI Brother Leukemia Mother COPD (chronic obstructive pulmonary disease) Parkinson disease Emphysema lung Daughter Ovarian cancer Cervical cancer Surgical History History of total left knee replacement (06/06/21) skin graft/muscle reconstruction of legs Social History household members: spouse Smoking Status: Current every day smoker tobacco type: cigarettes Tobacco: How many years used: 35 how long ago did patient quit smokin09/04/23 second hand exposure: Yes alcohol intake: never substance use type: does not use caffeine: Yes Type: coffee Number of servings: 6 EXAM Physical Exam Const Vital Signs: 08/03/24 10:13 08/03/24 10:13 08/03/24 10:28 Temperature 96.9 F L Temperature Source Temporal Pulse Rate 150 H Respiratory Rate 24 H Respiratory Effort Short of Breath Respiratory Depth Normal Respiratory Pattern Normal Blood Pressure 138/117 H Blood Pressure Mean 124 Pulse Ox 91 Oxygen Delivery Method Room Air Room Air Room Air 08/03/24 11:00 08/03/24 12:00 08/03/24 12:15 Temperature Temperature Source Pulse Rate 107 H 111 H 103 H Respiratory Rate 28 H 27 H 20 H Respiratory Effort Respiratory Depth Respiratory Pattern Blood Pressure 99/68 79/54 L Blood Pressure Mean 78 62 Pulse Ox 91 97 Oxygen Delivery Method 08/03/24 12:18 08/03/24 12:30 08/03/24 13:00 Temperature Temperature Source Pulse Rate 113 H 108 H 106 H Respiratory Rate 28 H 20 H 25 H Respiratory Effort Respiratory Depth Respiratory Pattern Blood Pressure 99/68 98/65 84/66 L Blood Pressure Mean 79 77 72 Pulse Ox 84 96 Oxygen Delivery Method Room Air MDM MDM MDM Narrative Medical decision making narrative: HISTORY OF PRESENT ILLNESS: 59-year-old male presents with concern for shortness of breath. per triage note the patient complaint of shortness of breath and weakness. The patient states he is experiencing more shortness of breath. Notes a cough. Denies hemoptysis. Denies leg swelling. The patient denies recent surgery in the last 4 weeks or immobilization in the last 3 days, denies previous diagnosis of DVT or PE, hemoptysis, unilateral leg swelling or malignancy with treatment the last 6 months or palliative. No estrogen use noted. Notes compliance with warfarin REVIEW OF SYSTEMS: Pertinent positives: Shortness of breath, weakness Pertinent negatives: Chest pain, bleeding diathesis PHYSICAL EXAM: Nursing triage notes reviewed, Vital signs reviewed Constitutional: please see mdm HENT: MMM Eyes: Pupils equal round and reactive to light, Extraocular muscles intact Neck: No stridor, no JVD, full neck ROM Lungs: Clear to auscultation, No wheezing or rales. No increased work of breathing, no conversational dyspnea, no accessory muscle use, no nasal flaring. No respiratory distress noted Heart: Regular rate and rhythm, No murmurs, No rubs and No gallops, 2+ distal pulses (radial, femoral, posterior tibial) in all extremities Abdomen: Soft, there is no tenderness, rigidity, rebound or guarding, no obvious peritoneal signs, no palpable pulsatile abdominal masses, no auscultated abdominal bruit : No CVAT Extremities: No edema Neuro: No focal neurological deficits, cranial nerves II through XII intact, 5/5 strength in all extremities. Intact sensation to light touch in all extremities, 2+ reflexes bilateral patella tendons. Normal gait. No ataxia. Skin: No rash or lesions noted MEDICAL DECISION MAKING: Chief Complaint: Shortness of breath, weakness External records reviewed: Imaging reviewed: Echocardiogram from 2023 shows ejection fraction 50%, hypokinetic apex factors affecting care: A-flutter, DEBI, CHF, type 2 diabetes, former smoker, hyperlipidemia, GERD, pancreatic mass, morbid obesity Social determinants of health: Prior smoking history noted History obtained from others: none Consults: none [facility] Narrative: Patient was initially tachycardic at a rate of 150, tachypneic at a rate of 24, saturating 91% on room air I considered the following differential diagnosis: ACS, arrhythmia, anemia, electrolyte disturbance, dehydration, CRISTINO, COVID, flu, RSV, pneumonia, PE I obtained a broad lab and imaging workup to further elucidate etiology of the patient's complaint. ALL IMAGES (IF OBTAINED) HAVE BEEN PERSONALLY REVIEWED AND INTERPRETED BY MYSELF. EKG shows A-fib with RVR rate of 127, left axis deviation, prolonged QTc, no obvious STEMI or ischemic changes High-sensitivity troponin is negative, no evidence of myocardial ischemia x 2 BNP slightly elevated this consistent with volume overload CBC without leukocytosis, severe anemia, no thrombocytopenia. INR therapeutic making VTE less likely BMP without evidence of significant electrolyte abnormalities, no anion gap, no acute kidney injury. I have a low suspicion for PE given lack of PE risk factors, negative Wells score, no hypoxia, therapeutic INR. The patient was ambulated without significant hypoxia (95%). Heart rate improved to upper 90s after 1 dose of diltiazem I suspect his presentation secondary to A-fib/Aflutter with RVR. This was corrected with 1 dose of IV diltiazem. Patient is currently prescribed Lasix for diuresis and encouraged to continue this. He was encouraged to continue taking his home warfarin. He is encouraged to follow with his historiographer. Strict return precautions were discussed. The patient and/or family, caregivers express understanding. The patient and/or family, caregivers agrees with the plan. Shared decision making: I will have a discussion with the patient and or visitors regarding risk/benefits of further testing or admission. They will be made aware of of the risk/benefits inherent in this decision they will be given the opportunity to voice understanding. Total critical care time today provided was at least 0 minutes. This excludes separately billable procedures. Critical care time (if documented) is secondary to the patient having high probability of clinically significant/life threatening deterioration in the patient's condition which required my urgent intervention. Impression: 1. Dyspnea 2. A-fib with RVR Dispo: Discharge home This note was generated with [employer] dictation software. It may contain incorrect words, spelling, and punctuation that were not noted in review of the chart prior to signing. Lab Data Labs: Laboratory Results - last 24 hr 08/03/24 08/03/24 10:31 12:44 WBC 8.3 RBC 5.22 Hgb 14.1 Hct 44.9 MCV 86.0 MCH 27.0 MCHC 31.4 L RDW Std Deviation 41.9 RDW Coeff of Carri 13.5 Plt Count 181 MPV 10.7 Immature Gran % (Auto) 0.500 Neut % (Auto) 81.8 H Lymph % (Auto) 14.2 L Coffey % (Auto) 3.1 Eos % (Auto) 0.2 Baso % (Auto) 0.2 Absolute Neuts (auto) 6.8 Absolute Lymphs (auto) 1.18 Nucleated RBC % 0 PT 33.7 H INR 3.3 Sodium 141 Potassium 3.9 Chloride 105 Carbon Dioxide 28.0 Anion Gap 8 BUN 21 H Creatinine 1.06 Estim Creat Clear Calc 99.62 Est GFR (MDRD) Af Amer 92 Est GFR (MDRD) Non-Af 76 BUN/Creatinine Ratio 19.8 Glucose 224 H Calcium 9.3 Troponin I High Sens 20 18 B-Natriuretic Peptide 163.0 H Radiography Diagnostic Testing: Clinical Impression(s) from Imaging Studies Chest X-Ray 08/03/24 10:40 IMPRESSION: No radiographic evidence of acute cardiopulmonary disease. Electronically Signed: Frank Green MD at 11:10 EDT , Discharge Plan Triage Chief Complaint: Shortness of Breath ED Provider: Froylan Mason Dx/Rx/DC Orders Clinical Impression: Atrial flutter Instructions: ED Atrial Flutter Prescriptions: No Action cholecalciferol (vitamin D3) 2,000 unit capsule 2,000 unit PO QDAY omeprazole 20 mg capsule,delayed release(DR/EC) 20 mg PO QDAY potassium chloride 20 mEq tablet extended release 20 meq PO QDAY cyanocobalamin (vitamin B-12) 2,500 mcg tablet 2,500 mcg PO Q OTHER DAY rosuvastatin 40 mg tablet 40 mg PO DAILY Rybelsus 3 mg tablet 3 mg PO DAILY albuterol sulfate 90 mcg/actuation HFA aerosol inhaler 2 inh inhalation Q4-6H PRN multivitamin 1 EACH tablet 1 ea PO DAILY Patient Comments: VITAMIN furosemide 40 mg tablet 40 mg PO .COMPLEX Rx Instructions: 40 mg PO; 2 tabs qam, 1 tab qpm acetaminophen 500 mg Tablet 500 mg PO TID PRN PRN (Reason: Pain) coenzyme Q10 [CoQ-10] 100 mg Capsule 100 mg PO DAILY turmeric 400 mg Capsule 400 mg PO DAILY warfarin 4 mg tablet 4 mg PO .COMPLEX Qty: 60 11RF Protocol: Dose Management Condition: Saturday Dose/Route: 8 mg Instruction: 2 x 4 mg tablets Condition: Saturday Dose/Route: 8 mg Instruction: 2 x 4 mg tablets Condition: Saturday Dose/Route: 8 mg Instruction: 2 x 4 mg tablets Condition: Saturday Dose/Route: 8 mg Instruction: 2 x 4 mg tablets Condition: Dose/Route: 8 mg Instruction: 2 x 4 mg tablets Condition: Saturday Dose/Route: 8 mg Instruction: 2 x 4 mg tablets Condition: Saturday Dose/Route: 8 mg Instruction: 2 x 4 mg tablets Protocol Text: Adjustment Start Date: Saturday08/03/24 INR Value: 3.2 INR Date: 08/01/24 Recheck Date: 08/17/24 Rx Instructions: 8 mg (2 tabs)Sat-Sat; 4mg (1 tab) Sat/Sun; or as directed Primary Care Provider: Julio Hong Referrals: Julio Hong MD [Primary Care Provider] - Activity Restrictions/Additional Instructions: Thank you for trusting us with your care today! Please take Tylenol (2 pills, 650 mg), ibuprofen (2 pills, 400 mg) every 6 hours as needed for pain and fever control. Please take home Lasix daily for the next 5 days. Please return to the emergency department if your symptoms change or worsen. Specific develop rapid heart rate, shortness of breath or leg swelling Please follow with your primary care physician for further outpatient evaluation and management. Print Language: Greenlandic Disposition Disposition: Home, Self Care
--- NOTE | 2024-08-03 10:28 | EKG12_ITS ---
Test Reason : CP Blood Pressure : / mmHG Vent. Rate : 127 BPM Atrial Rate : 000 BPM P-R Int : 000 ms QRS Dur : 100 ms QT Int : 318 ms P-R-T Axes : 000 -21 157 degrees QTc Int : 462 ms Atrial fibrillation with rapid ventricular response ST & T wave abnormality, consider lateral ischemia Abnormal ECG Confirmed by MARCO ANTONIO MARTINEZ, LYNDSAY ([id number]), film editor supervisor ALEXANDRIA CLAY ([id number]) on 08/04/2024 7:39:39 AM Referred By: DEVON/RACHELLE Confirmed By:LYNDSAY BERNARD MD
--- NOTE | 2024-08-03 10:40 | RAD_ITS ---
INDICATION: Dyspnea EXAMINATION/TECHNIQUE: X-RAY - XR Chest 1 View COMPARISON: Prior study dated: 08/29/2023 FINDINGS: LINES/DEVICES: None. LUNGS: No consolidation, edema or effusion. No pneumothorax. MEDIASTINUM AND CARDIOVASCULAR STRUCTURES: Cardiac silhouette not enlarged. Central airways and mediastinal contour are unremarkable. BONES AND SOFT TISSUES: Unremarkable. RAD/Chest 1 View (Portable) IMPRESSION: No radiographic evidence of acute cardiopulmonary disease. Electronically Signed: Frank Green MD at 11:10 EDT ,
[2024-08-03] MEDS: dilTIAZem 25 MG/5 ML Vial 10 MG IV BOLUS (10:48)
[2024-08-03 10:50] LABS: Absolute Lymphocyte Count 1.18 X10^3/uL (0.83-4.51); Absolute Neutrophil Count 6.8 X10^3/uL (2.0-7.7); Basophil# 0.02 X10^3/uL; Basophil% 0.2 % (0-1); Eosinophil# 0.02 X10^3/uL; Eosinophils% 0.2 % (0-5); Hematocrit 44.9 % (40-54); Hemoglobin 14.1 g/dL (13.0-16.5); Lymphocyte # 1.18 X10^3/ul (0.83-4.51); Lymphocyte % 14.2 % (19-41); Mean Corp Hgb Conc 31.4 g/dL (32-36); Mean Platelet Vol. 10.7 fl (6.2-12.0); Monocyte# 0.26 X10^3/uL; Monocyte% 3.1 % (0-10); NRBC Flagged by Analyzer 0 % (0-5); Neutrophil # 6.81 X10^3/uL (2.7-7.7); Neutrophil % 81.8 % (47-70); Platelet Count 181 K/mm3 (150-450); RBC Distribution Width CV 13.5 % (11.6-14.6); RBC Distribution Width SD 41.9 fl (35.1-43.9); Red Blood Count 5.22 M/mm3 (4.6-6.2); White Blood Count 8.3 K/mm3 (4.4-11.0)
[2024-08-03 11:12] LABS: Anion Gap 8 (5-15); BUN 21 mg/dL (7-18); BUN/Creat Ratio 19.8 RATIO (10-20); Calcium,Total 9.3 mg/dL (8.5-10.1); Chloride 105 mmol/L (98-107); Creatinine, Serum 1.06 mg/dL (0.70-1.30); EST Glomerular Filtration Rate 76 mL/min (>60); Est Glom Filt Rate - Afr Amer 92 mL/min (>60); Estimated Creatinine Clearance 99.62 ml/min; Glucose 224 mg/dL (74-106); Potassium 3.9 mmol/L (3.5-5.1); Sodium Level 141 mmol/L (136-145); Troponin-I HS 20 pg/mL (3.0-78.0)
[2024-08-03 13:13] LABS: Troponin-I HS 18 pg/mL (3.0-78.0)
[2024-08-03 13:43] LABS: International Normalized Ratio 3.3; Prothrombin Time (Protime)PT. 33.7 SECONDS (11.7-14.9)
== END 2024-08-03 14:32 | disposition home or self-care (01) ==
PROVIDERS: Emergency Provider Emergency Medicine; PCP Family Medicine; Visit Provider Emergency Medicine
DX: I48.92 Unspecified atrial flutter (principal); I50.32 Chronic diastolic (congestive) heart failure; I48.91 Unspecified atrial fibrillation; E66.01 Morbid (severe) obesity due to excess calories; E11.9 Type 2 diabetes mellitus without complications; K86.89 Other specified diseases of pancreas; Z87.891 Personal history of nicotine dependence; G47.33 Obstructive sleep apnea (adult) (pediatric); E78.5 Hyperlipidemia, unspecified; K21.9 Gastro-esophageal reflux disease without esophagitis; Z79.01 Long term (current) use of anticoagulants; R06.02 Shortness of breath; Z99.89 Dependence on other enabling machines and devices
CPT/HCPCS: 71045; 80048; 83880; 84484; 85025; 85610; 87631; 93005; 99284; A4216

== ENCOUNTER 2024-08-11 18:38 | Inpatient (IN) | payer MEDICARE, SELFPAY ==
[2024-08-11] VITALS (9 sets, daily range): BP systolic 95–151; BP diastolic 64–87; PULSE 68–72; RESP 16–24; TEMP 36.4–37; O2SAT 93–96; BMI 42.7
[2024-08-11 19:10] LABS: Absolute Lymphocyte Count 3.17 X10^3/uL (0.83-4.51); Absolute Neutrophil Count 7.4 X10^3/uL (2.0-7.7); Basophil# 0.04 X10^3/uL; Basophil% 0.3 % (0-1); Eosinophil# 0.08 X10^3/uL; Eosinophils% 0.7 % (0-5); Hematocrit 45.5 % (40-54); Hemoglobin 14.3 g/dL (13.0-16.5); Lymphocyte # 3.17 X10^3/ul (0.83-4.51); Lymphocyte % 27.2 % (19-41); Mean Corp Hgb Conc 31.4 g/dL (32-36); Mean Corpuscular Hgb 26.9 pg (27.0-32.0); Mean Corpuscular Volume 85.5 fL (80-94); Mean Platelet Vol. 10.9 fl (6.2-12.0); Monocyte# 0.85 X10^3/uL; Monocyte% 7.3 % (0-10); NRBC Flagged by Analyzer 0 % (0-5); Neutrophil # 7.44 X10^3/uL (2.7-7.7); Platelet Count 181 K/mm3 (150-450); RBC Distribution Width CV 13.4 % (11.6-14.6); RBC Distribution Width SD 41.6 fl (35.1-43.9); Red Blood Count 5.32 M/mm3 (4.6-6.2); White Blood Count 11.6 K/mm3 (4.4-11.0)
--- NOTE | 2024-08-11 19:15 | EDS_ITS ---
HPI History of Present Illness Chief Complaint: Chest Pain Informant: patient Onset/Context/Timing Onset: Weeks (1) Activity at onset: gradual Timing: Continuous Quality: Positive for Aching Location: Left Chest Worsened By: Nothing Relieved By: Nothing Associated Symptoms: Positive for Nausea, Vomiting, Diaphoresis, Dyspnea, Cough, Lightheadedness and Palpitations; Negative for Fever or Acid Reflux Narrative Narrative: Patient presents with chest pain and shortness of breath is getting worse over the past week. Patient is gradually getting worse. Patient states he developed some nausea and vomiting today. Patient admits to shortness of breath and cough with it. Patient states it is mainly over the left side of his chest. Patient states he also felt lightheaded and some palpitations with his pain today. Patient admits to some subjective chills but denies any fevers. CVD Risk Factors: Positive for Hypercholesterolemia, Family History 1' </=55 and Smoking; Negative for Hypertension or Diabetes PE Risk Factors: Negative for Recent Travel/Surgery, Recent Immobilization, Prior DVT or PE, Cancer or OCP + Smoking + >/=35 PFSH PFSH Medical History Rheumatoid arthritis Smoker CPAP (continuous positive airway pressure) dependence Sleep apnea On home oxygen therapy COPD (chronic obstructive pulmonary disease) Atrial fibrillation Congestive heart failure (CHF) Chest pain FPC (current) use of anticoagulants Pancreatic cyst Wears dentures Wears glasses Former smoker CPAP (continuous positive airway pressure) dependence On home oxygen therapy Mass of pancreas Atrial flutter Chronic venous insufficiency Varicose veins of both lower extremities with inflammation Gastroesophageal reflux disease Dependence on nocturnal oxygen therapy Diabetes mellitus Morbid obesity Leg edema Leg swelling Mild pulmonary arterial systolic hypertension Dyspnea DEBI (obstructive sleep apnea) Hypersomnia Chronic diastolic heart failure Restrictive lung disease Obesity GERD (gastroesophageal reflux disease) Hyperlipidemia Home Medications ?Medication ?Instructions ?Recorded ?Last Taken ?Type multivitamin 1 ea PO DAILY supplement 06/22/17 06/22/17 History omeprazole 20 mg capsule,delayed 20 mg PO QDAY acid reflux 02/09/18 Unknown History release potassium chloride 20 mEq 20 meq PO QDAY supplement 02/09/18 Unknown History tablet,extended release cholecalciferol (vitamin D3) 50 2,000 unit PO QDAY supplement 02/10/18 Unknown History mcg (2,000 unit) capsule cyanocobalamin (vitamin B-12) 2,500 mcg PO Q OTHER DAY supplement 11/06/21 Unknown History 2,500 mcg tablet furosemide 40 mg tablet 40 mg PO .COMPLEX diuresis 11/06/21 Unknown History rosuvastatin 40 mg tablet 40 mg PO DAILY cholesterol 06/21/22 Unknown History acetaminophen 500 mg tablet 500 mg PO TID PRN PRN Pain 07/24/22 Unknown History albuterol sulfate 90 mcg/actuation 2 inh inhalation Q4-6H PRN 03/04/24 Unknown History aerosol inhaler shortness of breath or wheezing warfarin 4 mg tablet 4 mg PO .COMPLEX #60 tabs 06/17/24 Unknown Rx coenzyme Q10 100 mg capsule 200 mg PO DAILY antioxidant 08/06/24 Unknown History (CoQ-10) metoprolol tartrate 50 mg tablet 50 mg PO BID 08/11/24 Unknown History Allergy/AdvReac Type Severity Reaction Status Date / Time aspirin Allergy Severe Swelling Verified 08/11/24 18:40 NSAIDS (Non-Steroidal Allergy Swelling Verified 08/11/24 18:40 Anti-Inflamma Family History Father Heart disease Sister Cancer GI Brother Leukemia Mother COPD (chronic obstructive pulmonary disease) Parkinson disease Emphysema lung Daughter Ovarian cancer Cervical cancer Surgical History History of total left knee replacement (06/06/21) skin graft/muscle reconstruction of legs Social History household members: spouse Smoking Status: Current every day smoker tobacco type: cigarettes Tobacco: How many years used: 35 how long ago did patient quit smokin09/04/23 second hand exposure: Yes alcohol intake: never substance use type: does not use caffeine: Yes Type: coffee Number of servings: 6 ROS ROS ED Constitutional Constitutional ED: Reports chills, subjective and sweats; Denies fever(s) Eyes Eyes: Denies blurry vision or change in vision ENT ENT ED: Reports rhinorrhea; Denies sore throat Cardiovascular Cardiovascular: Reports as per HPI, chest pain and palpitations Respiratory/Chest Respiratory/Chest: Reports cough and dyspnea Gastrointestinal Gastrointestinal: Reports diarrhea, nausea and vomiting Genitourinary Genitourinary ED: Denies dysuria or hematuria Musculoskeletal Musculoskeletal: Denies back pain or neck pain Integumentary Denies abscess or rash Neurologic Neurologic: Denies headache(s) or weakness Allergic/Immunologic Allergic/Immunologic ED: Denies mouth swelling or urticaria EXAM Physical Exam Const Vital Signs: 08/11/24 18:39 08/11/24 19:29 08/11/24 19:35 Temperature 97.5 F L Temperature Source Temporal Pulse Rate 71 Respiratory Rate 16 Respiratory Effort Short of Breath Blood Pressure 116/79 Blood Pressure Mean 91 Pulse Ox 94 Oxygen Delivery Method Room Air Nasal Cannula Oxygen Flow Rate (L/min) 3 08/11/24 19:38 08/11/24 19:43 08/11/24 19:52 Temperature Temperature Source Pulse Rate 72 72 71 Respiratory Rate 24 H Respiratory Effort Blood Pressure 104/75 100/70 96/74 Blood Pressure Mean 84 Pulse Ox 96 Oxygen Delivery Method Nasal Cannula Oxygen Flow Rate (L/min) 3 08/11/24 20:00 08/11/24 21:00 Temperature Temperature Source Pulse Rate 70 69 Respiratory Rate 23 H 16 Respiratory Effort Blood Pressure 95/69 106/69 Blood Pressure Mean 77 81 Pulse Ox 93 96 Oxygen Delivery Method Nasal Cannula Nasal Cannula Oxygen Flow Rate (L/min) 3 3 Positive well nourished and well developed General Appearance ED: well developed HEENT Reports moist mucous membranes Neck supple Resp normal respiratory effort Auscultation: rhonchi and diminished lung sounds Cardio regular rate and regular rhythm GI soft to palpation, non-tender and non-distended Extremity General Extremety ED: Negative for tenderness Neuro oriented x3, CN's II-XII intact bilaterally and no sensory deficits noted Sensorium / Orientation: awake and alert Motor Exam: strength 5/5 throughout Psych mental status grossly normal Heart Score History: Moderately Suspicious ECG: Nonspecific Repolarization Age: >45 - <65 years Risk Factors: >/= 3 Risk Factors or History of CAD Troponin: </= Normal Limit Score: 5 MDM MDM MDM Narrative Medical decision making narrative: Differential diagnosis includes cardiac dysrhythmia, cardiac ischemia, congestive heart failure, pneumonia, pneumothorax, and pulmonary embolism. CBC will be obtained to assess for leukocytosis and anemia. Basic metabolic profile will be obtained to assess for electrolyte abnormality and renal function. PT with INR and PTT will be obtained to assess for coagulopathy and therapeutic effect of Coumadin. High-sensitivity troponin will be obtained to assess for cardiac ischemia. 2-hour repeat high-sensitivity troponin will be obtained to assess for ongoing cardiac ischemia. BNP will be obtained to assess for congestive heart failure. EKG will be obtained to assess for cardiac dysrhythmia and cardiac ischemia. Chest x-ray will be obtained to assess for pneumonia and pneumothorax. Lab Data Attestation: I reviewed the patient's lab results. Lab results narrative: CBC was reviewed. There is a mild leukocytosis of 11.6. The remainder is within normal limits. Basic metabolic profile was reviewed. BUN was slightly elevated at 28 and creatinine was 1.43. This is slightly increased from previous result. PT with INR and PTT were reviewed. Pro time was 21.4 and INR is 1.9. PTT was 29.4. High-sensitivity troponin was reviewed and was normal at 24. BNP was reviewed and was 127.1. This is improved from previous result. 2- hour repeat high-sensitivity troponin was reviewed and was normal at 29. Labs: Laboratory Results - last 24 hr 08/11/24 08/11/24 08/11/24 19:00 19:59 22:30 WBC 11.6 H RBC 5.32 Hgb 14.3 Hct 45.5 MCV 85.5 MCH 26.9 L MCHC 31.4 L RDW Std Deviation 41.6 RDW Coeff of Carri 13.4 Plt Count 181 MPV 10.9 Immature Gran % (Auto) 0.500 Neut % (Auto) 64.0 Lymph % (Auto) 27.2 [place] % (Auto) 7.3 Eos % (Auto) 0.7 Baso % (Auto) 0.3 Absolute Neuts (auto) 7.4 Absolute Lymphs (auto) 3.17 Nucleated RBC % 0 PT 21.4 H INR 1.9 APTT 29.4 Sodium 137 Potassium 4.7 Chloride 103 Carbon Dioxide 28.0 Anion Gap 6 BUN 28 H Creatinine 1.43 H Estim Creat Clear Calc 73.70 Est GFR (MDRD) Af Amer 65 Est GFR (MDRD) Non-Af 54 L BUN/Creatinine Ratio 19.6 Glucose 165 H Calcium 9.3 Troponin I High Sens 24 29 B-Natriuretic Peptide 127.1 H Radiography Diagnostic Testing: Clinical Impression(s) from Imaging Studies Chest X-Ray 08/11/24 20:10 IMPRESSION: Patchy pulmonary opacities increasing throughout the right lung and in the left lung base. Electronically Signed: Florian Ramírez MD at 20:34 EDT , Chest CTA 08/11/24 21:34 IMPRESSION: Negative for PE. No thoracic aortic dissection. Interval development of minimal patchy airspace disease in the right lower lobe, consistent with pneumonia. Minimal mediastinal and hilar adenopathy. Stable ill-defined mass within the pancreatic tail. Electronically Signed: Bandar Zuñiga MD at 22:13 EDT , Portable 1 view chest x-ray was obtained. On my independent interpretation, there are patchy infiltrates in the lung bases bilaterally. This could be infiltrate or edema. Radiologist also interpreted the x-ray and agrees. Radiologist recommended CT scan for further evaluation of infiltrate versus edema. The radiologist recommendation, CTA of the chest was obtained. There is no pulmonary embolism or aortic dissection. There is patchy airspace disease in the right lower lobe consistent with pneumonia. There is mediastinal hilar lynsey nopathy. This was interpreted by the radiologist was also independently reviewed by myself. EKG Initial EKG: Attestation: I personally reviewed and interpreted this EKG as follows: Interpretation: Sinus Rhythm (73) and Non-Specific ST Changes Comments: EKG was obtained. On my independent interpretation, it showed a normal sinus rhythm with a rate of 73. CT interval, QRS interval, and QTc intervals were all normal. There is a borderline left axis deviation at -17. There are nonspecific ST-T wave changes. Prior EKG tracings: available for review Prior: Unchanged (08/06/2024) Management Discussion w/another healthcare provider: Hospitalist Treatment and Re-Evaluation :: Smoking cessation was discussed. Patient was given sublingual nitroglycerin here. Patient is allergic to aspirin and nonsteroidal anti-inflammatory medicine so aspirin was withheld. Patient was advised of his findings. Patient has a HEART score of 5. Blood culture was obtained. Patient was started on Rocephin and Zithromax for his infiltrates. Patient was advised of the need for admission to the hospital for observation. Case was discussed with the hospitalist. She will admit the patient to her service. Patient understood and was agreeable with the plan. All questions were answered. Discharge Plan Dx/Rx/DC Orders Clinical Impression: Pneumonia, Smoking greater than 20 pack years, FPC (current) use of anticoagulants, Dependence on nocturnal oxygen therapy Disposition Disposition: Acute Care Hospital [facility]
[2024-08-11 19:28] LABS: Anion Gap 6 (5-15); BUN 28 mg/dL (7-18); BUN/Creat Ratio 19.6 RATIO (10-20); Calcium,Total 9.3 mg/dL (8.5-10.1); Chloride 103 mmol/L (98-107); Creatinine, Serum 1.43 mg/dL (0.70-1.30); EST Glomerular Filtration Rate 54 mL/min (>60); Est Glom Filt Rate - Afr Amer 65 mL/min (>60); Glucose 165 mg/dL (74-106); Potassium 4.7 mmol/L (3.5-5.1); Sodium Level 137 mmol/L (136-145); Troponin-I HS (w/2H Reflex) 24 pg/mL (3.0-78.0)
[2024-08-11] MEDS: Nitroglycerin SL (ED/IMG/CATH) 0.4 MG TABLET SL ×2 (19:43→19:52)
--- NOTE | 2024-08-11 20:10 | RAD_ITS ---
STUDY: X-RAY CHEST REASON FOR EXAM: Male, 59 years old. chest pain TECHNIQUE: Single AP portable view of the chest. COMPARISON: 08/03/2024. FINDINGS: Normal lung volumes. Increasing ill-defined patchy pulmonary opacities of the right lung and left lung base. Findings could be multifocal pneumonia or patchy pulmonary edema. Suggest further evaluation with CT scan. Normal size heart. Normal mediastinum and jaret. Normal visualized pulmonary arteries. Normal visualized aortic arch and descending thoracic aorta. There are diffuse degenerative changes of the visualized thoracic spine. Normal visualized ribs, clavicles, and shoulders. There is no demonstrated abnormality of the visualized soft tissue structures of the upper abdomen. RAD/Chest 1 View (Portable) IMPRESSION: Patchy pulmonary opacities increasing throughout the right lung and in the left lung base. Electronically Signed: Florian Ramírez MD at 20:34 EDT ,
[2024-08-11 20:11] LABS: BNP,B-Type NATRIURETIC PEPTIDE 127.1 pg/mL (0-100)
--- NOTE | 2024-08-11 20:15 | ED.RN ---
pt was 88% on room air and very sob, placed on 3lnc
[2024-08-11 20:27] LABS: International Normalized Ratio 1.9; Prothrombin Time (Protime)PT. 21.4 SECONDS (11.7-14.9)
[2024-08-11 20:28] LABS: Partial Thromboplast Time 29.4 Seconds (24.1-36.2)
[2024-08-11 21:07] LABS: Reflex Troponin-HS? (from REC) Y
--- NOTE | 2024-08-11 21:34 | CT_ITS ---
EXAM: CT ANGIOGRAPHY CHEST WITHOUT AND WITH INTRAVENOUS CONTRAST CLINICAL INDICATION: Dyspnea TECHNIQUE: Helically acquired angiography images were obtained of the chest without and with intravenous contrast. This CT exam was performed using one or more of the following dose reduction techniques: automated exposure control, adjustment of the mA and/or kV according to patient size, and/or use of iterative reconstruction technique. MIP reconstructed images were created and reviewed. CONTRAST: IV 100mL [id number] RADIATION DOSE: Total DLP: 572.60 mGy-cm. COMPARISON: Portable chest radiograph of this date. CTA chest of 08/29/2023. CT abdomen and pelvis of 08/30/2023. FINDINGS: LIMITATIONS: Respiratory motion. PULMONARY ARTERIES: Unremarkable. Normal in caliber. No evidence of pulmonary embolism, when allowing for the respiratory motion.. AORTA: Thoracic aorta is minimally calcific and is normal in caliber. No aneurysm or intimal flap. GREAT VESSELS OF AORTIC ARCH: Unremarkable. Normal in caliber. No evidence of dissection. LUNGS AND PLEURAL SPACES: Minimal asymmetric patchy subpleural airspace disease has developed posteriorly within the right lower lobe. Mild peribronchial cuffing is present bilaterally indicating bronchial wall inflammation. No mass. HEART: Coronary artery calcification is present. No significant pericardial effusion. MEDIASTINUM: Numerous normal-sized mediastinal lymph nodes are present. A borderline enlarged pretracheal lymph node is present measuring 10 mm in short axis diameter, slightly larger than on the prior study. A 1.5 cm short axis diameter lymph nodes seen to the left of the distal trachea in the AP window region. A slightly enlarged left hilar lymph node has developed measuring 11 mm in short axis diameter. Interposed between the descending thoracic aorta and left atrium is a developing borderline size measuring 10 mm in short axis diameter. At the right hilum, a slightly enlarged node measuring 11 mm short axis diameter is present, unchanged. No axillary adenopathy. Esophagus is unremarkable. No hiatal hernia. THYROID: Unremarkable. No thyroid lesions. BONES/JOINTS: Flowing osteophytes throughout the mid to lower thoracic spine. Degenerative vacuum disc phenomenon and endplate sclerosis at the T11/12 level. INTRAPERITONEAL SPACE: There is reflux of contrast into the IVC and hepatic veins, which may be due to the rapid bolus infusion of contrast versus right heart dysfunction. Visualized portions of the spleen and adrenal glands and renal upper poles are unremarkable. There is ill-defined enlargement of the pancreatic tail, again suspicious for mass , which measures approximately 3.5 cm in diameter unchanged. No pneumoperitoneum is noted. CT/CTA Chest W/WO Contrast IMPRESSION: Negative for PE. No thoracic aortic dissection. Interval development of minimal patchy airspace disease in the right lower lobe, consistent with pneumonia. Minimal mediastinal and hilar adenopathy. Stable ill-defined mass within the pancreatic tail. Electronically Signed: Bandar Zuñiga MD at 22:13 EDT ,
[2024-08-11 22:49] LABS: Troponin-I HS 29 pg/mL (3.0-78.0)
--- NOTE | 2024-08-11 23:00 | PCM.HP.STD ---
HPI - General General Date of Admission: 08/11/24 Date of Service: 08/11/24 Chief Complaint: Dyspnea, URI symptoms, cough, malaise, LH/Dizziness, chest discomfort. HPI Narrative The patient is a 59 y/o M w/ PMHx: Diabetes mellitus type II, CKD stage II per GFR trending, Morbid obesity, DEBI on CPAP w/ 2L NC q HS bled in, COPD/RLD, PAF/Flutter, HTN, HLD, Tobacco use, Rheumatoid arthritis, PVD, Chronic pancreatic cyst/benign vascular neoplasm, Chronic BL LE edema/lymphedema, HFpEF, GERD who presents to the [facility] ED on 08/11/24 with continuous aching chest discomfort reporting primarily sensation in his left chest with associated nausea, emesis, diaphoresis, dyspnea, cough, lightheadedness, loose stools, congestion and palpitations worsening over the last week and ongoing not abating with subjective chills but denies any specific fevers prompting eventual ED evaluation to be cautious. He notes that he has had no sick contacts and his with whom he lives has been well. Workup in the ED included T97.5, heart 71, BP 116/79, respiratory rate 16, 94% on room air noted initially however eventually transitioned to 3 L nasal cannula with most recent repeat vital signs pulse ox 96% on 3 L nasal cannula (not hypoxic in the ED but given supplementation for comfort per discussion with ED physician), CBC with WC 11.6, human 14.3, platelets 181 without shift, coags with PT 21.4, INR 1.9, PTT 29.4, BMP with BUN/creatinine 28/1.43, GFR 54, glucose 165, BNP mildly elevated 127.1, troponin 24 with repeat delta 29, chest x-ray with patchy pulmonary opacities increasing throughout the right lung and in the left lung base, follow-up CTPA with no evidence of pulmonary emboli, no evidence of any thoracic aortic dissection, interval development of minimal patchy airspace disease in the right lower lobe consistent with pneumonia, minimal mediastinal and hilar adenopathy, stable ill-defined mass within the pancreatic tail, EKG with with sinus rhythm with nonspecific ST-T wave changes with no acute evidence of ischemia unchanged from previous. In the ED patient ministered Rocephin 2 g IV x 1 as well as azithromycin 500 mg IV x 1 in addition to sublingual nitroglycerin. 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 Pancreatic cyst Wears dentures Wears glasses Former smoker CPAP (continuous positive airway pressure) dependence On home oxygen therapy Mass of pancreas Atrial flutter Chronic venous insufficiency Varicose veins of both lower extremities with inflammation Gastroesophageal reflux disease Dependence on nocturnal oxygen therapy Diabetes mellitus Morbid obesity Leg edema Leg swelling Mild pulmonary arterial systolic hypertension Dyspnea DEBI (obstructive sleep apnea) Hypersomnia Chronic diastolic heart failure Restrictive lung disease Obesity GERD (gastroesophageal reflux disease) Hyperlipidemia Home Medications ?Medication ?Instructions ?Recorded ?Last Taken ?Type multivitamin 1 ea PO DAILY supplement 06/22/17 06/22/17 History omeprazole 20 mg capsule,delayed 20 mg PO QDAY acid reflux 02/09/18 Unknown History release potassium chloride 20 mEq 20 meq PO QDAY supplement 02/09/18 Unknown History tablet,extended release cholecalciferol (vitamin D3) 50 2,000 unit PO QDAY supplement 02/10/18 Unknown History mcg (2,000 unit) capsule cyanocobalamin (vitamin B-12) 2,500 mcg PO Q OTHER DAY supplement 11/06/21 Unknown History 2,500 mcg tablet furosemide 40 mg tablet 40 mg PO .COMPLEX diuresis 11/06/21 Unknown History rosuvastatin 40 mg tablet 40 mg PO DAILY cholesterol 06/21/22 Unknown History acetaminophen 500 mg tablet 500 mg PO TID PRN PRN Pain 07/24/22 Unknown History albuterol sulfate 90 mcg/actuation 2 inh inhalation Q4-6H PRN 03/04/24 Unknown History aerosol inhaler shortness of breath or wheezing warfarin 4 mg tablet 4 mg PO .COMPLEX #60 tabs 06/17/24 Unknown Rx coenzyme Q10 100 mg capsule 200 mg PO DAILY antioxidant 08/06/24 Unknown History (CoQ-10) metoprolol tartrate 50 mg tablet 50 mg PO BID 08/11/24 Unknown History Allergy/AdvReac Type Severity Reaction Status Date / Time aspirin Allergy Severe Swelling Verified 08/11/24 18:40 NSAIDS (Non-Steroidal Allergy Swelling Verified 08/11/24 18:40 Anti-Inflamma Family History Father Heart disease Sister Cancer GI Brother Leukemia Mother COPD (chronic obstructive pulmonary disease) Parkinson disease Emphysema lung Daughter Ovarian cancer Cervical cancer Surgical History History of total left knee replacement (06/06/21) skin graft/muscle reconstruction of legs Social History household members: spouse Smoking Status: Current every day smoker tobacco type: cigarettes Tobacco: How many years used: 35 how long ago did patient quit smokin09/04/23 second hand exposure: Yes alcohol intake: never substance use type: does not use caffeine: Yes Type: coffee Number of servings: 6 ROS ROS Narrative Admission Review of Systems: CONSTITUTIONAL: No weight loss, fever, +chills, weakness or fatigue. HEENT: + Congestion, rhinorrhea. Eyes: No visual loss, blurred vision, double vision or yellow sclerae. Ears, Nose, Throat: No hearing loss, sneezing. SKIN: No rash or itching, lesions, wounds. CARDIOVASCULAR: + Lightheadedness/dizziness, chronic edema. No chest pain, chest pressure or chest discomfort, palpitations, orthopnea, syncopal events. RESPIRATORY: + shortness of breath, cough with occasional sputum production. No wheezing, hemoptysis. GASTROINTESTINAL: + anorexia, nausea, vomiting, loose stools. No abdominal pain, melena, BRBPR. GENITOURINARY: No dysuria, frequency, urgency or retention. NEUROLOGICAL: + Dizziness/lightheadedness. No syncope, paralysis, ataxia, numbness or tingling in the extremities, focal weakness, change in bowel or bladder control, seizure. MUSCULOSKELETAL: + muscle, back pain, joint pain or stiffness. HEMATOLOGIC: No anemia. + Easy bleeding/bruising LYMPHATICS: No enlarged nodes. No history of splenectomy. PSYCHIATRIC: No history of depression or anxiety. ENDOCRINOLOGIC: + reports of sweating, cold or heat intolerance. No polyuria or polydipsia. ALLERGIES: No history of asthma, hives, eczema or rhinitis. Vital Signs Vital Signs Vital Signs: 08/11/24 18:39 08/11/24 19:29 08/11/24 19:35 Temperature 97.5 F L Temperature Source Temporal Pulse Rate 71 Respiratory Rate 16 Respiratory Effort Short of Breath Blood Pressure 116/79 Blood Pressure Mean 91 Pulse Ox 94 Oxygen Delivery Method Room Air Nasal Cannula Oxygen Flow Rate (L/min) 3 08/11/24 19:38 08/11/24 19:43 08/11/24 19:52 Temperature Temperature Source Pulse Rate 72 72 71 Respiratory Rate 24 H Respiratory Effort Blood Pressure 104/75 100/70 96/74 Blood Pressure Mean 84 Pulse Ox 96 Oxygen Delivery Method Nasal Cannula Oxygen Flow Rate (L/min) 3 08/11/24 20:00 08/11/24 21:00 Temperature Temperature Source Pulse Rate 70 69 Respiratory Rate 23 H 16 Respiratory Effort Blood Pressure 95/69 106/69 Blood Pressure Mean 77 81 Pulse Ox 93 96 Oxygen Delivery Method Nasal Cannula Nasal Cannula Oxygen Flow Rate (L/min) 3 3 Weight Weight: 289 lb Body Mass Index (BMI) 42.7 Physical Exam Narrative Physical Examination: General: Awake, alert, oriented x 3 and cooperative, seated upright in the ED bed, fatigued and ill-appearing, mildly increased respiratory rate, occasional cough. Skin: Normal color, normal turgor, no icterus, no cyanosis except bilateral lower extremity venous stasis skin changes HEENT: AT/NC, EOMI, PERRLA, moderately dry MM, no carotid bruits or JVD noted; however thickened neck makes evaluation difficult. Lungs: Diffusely diminished, greater bases, right greater than left, mildly increased respiratory rate but no distress noted, no rales, ronchi or wheezing. Heart: Currently regular rate with regular rhythm; no gallop, rub audible. Abdomen: Soft, morbidly obese, no obvious TTP, unable to discern distention given habitus, distant hyperactive bowel sounds, unable to discern HSM secondary to habitus. Extremities: No cyanosis, no clubbing, chronic bilateral lower extremity edema, not markedly pitting, unchanged per patient report. Neurological: Patient awake, alert, oriented as noted, cognitive function intact; pupils equally reactive to light and accommodation, cranial nerves grossly normal, moving all 4 extremities, no focal deficits, strength moderately to severely global decrease secondary to acute presentation. Psychiatric: Affect appears fatigued, ill-appearing, no acute evidence of depressive or anxiety feelings. Results Lab / Micro Data 08/11/24 19:00 08/11/24 19:00 Labs: Laboratory Results - last 24 hr 08/11/24 19:00: WBC 11.6 H, RBC 5.32, Hgb 14.3, Hct 45.5, MCV 85.5, MCH 26.9 L, MCHC 31.4 L, RDW Std Deviation 41.6, RDW Coeff of Carri 13.4, Plt Count 181, MPV 10.9, Immature Gran % (Auto) 0.500, Neut % (Auto) 64.0, Lymph % (Auto) 27.2, Stark % (Auto) 7.3, Eos % (Auto) 0.7, Baso % (Auto) 0.3, Absolute Neuts (auto) 7.4, Absolute Lymphs (auto) 3.17, Nucleated RBC % 0, Sodium 137, Potassium 4.7, Chloride 103, Carbon Dioxide 28.0, Anion Gap 6, BUN 28 H, Creatinine 1.43 H, Estim Creat Clear Calc 73.70, Est GFR (MDRD) Af Amer 65, Est GFR (MDRD) Non-Af 54 L, BUN/Creatinine Ratio 19.6, Glucose 165 H, Calcium 9.3, Troponin I High Sens 24, B-Natriuretic Peptide 127.1 H 08/11/24 19:59: PT 21.4 H, INR 1.9, APTT 29.4 08/11/24 22:30: Troponin I High Sens 29 Imaging Radiology Impression Chest X-Ray 08/11/24 20:10 IMPRESSION: Patchy pulmonary opacities increasing throughout the right lung and in the left lung base. Electronically Signed: Florian Ramírez MD at 20:34 EDT , Chest CTA 08/11/24 21:34 IMPRESSION: Negative for PE. No thoracic aortic dissection. Interval development of minimal patchy airspace disease in the right lower lobe, consistent with pneumonia. Minimal mediastinal and hilar adenopathy. Stable ill-defined mass within the pancreatic tail. Electronically Signed: Bandar Zuñiga MD at 22:13 EDT , Assessment & Plan Assessment/Plan (1) Pneumonia: PLAN: Plan The patient is a 59 y/o M w/ PMHx: Diabetes mellitus type II, CKD stage II per GFR trending, Morbid obesity, DEBI on CPAP w/ 2L NC q HS bled in, COPD/RLD, PAF/Flutter, HTN, HLD, Tobacco use, Rheumatoid arthritis, PVD, Chronic pancreatic cyst/benign vascular neoplasm, Chronic BL LE edema/lymphedema, HFpEF, GERD who presents to the [facility] ED on 08/11/24 with continuous aching chest discomfort reporting primarily sensation in his left chest with associated nausea, emesis, diaphoresis, dyspnea, cough, lightheadedness, loose stools, congestion and palpitations worsening over the last week and ongoing not abating with subjective chills but denies any specific fevers prompting eventual ED evaluation to be cautious. #1. RLL Pneumonia: Will admit to [facility], in the emergency room per discussion with ED physician he was not noted to be specifically hypoxic but was placed on oxygen for comfort as he uses 2 L nasal cannula nightly bled into his CPAP, will wean to room air as able, continue ATC budesonide, PRN albuterol, maintained on IV Rocephin and Azithromycin, HOB, IS parameters w/ pending sputum cultures, full respiratory viral panel and COVID PCR and urine antigens. Bld cx x 2 obtained in the ED. #2. Acute renal insufficiency/elevated creatinine on Chronic Kidney Disease Stage II per prior GFR trend: Admission BUN/Cr 28/1.43, baseline renal function primarily 0.7 to more recently 1.0 on 08/03/2024, repeat BMP in AM. #3. Diabetes mellitus type II: Noted history, notable hyperglycemia from review of previous blood sugar checks, will obtain hemoglobin A1c and in the interim maintain on ADA diet, accu checks w/ ISS. #4. CKD stage II per GFR trending: Admission BUN/creatinine 28/1.43, GFR 54, baseline creatinine 0.8-1.0 primarily most recently 08/03/24 creatinine 1.06, continue to monitor renal function and if necessary may adjust nephrotoxic medication/hold. #5. COPD/RLD: Per outpatient list not on any chronic therapy, encouraged tobacco cessation, complicated by #1, will maintain on ATC budesonide therapy, PRN albuterol, HOB, IS parameters. #6. HFpEF: 11/28/2023 echocardiogram with normal LV size, LV systolic function lower limits normal, EF 50%, apex hypokinetic. Will continue patient home Coumadin with INR trending, statin therapy, metoprolol, not on GORDON number/RB, continue Lasix judiciously given renal insufficiency with adjustments as needed. #7. PAF/Flutter: We will continue patient Coumadin with INR trending as well as home metoprolol regimen. #8. Rheumatoid arthritis: Noted in chart history, not on any rheumatological medications, encourage continued outpatient follow-up with rheumatology as previously arranged #9. Hypertension: Continue home regimen including metoprolol, Lasix with continued renal function monitoring, PRN hydralazine. #10. Hyperlipidemia: We will continue patient on statin therapy. #11. Chronic pancreatic cyst/benign vascular neoplasm: CT as noted with stable ill-defined mass within the pancreatic tail with known pancreatic cyst as well as benign vascular neoplasm previously referred to [facility] with biopsy performed consistent with benign vascular neoplasm, encourage continued outpatient follow-up. #12. Chronic BL LE edema/lymphedema: Will place neck Gordon wraps with elevation. #13. Tobacco Abuse: Encouraged cessation, inpatient consultation per RT, NR if desired. #14. Morbid Obesity: Weight loss and lifestyle changes encouraged. #15. DEBI: Will maintain on CPAP w/ 2L NC q HS bled in. #16. GERD: We will continue patient on PPI. #17. DVT prophylaxis: We will continue patient Coumadin with INR trending. #18. CODE status: Patient does not have healthcare power of senior attorney or living will in place but notes his and daughter would be his decision makers if necessary. Discussed CODE status at length including difference between FULL code, DNR-CCA and DNR-CC status. Following discussions about the differences in these status, requested Full Code status. Advanced Care Planning Face to Face Time: 16 minutes. Charges/Coding Visit Charges Inpatient E&M: 79797 Init Hosp L3 Procedures Hospitalists Procedures: 11524 Advncd Care Plan 30 Min
[2024-08-11] MEDS: Ceftriaxone 2 GM in 0.9% Normal Saline (50mL MB+) 50 ML IV (23:17)
[2024-08-11] MEDS: Azithromycin 500 MG in Dextrose 5%-Water (250mL Bag) 250 ML 250 MG IV (23:36)
[2024-08-12] VITALS (22 sets, daily range): BP systolic 93–118; BP diastolic 51–86; PULSE 66–97; RESP 12–34; TEMP 36.4–36.9; O2SAT 87–98; BMI 42.8; BMI 43.5
[2024-08-12 01:32] LABS: Bedside Glucose 276 mg/dL (74-106)
[2024-08-12] MEDS: 0.9% Normal Saline (1000mL) 1,000 ML 100 ML IV (01:42)
[2024-08-12 06:31] LABS: Bedside Glucose 126 mg/dL (74-106)
[2024-08-12] MEDS: Budesonide Respules 0.5 MG/2 ML AMPUL.NEB. INHALATION ×2 (07:11→17:52)
[2024-08-12] MEDS: Albuterol 2.5 MG/3 ML VIAL.NEB. INHALATION ×2 (07:11→12:21)
--- NOTE | 2024-08-12 07:57 | PCM.PN.HOSP ---
Reason for Visit Reason for Visit: Diagnoses Pneumonia, unspecified organism (08/11/24) Objective Data Objective Data Vital Signs: Vital Signs Temp Pulse Resp BP Pulse Ox O2 Del Method O2 Flow Rate 97.5 F L 71 18 118/69 96 Nasal Cannula 2 08/12/24 05:14 08/12/24 07:13 08/12/24 07:13 08/12/24 05:14 08/12/24 07:16 08/12/24 07:16 08/12/24 07:16 FiO2 30 08/12/24 05:08 Oxygen Flow Rate (L/min) 2 Oxygen Delivery Method Nasal Cannula Weight: 290 lb 2.053 oz Body Mass Index (BMI) 42.8 Intake & Output: Intake and Output for Last 24 Hours 08/10/24 08/11/24 08/12/24 23:59 23:59 23:59 Intake Total 505 / 505 Balance 505 / 505 Lab / Micro Data 08/12/24 06:36 08/12/24 06:36 Labs: Laboratory Results - last 24 hr 08/11/24 19:00: WBC 11.6 H, RBC 5.32, Hgb 14.3, Hct 45.5, MCV 85.5, MCH 26.9 L, MCHC 31.4 L, RDW Std Deviation 41.6, RDW Coeff of Carri 13.4, Plt Count 181, MPV 10.9, Immature Gran % (Auto) 0.500, Neut % (Auto) 64.0, Lymph % (Auto) 27.2, Ritchie % (Auto) 7.3, Eos % (Auto) 0.7, Baso % (Auto) 0.3, Absolute Neuts (auto) 7.4, Absolute Lymphs (auto) 3.17, Nucleated RBC % 0, Sodium 137, Potassium 4.7, Chloride 103, Carbon Dioxide 28.0, Anion Gap 6, BUN 28 H, Creatinine 1.43 H, Estim Creat Clear Calc 73.70, Est GFR (MDRD) Af Amer 65, Est GFR (MDRD) Non-Af 54 L, BUN/Creatinine Ratio 19.6, Glucose 165 H, Calcium 9.3, Troponin I High Sens 24, B-Natriuretic Peptide 127.1 H 08/11/24 19:59: PT 21.4 H, INR 1.9, APTT 29.4 08/11/24 22:30: Troponin I High Sens 29 08/12/24 01:10: POC Glucose 276 H 08/12/24 06:13: POC Glucose 126 H Micro: Microbiology 08/12/24 05:05 Urine, Clean Catch Legionella Antigen - Final 08/12/24 05:05 Urine, Clean Catch Streptococcus pneumoniae Antigen (M - Final 08/11/24 13:45 Mucosa - Nasopharyngeal Respiratory Panel (PCR) - Final 08/11/24 13:45 Mucosa - Nasopharyngeal Coronavirus COVID-19 PCR - Final Radiography Diagnostic Testing: Radiology Impression Chest X-Ray 08/11/24 20:10 IMPRESSION: Patchy pulmonary opacities increasing throughout the right lung and in the left lung base. Electronically Signed: Florian Ramírez MD at 20:34 EDT , Chest CTA 08/11/24 21:34 IMPRESSION: Negative for PE. No thoracic aortic dissection. Interval development of minimal patchy airspace disease in the right lower lobe, consistent with pneumonia. Minimal mediastinal and hilar adenopathy. Stable ill-defined mass within the pancreatic tail. Electronically Signed: Bandar Zuñiga MD at 22:13 EDT , Physical Exam Narrative Seen and examined. Patient has history of smoking. Was smoking about 2 packs/day but still smokes about 1 pack/day. 35 years of smoking. History of COPD/emphysema. Wants to go home. Physical exam General: Alert, Oriented x3, Cooperative. Morbid obesity BMI 42.8 kg/m? HEENT: Atraumatic, PERRLA, EOMI, Normocephalic Oral: No Gingival or Mucosal Lesions/ Ulcerations Neck: Supple, No JVD, Negative Carotid Bruits Chest wall/Lungs: Air entry diminished in bilateral lung bases. Bilateral expiratory rhonchi Cardiovascular: Regular rate, Regular Rhythm, Normal S1, Normal S2, systolic murmur present Abdomen: Bowel Sounds Present, Soft, Non Tender, Non-Distended : No dysuria. No renal angle tenderness. No suprapubic tenderness. Extremities: No edema, Capillary Refill Less than 3 Seconds Skin: No rashes, No breakdown Musculoskeletal: No Tenderness to Palpation of Joints or Extremities Neurological: Cranial nerves II-XII grossly intact, DTR 2+/4. No acute focal neurological deficit. Psych/Mental Status: Normal Affect, Appropriate. Assessment & Plan Assessment/Plan (1) Pneumonia: PLAN: Plan The patient is a 59 y/o M was admitted with left-sided chest discomfort along with nausea, vomiting, diaphoresis dyspnea, cough tightness loose stool nasal congestion palpitation. Subjective chills but denies fever. #1. RLL Pneumonia: Patient is being admitted in PCU. Chest CT scan and chest x-ray newly reviewed which shows patchy right lower lobe infiltrate consistent with pneumonia. On IV antibiotics Rocephin and azithromycin. Blood culture pending. Urinary antigens negative.Gram stain shows 2 close PCP normal. GPR, 1+ WBC. COVID PCR and respiratory panel negative. #2. Mild COPD exacerbation due to pneumonia: IV Solu-Medrol 40 mg every 12 hourly. Patient is being managed on scheduled bronchodilator, IV Solu-Medrol, Mucinex, incentive spirometry and Pep. 3. Chronic Kidney Disease Stage II : Admission BUN/Cr 28/1.43, baseline renal function primarily 0.7 to more recently 1.0 on 08/03/2024, mild improvement in creatinine. 4. Diabetes mellitus type II: ADA diet, Accu-Chek before meals and at bedtime with Humalog sliding scale coverage and hypoglycemia protocol. A1c 6.7% 5. GERD: On PPI #6. HFpEF: 11/28/2023 echocardiogram with normal LV size, LV systolic function lower limits normal, EF 50%, apex hypokinetic. #7. PAF/Flutter: On home metoprolol regimen. continue patient home Coumadin. INR subtherapeutic 1.8. Continue warfarin. #8. Rheumatoid arthritis: Noted in chart history, not on any rheumatological medications, encourage continued outpatient follow-up with rheumatology as previously arranged #9. Hypertension: Continue home regimen including metoprolol, Lasix with continued renal function monitoring, PRN hydralazine. #10. Hyperlipidemia: continue patient on statin therapy. #11. Chronic pancreatic cyst/benign vascular neoplasm: CT as noted with stable ill-defined mass within the pancreatic tail with known pancreatic cyst as well as benign vascular neoplasm previously referred to [facility] with biopsy performed consistent with benign vascular neoplasm, encourage continued outpatient follow-up. #12. Chronic BL LE edema/lymphedema: neck Gordon wraps with elevation. #13. Chronic cigarette, nicotine tobacco Abuse: Patient is still smokes a pack per day. Encouraged cessation, inpatient consultation per RT, NR if desired. #14. Morbid Obesity: Weight loss and lifestyle changes encouraged. #15. DEBI: maintain on CPAP w/ 2L NC q HS bled in. 16. DVT prophylaxis: We will continue patient Coumadin with INR trending. #18. 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 Discussed CODE status at length including difference between FULL code, DNR-CCA and DNR-CC status. Following discussions about the differences in these status, requested Full Code status. Charges/Coding Visit Charges Inpatient E&M: 82298 Subs Hosp L2
[2024-08-12 08:00] LABS: ALB/GLOB Ratio 0.9 RATIO (0.9-2.4); AST(SGOT) 40 U/L (15-37); Alanine Aminotransfer ALT/SGPT 71 U/L (16-61); Albumin, Serum 3.5 g/dL (3.2-5.0); Alkaline Phosphatase 70 U/L (45-117); Anion Gap 4 (5-15); BUN 30 mg/dL (7-18); BUN/Creat Ratio 22.9 RATIO (10-20); Calcium,Total 9.3 mg/dL (8.5-10.1); Chloride 102 mmol/L (98-107); Creatinine, Serum 1.31 mg/dL (0.70-1.30); EST Glomerular Filtration Rate 59 mL/min (>60); Est Glom Filt Rate - Afr Amer 72 mL/min (>60); Estimated Creatinine Clearance 80.63 ml/min; Globulin 3.7 g/dL (2.2-4.2); Glucose 129 mg/dL (74-106); Potassium 4.5 mmol/L (3.5-5.1); Protein, Total 7.2 g/dL (6.4-8.2); Sodium Level 134 mmol/L (136-145)
[2024-08-12 08:10] LABS: Absolute Lymphocyte Count 2.62 X10^3/uL (0.83-4.51); Absolute Neutrophil Count 5.9 X10^3/uL (2.0-7.7); Basophil# 0.03 X10^3/uL; Basophil% 0.3 % (0-1); Eosinophil# 0.03 X10^3/uL; Eosinophils% 0.3 % (0-5); Hematocrit 44.4 % (40-54); Hemoglobin 13.9 g/dL (13.0-16.5); Lymphocyte # 2.62 X10^3/ul (0.83-4.51); Lymphocyte % 27.9 % (19-41); Mean Corp Hgb Conc 31.3 g/dL (32-36); Mean Corpuscular Hgb 27.1 pg (27.0-32.0); Mean Corpuscular Volume 86.5 fL (80-94); Mean Platelet Vol. 11.7 fl (6.2-12.0); Monocyte# 0.74 X10^3/uL; Monocyte% 7.9 % (0-10); NRBC Flagged by Analyzer 0 % (0-5); Neutrophil # 5.93 X10^3/uL (2.7-7.7); Neutrophil % 63.2 % (47-70); Platelet Count 171 K/mm3 (150-450); RBC Distribution Width CV 13.5 % (11.6-14.6); RBC Distribution Width SD 43.2 fl (35.1-43.9); Red Blood Count 5.13 M/mm3 (4.6-6.2); White Blood Count 9.4 K/mm3 (4.4-11.0)
[2024-08-12 08:26] LABS: International Normalized Ratio 1.8; Prothrombin Time (Protime)PT. 20.5 SECONDS (11.7-14.9)
[2024-08-12] MEDS: Potassium Chloride Oral Tablet 20 MEQ PO (08:31)
[2024-08-12] MEDS: Furosemide 80 MG Tablet PO ×2 (08:31→17:01)
[2024-08-12] MEDS: Pantoprazole Sodium 20 MG Tablet PO (08:31)
[2024-08-12] MEDS: Metoprolol Tartrate 50 MG Tablet PO (08:32)
[2024-08-12 08:37] LABS: Hemoglobin A1c 6.7 % (3.8-5.6)
[2024-08-12 11:28] LABS: Bedside Glucose 182 mg/dL (74-106)
--- NOTE | 2024-08-12 11:50 | CASEMGMT ---
Addendum entered by Mino Arambula 08/12/24 17:22: Pt also has a shower chair, walker, and rollator available, but does not use. Original Note: RN?CM?RUG CLEANER HAND?CM?to room to meet with patient for initial transition planning/care coordination?assessment.?RN?CM?introduced self and role at [facility].? Pt voices understanding and consents to?assessment?at this time.? Pt resting in bed in no distress at this time.? @ bedside. Pt is A/O at this time and answers all questions appropriately.?? Care providers, pharmacy, and demographics verified/updated at this time. Strata: 3 PCP: Dr Hong Specialists: WALTER/Cardiology, Dr Carmen Arias/pulmonology. Pt also goes to pancreatic specialist @ [facility] yearly. Preferred Pharmacy: [facility] Insurance: [email or web address] Prescription Benefit:? Yes Living Will/HPOA:? Pt does not currently have LW/HCPOA. LNOK: , Elle. One adult child--dtr, Lorie. Living Arrangements: Lives w/his in one-story home w/1 step to enter. Independent w/ADL's and manages his own medications. and pt share home mgnt tasks. Transportation:?Pt states drives self and states no transportation concerns at this time.? also drives. DME: ?States has the following DME:?Pt has a cane he uses on occasion, a pulse ox, and a CPAP that he got from [facility]. Has O2 concentrator that he got from [facility] years ago and states he wears O2 @ 2 l/m @ HS via bleed-in to CPAP. Pt does not have portability. Discussed possibility of needing home O2 @ discharge and they would like pt to get it through [facility]. Pt does not have a glucometer, but states would be agreeable to getting one @ discharge, as he now has new diagnoses of DM. Pt states he does not remember refusing to take insulin last evening and states he would be agreeable to taking it now in the hospital, if needed. RNElissa, made aware. HHC/SNF: No hx of SNF. Had HHC many (over 30) yrs ago. Discussed CCN and Pt Link, but pt declines at this time. Pt wishes to return home and states has no concerns with going home at time of discharge.? CM?to follow for home oxygen needs and any further discharge planning/needs.? Pt and voice no further concerns/needs at this time.? Advised them to ask for?CM?if any further questions/concerns/needs arise.? Voices understanding. PLAN:??Home w/spousal support and discharge plans in place. Follow for possible need of Home O2. If pt qualifies for any O2 @ rest or w/exertion, he will need new Home O2 set-up. Pt to be provided w/script for glucometer. Linda BSN?RN?CM
[2024-08-12] MEDS: Insulin Lispro 100 UNIT/ML INSULN.PEN SC ×3 (13:05→22:42)
--- NOTE | 2024-08-12 15:31 | CASEMGMT ---
Met with patient to complete AMADOR form. AMADOR form explained to patient who voiced understanding and signed form. Original form placed in pt?s chart and copy provided to patient. Delmy Rogers, Discharge Planning Asst
[2024-08-12 16:20] LABS: Bedside Glucose 200 mg/dL (74-106)
--- NOTE | 2024-08-12 17:43 | NURSING ---
request for selena given over phone to CPS, also discussed Dr. Calabrese Bipap orders for ian 09/07 prn-
[2024-08-12] MEDS: Ipratropium/Albuterol Sulfate 3 ML AMPUL.NEB INHALATION (17:52)
[2024-08-12] MEDS: Atorvastatin Calcium 80 MG Tablet PO (22:43)
[2024-08-12] MEDS: Ceftriaxone 1 GM/50 ML BAG IV (22:43)
[2024-08-12 23:07] LABS: Bedside Glucose 157 mg/dL (74-106)
[2024-08-12] MEDS: Azithromycin 500 MG in Dextrose 5%-Water (250mL Bag) 250 ML 250 MG IV (23:33)
[2024-08-13] VITALS (7 sets, daily range): BP systolic 106–119; BP diastolic 57–73; PULSE 57–87; RESP 12–20; TEMP 36.5–36.6; O2SAT 93–96; BMI 43.5
[2024-08-13] MEDS: Insulin Lispro 100 UNIT/ML INSULN.PEN SC (06:09)
[2024-08-13 07:18] LABS: Bedside Glucose 238 mg/dL (74-106)
[2024-08-13] MEDS: Budesonide Respules 0.5 MG/2 ML AMPUL.NEB. INHALATION (07:18)
[2024-08-13] MEDS: Ipratropium/Albuterol Sulfate 3 ML AMPUL.NEB INHALATION (07:18)
[2024-08-13] MEDS: Potassium Chloride Oral Tablet 20 MEQ PO (07:48)
--- NOTE | 2024-08-13 11:52 | NURSING ---
pt being dc'd and wishes to take his am meds at home
--- NOTE | 2024-08-13 11:53 | DCINST_ITS ---
Discharge Instructions Diet Discharge Diet: No restrictions, 1800 Calorie Control Diet, 6 Cup Fluid Restriction, 8 Cup Fluid Restriction and 2000 mg Sodium Diet Activity Discharge Activity: Return to Normal Activity Weight Bearing Status: Weight bearing as tolerated Dressing / Incision Call your doctor if you observe: Fever of 101 or Higher, Coldness, Increased Pain, Numbness or Tingling, Change in Color, Inability to urinate, Inability to have a bowel movement, Shortness of breath, Dizziness, Fainting spells, Swelling in the ankles, Chest pain, Prolonged hiccupping, Increased palpitations (irregu lar heartbeat) and Calf discomfort Follow Up Care When: IN 2 WEEKS Test Results: Test results from this visit will be discussed in further detail at your follow- up appointment, if applicable. Discharge Plan Admission Admit Date/Time: 08/12/24 15:20 Primary Reason for Your Visit: COPD exacerbation Attending Provider: Denys Parra Primary Care Provider: Julio Hong Consulting Providers: Jerica Hou Discharge Orders/Prescriptions Prescriptions: New dextromethorphan-guaifenesin 60-1,200 mg tablet extended release 12 hr 1 tab PO BID 7 Days Qty: 14 0RF insulin lispro [Humalog KwikPen Insulin] 100 unit/mL Insulin Pen See Protocol subcut ACHS 30 Days Qty: 15 2RF Protocol: 5. Sliding Scale Insulin High Dosing Condition: 150-209 mg/dl = 3 units Condition: 210-259 mg/dl = 6 units Condition: 260-324 mg/dl = 9 units Condition: 325-374 mg/dl = 12 units Condition: 375-409 mg/dl = 14 units Condition: 410-449 mg/dl = 16 units Condition: Greater than 449 call physician Protocol Text: Suggested for: - Patients on Total Daily Insulin Dose of 81-120 units - Very insulin resistant patients HIGH DOSING ALGORITHM cefdinir 300 mg capsule 300 mg PO BID 6 Days Qty: 12 0RF doxycycline monohydrate 100 mg tablet 100 mg PO BID 6 Days Qty: 12 0RF prednisone 20 mg tablet 40 mg PO DAILY 5 Days Qty: 10 0RF insulin glargine [Lantus Solostar U-100 Insulin] 100 unit/mL (3 mL) insulin pen 15 unit subcut DAILY Qty: 15 0RF Rx Instructions: Hold if glucose less than 130 mg/dl (DME) needle (disp) 32 gauge 32 gauge x 5/16 needle See Rx Instructions .ROUTE .MEDSUPPLY Qty: 100 2RF Rx Instructions: As directed Continued cholecalciferol (vitamin D3) 2,000 unit capsule 2,000 unit PO QDAY omeprazole 20 mg capsule,delayed release(DR/EC) 20 mg PO QDAY potassium chloride 20 mEq tablet extended release 20 meq PO QDAY cyanocobalamin (vitamin B-12) 2,500 mcg tablet 2,500 mcg PO Q OTHER DAY rosuvastatin 40 mg tablet 40 mg PO DAILY albuterol sulfate 90 mcg/actuation HFA aerosol inhaler 2 inh inhalation Q4-6H PRN (Reason: shortness of breath or wheezing) multivitamin 1 EACH tablet 1 ea PO DAILY Patient Comments: VITAMIN furosemide 40 mg tablet 40 mg PO .COMPLEX Rx Instructions: 40 mg PO; 2 tabs qam, 1 tab qpm acetaminophen 500 mg Tablet 500 mg PO TID PRN PRN (Reason: Pain) coenzyme Q10 [CoQ-10] 100 mg capsule 200 mg PO DAILY metoprolol tartrate 50 mg tablet 50 mg PO BID warfarin 4 mg tablet 4 mg PO .COMPLEX Qty: 60 11RF Protocol: Dose Management Condition: Saturday Dose/Route: 8 mg Instruction: 2 x 4 mg tablets Condition: Saturday Dose/Route: 8 mg Instruction: 2 x 4 mg tablets Condition: Saturday Dose/Route: 8 mg Instruction: 2 x 4 mg tablets Condition: Saturday Dose/Route: 8 mg Instruction: 2 x 4 mg tablets Condition: Dose/Route: 8 mg Instruction: 2 x 4 mg tablets Condition: Saturday Dose/Route: 8 mg Instruction: 2 x 4 mg tablets Condition: Saturday Dose/Route: 8 mg Instruction: 2 x 4 mg tablets Protocol Text: Adjustment Start Date: Saturday08/10/24 INR Value: 2.3 INR Date: 08/10/24 Recheck Date: 08/17/24 Rx Instructions: 8 mg (2 tabs)Sat-Sat; 4mg (1 tab) Sat/Sun; or as directed Referrals / Follow Up: Julio Hong MD [Primary Care Provider] - Alfredo Arias DO [Med Staff - Active Staff] - Within 2 Weeks Disposition Disposition (needs filled in before D/C Order can be placed): Home, Self Care
--- NOTE | 2024-08-13 12:09 | PCM.DC.SUM ---
Providers Date of Admission: 08/12/24 Date of Discharge: 08/13/24 Primary Care Physician: Dr. Julio Hong MD Reason For Visit: RLL PNA Diagnosis Discharge Diagnosis (1) Pneumonia: Status: Acute Code(s): J18.9 - Pneumonia, unspecified organism Plan The patient is a 59 y/o M was admitted with left-sided chest discomfort along with nausea, vomiting, diaphoresis dyspnea, cough tightness loose stool nasal congestion palpitation. Subjective chills but denies fever. #1. RLL Pneumonia: Patient is being admitted in PCU. Chest CT scan and chest x-ray newly reviewed which shows patchy right lower lobe infiltrate consistent with pneumonia. On IV antibiotics Rocephin and azithromycin. Blood culture pending. Urinary antigens negative.Gram stain shows 2 close PCP normal. GPR, 1+ WBC. COVID PCR and respiratory panel negative. 08/13: Patient wants to go home acute he wanted to go home yesterday. Patient is discharged on 6 more days of cefdinir and doxycycline. Advised to follow-up in pulmonary clinic. He follows Dr. Arias. #2. Mild COPD exacerbation due to pneumonia: IV Solu-Medrol 40 mg every 12 hourly. Patient is being managed on scheduled bronchodilator, IV Solu-Medrol, Mucinex, incentive spirometry and Pep. 08/13: Shortness of breath is improved. Prescription for Solu-Medrol and Mucinex DM given. Patient has albuterol in order. 3. CRISTINO on chronic Kidney Disease Stage II : Admission BUN/Cr 28/1.43, baseline renal function primarily 0.7 to more recently 1.0 on 08/03/2024, mild improvement in creatinine. 08/13: Creatinine improved from 1.43-1.31. Prescription for metformin not given as patient recovering from CRISTINO. Follow with PCP. 4. Diabetes mellitus type II: ADA diet, Accu-Chek before meals and at bedtime with Humalog sliding scale coverage and hypoglycemia protocol. A1c 6.7% 08/13: New onset as per the patient. Prescription for Lantus insulin and Humalog insulin sliding scale given. 5. GERD: On PPI #6. HFpEF: 11/28/2023 echocardiogram with normal LV size, LV systolic function lower limits normal, EF 50%, apex hypokinetic. #7. PAF/Flutter: On home metoprolol regimen. continue patient home Coumadin. INR subtherapeutic 1.8. Continue warfarin. #8. Rheumatoid arthritis: Noted in chart history, not on any rheumatological medications, encourage continued outpatient follow-up with rheumatology as previously arranged #9. Hypertension: Continue home regimen including metoprolol, Lasix with continued renal function monitoring, PRN hydralazine. #10. Hyperlipidemia: continue patient on statin therapy. #11. Chronic pancreatic cyst/benign vascular neoplasm: CT as noted with stable ill-defined mass within the pancreatic tail with known pancreatic cyst as well as benign vascular neoplasm previously referred to [facility] with biopsy performed consistent with benign vascular neoplasm, encourage continued outpatient follow-up. #12. Chronic HFrEF chronic BL LE edema/lymphedema: Last echo in December 18 shows EF 50% lower limit of normal. [place] hypokinetic. Normal RV size systolic function. LA moderately enlarged. Patient is on furosemide and advised to continue. Follow-up in cardiology clinic #13. Chronic cigarette, nicotine tobacco Abuse: Patient is still smokes a pack per day. Encouraged cessation, inpatient consultation per RT, NR if desired. #14. Morbid Obesity: Weight loss and lifestyle changes encouraged. #15. DEBI: maintain on CPAP w/ 2L NC q HS bled in. 16. DVT prophylaxis: We will continue patient Coumadin with INR trending. #18. CODE status: Patient does not have healthcare power of assistant county attorney or living will in place but notes his and daughter would be his decision makers if necessary. Discussed CODE status at length including difference between FULL code, DNR-CCA and DNR-CC status. Following discussions about the differences in these status, requested Full Code status. Medications at Discharge Home Medications multivitamin 1 ea PO DAILY supplement 06/22/17 omeprazole 20 mg capsule,delayed release 20 mg PO QDAY acid reflux 02/09/18 potassium chloride 20 mEq tablet,extended release 20 meq PO QDAY supplement 02/09/18 cholecalciferol (vitamin D3) 50 mcg (2,000 unit) capsule 2,000 unit PO QDAY supplement 02/10/18 cyanocobalamin (vitamin B-12) 2,500 mcg tablet 2,500 mcg PO Q OTHER DAY supplement 11/06/21 furosemide 40 mg tablet 40 mg PO .COMPLEX diuresis 11/06/21 rosuvastatin 40 mg tablet 40 mg PO DAILY cholesterol 06/21/22 acetaminophen 500 mg tablet 500 mg PO TID PRN PRN Pain 07/24/22 albuterol sulfate 90 mcg/actuation aerosol inhaler 2 inh inhalation Q4-6H PRN shortness of breath or wheezing 03/04/24 warfarin 4 mg tablet 4 mg PO .COMPLEX #60 tabs 06/17/24 coenzyme Q10 100 mg capsule (CoQ-10) 200 mg PO DAILY antioxidant 08/06/24 metoprolol tartrate 50 mg tablet 50 mg PO BID 08/11/24 cefdinir 300 mg capsule 300 mg PO BID 6 days #12 caps 08/13/24 dextromethorphan-guaifenesin ER 60 mg-1,200 mg tab,extend release,12hr 1 tab PO BID 7 days #14 tabs 08/13/24 doxycycline monohydrate 100 mg tablet 100 mg PO BID 6 days #12 tabs 08/13/24 insulin glargine 100 unit/mL (3 mL) subcutaneous pen (Lantus Solostar U-100 Insulin) 15 unit (0.15 mL) subcut DAILY #15 mL 08/13/24 insulin lispro 100 unit/mL subcutaneous pen (Humalog KwikPen (U-100) Insulin) See Protocol subcut ACHS 1 month #15 mL 08/13/24 needle (disp) 32 gauge 32 gauge x 5/16 #100 ea 08/13/24 prednisone 20 mg tablet 40 mg (2 x 20 mg) PO DAILY 5 days #10 tabs 08/13/24 Physical Exam Narrative Seen and examined. Patient has history of smoking. Was smoking about 2 packs/day but still smokes about 1 pack/day. 35 years of smoking. History of COPD/emphysema. Wants to go home. Physical exam General: Alert, Oriented x3, Cooperative. Morbid obesity BMI 42.8 kg/m? HEENT: Atraumatic, PERRLA, EOMI, Normocephalic Oral: No Gingival or Mucosal Lesions/ Ulcerations Neck: Supple, No JVD, Negative Carotid Bruits Chest wall/Lungs: Air entry diminished in bilateral lung bases. Bilateral expiratory rhonchi has improved Cardiovascular: Regular rate, Regular Rhythm, Normal S1, Normal S2, systolic murmur present Abdomen: Bowel Sounds Present, Soft, Non Tender, Non-Distended : No dysuria. No renal angle tenderness. No suprapubic tenderness. Extremities: 1-2+ pitting edema, Capillary Refill Less than 3 Seconds Skin: No rashes, No breakdown Musculoskeletal: No Tenderness to Palpation of Joints or Extremities Neurological: Cranial nerves II-XII grossly intact, DTR 2+/4. No acute focal neurological deficit. Psych/Mental Status: Normal Affect, Appropriate. Weight / BMI Weight Weight: 294 lb 1.546 oz Body Mass Index (BMI) 43.5 ABG / Lab / Microbiology Data 08/12/24 06:36 08/12/24 06:36 Laboratory: Laboratory Results - last 24 hr 08/12/24 15:58: POC Glucose 200 H 08/12/24 22:38: POC Glucose 157 H 08/13/24 06:07: POC Glucose 238 H Microbiology: Microbiology 08/12/24 01:15 Sputum, Expectorated/Coughed Gram Stain - Final 08/12/24 05:05 Urine, Clean Catch Legionella Antigen - Final 08/12/24 05:05 Urine, Clean Catch Streptococcus pneumoniae Antigen (M - Final 08/11/24 13:45 Mucosa - Nasopharyngeal Respiratory Panel (PCR) - Final 08/11/24 13:45 Mucosa - Nasopharyngeal Coronavirus COVID-19 PCR - Final D/C Instructions Discharge Diet: No restrictions, 1800 Calorie Control Diet, 6 Cup Fluid Restriction, 8 Cup Fluid Restriction and 2000 mg Sodium Diet Weight Bearing Status: Weight bearing as tolerated Call your doctor if you observe: Fever of 101 or Higher, Coldness, Increased Pain, Numbness or Tingling, Change in Color, Inability to urinate, Inability to have a bowel movement, Shortness of breath, Dizziness, Fainting spells, Swelling in the ankles, Chest pain, Prolonged hiccupping, Increased palpitations (irregular heartbeat) and Calf discomfort When: IN 2 WEEKS Meaningful Use Info Meaningful Use Meaningful Use Diagnoses (Choose all that apply): None applicable Ischemic Stroke Statin Dosing Therapy Reference: STATIN DOSE THERAPY REFERENCE: * Patients > 75 years receive moderate or high dose statin therapy. * Patients 75 years or YOUNGER should receive HIGH intensity statin dose unless contraindicated. You will be required to document reason for non-treatment if statin daily dose does not meet guidelines. HIGH DOSE STATIN THERAPY DAILY Atorvastatin > than or = to 40 mg Rosuvastatin > than or = to 20 mg Amlodipine + Atorvastatin > than or = to 2.5/40 mg Ezetimibe + Simvastatin 10/80 mg Simvastatin 80mg Discharge Plan Admission Admit Date/Time: 08/12/24 15:20 Primary Reason for Your Visit: COPD exacerbation Attending Provider: Denys Parra Primary Care Provider: Julio Hong Consulting Providers: Jerica Hou Discharge Orders/Prescriptions Prescriptions: New dextromethorphan-guaifenesin 60-1,200 mg tablet extended release 12 hr 1 tab PO BID 7 Days Qty: 14 0RF insulin lispro [Humalog KwikPen Insulin] 100 unit/mL Insulin Pen See Protocol subcut ACHS 30 Days Qty: 15 2RF Protocol: 5. Sliding Scale Insulin High Dosing Condition: 150-209 mg/dl = 3 units Condition: 210-259 mg/dl = 6 units Condition: 260-324 mg/dl = 9 units Condition: 325-374 mg/dl = 12 units Condition: 375-409 mg/dl = 14 units Condition: 410-449 mg/dl = 16 units Condition: Greater than 449 call physician Protocol Text: Suggested for: - Patients on Total Daily Insulin Dose of 81-120 units - Very insulin resistant patients HIGH DOSING ALGORITHM cefdinir 300 mg capsule 300 mg PO BID 6 Days Qty: 12 0RF doxycycline monohydrate 100 mg tablet 100 mg PO BID 6 Days Qty: 12 0RF prednisone 20 mg tablet 40 mg PO DAILY 5 Days Qty: 10 0RF insulin glargine [Lantus Solostar U-100 Insulin] 100 unit/mL (3 mL) insulin pen 15 unit subcut DAILY Qty: 15 0RF Rx Instructions: Hold if glucose less than 130 mg/dl (DME) needle (disp) 32 gauge 32 gauge x 5/16 needle See Rx Instructions .ROUTE .MEDSUPPLY Qty: 100 2RF Rx Instructions: As directed Continued cholecalciferol (vitamin D3) 2,000 unit capsule 2,000 unit PO QDAY omeprazole 20 mg capsule,delayed release(DR/EC) 20 mg PO QDAY potassium chloride 20 mEq tablet extended release 20 meq PO QDAY cyanocobalamin (vitamin B-12) 2,500 mcg tablet 2,500 mcg PO Q OTHER DAY rosuvastatin 40 mg tablet 40 mg PO DAILY albuterol sulfate 90 mcg/actuation HFA aerosol inhaler 2 inh inhalation Q4-6H PRN (Reason: shortness of breath or wheezing) multivitamin 1 EACH tablet 1 ea PO DAILY Patient Comments: VITAMIN furosemide 40 mg tablet 40 mg PO .COMPLEX Rx Instructions: 40 mg PO; 2 tabs qam, 1 tab qpm acetaminophen 500 mg Tablet 500 mg PO TID PRN PRN (Reason: Pain) coenzyme Q10 [CoQ-10] 100 mg capsule 200 mg PO DAILY metoprolol tartrate 50 mg tablet 50 mg PO BID warfarin 4 mg tablet 4 mg PO .COMPLEX Qty: 60 11RF Protocol: Dose Management Condition: Saturday Dose/Route: 8 mg Instruction: 2 x 4 mg tablets Condition: Saturday Dose/Route: 8 mg Instruction: 2 x 4 mg tablets Condition: Saturday Dose/Route: 8 mg Instruction: 2 x 4 mg tablets Condition: Saturday Dose/Route: 8 mg Instruction: 2 x 4 mg tablets Condition: Dose/Route: 8 mg Instruction: 2 x 4 mg tablets Condition: Saturday Dose/Route: 8 mg Instruction: 2 x 4 mg tablets Condition: Saturday Dose/Route: 8 mg Instruction: 2 x 4 mg tablets Protocol Text: Adjustment Start Date: Saturday08/10/24 INR Value: 2.3 INR Date: 08/10/24 Recheck Date: 08/17/24 Rx Instructions: 8 mg (2 tabs)Sat-Sat; 4mg (1 tab) Sat/Sun; or as directed Referrals / Follow Up: Julio Hong MD [Primary Care Provider] - Alfredo Arias DO [Med Staff - Active Staff] - Within 2 Weeks Disposition Disposition (needs filled in before D/C Order can be placed): Home, Self Care Charges/Coding Visit Charges Inpatient E&M: 34068 Disch Hosp >30min
--- NOTE | 2024-08-13 12:18 | CASEMGMT ---
Spoke with hospitalist regarding [facility] not having orders that pt bleeds 2L oxygen through CPAP at . Hospitalist would like pt to follow with pulm for this. Per pt nurse, pt did not qualify for home oxygen. RN CM into pt room. Pt and present. Pt and aware to follow up with pulm for the orders to be given to [place] regarding CPAP. Pt given rx for BGM and is aware he can fill this at his local pharmacy. Pt takes insulin and pt states he will be fine to give this to himself. Pt denies any need for any other homegoing services.
[2024-08-13 13:11] LABS: International Normalized Ratio 1.9; Prothrombin Time (Protime)PT. 21.4 SECONDS (11.7-14.9)
--- NOTE | 2024-08-13 13:15 | NURSING ---
pt called at home and updated on INR of 1.[address] amn orders to continue 8 mg dose and recheck as usual
--- NOTE | 2024-08-13 13:20 | NURSING ---
arian inr in 4 days w/pcp
== END 2024-08-13 12:30 | disposition home or self-care (01) | DRG 194 ==
LOC: ED 23:29 → MS3 23:38
PROVIDERS: Admitting Provider Family Medicine; Emergency Provider Emergency Medicine; PCP Family Medicine; Visit Provider Internal Medicine
DX: J18.9 Pneumonia, unspecified organism (principal); K86.2 Cyst of pancreas; I13.0 Hypertensive heart and chronic kidney disease with heart failure and stage 1 through stage 4 chronic kidney disease, or unspecified chronic kidney disease; I48.92 Unspecified atrial flutter; N17.9 Acute kidney failure, unspecified; I50.32 Chronic diastolic (congestive) heart failure; J44.1 Chronic obstructive pulmonary disease with (acute) exacerbation; Z68.41 Body mass index [BMI] 40.0-44.9, adult; E11.22 Type 2 diabetes mellitus with diabetic chronic kidney disease; E11.51 Type 2 diabetes mellitus with diabetic peripheral angiopathy without gangrene; M06.9 Rheumatoid arthritis, unspecified; E66.01 Morbid (severe) obesity due to excess calories; K21.9 Gastro-esophageal reflux disease without esophagitis; E78.5 Hyperlipidemia, unspecified; F17.210 Nicotine dependence, cigarettes, uncomplicated; N18.2 Chronic kidney disease, stage 2 (mild); G47.33 Obstructive sleep apnea (adult) (pediatric); I48.0 Paroxysmal atrial fibrillation; I89.0 Lymphedema, not elsewhere classified; Z79.01 Long term (current) use of anticoagulants; Z99.81 Dependence on supplemental oxygen; R07.89 Other chest pain; Z79.1 Long term (current) use of non-steroidal anti-inflammatories (NSAID); R53.81 Other malaise
CPT/HCPCS: 36415; 71045; 71275; 80048; 80053; 82962; 83036; 83880; 84484; 85025; 85610; 85730; 87040; 87070; 87205; 87449; 87633; 87635; 93005; 94003; 94640; 94660; 99285; 99406; J7030; Q9967; A4216; J0696

== ENCOUNTER 2024-08-24 05:52 | Outpatient (RCR) | payer MEDICARE, SELFPAY ==
[2024-08-01 12:12] LABS: International Normalized Ratio 3.2; Prothrombin Time (Protime)PT. 32.2 SECONDS (11.7-14.9)
[2024-08-08 09:35] LABS: International Normalized Ratio 4.1; Prothrombin Time (Protime)PT. 39.7 SECONDS (11.7-14.9)
[2024-08-10 08:57] LABS: International Normalized Ratio 2.3; Prothrombin Time (Protime)PT. 24.8 SECONDS (11.7-14.9)
[2024-08-17 07:01] LABS: International Normalized Ratio 4.1; Prothrombin Time (Protime)PT. 39.6 SECONDS (11.7-14.9)
[2024-08-24 06:49] LABS: Prothrombin Time (Protime)PT. 30.5 SECONDS (11.7-14.9)
== END 2024-08-24 18:00 | disposition home or self-care (01) ==
LOC: LAB 05:52
PROVIDERS: Internal Medicine Cardiovascular Disease; PCP Family Medicine; Referring Provider Nurse Practitioner Gerontology; Visit Provider Nurse Practitioner Gerontology
DX: I48.92 Unspecified atrial flutter (principal); Z79.01 Long term (current) use of anticoagulants
CPT/HCPCS: 36415; 85610

== ENCOUNTER 2024-09-07 05:46 | Outpatient (RCR) | payer MEDICARE, SELFPAY ==
[2024-09-07 08:18] LABS: International Normalized Ratio 3.1; Prothrombin Time (Protime)PT. 31.4 SECONDS (11.7-14.9)
== END 2024-09-07 18:00 | disposition home or self-care (01) ==
LOC: LAB 05:46
PROVIDERS: PCP Family Medicine; Referring Provider Nurse Practitioner Gerontology; Visit Provider Nurse Practitioner Gerontology
DX: I48.92 Unspecified atrial flutter (principal); Z79.01 Long term (current) use of anticoagulants
CPT/HCPCS: 36415; 85610

== ENCOUNTER → 2024-10-08 | Outpatient (CLI) | payer MEDICARE, SELFPAY ==
--- NOTE | 2024-10-08 10:34 | RAD_ITS ---
INDICATION: Congestive heart failure. Recent pneumonia. EXAMINATION/TECHNIQUE: X-RAY - XR Chest 2 Views COMPARISON: August 11, 2024 FINDINGS: LINES/DEVICES: None. LUNGS: There are bilateral prominent interstitial markings. There is a hazy opacity in the right mid and lower lung. No pneumothorax. MEDIASTINUM AND CARDIOVASCULAR STRUCTURES: There is cardiomegaly associated with perihilar fullness. BONES AND SOFT TISSUES: Unremarkable. RAD/Chest PA and Lateral IMPRESSION: Findings may reflect congestive heart failure, cannot exclude associated infectious process. Electronically Signed: Batool Gonzales MD at 8:36 EST ,
== END | disposition home or self-care (01) ==
PROVIDERS: PCP Family Medicine; Referring Provider Family Medicine; Visit Provider Family Medicine
DX: R05.9 Cough, unspecified (principal); I50.9 Heart failure, unspecified
CPT/HCPCS: 71046

== ENCOUNTER 2024-10-17 09:53 | Outpatient (RCR) | payer MEDICARE, SELFPAY ==
[2024-10-02 08:40] LABS: BNP,B-Type NATRIURETIC PEPTIDE 171.7 pg/mL (0-100)
[2024-10-02 08:42] LABS: Anion Gap 5 (5-15); BUN 20 mg/dL (7-18); BUN/Creat Ratio 19.4 RATIO (10-20); Calcium,Total 9.4 mg/dL (8.5-10.1); Chloride 104 mmol/L (98-107); Creatinine, Serum 1.03 mg/dL (0.70-1.30); EST Glomerular Filtration Rate 78 mL/min (>60); Est Glom Filt Rate - Afr Amer 95 mL/min (>60); Glucose 157 mg/dL (74-106); Potassium 3.8 mmol/L (3.5-5.1); Sodium Level 139 mmol/L (136-145)
[2024-10-17 10:21] LABS: International Normalized Ratio 2.2; Prothrombin Time (Protime)PT. 24.3 SECONDS (11.7-14.9)
== END 2024-10-24 18:00 | disposition home or self-care (01) ==
LOC: LAB 09:53
PROVIDERS: PCP Family Medicine; Referring Provider Nurse Practitioner Gerontology; Visit Provider Nurse Practitioner Gerontology
DX: I48.92 Unspecified atrial flutter (principal); Z79.01 Long term (current) use of anticoagulants; I50.9 Heart failure, unspecified
CPT/HCPCS: 36415; 80048; 83880; 85610

== ENCOUNTER → 2024-11-04 | Outpatient (CLI) | payer MEDICARE, SELFPAY ==
--- NOTE | 2024-11-04 14:22 | RAD_ITS ---
INDICATION: cough, LLL rhonci EXAMINATION/TECHNIQUE: X-RAY - XR Chest 2 Views COMPARISON: Prior study dated: 10/08/2024 FINDINGS: LINES/DEVICES: None. LUNGS: The lungs are well expanded. Prominence of the central vasculature without overt edema. No effusion. No consolidation. No pneumothorax. MEDIASTINUM AND CARDIOVASCULAR STRUCTURES: Cardiac silhouette not enlarged. Central airways and mediastinal contour are unremarkable. BONES AND SOFT TISSUES: No acute abnormality. RAD/Chest PA and Lateral IMPRESSION: No consolidation. Central vascular prominence without overt edema. Electronically Signed: Shaun Rose MD at 1:06 EST ,
[2024-11-04 17:45] LABS: Absolute Lymphocyte Count 2.42 X10^3/uL (0.83-4.51); Absolute Neutrophil Count 4.3 X10^3/uL (2.0-7.7); Basophil# 0.04 X10^3/uL; Basophil% 0.5 % (0-1); Eosinophil# 0.12 X10^3/uL; Eosinophils% 1.6 % (0-5); Hematocrit 42.1 % (40-54); Hemoglobin 13.5 g/dL (13.0-16.5); Lymphocyte # 2.42 X10^3/ul (0.83-4.51); Lymphocyte % 32.6 % (19-41); Mean Corp Hgb Conc 32.1 g/dL (32-36); Mean Corpuscular Hgb 26.7 pg (27.0-32.0); Mean Corpuscular Volume 83.4 fL (80-94); Monocyte# 0.52 X10^3/uL; NRBC Flagged by Analyzer 0 % (0-5); Platelet Count 148 K/mm3 (150-450); RBC Distribution Width CV 14.1 % (11.6-14.6); RBC Distribution Width SD 42.6 fl (35.1-43.9); Red Blood Count 5.05 M/mm3 (4.6-6.2); White Blood Count 7.4 K/mm3 (4.4-11.0)
[2024-11-04 18:02] LABS: AST(SGOT) 18 U/L (15-37); Alanine Aminotransfer ALT/SGPT 23 U/L (16-61); Albumin, Serum 3.8 g/dL (3.2-5.0); Alkaline Phosphatase 71 U/L (45-117); Anion Gap 6 (5-15); BUN 27 mg/dL (7-18); BUN/Creat Ratio 23.5 RATIO (10-20); Calcium,Total 9.4 mg/dL (8.5-10.1); Chloride 103 mmol/L (98-107); Creatinine, Serum 1.15 mg/dL (0.70-1.30); EST Glomerular Filtration Rate 69 mL/min (>60); Est Glom Filt Rate - Afr Amer 83 mL/min (>60); Globulin 3.8 g/dL (2.2-4.2); Glucose 124 mg/dL (74-106); Potassium 3.8 mmol/L (3.5-5.1); Protein, Total 7.6 g/dL (6.4-8.2); Sodium Level 139 mmol/L (136-145)
[2024-11-04 18:07] LABS: BNP,B-Type NATRIURETIC PEPTIDE 163.5 pg/mL (0-100)
== END | disposition home or self-care (01) ==
PROVIDERS: PCP Family Medicine; Referring Provider Family Medicine; Visit Provider Family Medicine
DX: J18.9 Pneumonia, unspecified organism (principal); I50.9 Heart failure, unspecified
CPT/HCPCS: 36415; 71046; 80053; 83880; 85025

== ENCOUNTER 2024-11-19 10:27 | Outpatient (RCR) | payer MEDICARE, SELFPAY ==
[2024-11-16 07:21] LABS: Prothrombin Time (Protime)PT. 40.7 SECONDS (11.7-14.9)
[2024-11-16 08:04] LABS: International Normalized Ratio 4.3
[2024-11-19 10:49] LABS: International Normalized Ratio 2.9
== END 2024-11-19 18:00 | disposition home or self-care (01) ==
LOC: LAB 10:27
PROVIDERS: PCP Family Medicine; Referring Provider Nurse Practitioner Gerontology; Visit Provider Nurse Practitioner Gerontology
DX: Z79.01 Long term (current) use of anticoagulants (principal); I48.92 Unspecified atrial flutter
CPT/HCPCS: 36415; 85610

== ENCOUNTER → 2024-11-19 | Outpatient (CLI) | payer MEDICARE, SELFPAY ==
--- NOTE | 2024-11-19 12:51 | RAD_ITS ---
STUDY: X-RAY CHEST REASON FOR EXAM: Male, 59 years old. cough. TECHNIQUE: PA and lateral views of the chest. COMPARISON: 11/04/2024 FINDINGS: The lungs are clear and expanded. There is no demonstrated pleural abnormality. Normal size heart. Normal mediastinum and jaret. Normal visualized pulmonary arteries. Normal visualized aortic arch and descending thoracic aorta. Normal visualized thoracic spine. Normal visualized ribs, clavicles, and shoulders. There is no demonstrated abnormality of the visualized soft tissue structures of the upper abdomen. RAD/Chest PA and Lateral IMPRESSION: Normal x-ray examination of the chest. Electronically Signed: Richard Sharp MD at 17:55 EST ,
== END | disposition home or self-care (01) ==
PROVIDERS: PCP Family Medicine; Referring Provider Family Medicine; Visit Provider Family Medicine
DX: R05.9 Cough, unspecified (principal)
CPT/HCPCS: 71046

== ENCOUNTER → 2024-11-21 | Outpatient (CLI) | payer MEDICARE, SELFPAY ==
[2024-11-21 11:02] LABS: Absolute Lymphocyte Count 2.01 X10^3/uL (0.83-4.51); Absolute Neutrophil Count 3.9 X10^3/uL (2.0-7.7); Basophil# 0.01 X10^3/uL; Basophil% 0.2 % (0-1); Eosinophils% 1.6 % (0-5); Hematocrit 43.8 % (40-54); Hemoglobin 13.7 g/dL (13.0-16.5); Lymphocyte # 2.01 X10^3/ul (0.83-4.51); Lymphocyte % 31.3 % (19-41); Mean Corp Hgb Conc 31.3 g/dL (32-36); Mean Corpuscular Hgb 26.2 pg (27.0-32.0); Mean Corpuscular Volume 83.7 fL (80-94); Mean Platelet Vol. 9.9 fl (6.2-12.0); Monocyte# 0.36 X10^3/uL; Monocyte% 5.6 % (0-10); NRBC Flagged by Analyzer 0 % (0-5); Neutrophil # 3.92 X10^3/uL (2.7-7.7); Platelet Count 161 K/mm3 (150-450); RBC Distribution Width CV 14.2 % (11.6-14.6); RBC Distribution Width SD 42.9 fl (35.1-43.9); Red Blood Count 5.23 M/mm3 (4.6-6.2); White Blood Count 6.4 K/mm3 (4.4-11.0)
[2024-11-21 11:14] LABS: BNP,B-Type NATRIURETIC PEPTIDE 141.4 pg/mL (0-100)
[2024-11-21 11:18] LABS: ALB/GLOB Ratio 0.9 RATIO (0.9-2.4); AST(SGOT) 15 U/L (15-37); Alanine Aminotransfer ALT/SGPT 21 U/L (16-61); Albumin, Serum 3.7 g/dL (3.2-5.0); Alkaline Phosphatase 75 U/L (45-117); Anion Gap 3 (5-15); BUN 21 mg/dL (7-18); BUN/Creat Ratio 19.3 RATIO (10-20); Chloride 102 mmol/L (98-107); Creatinine, Serum 1.09 mg/dL (0.70-1.30); EST Glomerular Filtration Rate 73 mL/min (>60); Est Glom Filt Rate - Afr Amer 89 mL/min (>60); Globulin 3.9 g/dL (2.2-4.2); Glucose 153 mg/dL (74-106); Potassium 3.8 mmol/L (3.5-5.1); Protein, Total 7.6 g/dL (6.4-8.2); Sodium Level 138 mmol/L (136-145)
== END | disposition home or self-care (01) ==
LOC: LAB 10:18
PROVIDERS: PCP Family Medicine; Referring Provider Family Medicine; Visit Provider Family Medicine
DX: R05.9 Cough, unspecified (principal); I50.9 Heart failure, unspecified
CPT/HCPCS: 36415; 80053; 83880; 85025

== ENCOUNTER 2024-11-30 13:09 | Outpatient (RCR) | payer MEDICARE, SELFPAY ==
[2024-11-30 13:45] LABS: International Normalized Ratio 1.9; Prothrombin Time (Protime)PT. 22.1 SECONDS (11.7-14.9)
== END 2024-11-30 18:00 | disposition home or self-care (01) ==
LOC: LAB 13:09
PROVIDERS: PCP Family Medicine; Referring Provider Nurse Practitioner Gerontology; Visit Provider Nurse Practitioner Gerontology
DX: Z79.01 Long term (current) use of anticoagulants (principal); I48.92 Unspecified atrial flutter
CPT/HCPCS: 36415; 85610

== ENCOUNTER → 2024-12-08 | Outpatient (CLI) | payer MEDICARE, SELFPAY ==
--- NOTE | 2024-12-08 07:17 | CT_ITS ---
STUDY: LOW DOSE CT LUNG CANCER SCREENING REASON FOR EXAM: Male, 59 years old. Smoker, 45 years x 2 ppd RADIATION DOSAGE (If Supplied By Facility): CTDIvol = ( 4.02 ) mGy, DLP = ( 137.93 ) mGycm TECHNIQUE: No contrast was administered. Low dose technique was utilized (average mAS-38 and kVp 120). 1.25 mm axial source images with a slice interval of 1.25-mm were reconstructed in lung windows. 2.5 mm axial source images with a slice interval of 2.5-mm were reconstructed in lung windows. 5.0 mm axial source images with a slice interval of 5.0-mm were reconstructed in soft tissue windows. COMPARISON: Comparison is made with prior study dated November 28, 2023. NODULES: No suspicious nodules are seen. Emphysema: Mild degree of scarring in the posterior aspect of the left upper lobe. Endobronchial lesion: None Aorta: Mild degree of atherosclerotic plaque formation of the aortic arch. CORONARY ARTERIES: Coronary artery calcification is seen. Heart: Unremarkable Pulmonary artery: Unremarkable Mediastinal nodes: Small mediastinal lymph nodes. Other chest and abdominal findings: CT/Low Dose CT Lung Screening IMPRESSION: Lung-RADS category 2 - Continue annual screening with LDCT in 12 months. IMPORTANT NOTES FOR USE: ACR Lung-RADS Version 1.1 Assessment Categories Release Date: 2018 Category: Coded 0-4 bases on nodule(s) with highest degree of suspicion. Negative screen is defined as categories 1 and 2; a positive screen is defined as categories 3 and 4. Category 3 and 4A nodules that are unchanged on interval CT should be coded as category 2, and individuals returned to screening in 12 months. Category 4X: Category 3 or 4 nodules with additional imaging findings that increase the suspicion of lung cancer, such as spiculation, GGN that doubles in size in 1 year, enlarged lymph notes, etc. Category Modifiers: S (significant finding unrelated to lung cancer) Electronically Signed: Denny Melendez MD at 14:48 EST ,
== END | disposition home or self-care (01) ==
LOC: CT 07:17
PROVIDERS: PCP Family Medicine; Referring Provider Nurse Practitioner Acute Care; Visit Provider Nurse Practitioner Acute Care
DX: Z12.2 Encounter for screening for malignant neoplasm of respiratory organs (principal); F17.210 Nicotine dependence, cigarettes, uncomplicated
CPT/HCPCS: 71271

== ENCOUNTER 2025-01-07 08:04 | Outpatient (RCR) | payer MEDICARE, SELFPAY ==
[2025-01-01 13:34] LABS: International Normalized Ratio 1.7; Prothrombin Time (Protime)PT. 20.4 SECONDS (11.7-14.9)
[2025-01-07 09:19] LABS: Prothrombin Time (Protime)PT. 23.1 SECONDS (11.7-14.9)
== END 2025-01-22 18:00 | disposition home or self-care (01) ==
LOC: LAB 08:04
PROVIDERS: PCP Family Medicine; Referring Provider Nurse Practitioner Gerontology; Visit Provider Nurse Practitioner Gerontology
DX: Z79.01 Long term (current) use of anticoagulants (principal); I48.92 Unspecified atrial flutter
CPT/HCPCS: 36415; 85610

== ENCOUNTER → 2025-01-07 | Outpatient (CLI) | payer MEDICARE, SELFPAY | END | disposition home or self-care (01) | LOC: PSN 06:31 | PROVIDERS: PCP Family Medicine; Referring Provider Nurse Practitioner Acute Care; Visit Provider Nurse Practitioner Acute Care | DX: R06.02 Shortness of breath (principal) | CPT/HCPCS: 94060; 94726; 94729 ==

== ENCOUNTER → 2025-01-21 | Outpatient (CLI) | payer MEDICARE, SELFPAY ==
[2025-01-21 09:02] VITALS: PULSE 100; PULSE 102; PULSE 104; PULSE 107; PULSE 110; PULSE 114; PULSE 97; O2SAT 90; O2SAT 91; O2SAT 92; O2SAT 93
--- NOTE | 2025-01-22 10:09 | PCM.PSN.6M ---
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 device None used: Pre-test Oxygen Delivery Room Air Method Pulse Ox (%) 93 Pulse Rate (60-100 102 H beats/min) Dyspnea Sole Scale ( 0 0-10) Number of Rests 0 Taken 1st minute Oxygen Delivery Room Air Method Pulse Ox (%) 92 Pulse Rate (60-100 110 H beats/min) Dyspnea Sole Scale ( 0 0-10) Number of Rests 0 Taken 2nd minute Oxygen Delivery Room Air Method Pulse Ox (%) 92 Pulse Rate (60-100 107 H beats/min) Dyspnea Sole Scale ( 0 0-10) Number of Rests 0 Taken 3rd minute Oxygen Delivery Room Air Method Pulse Ox (%) 91 Pulse Rate (60-100 110 H beats/min) Dyspnea Sole Scale ( 0 0-10) Number of Rests 0 Taken 4th minute Oxygen Delivery Room Air Method Pulse Ox (%) 91 Pulse Rate (60-100 97 beats/min) Dyspnea Sole Scale ( 0 0-10) Number of Rests 0 Taken 5th minute Oxygen Delivery Room Air Method Pulse Ox (%) 90 Pulse Rate (60-100 100 beats/min) Dyspnea Sole Scale ( 0 0-10) Number of Rests 0 Taken 6th minute Oxygen Delivery Room Air Method Pulse Ox (%) 92 Pulse Rate (60-100 114 H beats/min) Dyspnea Sole Scale ( 0 0-10) Number of Rests 0 Taken Post-test Oxygen Delivery Room Air Method Pulse Ox (%) 93 Pulse Rate (60-100 104 H beats/min) Dyspnea Sole Scale ( 0 0-10) Number of Rests 0 Taken Full Laps Walked 14 Partial Lap, Number 31 of Tiles Walked Total Distance 857 Walked (ft) Interpretation Interpretation: The patient ambulated 857 feet over the course of 6 minutes beginning on room air without assistive devices. Pretesting oxygen saturation was noted to be 93% on room air. With ambulation, the lucio oxygen saturation was 90%. There was no significant exertional oxygen desaturation. Recommendations Recommendations: There is no indication for the use of supplemental oxygen at this time.
== END | disposition home or self-care (01) ==
LOC: PSN 07:49
PROVIDERS: PCP Family Medicine; Referring Provider Nurse Practitioner Acute Care; Visit Provider Nurse Practitioner Acute Care
DX: R06.02 Shortness of breath (principal)
CPT/HCPCS: 94618

== ENCOUNTER → 2025-01-25 | Outpatient (CLI) | payer MEDICARE, SELFPAY | END | disposition home or self-care (01) | LOC: SL 17:40 | PROVIDERS: PCP Family Medicine; Visit Provider Nurse Practitioner Acute Care | DX: Z46.89 Encounter for fitting and adjustment of other specified devices (principal) ==

== ENCOUNTER 2025-02-20 06:57 | Outpatient (RCR) | payer MEDICARE, SELFPAY ==
[2025-01-23 11:03] LABS: International Normalized Ratio 1.6; Prothrombin Time (Protime)PT. 19.3 SECONDS (11.7-14.9)
[2025-01-30 08:44] LABS: International Normalized Ratio 1.7; Prothrombin Time (Protime)PT. 20.3 SECONDS (11.7-14.9)
[2025-02-06 08:50] LABS: Prothrombin Time (Protime)PT. 22.9 SECONDS (11.7-14.9)
[2025-02-20 08:38] LABS: International Normalized Ratio 2.5; Prothrombin Time (Protime)PT. 27.1 SECONDS (11.7-14.9)
== END 2025-02-20 18:00 | disposition home or self-care (01) ==
LOC: LAB 06:57
PROVIDERS: PCP Family Medicine; Referring Provider Nurse Practitioner Gerontology; Visit Provider Nurse Practitioner Gerontology
DX: Z79.01 Long term (current) use of anticoagulants (principal); I48.92 Unspecified atrial flutter
CPT/HCPCS: 36415; 85610

== ENCOUNTER → 2025-04-01 | Outpatient (CLI) | payer MEDICARE, SELFPAY ==
--- NOTE | 2025-04-01 07:35 | ECHOCS_ITS ---
Reason For Study Reason For Study: ATRIAL FIB/FLUTTER Procedure This was a 2D Doppler, Color Flow transthoracic echocardiogram. The study was technically difficult. Due to body habitus. Contrast injection was performed. Exam performed in department. Left Ventricle Normal LV size. The left ventricular ejection fraction is 35 %. There is moderate global hypokinesis of the left ventricle. Hoffman : Severely Hypokinetic. Right Ventricle Normal RV size. Normal systolic function. Atria Normal left atrium. Normal right atrium. Mitral Valve Normal mitral valve. Tricuspid Valve Normal tricuspid valve. Aortic Valve Normal aortic valve. Pulmonic Valve The pulmonic valve is not well visualized. Great Vessels Normal aortic root. Pericardium/Pleural No pericardial effusion. Medication 22 gauge I.V. with prn adaptor inserted into right arm. Diluted definity 2.0ml given slow IV push to enhance endocardial definition. MMode/2D Measurements & Calculations LVIDd: 6.0 cm IVSd: 1.0 cm Ao root diam: 3.8 cm LVIDs: 5.2 cm LVPWd: 1.0 cm RVDd: 3.1 cm FS: 13.4 % LAV(MOD-bp): 81.8 ml LVAd ap4: 34.6 cm2 SV(MOD-sp4): 38.5 ml LAV(MOD-bp) Indexed: 33.6 ml/m2 LVLd ap4: 9.3 cm SI(MOD-sp4): 15.8 ml/m2 LAV(MOD-sp2): 81.4 ml EDV(MOD-sp4): 104.6 ml LAV(MOD-sp4): 81.1 ml EDV(sp4-el): 108.9 ml LVAs ap4: 25.3 cm2 LVLs ap4: 7.9 cm ESV(MOD-sp4): 66.2 ml ESV(sp4-el): 69.1 ml EF(MOD-sp4): 36.8 % EF(sp4-el): 36.5 % SV(sp4-el): 39.7 ml LA A4 area: 24.6 cm2 LA dimension(2D): 5.1 cm TAPSE: 1.8 cm Doppler Measurements & Calculations MV E max reece: 92.1 cm/sec Lat Peak E' Reece: 10.9 cm/sec Ao V2 max: 85.3 cm/sec E/E' lat: 8.5 Ao max P.9 mmHg Ao V2 mean: 68.4 cm/sec Ao mean P.9 mmHg Ao V2 VTI: 15.5 cm AV (velocity ratio): 0.88 LV V1 max: 72.7 cm/sec MR max reece: 398.0 cm/sec PA V2 max: 69.3 cm/sec LV V1 max P.1 mmHg MR max P.3 mmHg PA V2 mean: 50.8 cm/sec LV V1 mean P.0 mmHg MR mean reece: 319.2 cm/sec LV V1 mean: 47.0 cm/sec MR mean P.7 mmHg LV V1 VTI: 13.7 cm MR VTI: 120.8 cm TR max reece: 261.3 cm/sec TR max P.3 mmHg ECHO/Echo Complete W/ Contrast Interpretation Summary The left ventricular ejection fraction is 35 %. Normal LV size. Hoffman : Severely Hypokinetic. There is moderate global hypokinesis of the left ventricle. Contrast injection was performed. Compared to previous study, the left ventricu lar systolic function has worsened.. Ordering Physician: Eri Gutierrez Referring Physician: Julio Hong Performed By: Corrine Bills, GRADY, RVT
== END | disposition home or self-care (01) ==
LOC: CVS 07:33
PROVIDERS: PCP Family Medicine; Referring Provider Physician Assistant Medical; Visit Provider Physician Assistant Medical
DX: I48.92 Unspecified atrial flutter (principal); I50.32 Chronic diastolic (congestive) heart failure
CPT/HCPCS: 93225; 93226; 93306; Q9957; A4216; C8929

== ENCOUNTER 2025-04-15 06:00 | Outpatient (RCR) | payer MEDICARE, SELFPAY ==
[2025-04-02 16:36] LABS: Absolute Neutrophil Count 4.9 X10^3/uL (2.0-7.7); Basophil# 0.04 X10^3/uL; Basophil% 0.5 % (0-1); Eosinophil# 0.15 X10^3/uL; Eosinophils% 1.8 % (0-5); Hematocrit 48.9 % (40-54); Hemoglobin 15.8 g/dL (13.0-16.5); Lymphocyte % 32.9 % (19-41); Mean Corp Hgb Conc 32.3 g/dL (32-36); Mean Corpuscular Hgb 27.1 pg (27.0-32.0); Mean Corpuscular Volume 83.9 fL (80-94); Monocyte# 0.56 X10^3/uL; Monocyte% 6.6 % (0-10); NRBC Flagged by Analyzer 0 % (0-5); Neutrophil # 4.91 X10^3/uL (2.7-7.7); Neutrophil % 57.7 % (47-70); Platelet Count 179 K/mm3 (150-450); RBC Distribution Width SD 42.1 fl (35.1-43.9); Red Blood Count 5.83 M/mm3 (4.6-6.2); White Blood Count 8.5 K/mm3 (4.4-11.0)
[2025-04-02 17:15] LABS: Pro- Brain NATRIURETIC PEPTIDE 1094 pg/mL (<=900)
[2025-04-02 17:16] LABS: ALB/GLOB Ratio 1.2 RATIO (0.9-2.4); AST(SGOT) 24 U/L (<=37); Alanine Aminotransfer ALT/SGPT 14 U/L (<=46); Albumin, Serum 4.4 g/dL (3.4-4.8); Alkaline Phosphatase 91 U/L (40-129); Anion Gap 13 (5-15); BUN 24 mg/dL (4-19); BUN/Creat Ratio 21.5 RATIO (10-20); Calcium,Total 9.6 mg/dL (7.6-11.0); Carbon Dioxide 27.9 mmol/L (21.0-32.0); Chloride 98 mmol/L (98-108); Creatinine, Serum 1.13 mg/dL (0.70-1.20); EST Glomerular Filtration Rate 74 (>60); Globulin 3.6 g/dL (2.2-4.2); Glucose 265 mg/dL (70-99); Potassium 4.1 mmol/L (3.3-5.1); Sodium Level 139 mmol/L (133-145); Total Bilirubin 0.67 mg/dL (0.00-1.30)
[2025-04-15 07:07] LABS: International Normalized Ratio 2.6; Prothrombin Time (Protime)PT. 28.3 SECONDS (11.7-14.9)
== END 2025-04-15 18:00 | disposition home or self-care (01) ==
LOC: LAB 06:00
PROVIDERS: PCP Family Medicine; Referring Provider Nurse Practitioner Gerontology; Visit Provider Nurse Practitioner Gerontology
DX: I48.92 Unspecified atrial flutter (principal); Z79.01 Long term (current) use of anticoagulants; J18.9 Pneumonia, unspecified organism
CPT/HCPCS: 36415; 80053; 83880; 85025; 85610

== ENCOUNTER 2025-07-09 09:04 | Outpatient (RCR) | payer MEDICARE, SELFPAY ==
[2025-06-26 08:36] LABS: Prothrombin Time (Protime)PT. 24.7 SECONDS (11.7-14.9)
[2025-06-26 08:42] LABS: AST(SGOT) 17 U/L (<=37); Alanine Aminotransfer ALT/SGPT 15 U/L (<=46); Albumin, Serum 4.1 g/dL (3.4-4.8); Alkaline Phosphatase 83 U/L (40-129); Bilirubin, Direct 0.29 mg/dL (0.00-0.30); Cholesterol 145 mg/dL (<=200); Globulin 3.1 g/dL (2.2-4.2); Low Density Lipoprotein Calc. 76 mg/dL; Triglycerides 164 mg/dL; Very Low Density Lipoprotein 33 mg/dL (5-40); cholesterol:hdl ratio screen 3.99
[2025-07-09 09:54] LABS: Prothrombin Time (Protime)PT. 20.2 SECONDS (11.7-14.9)
== END 2025-07-09 18:00 | disposition home or self-care (01) ==
LOC: LAB 09:04
PROVIDERS: Physician Assistant Medical; PCP Family Medicine; Referring Provider Nurse Practitioner Gerontology; Visit Provider Nurse Practitioner Gerontology
DX: Z79.01 Long term (current) use of anticoagulants (principal); I48.92 Unspecified atrial flutter; E78.5 Hyperlipidemia, unspecified
CPT/HCPCS: 36415; 80061; 80076; 85610

== ENCOUNTER → 2025-08-13 | Outpatient (CLI) | payer MEDICARE, SELFPAY ==
--- OUTSIDE RECORDS SUMMARY | 2025-08-13 06:22 | XMS RPT_ITS | CCD ---
Author Organization [facility] CliniSyne Care Team Providers Care Tree Trimming Line Technician Name Role Phone Jaxon SUNNVilma Unavailable Unavaila ble Dr. Abdifatah Hong Primary Care Provider Dr. Abdifatah Hong Referring Provider Dr. Ethan Stanford Attending Provider Dr. Abdifatah Hong Primary Care Provider Dr. Israel Bhatti Emergency Provider Dr. Jerica Hou Admit Provider Dr. Jerica Hou Other Provider Dr. Ethan Stanford Other Provider Dr. Melo Ross Attending Provider Unavailable Dr. Melo Ross Other Provider Unavailable Dr. Ethan Stanford Attending Provider Dr. Jerica Hou Referring Provider Dr. Sona Pierre Attending Provider Dr. Sona Pierre Other Provider Dr. Abdifatah Hong Referring Provider Dr. Anastasiya Vo Attending Provider Brenda REILLY, PA Eri Lowe Attending Provider Lilia Hong MD Primary Care Provider [facility] Unavailable Dutch MOTTA, Astrid Unavailable Unavailable Dr. Abdifatah Hong Primary Care Provider Dr. Israel Bhatti Emergency Provider Dr. Jerica Hou Admit Provider Dr. Jerica Hou Other Provider Dr. Ethan Stanford Other Provider Dr. Melo Ross Attending Provider Unavailable Dr. Melo Ross Other Provider Unavailable Abdoulaye, Dr. Long Attending Provider 1([facility])[phone] Jerica Hou Referring Provider 1([facility])[phone] Dr. Sona Pierre Attending Provider Dr. Sona Pierre Other Provider Dr. Abdifatah Hong Referring Provider Dr. Anastasiya Vo Attending Provider 1([facility])[phone] Brenda PA, PA Eri Lowe Attending Provider LILIA HONG Primary Care Unavailabl e DODIE LANDON Attending Unavailable DODIE LANDON Referring Unavailable Dr. Lilia Hong MD Primary Care Provider Theresa Hightower MD Attending Provider Theresa Hightower MD Referring Provider [phone] Maral Lazar Attending Provider [phone] Brooks SHIN-Maral Yao Referring Provider [phone] Lilia Hong MD Attending Provider Dr. Lilia Hong MD Referring Provider [phone] Todd SHIN-CReena Attending Provider Todd SECRETARY ADMINISTRATIVE ASSISTANT-C, Reena Referring Provider Todd SECRETARY ADMINISTRATIVE ASSISTANT-C, Reena Other Provider [phone] Dr. Alfredo Arias DO Attending Provider Dr. Lilia Hong MD Primary Care Provider Brooks SHIN-CMaral Attending Provider [phone] Brooks SHIN-CMaral Referring Provider 1([facility])[phone] Lilia Hong MD Primary Care Provider Dr. Lilia Hong MD Referring Provider [phone] Brooks SECRETARY ADMINISTRATIVE ASSISTANT-C, Maral Attending Provider Guy SECRETARY ADMINISTRATIVE ASSISTANT-C, Maral Referring Provider Eri Palm Attending Provider [phone] Eri Palm Referring Provider [phone] Abdoulaye MARTINEZ, Dr. Long Attending Provider Hal MARTINEZ, Dr. Kim Primary Care Provider Todd SECRETARY ADMINISTRATIVE ASSISTANT-C, Reena Attending Provider Todd SECRETARY ADMINISTRATIVE ASSISTANT-C, Reena Referring Provider Hal MARTINEZ, Dr. Kim Primary Care Provider Hal MARTINEZ, Dr. Kim Referring Provider [phone] Brooks SECRETARY ADMINISTRATIVE ASSISTANT-C, Maral Attending Provider [phone] Brooks SECRETARY ADMINISTRATIVE ASSISTANT-C, Maral Referring Provider [phone] Eri Palm Other Provider [phone] Hal MARTINEZ, Dr. Kim Primary Care Provider Eri Palm Attending Provider [phone] Hal MARTINEZ, Dr. Kim Referring Provider [phone] Eri Palm Other Provider [phone] Hal, [facility] Primary Care Unavailable BrownAlfredo Attending Unavailable Brooks SECRETARY ADMINISTRATIVE ASSISTANT, Reena Referring Unavailable Brooks SECRETARY ADMINISTRATIVE ASSISTANT, Reena Consulting Unavailable Ranney, Christopher Primary Care Unavailable Ethan Stanford Attending Unavailable Ranney, Christopher Primary Care Unavailable BrownAlfredo Attending Unavailable Brooks SECRETARY ADMINISTRATIVE ASSISTANT, Reena Referring Unavailable White, Jerica L Admitting Unavailable Ranney, Christopher Primary Care Unavailable Fidel, Denys Attending Unavailable White, Jerica L Consulting Unavailable Fidel, Denys Consulting Unavailable Ranney, Christopher Primary Care Unavailable Maral Guy Referring Unavailable Maral Guy Attending Unavailable Ranney, Christopher Primary Care Unavailable Brooks SECRETARY ADMINISTRATIVE ASSISTANT, Reena Attending Unavailable Brooks SECRETARY ADMINISTRATIVE ASSISTANT, Reena Attending Unavailable Ranney, Christopher Primary Care Unavailable Brooks SECRETARY ADMINISTRATIVE ASSISTANT, Reena Referring Unavailable Brooks SECRETARY ADMINISTRATIVE ASSISTANT, Reena Attending Unavailable Ranney, Christopher Primary Care Unavailable Maral Guy Referring Unavailable Maral Guy Attending Unavailable White Jerica L Attending Unavailable [facility] Primary Care Unavailable White, Jerica L Admitting Unavailable White, Jerica L Consulting Unavailable [facility] Primary Care Unavailable [facility], [facility] Referring Unavailable Todd SECRETARY ADMINISTRATIVE ASSISTANTReena Attending Unavailable [facility], [facility] Ref[facility] Unavailable [facility] Primary Care Unavailable Eri Palm Attending Unavail able [facility], [facility] Referring Unavailable [facility] Primary Care Unavailable Eri Palm Attending Unavail able [facility], [facility] Referring Unavailable [facility] Primary Care Unavailable Todd SECRETARY ADMINISTRATIVE ASSISTANT, Reena Attending Unavailable [facility], [facility] Referring Unavailable [facility] Primary Care Unavailable Eri Palm Attending Unavail able [facility], [facility] Referring Unavailable [facility] Primary Care Unavailable Xu Collazo NP Attending Unavailable [facility] Primary Care Unavailable Maral Guy Referring Unavailable Maral Guy Attending Unavailable [facility] Primary Care Unavailable Eri Palm Consulting Unavail able Maral Guy Referring Unavailable Maral Guy Attending Unavailable White, Jerica L Consulting Unavailable [facility] Primary Care Unavailable Denys Parra Attending Unavailable White, Jerica L Admitting Unavailable [facility] Primary Care Unavailable Mraal Guy Attending Unavailable Maral Guy Referring Unavailable [facility] Primary Care Unavailable Eri Palm Attending Unavail able Eri Palm Referring Unavail [facility] Referring Unavailable [facility] Primary Care Unavailable [facility] Primary Care Unavailable Reena Brooks NP Referring Unavailable Reena Brooks NP Attending Unavailable [facility] Primary Care Unavailable Eri Concepcion Referring Unavailable Eri Palm Attending Unavail able [facility] Primary Care Unavailable Eri Palm Referring Unavail able Eri Palm Attending Unavail able [facility] Primary Care Unavailable rEi Palm Consulting Unavail able Maral Guy Referring Unavailable Maral Guy Attending Unavailable [place], Christopher Referring Unavailable [place]ilia Attending Unavailable [facility] Primary Care Unavailable [facility], [facility] Referring Unavailable [place], Christopher Attending Unavailable [facility] Unavailable [facility] Primary [facility] Unavailable Maral Guy Attending Unavailable Maral Guy Referring Unavailable [facility] Primary [facility] Unavailable Theresa Hightower Attending Unavailable Theresa Hightower Referring Unavailable [facility] Unavailable Maral Guy Referring Unavailable Maral Guy Attending [facility] Maral Guy Referring Unavailable Maral Guy Attending [facility] Maral Guy Attending Unavailable Maral Guy Referring Unavailable [facility] Unavailable Eri Palm Referring Unavail able Eri Palm Attending Unavail able Allergies Allergy Classification Reported Allergen(s) Allergy Type Date of Onset Reaction(s) Facility (11 sources) Aspirin Drug Allergy 2 Unknown, [facility] (11 sources) Nonsteroidal Anti-inflammator y Compounds Allergy to substance 2 [facility] (2 sources) Non-steroidal anti-inflammator y agent Propensity to adverse reactions to drug 3 [facility] (1 source) Aspirin Drug Allergy 5 [facility] (1 source) NSAIDs Drug allergy (disorder) 5 [facility] Medications Current Medications Medication Drug Class(es) Dates Sig (Normalized) Sig (Original) acetaminophen 500 mg oral tablet (13 sources) Start: 07-24-2022 take 1 tablet by mouth three times daily as needed for pain Acetaminophen 500 mg Tablet Active 500 mg PO 3 TIMES DAILY NEEDED as needed for Pain July 24, 2022 12:00am take 3 capsules by m outh every six hours as needed Acetaminophen 500 MG capsule Take 3 tabl ets by mouth every 6 hours as needed for Mild Pain. 0 Active [id number] 200 actuat albuterol 0.09 mg/actuat metered dose inhaler (20 sources) beta2-Adrenergic Agonist Start: 03-04-2024 Albut franck Sulfate 90 mcg/actuation HFA aerosol inhaler Active 2 NMA INHALATION EVERY 4-6 HOURS as needed for shortness of breath or wheezing March 04, 2024 12:00am Start: 05-17-2020 End: 07-24-2022 Albuterol Sulfate 90 mcg/act uation HFA aerosol inhaler Discontinued 2 NMA INHALATION EVERY 4 HOURS NEEDED as needed for Sob &/Or Wheezing 11 30May 17, 2020 7:04am July 24, 2022 10:37am Start: 05-17-2020 End: 07-24-2022 take 1 puff(s) by inhalation every four hours as needed Albuterol Sulfate Discontinued 2 PUFF INHALATION EVERY 4 HOURS NEEDED May 17, 2020 6:04am July 24, 2022 9:37am Start: 01-16-2019 End: 05-17-2020 Albuterol Sulfate 1 INHALER inhaler Discontinued 2 NMA INHALATION EVERY 4 HOURS NEEDED as needed for Sob &/Or Wheezing January 16, 2019 1:00am May 17, 2020 7:05am Start: 01-16-2019 End: 05-17-2020 take 1 puff(s) by inhalation every four hours as needed Albuterol Sulfate Discontinued 2 PUFF INHALATION EVERY 4 HOURS NEEDED January 16, 2019 12:00am May 17, 2020 6:05am Start: 06-28-2017 take 2 puff(s) by in halation every two hours as needed VENTOLIN HFA 108 (90 Base) MCG/ACT AERS INH 2 puffs q2h as needed ALBUTEROL SULFATE [id number] Vilma Coates LPN Start: 06-27-2017 End: 09-15-2018 take 2.5 mg by inhalation every two hours as needed Albuterol Sulfate 2.5 MG/3 ML solution for nebulization Discontinued 2.5 mg INHALATION EVERY 2 HOURS NEEDED as needed for SHORTNESS OF BREATH 25 0 June 27, 2017 12:00am September 15, 2018 2:34pm 24 hr buPROPion hydrochloride 150 mg extended release oral tablet (14 sources) Aminoketone Start: 01-01-2025 take 1 tablet by mouth once daily Bupropion Hcl 150 mg tablet extended release 24 hr Active 150 mg PO DAILY January 01, 2025 1:00am Start: 08-06-2024 End: 08-11-2024 take 1 tablet by mouth once daily Bupropion Hcl 150 mg tablet extended release 24 hr Discontinued 150 mg PO daily August 06, 2024 12:00am August 11, 2024 10:02pm cholecalciferol 0.05 mg oral capsule (11 sources) Vitamin D Start: 02-10-2018 take 1 capsule by mouth once daily Cholecalciferol (Vitamin D3) 2,000 unit capsule Active 2000 U PO daily February 10, 2018 12:00am supplement 24 hr dilTIAZem hydrochloride 120 mg extended release oral capsule (16 sources) Calcium Channel Anabella Start: 07-09-2025 End: 07-09-2025 take 1 capsule by mouth twice daily Diltiazem Hcl 120 mg capsule,extended release 24 hr Active 120 mg PO TWICE A DAY 180 July 09, 2025 8:43am Start: 11-13-2024 End: 07-09-2025 take 1 capsule by mouth once daily in the morning Diltiazem Hcl 120 mg capsule,extended release 24 hr Discontinued 120 mg PO EVERY MORNING 90 February 10, 2025 11:14am July 09, 2025 8:43am empagliflozin 10 mg oral tablet (5 sources) Sodium-Glucose Cotransporter 2 Inhibitor Start: 02-10-2025 take 1 tablet by mouth once daily in the morning Empagliflozin (Jardiance) 10 mg tablet Active 10 mg PO EVERY MORNING February 10, 2025 12:00am Dr. Hong changed Farxiga to Jardiance furosemide 40 mg oral tablet (20 sources) Loop Diuretic Start: 10-14-2024 take 2 tablets by mouth twice daily Furosemide 40 mg tablet Active 80 mg PO TWICE A DAY October 14, 2024 1:58pm diuresis Start: 09-25-2023 take 2 tablets by mo uth twice daily in the morning, then take 1 tablet by mouth in the evening furOSEmide 40 MG tablet Take by mouth 2 times daily. 80 MG IN AM AND 40 MG IN PM 0 09/25/2023 Active Start: 01-16-2019 End: 09-22-2019 take 1 tablet by mouth at bedtime Furosemide 40 MG tablet Discontinued 40 mg PO AT BEDTIME January 16, 2019 1:00am September 22, 2019 8:33am Start: 09-15-2018 End: 10-14-2024 take 2 tablets by mouth once daily in the morning, then take 1 tablet by mouth once daily in the evening Furosemide 40 mg tablet Discontinued 40 mg PO .COMPLEX November 06, 2021 11:22am October 14, 2024 1:58pm diuresis 40 mg PO; 2 tabs qam, 1 tab qpm Start: 09-01-2018 End: 09-15-2018 take 1 tablet by mouth three times daily Furosemide (Lasix) 40 mg tablet Discontinued 40 mg PO THREE TIMES A DAY September 01, 2018 12:00am September 15, 2018 2:38pm Start: 02-10-2018 End: 09-01-2018 take 2 tablets by mouth once daily in the morning Furosemide 40 mg tablet Discontinued 80 mg PO EVERY MORNING February 10, 2018 2:41pm September 01, 2018 7:47am Start: 02-10-2018 End: 09-01-2018 take 80 mg by mouth once daily in the morning Furosemide Discontinued 80 MG PO EVERY MORNING February 10, 2018 1:41pm September 01, 2018 6:47am Start: 02-10-2018 End: 09-01-2018 take 1 tablet by mouth once daily in the evening Furosemide 40 mg tablet Discontinued 40 mg PO EVERY EVENING February 10, 2018 12:00am September 01, 2018 7:47am Start: 02-09-2018 End: 02-10-2018 take 1 tablet by mouth twice daily Furosemide 40 mg tablet Discontinued 40 mg PO TWICE A DAY February 09, 2018 12:00am February 10, 2018 2:42pm Start: 06-27-2017 End: 02-09-2018 take 1 tablet by mouth twice daily Furosemide 20 MG tablet Discontinued 20 mg PO BID@1000,1800 60 0 June 27, 2017 12:00am February 09, 2018 6:45pm Multivitamin 1 EACH tablet (7 sources) Start: 06-22-2017 Multivitamin 1 EACH tablet Active 1 NMA PO DAILY June 22, 2017 12:00am supplement Start: 06-22-2017 Multivitamin 1 EACH tablet Active 1 NMA PO DAILY June 22, 2017 12:00am Multivitamin preparation (4 sources) Start: 06-22-2017 Multivitamin A ctive 1 EACH PO DAILY June 21, 2017 11:00pm Start: 06-22-2017 Multivitamin A ctive 1 EACH PO DAILY June 22, 2017 12:00am Multivitamin w/ minerals tablet (2 sources) take 1 tablet by mouth once daily Multivitamin w/ minerals tablet Take 1 tablet by mouth daily. 0 Active omeprazole 20 mg delayed release oral capsule (20 sources) Proton Pump Inhibitor Start: 8 take 1 capsule by mouth once daily Omeprazole 20 mg capsule,delayed release(DR/EC) Active 20 mg PO daily February 09, 2018 12:00am acid reflux Start: 06-28-2017 take 1 tablet by lul th once daily OMEPRAZOLE 20 MG CPDR One tablet by mouth daily OMEPRAZOLE [id number] Vilma Coates COREEN Start: 06-22-2017 End: 02-09-2018 take 20 mg by mouth once daily Omeprazole Discontinued 20 mg PO DAILY June 22, 2017 12:00am February 09, 2018 6:46pm microencapsulated potassium chloride 20 meq extended release oral tablet (13 sources) Start: 08-19-2023 take 1 tablet by mouth once daily Potassium chloride 20 MEQ Tab CR tablet Take 1 tablet by mouth daily. 0 08/19/2023 Active Start: 02-09-2018 take 1 tablet by lul th once daily Potassium Chloride 20 mEq tablet extended release Active 20 meq PO daily February 09, 2018 12:00am supplement rosuvastatin calcium 40 mg oral tablet (13 sources) HMG-CoA Reductase Inhibitor Start: 06-21-2022 take 1 tablet by mouth once daily Rosuvastatin 40 mg tablet Active 40 mg PO DAILY June 21, 2022 12:00am cholesterol semaglutide 3 mg oral tablet (2 sources) Start: 10-07-2023 take 1 tablet by mouth once daily Rybelsus 3 MG tablet Take 1 tablet by mouth daily. 0 10/07/2023 Active spironolactone 25 mg oral tablet (12 sources) Aldosterone Antagonist Start: 10-14-2024 End: 02-10-2025 take 1 tablet by mouth once daily Spironolactone 25 mg tablet Active 25 mg PO DAILY 90 3 February 10, 2025 11:14am ubidecarenone 100 mg / vitamin e 5 unt oral capsule (2 sources) take 1 capsule by mouth once daily Coenzyme Q10 (CoQ10) 100 MG capsule Take 1 capsule by mouth daily. 0 Active vitamin b12 2.5 mg oral tablet (20 sources) Vitamin B12 Start: 04-07-2020 End: 11-06-2021 take 1 tablet by mouth every other day Cyanocobalamin (Vitamin B-12) 2,500 mcg tablet Active 2500 ug PO every other day November 06, 2021 11:06am supplement Start: 09-15-2018 End: 04-07-2020 Cyanocobalamin (Vitamin B-12 ) 2,500 mcg tablet Discontinued 0.5 {tbl} PO DAILY September 15, 2018 12:00am April 07, 2020 9:34am Start: 06-28-2017 take 1 tablet by lul th once daily B-12 5000 MCG CAPS One tablet by mouth daily CYANOCOBALAMIN [id number] Vilma Coates RECREATION ATTENDANT SUPERVISOR Start: 06-22-2017 End: 09-15-2018 take 1 tablet by mouth once daily Cyanocobalamin (Vitamin B-12) 5,000 MCG tablet,disintegrating Discontinued 5000 ug PO DAILY June 22, 2017 12:00am September 15, 2018 2:35pm take 1 tablet by lul th once daily cyanocobalamin 1000 MCG tablet Take 1 tablet by mouth daily. 0 Active VITAMIN D PO (2 sources) take 50 ug by mouth once daily V ITAMIN D PO Take 50 mcg by mouth daily. 0 Active Completed/Discontinued Medications Medication Drug Class(es) Dates Sig (Normalized) Sig (Original) apixaban 5 mg oral tablet (20 sources) Factor Xa Inhibitor Start: 07-09-2025 End: 07-14-2025 take 1 tablet by mouth twice daily Apixaban (Eliquis) 5 mg tablet Active 5 mg PO .COMPLEX 200 3 July 14, 2025 9:30am 5 mg orally twice daily: Fax to [facility]; Start: 03-04-2024 End: 04-30-2024 take 1 tablet by mouth twice daily Apixaban (Eliquis) 5 mg tablet Discontinued 5 mg PO TWICE A DAY 180 4 April 17, 2024 9:06am April 30, 2024 10:00am cefdinir 300 mg oral capsule (7 sources) Cephalosporin Antibacterial Start: 08-13-2024 End: 09-10-2024 take 1 capsule by mouth twice daily Cefdinir 300 mg capsule Discontinued 300 mg PO TWICE A DAY 12 6 0 August 13, 2024 12:00am September 10, 2024 2:50pm dapagliflozin 5 mg oral tablet (7 sources) Sodium-Glucose Cotransporter 2 Inhibitor Start: 01-01-2025 End: 02-10-2025 take 1 mg by mouth once daily Dapagliflozin Propanediol (Farxiga) 5 mg tablet Discontinued mg PO DAILY January 01, 2025 1:00am February 10, 2025 11:15am 12 hr dextromethorphan hydrobromide 60 mg / guaiFENesin 1200 mg extended release oral tablet (7 sources) Uncompetitive G-zdescf-B-asparta te Receptor Antagonist, Sigma-1 Agonist Start: 08-13-2024 End: 01-01-2025 Dextromethorphan-G uaifenesin 60-1,200 mg tablet extended release 12 hr Discontinued 1 {tbl} PO TWICE A DAY 14 7 0 August 13, 2024 12:00am January 01, 2025 2:59pm doxycycline monohydrate 100 mg oral tablet (7 sources) Tetracycline-class Drug Start: 08-13-2024 End: 01-01-2025 take 1 tablet by mouth twice daily Doxycycline Monohydrate 100 mg tablet Discontinued 100 mg PO TWICE A DAY 12 6 0 August 13, 2024 12:00am January 01, 2025 2:59pm 12 hr guaiFENesin 1200 mg extended release oral tablet (12 sources) Start: 06-27-2017 End: 02-09-2018 take 1 tablet by mouth twice daily Guaifenesin 1,200 MG tablet Discontinued 1200 mg PO TWICE A DAY 60 0 June 27, 2017 12:00am February 09, 2018 6:46pm 3 ml insulin glargine 100 unt/ml pen injector (7 sources) Insulin Analog Start: 08-13-2024 End: 09-10-2024 Insulin Glargine (Lantus Solostar U-100 Insulin) 100 unit/mL (3 mL) insulin pen Discontinued 15 U SC DAILY 15 0 August 13, 2024 12:00am September 10, 2024 2:49pm Hold if glucose less than 130 mg/dl 3 ml insulin lispro 100 unt/ml pen injector (7 sources) Insulin Analog Start: 08-13-2024 End: 09-10-2024 Insulin Lispro (Humalog Kwikpen Insulin) 100 unit/mL Insulin Pen Discontinued 0 U SC BEFORE MEALS AND AT BEDTIME 15 30 2 August 13, 2024 12:00am September 10, 2024 2:49pm Please contact the information source for Protocol details. metoprolol tartrate 100 mg oral tablet (20 sources) beta-Adrenergic Anabella Start: 11-09-2024 End: 04-30-2025 take 1 tablet by mouth twice daily Metoprolol Tartrate 100 mg tablet Discontinued 100 mg PO TWICE A DAY 180 3 April 12, 2025 9:24am April 30, 2025 7:59am Start: 10-14-2024 End: 11-09-2024 take 2 tablets by mouth twice daily Metoprolol Tartrate 50 mg tablet Discontinued 100 mg PO TWICE A DAY 180 3 October 14, 2024 4:30pm November 09, 2024 2:33pm Start: 08-06-2024 End: 10-14-2024 take 1 tablet by mouth twice daily Metoprolol Tartrate 50 mg tablet Discontinued 50 mg PO TWICE A DAY August 11, 2024 12:00am October 14, 2024 2:01pm Start: 08-04-2024 End: 08-06-2024 Metoprolol Tartrate 50 mg ta blet Discontinued 25 mg PO daily as needed for HR >100 August 04, 2024 12:00am August 06, 2024 10:30am Start: 09-01-2023 End: 09-03-2023 take 1 tablet by mouth twice daily Metoprolol Tartrate 50 mg Tablet Discontinued 50 mg PO TWICE A DAY 60 30 0 September 01, 2023 12:00am September 03, 2023 1:46pm MULTIPLE VITAMIN (1 source) Start: 06-28-2017 take 1 tablet by mouth once daily MULTI-VITAMIN TABS One tablet by mouth daily MULTIPLE VITAMIN [id number] Vilma Coates LPN Nebulizer Accessories (4 sources) Start: 06-27-2017 End: 02-09-2018 Nebulizer Accessories Discontinued 1 EACH MC DAILY NEEDED June 27, 2017 11:59am February 09, 2018 5:46pm Start: 06-27-2017 End: 02-09-2018 Nebulizer Accessories Discon tinued 1 EACH MC DAILY NEEDED June 27, 2017 12:59pm February 09, 2018 6:46pm Nebulizer Accessories 1 EACH misc (7 sources) Start: 06-27-2017 End: 02-09-2018 Nebulizer Accessories 1 EACH misc Discontinued 1 NMA MC DAILY NEEDED as needed for Sob &/Or Wheezing 1 June 27, 2017 12:59pm February 09, 2018 6:46pm Start: 06-27-2017 End: 02-09-2018 Nebulizer Accessories 1 EACH misc Discontinued 1 NMA MC DAILY NEEDED as needed for Sob &/Or Wheezing June 27, 2017 12:59pm February 09, 2018 6:46pm Nicotine (12 sources) Cholinergic Nicotinic Agonist Start: 06-28-2017 [facility] NTS STEP 1 21 MG /24HR PT24 Apply daily NICOTINE [id number] Vilma Murillo Jaxon ANGELA Start: 06-27-2017 End: 02-09-2018 apply 21 mg transdermal route once daily Nicotine 21 MG patch Discontinued 21 mg TRANSDERM. DAILY 30 0 June 27, 2017 12:00am February 09, 2018 6:46pm oseltamivir 75 mg oral capsule (11 sources) Neuraminidase Inhibitor Start: 01-16-2019 End: 03-12-2019 take 1 capsule by mouth twice daily Oseltamivir 75 MG capsule Discontinued 75 mg PO TWICE A DAY 10 0 January 16, 2019 1:00am March 12, 2019 1:21pm pravastatin sodium 80 mg oral tablet (20 sources) HMG-CoA Reductase Inhibitor Start: 09-15-2018 End: 06-21-2022 take 1 tablet by mouth once daily Pravastatin 80 mg tablet Discontinued 80 mg PO DAILY September 15, 2018 12:00am June 21, 2022 1:05pm Start: 06-22-2017 End: 09-15-2018 take 1 tablet by mouth once daily Pravastatin 40 MG tablet Discontinued 40 mg PO DAILY June 22, 2017 12:00am September 15, 2018 2:36pm predniSONE 20 mg oral tablet (20 sources) Start: 08-13-2024 End: 01-01-2025 take 2 tablets by mouth once daily Prednisone 20 mg tablet Discontinued 40 mg PO DAILY 10 5 August 13, 2024 12:00am January 01, 2025 2:59pm Start: 08-26-2022 End: 11-12-2022 take 2 tablets by mouth once daily Prednisone 20 mg tablet Discontinued 40 mg PO DAILY August 26, 2022 12:00am November 12, 2022 9:48am start 08/27 Start: 08-26-2022 End: 11-12-2022 take 40 mg by mouth once daily Prednisone Discontinued 40 MG PO DAILY August 25, 2022 11:00pm November 12, 2022 8:48am start 08/27 Start: 01-16-2019 End: 03-12-2019 take 2 tablets by mouth once daily at mealtime Prednisone 20 MG tablet Discontinued 40 mg PO DAILY January 16, 2019 1:00am March 12, 2019 1:22pm With food Start: 01-16-2019 End: 03-12-2019 take 40 mg by mouth once daily at mealtime Prednisone Discontinued 40 MG PO DAILY January 16, 2019 12:00am March 12, 2019 12:22pm With food Start: 06-27-2017 End: 02-09-2018 take 2 tablets by mouth once daily Prednisone 20 MG tablet Discontinued 40 mg PO DAILY@0800 10 0 June 27, 2017 12:00am February 09, 2018 6:46pm Start: 06-27-2017 End: 02-09-2018 take 40 mg by mouth once daily Prednisone Discontinued 40 MG PO DAILY@0800 10 June 26, 2017 11:00pm February 09, 2018 5:46pm Semaglutide (Rybelsus) 14 mg tablet (7 sources) Start: 09-10-2024 End: 01-01-2025 take 1 tablet by mouth once daily Semaglutide (Rybelsus) 14 mg tablet Discontinued 14 mg PO daily September 10, 2024 12:00am January 01, 2025 2:59pm Semaglutide (Rybelsus) 3 mg tablet (9 sources) Start: 09-05-2023 End: 08-06-2024 take 1 tablet by mouth once daily Semaglutide (Rybelsus) 3 mg tablet Discontinued 3 mg PO DAILY September 05, 2023 12:00am August 06, 2024 10:00am Start: 09-05-2023 take 1 tablet by lul th once daily Semaglutide (Rybelsus) 3 mg tablet Active 3 MG PO DAILY September 04, 2023 11:00pm Start: 09-05-2023 take 1 tablet by lul th once daily Semaglutide (Rybelsus) 3 mg tablet Active 3 MG PO DAILY September 05, 2023 12:00am sulfamethoxazole 800 mg / trimethoprim 160 mg oral tablet (12 sources) Dihydrofolate Reductase Inhibitor Antibacterial, Sulfonamide Antimicrobial Start: 06-22-2017 End: 02-09-2018 Sulfamethoxazole-Trimethopri m 1 TABLET tablet Discontinued 1 {tbl} PO DAILY June 22, 2017 12:00am February 09, 2018 6:46pm Start: 06-22-2017 End: 02-09-2018 take 1 tablet by mouth once daily Sulfamethoxazole-Trimethoprim Discontinu ed 1 TABLET PO DAILY June 21, 2017 11:00pm February 09, 2018 5:46pm traMADol hydrochloride 50 mg oral tablet (12 sources) Opioid Agonist Start: 06-22-2017 End: 09-15-2018 take 1-2 mg by mouth every twelve hours as needed for pain Tramadol 50 MG tablet Discontinued 1 - 2 mg PO EVERY 12 HOURS NEEDED as needed for Pain June 22, 2017 12:00am September 15, 2018 2:37pm Turmeric extract (13 sources) Start: 07-24-2022 End: 08-06-2024 take 1 capsule by mouth once daily Turmeric 400 mg Capsule Discontinued 400 mg PO DAILY July 24, 2022 12:00am August 06, 2024 10:00am supplement Start: 07-24-2022 End: 08-06-2024 take 1 capsule by mouth once daily Turmeric 400 mg Capsule Discontinued 400 mg PO DAILY July 24, 2022 12:00am August 06, 2024 10:00am Start: 07-24-2022 take 400 mg by mouth once henrietta y Turmeric Active 400 MG PO DAILY July 23, 2022 11:00pm Start: 07-24-2022 take 400 mg by mouth once henrietta y Turmeric Active 400 MG PO DAILY July 24, 2022 12:00am take 1500 mg by mout h once daily Turmeric (QC TUMERIC COMPLEX PO) Take 1,500 mg by mouth daily. 0 Active ubidecarenone 100 mg oral capsule (18 sources) Start: 08-06-2024 End: 01-01-2025 Coenzyme Q10 (Coq-10) 100 mg capsule Discontinued 200 mg PO DAILY August 06, 2024 9:59am January 01, 2025 3:00pm antioxidant Start: 07-24-2022 End: 08-06-2024 Coenzyme Q10 (Coq-10) 100 mg Capsule Discontinued 100 mg PO DAILY July 24, 2022 12:00am August 06, 2024 10:01am antioxidant Start: 07-24-2022 Coenzyme Q10 ( Coq-10) 100 mg Capsule Active 100 MG PO 3 times daily July 24, 2022 12:00am warfarin sodium 4 mg oral tablet (20 sources) Vitamin K Antagonist Start: 04-30-2024 End: 07-14-2025 Warfarin 4 mg tablet Discontinued 4 mg PO .COMPLEX 60 1 October 16, 2024 3:00pm July 14, 2025 9:33am Pt is OUT: Awaiting Mail Order RX!! 8 mg (2 tabs)Mon-Fri; 4mg (1 tab) Sat/Sun; or as directed Please contact the information source for Protocol details. Problems Active Problems Problem Classification Problem Date Documented Date Episodic/Chronic Acute bronchitis (9 sources) Acute bronchitis co-occurrent with wheeze; Translations: [Acute bronchitis, unspecified] 09-03-2022 Episodic Cardiac dysrhythmias (20 sources) Atrial flutter; Translations: [Unspecified atrial flutter] Onset: 03-28-2025 09-09-2023 Chronic Chronic obstructive pulmonary disease and bronchiectasis (6 sources) Moderate chronic obstructive pulmonary disease; Translations: [Chronic obstructive pulmonary disease, unspecified] 03-09-2025 Chronic Comment on above: FEV1 58% of predicte d Congestive heart failure; nonhypertensive (20 sources) Chronic diastolic heart failure; Translations: [Chronic diastolic (congestive) heart failure] Onset: 03-12-2025 Chronic Diabetes mellitus without complication (15 sources) Diabetes mellitus; Translations: [Type 2 diabetes mellitus without complications] Chronic Disorders of lipid metabolism (15 sources) Hyperlipidemia; Translations: [Hyperlipidemia, unspecified] Chronic Esophageal disorders (20 sources) Gastroesophageal reflux disease; Translations: [Gastro-esophageal reflux disease without esophagitis] Chronic Nonspecific chest pain (9 sources) Tight chest; Translations: [Other chest pain] 09-03-2022 Episodic Other aftercare (7 sources) Long-term current use of anticoagulant; Translations: [setter out (current) use of anticoagulants] 04-30-2024 Episodic Other and ill-defined heart disease (2 sources) Left ventricular systolic dysfunction; Translations: [Other ill-defined heart diseases] 07-14-2025 Chronic Other connective tissue disease (11 sources) Swelling of lower limb; Translations: [Other specified soft tissue disorders] 09-09-2023 Episodic Other connective tissue disease (4 sources) Other specified soft tissue disorders; Translations: [Swelling of limb] Episodic Other diseases of veins and lymphatics (11 sources) Peripheral venous insufficiency; Translations: [Venous insufficiency (chronic) (peripheral)] 09-09-2023 Episodic Other diseases of veins and lymphatics (4 sources) Venous insufficiency (chronic) (peripheral); Translations: [Venous (peripheral) insufficiency, unspecified] Episodic Other lower respiratory disease (18 sources) Dyspnea; Translations: [Dyspnea, unspecified] 09-09-2023 Episodic Other lower respiratory disease (18 sources) Restrictive lung disease; Translations: [Other disorders of lung] 09-09-2023 Episodic Other lower respiratory disease (4 sources) Other disorders of lung; Translations: [Other diseases of lung, not elsewhere classified] Episodic Other lower respiratory disease (2 sources) Dyspnea, unspecified; Translations: [Other respiratory abnormalities] 09-01-2023 Episodic Other nutritional; endocrine; and metabolic disorders (11 sources) Morbid obesity; Translations: [Morbid (severe) obesity due to excess calories] 09-09-2023 Chronic Other nutritional; endocrine; and metabolic disorders (18 sources) Obesity; Translations: [Obesity, unspecified] 09-09-2023 Chronic Other nutritional; endocrine; and metabolic disorders (4 sources) Morbid (severe) obesity due to excess calories; Translations: [Morbid obesity] Chronic Other screening for suspected conditions (not mental disorders or infectious disease) (14 sources) D-dimer above reference range; Translations: [Other specified abnormal findings of blood chemistry] Onset: 12-31-2024 02-09-2018 Episodic Other screening for suspected conditions (not mental disorders or infectious disease) (1 source) No current problems or disability 06-28-2017 Pancreatic disorders (not diabetes) (20 sources) Mass of pancreas; Translations: [Other specified diseases of pancreas] 09-05-2023 Episodic Pulmonary heart disease (15 sources) Pulmonary arterial hypertension; Translations: [Secondary pulmonary arterial hypertension] Chronic Rehabilitation care; fitting of prostheses; and adjustment of devices (1 source) Encounter for fitting and adjustment of other specified devices; Translations: [Encounter for fitting and adjustment of other specified devices] Onset: 02-05-2025 Chronic Residual codes; unclassified (18 sources) Obstructive sleep apnea syndrome; Translations: [Obstructive sleep apnea (adult) (pediatric)] 09-09-2023 Chronic Comment on above: CPAP 16 cm of water 2L O2 residual AHI 2.7 Residual codes; unclassified (11 sources) Hypersomnia; Translations: [Hypersomnia, unspecified] 09-09-2023 Chronic Residual codes; unclassified (4 sources) Hypersomnia, unspecified; Translations: [Hypersomnia, unspecified] Chronic Residual codes; unclassified (6 sources) Obstructive sleep apnea (adult) (pediatric); Translations: [Obstructive sleep apnea (adult)(pediatric)] Chronic Residual codes; unclassified (11 sources) Edema of left lower limb; Translations: [Localized edema] 06-21-2022 Episodic Residual codes; unclassified (11 sources) Edema of lower extremity; Translations: [Localized edema] 09-09-2023 Episodic Residual codes; unclassified (4 sources) Localized edema; Translations: [Edema] Episodic Respiratory failure; insufficiency; arrest (adult) (15 sources) Dependence on nocturnal oxygen therapy; Translations: [Dependence on supplemental oxygen] Chronic Respiratory failure; insufficiency; arrest (adult) (11 sources) Acute hypoxemic and hypercapnic respiratory failure; Translations: [Acute respiratory failure with hypoxia] 02-09-2018 Episodic Septicemia (except in labor) (11 sources) Sepsis; Translations: [Sepsis, unspecified organism] 02-09-2018 Episodic Substance-related disorders (20 sources) Nicotine dependence; Translations: [Nicotine dependence, cigarettes, uncomplicated] Onset: 01-01-2025 Chronic Comment on above: Repeat LDCT November 2025, ordered Unclassified (3 sources) No additional problems on file Unclassified (1 source) Cough, unspecified; Translations: [Cough, unspecified] Onset: 12-16-2024 Unclassified (1 source) Supraventricular tachycardia, unspecified; Translations: [Supraventricular tachycardia, unspecified] Onset: 08-06-2024 Varicose veins of lower extremity (15 sources) Varicose vein of leg with phlebitis; Translations: [Varicose veins of right lower extremity with inflammation] Episodic Past or Other Problems Problem Classification Problem Date Documented Date Episodic/Chronic Cardiac dysrhythmias (20 sources) Bradycardia; Translations: [Bradycardia, unspecified] Onset: 08-06-2024 09-09-2023 Episodic Other aftercare (1 source) setter out (current) use of anticoagulants; Translations: [residential (current) use of anticoagulants] Onset: 04-24-2025 Episodic Other lower respiratory disease (2 sources) Shortness of breath; Translations: [Shortness of breath] Onset: 02-04-2025 Episodic Pneumonia (except that caused by tuberculosis or sexually transmitted disease) (20 sources) Community acquired pneumonia; Translations: [Pneumonia, unspecified organism] Onset: 08-13-2024 02-09-2018 Episodic Unclassified (11 sources) skin graft/muscle reconstruction of legs 10-04-2021 Results Test Name Value Interpretation Reference Range Facility Cardiology Visit Reporton Cardiology Visit Report [facility] [address] [place] [address] OFFICE VISIT Date of Service: 07/09/25 MR#: [id number] Acct: [id number] Name: YANDEL KRUGER Rep #: [id number] : 1965 Provider: TOMMIE Jordan Age/Sex: 60/M Location: [facility] Status: Signed HPI HPI History of Present Illness Details: Yandel Kruger is a 60-year-old gentleman who presents here today for a cardiovascular follow-up. He does have a history of chronic diastolic heart failure. He was admitted to [facility] on 08/29/2023 for new onset of atrial flutter. He was placed on a Cardizem drip. He did have an echocardiogram which demonstrated an ejection fraction of 50% with stage III diastolic dysfunction with a hypokinetic apex. 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 Because of this he was not started on anticoagulation at that time. 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 He states he is to follow up in 1 year. Echocardiogram done in March 2025 demonstrated a decreased in his ejection fraction of 35%. 24-hour Holter monitor demonstrated an average heart rate of 97 bpm, minimum heart rate 59 bpm, maximum heart rate 145 bpm 100% atrial fibrillation was noted. He did have 1 wide-complex ventricular run of 9 beats noted. Daughter was on the phone via [employer] during her office visit. Overall patient is not symptomatic with his atrial fibrillation. He does not have any symptoms of congestive heart failure. Intake Vital Signs 03/12/25 07:30 08/15/25 08:09 Height 5 ft 9 in 5 ft 9 in Weight: 292 lb BMI 43.1 BP 107/62 Blood Pressure Location Lt brachial Position Sitting Respiration 20 H Pulse 118 H Pulse Source Monitor Pulse Oximetry (%) 92 Intake Visit Reasons: 4 M FU Fish Warden Required: No Is patient in pain?: No Allergies aspirin Allergy (Severe, Verified 07/09/25 08:08) Swelling NSAIDS (Non-Steroidal Anti-Inflamma Allergy (Verified 07/09/25 08:08) Swelling Medications ???Medication ???Instructions ???Recorded ???Confirmed ???Type multivitamin 1 ea PO DAILY supplement 06/22/17 07/09/25 History omeprazole 20 mg capsule,delayed 20 mg PO QDAY acid reflux 02/09/18 07/09/25 History release potassium chloride 20 mEq 20 meq PO QDAY supplement 02/09/18 07/09/25 History tablet,extended release cholecalciferol (vitamin D3) 50 2,000 unit PO QDAY supplement 01/2307/09/25 History mcg (2,000 unit) capsule cyanocobalamin (vitamin B-12) 2,500 mcg PO Q OTHER DAY supplemen t 11/06/21 07/09/25 History 2,500 mcg tablet rosuvastatin 40 mg tablet 40 mg PO DAILY cholesterol 2 07/09/25 History acetaminophen 500 mg tablet 500 mg PO TID PRN PRN Pain 2 07/09/25 History albuterol sulfate 90 mcg/actuation 2 inh inhalation Q4-6H PRN 03/0407/09/25 History aerosol inhaler shortness of breath or wheezing needle (disp) 32 gauge 32 gauge x #100 ea 08/13/24 07/09/25 Rx 5/16 furosemide 40 mg tablet 80 mg PO BID diuresis 10/14/24 History bupropion HCl 150 mg 24 hr tablet, 150 mg PO DAILY 01/01/25 5 History extended release empagliflozin 10 mg tablet [address] Hong changed 07/09/25 History (Jardiance) Farxiga to Jardiance spironolactone 25 mg tablet 25 mg PO DAILY #90 tabs 02/10/25 0 07/09/25 Rx metoprolol tartrate 100 mg tablet 100 mg PO BID #180 tabs 04/30/25 07/09/25 Rx diltiazem HCl 120 mg capsule,24 120 mg PO BID #180 caps 07/09/25 0 07/09/25 Rx hr,extended release apixaban 5 mg tablet (Eliquis) 5 mg PO .COMPLEX #200 tabs 5 Rx Ejection fraction %: 35 Have you fallen in the past year?: No [facility] Medical History (Updated 07/14/25 @ 17:54 by Eri Gutierrez PA, PA) Left ventricular systolic dysfunction Chronic pain Pneumonia Rheumatoid arthritis Smoker CPAP (continuous positive airway pressure) dependence Sleep apnea On home oxygen therapy COPD (chronic obstructive pulmonary disease) Atrial fibrillation Congestive heart failure (CHF) Chest pain setter out (current) use of anticoagulants Pancreatic cyst Wears dentures Wears glasses Former smoker CPAP (continuous positive airway pressure) dependence On home oxygen therapy Mass of pancreas Atrial flutter Chronic venous insufficiency Varicose veins of both lower extremities with inflammation Gastroesophageal reflux disease Dependence on nocturnal oxygen therapy Diabetes mellitus Morbid obesity Leg edema Leg swelling Mild pulmonary arterial systolic hypertension Dyspnea DEBI (obstructive sleep apnea) Hypersomnia Chronic diastolic heart failure Restrictive lung disease Obesity GERD (gastroesophage (more content not included)... Normal [facility] normalized rat io (INR) calculationOrdered By: Maral Guy on 07-09-2025 INR Coag (Bld) [Relative time] 1.7 {INR} [facility] Prothrombin Time w/INRon INR Coag (PPP) [Relative time] 1.7 {INR} Normal [facility] Comment on above: Performed By: #### L 500.4050, L100.0100, [id number] #### [facility] [address] [place], [place], [id number] PT Coag (PPP) [Time] 20.2 s High 11.7-14.9 [facility] Comment on above: Performed By: #### L 500.4050, L100.0100, [id number] #### [facility] [address] [place], [address] Prothrombin timeOrdered By: Maral Guy on 07-09-2025 PT Coag (PPP) [Time] 20.2 s High 11.7-14.9 [facility] Bilirubin directOrdered By: Eri Gutierrez on 06-26-2025 Bilirubin.direct [Mass/Vol] 0.29 mg/dL 0.00-0.30 [facility] Bilirubin, totalOrdered By: Eri Gutierrez on 06-26-2025 Bilirubin [Mass/Vol] 0.72 mg/dL 0.00-1.30 [facility] Calculated very low density lipoprotein (VLDL) cholesterol measurementOrdered By: Eri Gutierrez on 06-26-2025 Calculated very low density lipoprotein (VLDL) cholesterol measurement 33 mg/dL 5-40 [facility] normalized rat io (INR) calculationOrdered By: Eri Gutierrez on 06-26-2025 INR Coag (Bld) [Relative time] 2.2 {INR} [facility] LDL calc ser/plasOrdered By: Eri Gutierrez on 06-26-2025 Cholesterol in LDL [Mass/Vol] 76 mg/dL [facility] Comment on above: Qbsnpmiwtp=317-059 m g/dL & Higher Xzbs=977 mg/dL or greaterFriedwald Equation for LDL-C Laboratory - Chemistry and C hemistry - challengeOrdered By: Eri Gutierrez on 06-26-2025 AST [Catalytic activity/Vol] 17 U/L <38 [facility] Lipid Profileon 06-26-2025 CHOL:HDL 3.99 Normal [facility] Comment on above: Order Comment: Comme nts: Do at same time as PT/INR Performed By: #### L 500.4050, L100.0100, [id number] #### [facility] [address] [place], [address] Cholesterol [Mass/Vol] 145 mg/dL Normal <=200 [facility] Comment on above: Order Comment: Comme nts: Do at same time as PT/INR Result Comment: Chol esterol level, Desirable <200 mg/dL Borderline high cholesterol 200-239 mg/dL High cholesterol >=240 mg/dL Recommendations of the NCEP Adult Treatment Panel for the following risk-cutoff thresholds for the [place] population. Performed By: #### L 500.4050, L100.0100, [id number] #### [facility] [address] [place], [address] Cholesterol in HDL [Mass/Vol] 36 mg/dL Low [facility] Comment on above: Order Comment: Comme nts: Do at same time as PT/INR Result Comment: Stephanie onal Cholesterol Education Program (NCEP) guidelines: <40 mg/dL: Low HDL-cholesterol (major risk factor for CHD) >= 60 mg/dL: High HDL-cholesterol (negative risk factor for CHD) HDL-cholesterol is affected by a number of factors, e.g. smoking, exercise, hormones, sex and age. Performed By: #### L 500.4050, L100.0100, [id number] #### [facility] [address] [place], [address] Cholesterol in LDL [Mass/Vol] 76 mg/dL Normal [facility] Comment on above: Order Comment: Comme nts: Do at same time as PT/INR Result Comment: Bord bxomws=994-370 mg/dL Higher Ipcr=645 mg/dL or greater Friedwald Equation for LDL-C Performed By: #### L 500.4050, L100.0100, [id number] #### [facility] [address] [place], [address] Cholesterol in VLDL [Mass/Vol] 33 mg/dL Normal 5-40 [facility] Comment on above: Order Comment: Comme nts: Do at same time as PT/INR Performed By: #### L 500.4050, L100.0100, [id number] #### [facility] [address] [place], [address] Triglyceride [Mass/Vol] 164 mg/dL Normal [facility] Comment on above: Order Comment: Comme nts: Do at same time as PT/INR Result Comment: The drugs N-Acetylcysteine and Metamizole may falsely depress this assay. Normal range: <150 mg/dL Borderline High: 150-199 mg/dL High: 200-499 mg/dL Very High: >500 mg/dL Performed By: #### L 500.4050, L100.0100, [id number] #### [facility] [address] [place], [address] Liver Profileon 06-26-2025 Albumin [Mass/Vol] 4.1 g/dL Normal 3.4-4.8 [facility] Comment on above: Order Comment: Comme nts: Do at same time as PT/INRDraw at same time as lipid hepatic labs Performed By: #### L 500.4050, L100.0100, [id number] #### [facility] [address] [place], [address] ALK PHOS 83 U/L Normal 40-129 [facility] Comment on above: Order Comment: Comme nts: Do at same time as PT/INRDraw at same time as lipid hepatic labs Performed By: #### L 500.4050, L100.0100, [id number] #### [facility] [address] [place], [address] ALT [Catalytic activity/Vol] 15 U/L Normal <=46 [facility] Comment on above: Order Comment: Comme nts: Do at same time as PT/INRDraw at same time as lipid hepatic labs Performed By: #### L 500.4050, L100.0100, [id number] #### [facility] [address] [place], [address] AST [Catalytic activity/Vol] 17 U/L Normal <=37 [facility] Comment on above: Order Comment: Comme nts: Do at same time as PT/INRDraw at same time as lipid hepatic labs Performed By: #### L 500.4050, L100.0100, [id number] #### [facility] [address] [place], [address] Bilirubin [Mass/Vol] 0.72 mg/dL Normal 0.00-1.30 [facility] Comment on above: Order Comment: Comme nts: Do at same time as PT/INRDraw at same time as lipid hepatic labs Performed By: #### L 500.4050, L100.0100, [id number] #### [facility] [address] [place], [address] Bilirubin.direct [Mass/Vol] 0.29 mg/dL Normal 0.00-0.30 [facility] Comment on above: Order Comment: Comme nts: Do at same time as PT/INRDraw at same time as lipid hepatic labs Performed By: #### L 500.4050, L100.0100, [id number] #### [facility] [address] [place], [address] Globulin (S) [Mass/Vol] 3.1 g/dL Normal 2.2-4.2 [facility] Comment on above: Order Comment: Comme nts: Do at same time as PT/INRDraw at same time as lipid hepatic labs Performed By: #### L 500.4050, L100.0100, [id number] #### [facility] [address] [place], [address] T PROT 7.2 g/dL Normal 5.9-8.4 [facility] Comment on above: Order Comment: Comme nts: Do at same time as PT/INRDraw at same time as lipid hepatic labs Performed By: #### L 500.4050, L100.0100, [id number] #### [facility] [address] [place], [address] Prothrombin Time w/INRon INR Coag (PPP) [Relative time] 2.2 {INR} Normal [facility] Comment on above: Order Comment: Comme nts: Draw at same time as lipid hepatic labs Performed By: #### L 500.4050, L100.0100, [id number] #### [facility] [address] [place], [address] PT Coag (PPP) [Time] 24.7 s High 11.7-14.9 [facility] Comment on above: Order Comment: Comme nts: Draw at same time as lipid hepatic labs Performed By: #### L 500.4050, L100.0100, [id number] #### [facility] [address] [place], [address] Prothrombin timeOrdered By: Eri Gutierrez on 06-26-2025 PT Coag (PPP) [Time] 24.7 s High 11.7-14.9 [facility] Screening total cholesterol/ high density lipoprotein (HDL) cholesterol ratioOrdered By: Eri Gutierrez on 06-26-2025 Cholesterol.total/Choles terol in HDL [Mass ratio] 3.99 {ratio} [facility] Serum globulin measurementOr dered By: Eri Gutierrez on 06-26-2025 Globulin (S) [Mass/Vol] 3.1 g/dL 2.2-4.2 [facility] Serum or plasma alanine goodman otransferase (ALT) measurementOrdered By: Eri Gutierrez on 06-26-2025 ALT [Catalytic activity/Vol] 15 U/L <47 [facility] Serum or plasma albumin filippo urement (mass/volume)Ordered By: Eri Gutierrez on 06-26-2025 Albumin [Mass/Vol] 4.1 g/dL 3.4-4.8 [facility] Serum or plasma alkaline rosa sphatase measurementOrdered By: Eri Gutierrez on 06-26-2025 ALP [Catalytic activity/Vol] 83 U/L 40-129 [facility] Serum or plasma cholesterol in HDL measurement (mass/volume)Ordered By: Eri Gutierrez on 06-26-2025 Cholesterol in HDL [Mass/Vol] 36 mg/dL Low >40 [facility] Comment on above: National Cholesterol Education Program (NCEP) guidelines:<40 mg/dL: Low HDL-cholesterol (major risk factor for CHD)>= 60 mg/dL: High HDL-cholesterol (negative risk factor for CHD)HDL-cholesterol is affected by a number of factors, e.g. smoking, exercise, hormones, sex and age. Serum or plasma cholesterol measurement (mass/volume)Ordered By: Eri Gutierrez on 06-26-2025 Cholesterol [Mass/Vol] 145 mg/dL <201 [facility] Comment on above: Cholesterol level, D esirable <200 mg/dLBorderline high cholesterol 200-239 mg/dLHigh cholesterol >=240 mg/dLRecommendations of the NCEP Adult Treatment Panel for the following risk-cutoff thresholds for the [place] population. Total proteinOrdered By: Dayton Gutierrez on 06-26-2025 Protein [Mass/Vol] 7.2 g/dL 5.9-8.4 [facility] Triglycerides measurementOrd ered By: Eri Gutierrez on 06-26-2025 Triglyceride [Mass/Vol] 164 mg/dL <199 [facility] Comment on above: The drugs N-Acetylcy steine and Metamizole may falsely depress this assay. Normal range: <150 mg/dLBorderline High: 150-199 mg/dLHigh: 200-499 mg/dLVery High: >500 mg/dL International normalized rat io (INR) calculationOrdered By: Maral Guy on 04-15-2025 INR Coag (Bld) [Relative time] 2.6 {INR} [facility] Prothrombin Time w/INRon INR Coag (PPP) [Relative time] 2.6 {INR} Normal [facility] Comment on above: Performed By: #### L 500.4050, L100.0100, L503.6620 #### [facility] [address] [place], [address] PT Coag (PPP) [Time] 28.3 s High 11.7-14.9 [facility] Comment on above: Performed By: #### L 500.4050, L100.0100, L503.6620 #### [facility] [address] [place], [address] Prothrombin timeOrdered By: Maral Guy on 04-15-2025 PT Coag (PPP) [Time] 28.3 s High 11.7-14.9 [facility] Absolute lymphocyte countOrd ered By: Lilia Hong on 04-02-2025 Lymphocytes Auto (Unsp spec) [#/Vol] 2.80 10*3/uL 0.83-4.51 [facility] Absolute neutrophil countOrd ered By: Lilia Hong on 04-02-2025 Neutrophils (Bld) [#/Vol] 4.9 10*3/uL 2.0-7.7 [facility] Anion gap in Serum or Plasma Ordered By: Lilia Hong on 04-02-2025 Anion gap [Moles/Vol] 13 mmol/L 5-15 [facility] Automated lymphocyte count a s percentage of total leukocytesOrdered By: Lilia Hong on 04-02-2025 Lymphocytes/100 WBC Auto (Unsp spec) 32.9 % 19-41 [facility] BUN/creatinine ratioOrdered By: Lilia Hong on 04-02-2025 Urea nitrogen/Creatinine [Mass ratio] 21.5 mg/mg High 10-20 [facility] Basophil percentageOrdered B y: Lilia Hong on 04-02-2025 Basophils/100 WBC (Bld) 0.5 % 0-1 [facility] Bilirubin, totalOrdered By: Lilia Hong on 04-02-2025 Bilirubin [Mass/Vol] 0.67 mg/dL 0.00-1.30 [facility] CBC W/Diff, Automatedon Absolute Lymph 2.80 X10 3/uL Normal 0.83-4.51 [facility] Comment on above: Order Comment: Order Date: 11/04/24Order Info: 0184-1 - CBCD Performed By: #### L 500.4050, L100.0100, L503.6620 #### [facility] [address] [place], [place], [address] Absolute Neut 4.9 X10 3/uL Normal 2.0-7.7 [facility] Comment on above: Order Comment: Order Date: 11/04/24Order Info: 0184-1 - CBCD Performed By: #### L 500.4050, L100.0100, L503.6620 #### [facility] [address] [place], [address] Basophils/100 WBC (Bld) 0.5 % Normal 0-1 [facility] Comment on above: Order Comment: Order Date: 11/04/24Order Info: 0184-1 - CBCD Performed By: #### L 500.4050, L100.0100, L503.6620 #### [facility] [address] [place], [address] Eosinophils/100 WBC (Bld) 1.8 % Normal 0-5 [facility] Comment on above: Order Comment: Order Date: 11/04/24Order Info: 0184-1 - CBCD Performed By: #### L 500.4050, L100.0100, L503.6620 #### [facility] [address] [place], [address] Erythrocyte distribution width (RBC) [Ratio] 14.0 % Normal 11.6-14.6 [facility] Comment on above: Order Comment: Order Date: 11/04/24Order Info: 0184-1 - CBCD Performed By: #### L 500.4050, L100.0100, L503.6620 #### [facility] [address] [place], [address] Hematocrit (Bld) [Volume fraction] 48.9 % Normal 40-54 [facility] Comment on above: Order Comment: Order Date: 11/04/24Order Info: 0184-1 - CBCD Performed By: #### L 500.4050, L100.0100, L503.6620 #### [facility] [address] [place], [address] Hemoglobin (Bld) [Mass/Vol] 15.8 g/dL Normal 13.0-16.5 [facility] Comment on above: Order Comment: Order Date: 11/04/24Order Info: 018- - CBCD Performed By: #### L 500.4050, L100.0100, L503.6620 #### [facility] [address] [place], [address] IG% 0.500 Normal 0.0-0.9 [facility] Comment on above: Order Comment: Order Date: 11/04/24Order Info: 183- - CBCD Result Comment: IG% - Immature Granulocytes (promyelocytes, myelocytes and metamyelocytes) > 1% indicates that a LEFT SHIFT is Present. Performed By: #### L 500.4050, L100.0100, L503.6620 #### [facility] [address] [place], [address] Lymphocytes/100 WBC (Bld) 32.9 % Normal 19-41 [facility] Comment on above: Order Comment: Order Date: 11/04/24Order Info: 018- - CBCD Performed By: #### L 500.4050, L100.0100, L503.6620 #### [facility] [address] [place], [address] MCH (RBC) [Entitic mass] 27.1 pg Normal 27.0-32.0 [facility] Comment on above: Order Comment: Order Date: 11/04/24Order Info: 018- - CBCD Performed By: #### L 500.4050, L100.0100, L503.6620 #### [facility] [address] [place], [address] MCHC (RBC) [Mass/Vol] 32.3 g/dL Normal 32-36 [facility] Comment on above: Order Comment: Order Date: 11/04/24Order Info: 018- - CBCD Performed By: #### L 500.4050, L100.0100, L503.6620 #### [facility] [address] [place], [address] MCV (RBC) [Entitic vol] 83.9 fL Normal 80-94 [facility] Comment on above: Order Comment: Order Date: 11/04/24Order Info: 0184-1 - CBCD Performed By: #### L 500.4050, L100.0100, L503.6620 #### [facility] [address] [place], [address] Monocytes/100 WBC (Bld) 6.6 % Normal 0-10 [facility] Comment on above: Order Comment: Order Date: 11/04/24Order Info: 0184- - CBCD Performed By: #### L 500.4050, L100.0100, L503.6620 #### [facility] [address] [place], [address] Neutrophils/100 WBC (Bld) 57.7 % Normal 47-70 [facility] Comment on above: Order Comment: Order Date: 11/04/24Order Info: 0184-1 - CBCD Performed By: #### L 500.4050, L100.0100, L503.6620 #### [facility] [address] [place], [address] Nucleated RBC (Bld) [#/Vol] 0 10*3/uL Normal 0-5 [facility] Comment on above: Order Comment: Order Date: 11/04/24Order Info: 0184-1 - CBCD Performed By: #### L 500.4050, L100.0100, L503.6620 #### [facility] [address] [place], [address] Platelet mean volume (Bld) [Entitic vol] 10.0 fL Normal 6.2-12.0 [facility] Comment on above: Order Comment: Order Date: 11/04/24Order Info: 0184-1 - CBCD Performed By: #### L 500.4050, L100.0100, L503.6620 #### [facility] [address] [place], [address] Platelets (Bld) [#/Vol] 179 10*3/uL Normal 150-450 [facility] Comment on above: Order Comment: Order Date: 11/04/24Order Info: 4-1 - CBCD Performed By: #### L 500.4050, L100.0100, L503.6620 #### [facility] [address] [place], [address] RBC (Bld) [#/Vol] 5.83 10*6/uL Normal 4.6-6.2 [facility] Comment on above: Order Comment: Order Date: 11/04/24Order Info: 183- - CBCD Performed By: #### L 500.4050, L100.0100, L503.6620 #### [facility] [address] [place], [address] RDW SD 42.1 fl Normal 35.1-43.9 [facility] Comment on above: Order Comment: Order Date: 11/04/24Order Info: 183- - CBCD Performed By: #### L 500.4050, L100.0100, L503.6620 #### [facility] [address] [place], [address] WBC (Bld) [#/Vol] 8.5 10*3/uL Normal 4.4-11.0 [facility] Comment on above: Order Comment: Order Date: 11/04/24Order Info: 018-1 - CBCD Performed By: #### L 500.4050, L100.0100, L503.6620 #### [facility] [address] [place], [address] Carbon dioxide, total [Moles /volume] in Central venous bloodOrdered By: Lilia Hong on 04-02-2025 CO2 [Moles/Vol] 27.9 mmol/L 21.0-32.0 [facility] Chloride assayOrdered By: Miguel Hong on 04-02-2025 Chloride [Moles/Vol] 98 mmol/L 98-108 [facility] Comprehensive Metabolic Prof ilon 04-02-2025 Albumin [Mass/Vol] 4.4 g/dL Normal 3.4-4.8 [facility] Comment on above: Order Comment: Order Date: 09/10/24 Order Info: 06 - BMP Performed By: #### L 500.2500 #### [facility] [address] [place], [address] Albumin/Globulin [Mass ratio] 1.2 {ratio} Normal 0.9-2.4 [facility] Comment on above: Order Comment: Order Date: 09/10/24 Order Info: 06 - BMP Performed By: #### L 500.2500 #### [facility] [address] [place], [address] ALK PHOS 91 U/L Normal 40-129 [facility] Comment on above: Order Comment: Order Date: 09/10/24 Order Info: 06 - BMP Performed By: #### L 500.2500 #### [facility] [address] [place], [address] ALT [Catalytic activity/Vol] 14 U/L Normal <=46 [facility] Comment on above: Order Comment: Order Date: 09/10/24 Order Info: 0667 - BMP Performed By: #### L 500.2500 #### [facility] [address] [place], [address] AST [Catalytic activity/Vol] 24 U/L Normal <=37 [facility] Comment on above: Order Comment: Order Date: 09/10/24 Order Info: 0667- - BMP Result Comment: Hemo lysis present, Results??could be affected. ?? Performed By: #### L 500.2500 #### [facility] [address] [place], [address] Bilirubin [Mass/Vol] 0.67 mg/dL Normal 0.00-1.30 [facility] Comment on above: Order Comment: Order Date: 09/10/24 Order Info: 666-11 - BMP Performed By: #### L 500.2500 #### [facility] [address] [place], [address] BUN/CRE 21.5 RATIO High 10-20 [facility] Comment on above: Order Comment: Order Date: 09/10/24 Order Info: 666-11 - BMP Performed By: #### L 500.2500 #### [facility] [address] [place], [address] Calcium [Mass/Vol] 9.6 mg/dL Normal 7.6-11.0 [facility] Comment on above: Order Comment: Order Date: 09/10/24 Order Info: 666-11 - BMP Performed By: #### L 500.2500 #### [facility] [address] [place], [address] Chloride [Moles/Vol] 98 mmol/L Normal 98-108 [facility] Comment on above: Order Comment: Order Date: 09/10/24 Order Info: 666-11 - BMP Performed By: #### L 500.2500 #### [facility] [address] [place], [address] CO2 [Moles/Vol] 27.9 mmol/L Normal 21.0-32.0 [facility] Comment on above: Order Comment: Order Date: 09/10/24 Order Info: 666-11 - BMP Performed By: #### L 500.2500 #### [facility] [address] [place], [address] Creatinine [Mass/Vol] 1.13 mg/dL Normal 0.70-1.20 [facility] Comment on above: Order Comment: Order Date: 09/10/24 Order Info: 666-11 - BMP Performed By: #### L 500.2500 #### [facility] [address] [place], [address] GAP 13 Normal 5-15 [facility] Comment on above: Order Comment: Order Date: 09/10/24 Order Info: 666-11 - BMP Performed By: #### L 500.2500 #### [facility] [address] [place], [address] GFR/1.73 sq M.predicted among non-blacks MDRD (S/P/Bld) [Vol rate/Area] 74 mL/min/{1.73_m2} Normal >60 [facility] Comment on above: Order Comment: Order Date: 09/10/24 Order Info: 666-11 - BMP Result Comment: mL/m in/1.73m2 CKD-EPI Creatinine Equation (2020) Performed By: #### L 500.2500 #### [facility] [address] [place], [address] Globulin (S) [Mass/Vol] 3.6 g/dL Normal 2.2-4.2 [facility] Comment on above: Order Comment: Order Date: 09/10/24 Order Info: 666-11 - BMP Performed By: #### L 500.2500 #### [facility] [address] [place], [address] Glucose [Mass/Vol] 265 mg/dL High 70-99 [facility] Comment on above: Order Comment: Order Date: 09/10/24 Order Info: 666-11 - BMP Performed By: #### L 500.2500 #### [facility] [address] [place], [address] Potassium [Moles/Vol] 4.1 mmol/L Normal 3.3-5.1 [facility] Comment on above: Order Comment: Order Date: 09/10/24 Order Info: 06- - BMP Result Comment: Hemo lysis present, Results??could be affected. ?? Performed By: #### L 500.2500 #### [facility] [address] [place], [address] Sodium [Moles/Vol] 139 mmol/L Normal 133-145 [facility] Comment on above: Order Comment: Order Date: 09/10/24 Order Info: 0667- - BMP Performed By: #### L 500.2500 #### [facility] [address] [place], [address] T PROT 8.0 g/dL Normal 5.9-8.4 [facility] Comment on above: Order Comment: Order Date: 09/10/24 Order Info: 666-11 - BMP Performed By: #### L 500.2500 #### [facility] [address] [place], [address] Urea nitrogen [Mass/Vol] 24 mg/dL High 4-19 [facility] Comment on above: Order Comment: Order Date: 09/10/24 Order Info: 67 - BMP Performed By: #### L 500.2500 #### [facility] [address] [place], [address] Eosinophil percentageOrdered By: Lilia Hong on 04-02-2025 Eosinophils/100 WBC (Bld) 1.8 % 0-5 [facility] Erythrocyte distribution wid th ratioOrdered By: Lilia Hong on 04-02-2025 Erythrocyte distribution width (RBC) [Ratio] 14.0 % 11.6-14.6 [facility] Erythrocyte distribution wid th standard deviationOrdered By: Lilia Hong on 04-02-2025 Erythrocyte distribution width (RBC) [Ratio] 42.1 fl 35.1-43.9 [facility] Glomerular filtration rate ( GFR) estimation/1.73 sq m using serum, plasma, or whole bOrdered By: Lilia Hong on 04-02-2025 GFR/1.73 sq M.predicted among non-blacks MDRD (S/P/Bld) [Vol rate/Area] 74 mL/min/{1.73_m2} >60 [facility] Comment on above: mL/min/1.73m2 CKD-EP I Creatinine Equation (2020) Hematocrit Auto (Bld) [Volum e fraction]Ordered By: Lilia Hong on 04-02-2025 Hematocrit (Bld) [Volume fraction] 48.9 % 40-54 [facility] Hemoglobin measurementOrdere d By: Lilia Hong on 04-02-2025 Hemoglobin (Bld) [Mass/Vol] 15.8 g/dL 13.0-16.5 [facility] Immature granulocytes/100 WB C Auto (Bld)Ordered By: Lilia Hong on 04-02-2025 Immature granulocytes/100 WBC (Bld) 0.500 % 0.0-0.9 [facility] Comment on above: IG% - Immature Granu locytes (promyelocytes, myelocytes and metamyelocytes) > 1% indicates that a LEFT SHIFT is Present. L503.7505on 04-02-2025 Natriuretic peptide B (Bld) [Mass/Vol] 1094 pg/mL High <=900 [facility] Comment on above: Order Comment: Order Date: 11/04/24Order Info: 0786-1 - CMP Result Comment: Hear t Failure Unlikely: < 300 pg/mL Heart Failure Likely < 50 Years: > 450 pg/mL 50-75 Years: > 900 pg/mL >75 Years: > 1800 pg/mL Performed By: #### L 500.4050, L100.0100, L503.6620 #### [facility] [place], [address] Laboratory - Chemistry and C hemistry - challengeOrdered By: Lilia Hong on 04-02-2025 AST [Catalytic activity/Vol] 24 U/L <38 [facility] Comment on above: Hemolysis present, R esults could be affected. MCV (mean corpuscular volume ) determinationOrdered By: Lilia Hong on 04-02-2025 MCV (RBC) [Entitic vol] 83.9 fL 80-94 [facility] Mean corpuscular hemoglobin (MCH) determinationOrdered By: Lilia Hong on 04-02-2025 MCH (RBC) [Entitic mass] 27.1 pg 27.0-32.0 [facility] Mean corpuscular hemoglobin concentration (MCHC) determinationOrdered By: Lilia Hong on 04-02-2025 MCHC (RBC) [Mass/Vol] 32.3 g/dL 32-36 [facility] Mean platelet volume determi nationOrdered By: Lilia Hong on 04-02-2025 Platelet mean volume (Bld) [Entitic vol] 10.0 fL 6.2-12.0 [facility] Monocyte percentageOrdered B y: Lilia Hong on 04-02-2025 Monocytes/100 WBC (Bld) 6.6 % 0-10 [facility] Natriuretic peptide.B prohor ailyn N-Terminal [Mass/volume] in Serum or PlasmaOrdered By: Lilia Hong on 04-02-2025 Natriuretic peptide.B prohormone N-Terminal [Mass/Vol] 1094 pg/mL High <900 [facility] Comment on above: Heart Failure Unlike ly: < 300 pg/mLHeart Failure Likely< 50 Years: > 450 pg/mL50-75 Years: > 900 pg/mL>75 Years: > 1800 pg/mL Neutrophil percentageOrdered By: Lilia Hong on 04-02-2025 Neutrophils/100 WBC (Bld) 57.7 % 47-70 [facility] Nucleated red blood cell per centageOrdered By: Lilia Hong on 04-02-2025 Nucleated RBC/100 WBC (Bld) [Ratio] 0 % 0-5 [facility] Platelet countOrdered By: Miguel Hong on 04-02-2025 Platelets (Bld) [#/Vol] 179 10*3/uL 150-450 [facility] Potassium measurement (mass/ volume)Ordered By: Lilia Hong on 04-02-2025 Potassium (Unsp spec) [Mass/Vol] 4.1 mmol/L 3.3-5.1 [facility] Comment on above: Hemolysis present, R esults could be affected. RBC Auto (Bld) [#/Vol]Ordere d By: Lilia Hong on 04-02-2025 RBC (Bld) [#/Vol] 5.83 10*6/uL 4.6-6.2 [facility] Serum creatinine measurement (mass/volume)Ordered By: Lilia Hong on 04-02-2025 Creatinine [Mass/Vol] 1.13 mg/dL 0.70-1.20 [facility] Serum globulin measurementOr dered By: Lilia Hong on 04-02-2025 Globulin (S) [Mass/Vol] 3.6 g/dL 2.2-4.2 [facility] Serum glucose measurement (m ass/volume)Ordered By: Lilia Hong on 04-02-2025 Glucose [Mass/Vol] 265 mg/dL High 70-99 [facility] Serum or plasma alanine goodman otransferase (ALT) measurementOrdered By: Lilia Hong on 04-02-2025 ALT [Catalytic activity/Vol] 14 U/L <47 [facility] Serum or plasma albumin filippo urement (mass/volume)Ordered By: Lilia Hong on 04-02-2025 Albumin [Mass/Vol] 4.4 g/dL 3.4-4.8 [facility] Serum or plasma albumin/glob ulin mass ratioOrdered By: Lilia Hong on 04-02-2025 Albumin/Globulin [Mass ratio] 1.2 {ratio} 0.9-2.4 [facility] Serum or plasma alkaline rosa sphatase measurementOrdered By: Lilia Hong on 04-02-2025 ALP [Catalytic activity/Vol] 91 U/L 40-129 [facility] Serum or plasma calcium filippo urement (mass/volume)Ordered By: Lilia Hong on 04-02-2025 Calcium [Mass/Vol] 9.6 mg/dL 7.6-11.0 [facility] Serum or plasma urea nitroge n measurement (mass/volume)Ordered By: Lilia Hong on 04-02-2025 Urea nitrogen [Mass/Vol] 24 mg/dL High 4-19 [facility] Sodium levelOrdered By: Claire Hong on 04-02-2025 Sodium [Moles/Vol] 139 mmol/L 133-145 [facility] Total proteinOrdered By: Thomas Hong on 04-02-2025 Protein [Mass/Vol] 8.0 g/dL 5.9-8.4 [facility] White blood cell (WBC) count Ordered By: Lilia Hong on 04-02-2025 WBC (Bld) [#/Vol] 8.5 10*3/uL 4.4-11.0 [facility] Echo Complete W/ Contraston 04-01-2025 Echo Complete W/ Contrast [facility] [address] [place] [address] Echo Complete W/ Contrast 04/01/25 0806 MR#: [id number] Acct: [id number] Name: YANDEL KRUGER Rep #: [id number] : 1965 60 From: Ethan Stanford MD Attending Dr: TOMMIE Melissa Status: REG CLI Ordering Dr: Eri Gutierrez PA Date: 07/19 Location: [facility] Sex: M C Admitted: Reason For Study Reason For Study: ATRIAL FIB/FLUTTER Procedure This was a 2D Doppler, Color Flow transthoracic echocardiogram. The study was technically difficult. Due to body habitus. Contrast injection was performed. Exam performed in department. Left Ventricle Normal LV size. The left ventricular ejection fraction is 35 %. There is moderate global hypokinesis of the left ventricle. [place] : Severely Hypokinetic. Right Ventricle Normal RV size. Normal systolic function. Atria Normal left atrium. Normal right atrium. Mitral Valve Normal mitral valve. Tricuspid Valve Normal tricuspid valve. Aortic Valve Normal aortic valve. Pulmonic Valve The pulmonic valve is not well visualized. Great Vessels Normal aortic root. Pericardium/Pleural No pericardial effusion. Medication 22 gauge I.V. with prn adaptor inserted into right arm. Diluted definity 2.0ml given slow IV push to enhance endocardial definition. MMode/2D Measurements Calculations LVIDd: 6.0 cm IVSd: 1.0 cm Ao root diam: 3.8 cm LVIDs: 5.2 cm LVPWd: 1.0 cm RVDd: 3.1 cm FS: 13.4 % LAV(MOD-bp): 81.8 ml LVAd ap4: 34.6 cm2 SV(MOD-sp4): 38.5 ml LAV(MOD-bp) Indexed: 33.6 ml/m2 LVLd ap4: 9.3 cm SI(MOD-sp4): 15.8 ml/m2 LAV(MOD-sp2): 81.4 ml EDV(MOD-sp4): 104.6 ml LAV(MOD-sp4): 81.1 ml EDV(sp4-el): 108.9 ml LVAs ap4: 25.3 cm2 LVLs ap4: 7.9 cm ESV(MOD-sp4): 66.2 ml ESV(sp4-el): 69.1 ml EF(MOD-sp4): 36.8 % EF(sp4-el): 36.5 % SV(sp4-el): 39.7 ml LA A4 area: 24.6 cm2 LA dimension(2D): 5.1 cm TAPSE: 1.8 cm Doppler Measurements Calculations MV E max chris: 92.1 cm/sec Lat Peak E' Chris: 10.9 cm/sec Ao V2 max: 85.3 cm/sec E/E' lat: 8.5 Ao max P.9 mmHg Ao V2 mean: 68.4 cm/sec Ao mean P.9 mmHg Ao V2 VTI: 15.5 cm AV (velocity ratio): 0.88 LV V1 max: 72.7 cm/sec MR max chris: 398.0 cm/sec PA V2 max: 69.3 cm/sec LV V1 max P.1 mmHg MR max P.3 mmHg PA V2 mean: 50.8 cm/sec LV V1 mean P.0 mmHg MR mean chris: 319.2 cm/sec LV V1 mean: 47.0 cm/sec MR mean P.7 mmHg LV V1 VTI: 13.7 cm MR VTI: 120.8 cm TR max chris: 261.3 cm/sec TR max P.3 mmHg ECHO/Echo Complete W/ Contrast Interpretation Summary The left ventricular ejection fraction is 35 %. Normal LV size. [place] : Severely Hypokinetic. There is moderate global hypokinesis of the left ventricle. Contrast injection was performed. Compared to previous study, the left ventricular systolic function has worsened.. Ordering Physician: Eri Gutierrez Referring Physician: Lilia Hong Performed By: Corrine Bills, GRADY, RVT 04/01/25 1501 Date Ethan Stanford MD CC: Dr. Lilia Hong MD; TOMMIE Melissa Date Dictated: 04/01/25805 Date Transcribed: 04/01/25 1501 [employer] Intern: Signed Normal [facility] Echocardiogram study reportO rdered By: Ethan Stanford on 04-01-2025 Study report [facility] [address] [facility] [place] [address] Echo Complete W/ Contrast 04/01/25805 MR#: [id number] Acct: [id number] Name: YANDEL KRUGER Rep #:[id number] : 1965 60 From: Ethan Morales Attending Dr: TOMMIE Melissa Status: REG CLI Ordering Dr: Eri Gutierrez Date: 04/01/25 Location: [facility] Sex: M C Admitted: Reason For Study Reason For Study: ATRIAL FIB/FLUTTER Procedure This was a 2D Doppler, Color Flow transthoracic echocardiogram. The study was technically difficult. Due to body habitus. Contrast injection was performed. Exam performed in department. Left Ventricle Normal LV size. The left ventricular ejection fraction is 35 %. There is moderate global hypokinesis of the left ventricle. [place] : Severely Hypokinetic. Right Ventricle Normal RV size. Normal systolic function. Atria Normal left atrium. Normal right atrium. Mitral Valve Normal mitral valve. Tricuspid Valve Normal tricuspid valve. Aortic Valve Normal aortic valve. Pulmonic Valve The pulmonic valve is not well visualized. Great Vessels Normal aortic root. Pericardium/Pleural No pericardial effusion. Medication 22 gauge I.V. with prn adaptor inserted into right arm. Diluted definity 2.0ml given slow IV push to enhance endocardial definition. MMode/2D Measurements & Calculations LVIDd: 6.0 cm IVSd: 1.0 cm Ao root diam: 3.8 cm LVIDs: 5.2 cm LVPWd: 1.0 cm RVDd: 3.1 cm FS: 13.4 % LAV(MOD-bp): 81.8 ml LVAd ap4: 34.6 cm2 SV(MOD-sp4): 38.5 ml LAV(MOD-bp) Indexed: 33.6 ml/m2 LVLd ap4: 9.3 cm SI(MOD-sp4): 15.8 ml/m2 LAV(MOD-sp2): 81.4 ml EDV(MOD-sp4): 104.6 ml LAV(MOD-sp4): 81.1 ml EDV(sp4-el): 108.9 ml LVAs ap4: 25.3 cm2 LVLs ap4: 7.9 cm ESV(MOD-sp4): 66.2 ml ESV(sp4-el): 69.1 ml EF(MOD-sp4): 36.8 % EF(sp4-el): 36.5 % SV(sp4-el): 39.7 ml LA A4 area: 24.6 cm2 LA dimension(2D): 5.1 cm TAPSE: 1.8 cm Doppler Measurements & Calculations MV E max chris: 92.1 cm/sec Lat Peak E' Chris: 10.9 cm/sec Ao V2 max: 85.3 cm/sec E/E' lat: 8.5 Ao max P.9 mmHg Ao V2 mean: 68.4 cm/sec Ao mean P.9 mmHg Ao V2 VTI: 15.5 cm AV (velocity ratio): 0.88 LV V1 max: 72.7 cm/sec MR max chris: 398.0 cm/sec PA V2 max: 69.3 cm/sec LV V1 max P.1 mmHg MR max P.3 mmHg PA V2 mean: 50.8 cm/sec LV V1 mean P.0 mmHg MR mean chris: 319.2 cm/sec LV V1 mean: 47.0 cm/sec MR mean P.7 mmHg LV V1 VTI: 13.7 cm MR VTI: 120.8 cm TR max chris: 261.3 cm/sec TR max P.3 mmHg ECHO/Echo Complete W/ Contrast Interpretation Summary The left ventricular ejection fraction is 35 %. Normal LV size. [place] : Severely Hypokinetic. There is moderate global hypokinesis of the left ventricle. Contrast injection was performed. Compared to previous study, the left ventricular systolic function has worsened.. Ordering Physician: Eri Gutierrez Referring Physician: Lilia Hong Performed By: Corrine Bills RDCS, RVT 04/01/25 1501 Date _ Ethan Stanford MD CC: Dr. Lilia Hong MD; TOMMIE Melissa ~ Date Dictated: 04/01/25805 Date Transcribed: 04/01/25 150 University Intern: Signed [facility] Work Phone: 12 Lead EKG performed by [facility] on 03-12-2025 12 Lead EKG performed by [facility] [address] [place] [id number] 12 Lead EKG performed by [facility] 03/12/25 0816 MR#: [id number] Acct: [id number] Name: YANDEL KRUGER Rep #: [id number] : 1965 60 From: Eri Sepulveda Attending Dr: TOMMIE Melissa Status: REG AMB Ordering Dr: Eri Gutierrez Date: 02/23 07/19 [place] [facility] Sex: M C Admitted: BMS/12 Lead EKG performed by [facility] ECG Report Interpretation -----Atrial fibrillation -Left axis -anterior fascicular block. Possible left ventricular hypertrophy on non-voltage basis. -Electronically signed on 03/12/2025 at 08:23 by Ethan Stanfordwood Software Version [id number] 03/12/2527 Date Eri REILLY CC: Dr. Lilia Hong MD Date Dictated: 03/12/25815 Date Transcribed: 03/12/25815 University Intern: DUSTY Signed Normal [facility] Cardiology Visit Reporton Cardiology Visit Report [facility] [place] [address] OFFICE VISIT Date of Service: 03/12/25 MR#: [id number] Acct: [id number] Name: YANDEL KRUGER Rep #: [id number] : 1965 Provider: TOMMIE Jordan Age/Sex: 60/M Location: [facility] Status: Signed HPI HPI History of Present Illness Details: Yandel Kruger is a 60-year-old gentleman who presents here today for a cardiovascular follow-up. He does have a history of chronic diastolic heart failure. He was admitted to [facility] on 08/29/2023 for new onset of atrial flutter. He was placed on a Cardizem drip. He did have an echocardiogram which demonstrated an ejection fraction of 50% with stage III diastolic dysfunction with a hypokinetic apex. 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 Because of this he was not started on anticoagulation at that time. 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 He states he is to follow up in 1 year. EKG today demonstrates Afib with a HR of 101. He notes that his HR is typically around 100. He does not know what medications are. He does have chronic edema in his left leg. This is not new. Intake Vital Signs 09/10/24 14:44 03/12/25 07:30 Height 5 ft 9 in 5 ft 9 in Weight: 295 lb BMI 43.5 BP 126/72 H Blood Pressure Location Lt brachial Position Sitting Respiration 18 Pulse 92 Pulse Source Monitor Pulse Oximetry (%) 94 Intake Visit Reasons: 6 M Fish Warden Required: No Is patient in pain?: No Allergies aspirin Allergy (Severe, Verified 03/12/25 08:10) Swelling NSAIDS (Non-Steroidal Anti-Inflamma Allergy (Verified 03/12/25 08:10) Swelling Medications ???Medication ???Instructions ???Recorded ???Confirmed ???Type multivitamin 1 ea PO DAILY supplement 06/22/17 03/12/25 History omeprazole 20 mg capsule,delayed 20 mg PO QDAY acid reflux 02/09/18 03/12/25 History release potassium chloride 20 mEq 20 meq PO QDAY supplement 02/09/18 03/12/25 History tablet,extended release cholecalciferol (vitamin D3) 50 2,000 unit PO QDAY supplement 01/2303/12/25 History mcg (2,000 unit) capsule cyanocobalamin (vitamin B-12) 2,500 mcg PO Q OTHER DAY supplemen t 11/06/21 03/12/25 History 2,500 mcg tablet rosuvastatin 40 mg tablet 40 mg PO DAILY cholesterol 2 03/12/25 History acetaminophen 500 mg tablet 500 mg PO TID PRN PRN Pain 2 03/12/25 History albuterol sulfate 90 mcg/actuation 2 inh inhalation Q4-6H PRN 03/0403/09/25 History aerosol inhaler shortness of breath or wheezing needle (disp) 32 gauge 32 gauge x #100 ea 08/13/24 03/09/25 Rx / furosemide 40 mg tablet 80 mg PO BID diuresis 10/14/24 History warfarin 4 mg tablet 4 mg PO .COMPLEX Pt is OUT: 03/09/25 Rx Awaiting Mail Order RX!! #60 tabs metoprolol tartrate 100 mg tablet 100 mg PO BID #180 tabs 11/09/24 03/12/25 Rx bupropion HCl 150 mg 24 hr tablet, 150 mg PO DAILY 01/01/25 5 History extended release diltiazem HCl 120 mg capsule,24 120 mg PO QAM #90 caps 02/10/25 Rx hr,extended release empagliflozin 10 mg tablet [address] Hong changed 03/12/25 History (Jardiance) Farxiga to Jardiance spironolactone 25 mg tablet 25 mg PO DAILY #90 tabs 02/10/25 0 03/09/25 Rx Ejection fraction %: 50 Have you fallen in the past year?: No Nurse's Note: Medication lis is not accurate, many changes, does not know what he is taking. [facility] Medical History (Reviewed 03/09/25 @ 08:20 by Reena Brooks SECRETARY ADMINISTRATIVE ASSISTANT, SECRETARY ADMINISTRATIVE ASSISTANT-C) Chronic pain Pneumonia Rheumatoid arthritis Smoker CPAP (continuous positive airway pressure) dependence Sleep apnea On home oxygen therapy COPD (chronic obstructive pulmonary disease) Atrial fibrillation Congestive heart failure (CHF) Chest pain setter out (current) use of anticoagulants Pancreatic cyst Wears dentures Wears glasses Former smoker CPAP (continuous positive airway pressure) dependence On home oxygen therapy Mass of pancreas Atrial flutter Chronic venous insufficiency Varicose veins of both lower extremities with inflammation Gastroesophageal reflux disease Dependence on nocturnal oxygen therapy Diabetes mellitus Morbid obesity Leg edema Leg swelling Mild pulmonary arterial systolic hypertension Dyspnea DEBI (obstructive sleep apnea) Hypersomnia Chronic diastolic heart failure Restrictive lung disease Obesity GERD (gastroesophageal reflux disease) Hyperlipidemia Surgical History (Reviewed 03/09/25 @ 08:20 by Reena Brooks SECRETARY ADMINISTRATIVE ASSISTANT, SECRETARY ADMINISTRATIVE ASSISTANT-C) 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 Normal [facility] Pulmonary Visit Reporton Pulmonary Visit Report [facility] of [address] [place], [place] [id number] OFFICE VISIT Date of Service: 03/09/25 MR#: [id number] Acct: [id number] Name: YANDEL KRUGER Luz Rep #: [id number] : 1965 Provider: MICHELLE Brooks Age/Sex: 60/M Location: [facility] Status: Signed Assessment and Plan Assessment and Plan (1) Moderate COPD (chronic obstructive pulmonary disease): Status: Chronic Comment: FEV1 58% of predicted Plan: New. Recently identified. The patient is still apprehensive to believe that he has COPD. He denies any symptoms and does not believe that inhalers are necessary. He has been on inhalers in the past and never found them to be effective. Have encouraged him to quit smoking, I explained that COPD will continue to progress as long as he continues to smoke. He conveys understanding. Plan to repeat PFT in 1 year. Will also repeat 6-minute walk test, as the patient did desaturate during the test but did not qualify for supplemental oxygen. Follow-up in the office in December 2025. He is agreeable to contact the office with any new or worsening symptoms in the meantime. (2) DEBI (obstructive sleep apnea): Status: Chronic Comment: CPAP 16 cm of water 2L O2 residual AHI 2.7 Plan: He is using and benefiting from Pap therapy. No indication for titration study at this time. His machine is over 5 years old, I am ordering a replacement. Contact the office for any new or worsening symptoms in the meantime. Follow-up in December 2025. (3) Obesity: Status: Chronic Qualifiers: Obesity type: due to excess calories Obesity classification: adult class 3 (BMI >= 40) Serious obesity comorbidity presence: with serious comorbidity Body mass index: BMI 45.0-49.9 Qualified Code(s): E66.09 - Other obesity due to excess calories; Z68.42 - Body mass index (BMI) 45.0-49.9, adult Plan: Complicates exam, plan, care and prognosis. Continue to Encourage healthy weight loss. (4) Restrictive lung disease: Status: Chronic Plan: He is complaining of more shortness of breath, could be related to his ongoing smoking. He does admit to deconditioning. Exertional hypoxia ruled out. (5) Smoking greater than 20 pack years: Status: Chronic Comment: Repeat LDCT November 2025, ordered Plan: Encourage complete smoking cessation. He is not interested in smoking cessation at this time. Repeat LDCT November 2025. Ordered previously. Orders: Orders Simple Pulmonary Exercise Test 11/25/25 R06.02 - Shortness of breath PFT Complete - DLCO, Spirometry b/a bronchodilators, lung volumes 11/25/25 R06.02 - Shortness of breath Plan Details Follow Up: 12/26/25 ([facility]) HPI 2 M F/U Chief Complaint: test results HPI Comments Details: This patient presents to the office today for follow-up of his obstructive sleep apnea complicated by nicotine abuse. He is ambulatory and currently on room air. He has not recently been seen in the ED or urgent care for any respiratory illness. He has not required any antibiotics or prednisone for any breathing problems. He is not currently on any inhalers. He has not found them to be helpful in the past. He continues to smoke cigarettes and is currently smoking a pack per day. He is not interested in quitting smoking. He denies any difficulty with shortness of breath. He denies any cough, sputum production or hemoptysis. He denies any wheezing, chest tightness, chest pain or palpitations. He also denies any fever, chills or body aches. He wakes up feeling rested and refreshed with use of his PAP device. He is not having difficulty with dry mouth. He is not requiring naps. He does not nod off to sleep unintentionally. He denies excessive nocturia and is not having morning headaches. Compliance report for the past 30 days shows 100% compliance with an average use of 8 hours and 26 minutes per night. Current setting is 16 cmH2O with a 2 LPM oxygen bleed and a residual AHI of 1.6 events per hour. Leaks do appear to be occurring routinely. Test results personally reviewed with patient: Pulmonary Function Test completed on January 07, 2025. Impression is a reversible moderate severe large airway obstructive ventilatory defect. FEV1 58% of predicted. Walking oximetry completed on January 21, 2025. The patient was able to ambulate a total of 857 feet over the course of 6 minutes. He did not desaturate and does not currently qualify for supplemental oxygen. Intake Vital Signs 01/01/25 08:12 01/21/25 09:02 03/09/25 07:52 Height 5 ft 9 in 5 ft 9 in 5 ft 9 in Weight: 291 lb BMI 43.0 BP 95/67 Blood Pressure Location Rt brachial Position Sitting Respiration 18 Pulse Source Monitor Temp 97.0 F L Temperature Source Temporal Artery Pulse Oximetry (%) 96 Oxygen Delivery Method room air Comment pu (more content not included)... Normal [facility] International normalized rat io (INR) calculationOrdered By: Maral Guy on 02-20-2025 INR Coag (Bld) [Relative time] 2.5 {INR} [facility] Prothrombin Time w/INRon INR Coag (PPP) [Relative time] 2.5 {INR} Normal [facility] Comment on above: Performed By: #### L 500.2500 #### [facility] [address] [place], [address] PT Coag (PPP) [Time] 27.1 s High 11.7-14.9 [facility] Comment on above: Performed By: #### L 500.2500 #### [facility] [address] [place], [address] Prothrombin timeOrdered By: Maral Guy on 02-20-2025 PT Coag (PPP) [Time] 27.1 s High 11.7-14.9 [facility] Prothrombin Time w/INRon INR Coag (PPP) [Relative time] 2.0 {INR} Normal [facility] Comment on above: Performed By: #### L 500.2500 #### [facility] [address] [place], [address] PT Coag (PPP) [Time] 22.9 s High 11.7-14.9 [facility] Comment on above: Performed By: #### L 500.2500 #### [facility] [address] [place], [address] International normalized rat io (INR) calculationOrdered By: Maral Guy on 01-30-2025 INR Coag (Bld) [Relative time] 1.7 {INR} [facility] Prothrombin Time w/INRon INR Coag (PPP) [Relative time] 1.7 {INR} Normal [facility] Comment on above: Performed By: #### L 503.6620 #### [facility] [address] [facility] [place], [address] PT Coag (PPP) [Time] 20.3 s High 11.7-14.9 [facility] Comment on above: Performed By: #### L 503.6620 #### [facility] [address] [place], [address] Prothrombin timeOrdered By: Maral Guy on 01-30-2025 PT Coag (PPP) [Time] 20.3 s High 11.7-14.9 [facility] Prothrombin Time w/INRon INR Coag (PPP) [Relative time] 1.6 {INR} Normal [facility] Comment on above: Performed By: #### L 500.4050, L100.0100, L503.6620 #### [facility] [address] [place], [address] PT Coag (PPP) [Time] 19.3 s High 11.7-14.9 [facility] Comment on above: Performed By: #### L 500.4050, L100.0100, L503.6620 #### [facility] [address] [place], [address] 6 Minute Walk Teston 025 6 Minute Walk Test y [facility]Neu[facility] [address] [place] [address] MR#: [id number] Acct: [id number] Name: YANDEL KRUGER Luz Rep #: [id number] : 1965 59 From: Alfredo Arias DO Referring Dr: Reena Brooks SECRETARY ADMINISTRATIVE ASSISTANT SECRETARY ADMINISTRATIVE ASSISTANT-C Status: REG CLI Location: PSN Date: Sex: M C PSN 6 Minute Walk Test 6 Minute Walk Test 6 Minute Walk Test: 6 Minute Walk Test PSN:6-Minute Walk Test Start: 01/21/25 09:02 Freq: Status: Active Protocol: RESP.6MINW Document 01/21/25 09:02 [facility] (Rec: 01/21/25 09:10 [facility] [id number]) 6 Minute Walk Test Date Performed 01/21/25 Time Performed 08:00 Height 5 ft 9 in Weight: 298 lb Weight in Pounds 298.[address]: Reena Brooks SECRETARY ADMINISTRATIVE ASSISTANT Assistive device None used: Pre-test Oxygen Delivery Room Air Method Pulse Ox (%) 93 Pulse Rate (60-100 102 H beats/min) Dyspnea Sole Scale ( 0 0-10) Number of Rests 0 Taken 1st minute Oxygen Delivery Room Air Method Pulse Ox (%) 92 Pulse Rate (60-100 110 H beats/min) Dyspnea Sole Scale ( 0 0-10) Number of Rests 0 Taken 2nd minute Oxygen Delivery Room Air Method Pulse Ox (%) 92 Pulse Rate (60-100 107 H beats/min) Dyspnea Sole Scale ( 0 0-10) Number of Rests 0 Taken 3rd minute Oxygen Delivery Room Air Method Pulse Ox (%) 91 Pulse Rate (60-100 110 H beats/min) Dyspnea Sole Scale ( 0 0-10) Number of Rests 0 Taken 4th minute Oxygen Delivery Room Air Method Pulse Ox (%) 91 Pulse Rate (60-100 97 beats/min) Dyspnea Sole Scale ( 0 0-10) Number of Rests 0 Taken 5th minute Oxygen Delivery Room Air Method Pulse Ox (%) 90 Pulse Rate (60-100 100 beats/min) Dyspnea Sole Scale ( 0 0-10) Number of Rests 0 Taken 6th minute Oxygen Delivery Room Air Method Pulse Ox (%) 92 Pulse Rate (60-100 114 H beats/min) Dyspnea Sole Scale ( 0 0-10) Number of Rests 0 Taken Post-test Oxygen Delivery Room Air Method Pulse Ox (%) 93 Pulse Rate (60-100 104 H beats/min) Dyspnea Sole Scale ( 0 0-10) Number of Rests 0 Taken Full Laps Walked 14 Partial Lap, Number 31 of Tiles Walked Total Distance 857 Walked (ft) Interpretation Interpretation: The patient ambulated 857 feet over the course of 6 minutes beginning on room air without assistive devices. Pretesting oxygen saturation was noted to be 93% on room air. With ambulation, the lucio oxygen saturation was 90%. There was no significant exertional oxygen desaturation. Recommendations Recommendations: There is no indication for the use of supplemental oxygen at this time. 01/22/25 1010 Date Alfredo Arias DO CC: Date Dictated: 01/22/251008 Date Transcribed: 01/22/251008 University Intern: Dr. Alfredo Arias DO Signed Normal [facility] International normalized rat io (INR) calculationOrdered By: Maral Guy on 01-07-2025 INR Coag (Bld) [Relative time] 2.0 {INR} [facility] Prothrombin Time w/INRon INR Coag (PPP) [Relative time] 2.0 {INR} Normal [facility] Comment on above: Performed By: #### L 500.2500 #### [facility] [address] [place], [address] PT Coag (PPP) [Time] 23.1 s High 11.7-14.9 [facility] Comment on above: Performed By: #### L 500.2500 #### [facility] [address] [place], [address] Prothrombin timeOrdered By: Maral Guy on 01-07-2025 PT Coag (PPP) [Time] 23.1 s High 11.7-14.9 [facility] Prothrombin Time w/INRon INR Coag (PPP) [Relative time] 1.7 {INR} Normal [facility] Comment on above: Performed By: #### L 500.4050, L100.0100, L503.6620 #### [facility] [address] [place], [address] PT Coag (PPP) [Time] 20.4 s High 11.7-14.9 [facility] Comment on above: Performed By: #### L 500.4050, L100.0100, L503.6620 #### [facility] [address] [place], [address] Pulmonary Visit Reporton Pulmonary Visit Report [facility] [place] [address] [place] [address] OFFICE VISIT Date of Service: 01/01/25 MR#: [id number] Acct: [id number] Name: YANDEL KRUGER Rep #: [id number] : 1965 Provider: MICHELLE Brooks Age/Sex: 59/M Location: [facility] Status: Signed Assessment and Plan Assessment and Plan (1) DEBI (obstructive sleep apnea): Status: Chronic Comment: CPAP 16 cm of water 2L O2 residual AHI 2.7 Plan: He is using and benefiting from Pap therapy. No indication for titration study at this time. His machine is over 5 years old, I am ordering a replacement. Contact the office for any new or worsening symptoms in the meantime. Follow-up in 2 months. (2) Obesity: Status: Chronic Qualifiers: Obesity type: due to excess calories Obesity classification: adult class 3 (BMI >= 40) Serious obesity comorbidity presence: with serious comorbidity Body mass index: BMI 45.0-49.9 Qualified Code(s): E66.09 - Other obesity due to excess calories; Z68.42 - Body mass index (BMI) 45.0-49.9, adult Plan: Complicates exam, plan, care and prognosis. Continue to Encourage healthy weight loss. (3) Restrictive lung disease: Status: Chronic Plan: He is complaining of more shortness of breath, could be related to his ongoing smoking. I suspect test results will show mixed restrictive and obstructive ventilatory impairment now. Plan to repeat PFT and walk test. Return to the office to discuss test results. (4) Smoking greater than 20 pack years: Status: Chronic Plan: Encourage complete smoking cessation. He remains precontemplative. Repeat LDCT November 2025. Ordered accordingly. Orders: Orders PFT Complete - DLCO, Spirometry b/a bronchodilators, lung volumes 01/07/25 R06.02 - Shortness of breath Simple Pulmonary Exercise Test 01/21/25 R06.02 - Shortness of breath Low Dose CT Lung Screening 11/25/25 F17.200 - Nicotine dependence, unspecified, uncomplicated, F17.210 - Nicotine dependence, cigarettes, uncomplicated HPI 10 m fu Chief Complaint: Shortness of breath HPI Comments Details: This patient presents to the office today for follow-up of his obstructive sleep apnea complicated by nicotine abuse. He is ambulatory and currently on room air. He is accompanied today by his daughter. He has not recently been seen in the ED or urgent care for any respiratory illness. He has been treated 2 times over the past 10 months for pneumonia. Both cases were managed by his PCP. This practice was not notified of any additional breathing problems. He is not currently on any inhalers. He continues to smoke cigarettes and is currently smoking a little less than 1 pack of cigarettes daily. He admits that he has not interested in quitting smoking. He estimates that he probably uses his rescue inhaler about once every other month. He denies any difficulty with shortness of breath. His daughter reports that she sees him being more short of breath. She notices that he has to stop and catch his breath more frequently. She notices that he becomes very short of breath when bending over to tie his shoes. He denies any cough, sputum production or hemoptysis. He denies any wheezing, chest tightness, chest pain or palpitations. He also denies any fever, chills or body aches. He wakes up feeling rested and refreshed with use of his PAP device. He does report frequent mask leaks, but he also admits that he tries to make his mask last as long as possible because he cannot afford new ones all the time. He is not having difficulty with dry mouth. He is not requiring naps. He does not nod off to sleep unintentionally. He denies excessive nocturia and is not having morning headaches. Compliance report for the past 30 days shows 100% compliance with an average use of 8 hours and 26 minutes per night. Current setting is 16 cmH2O with a 2 LPM oxygen bleed and a residual AHI of 6.3 events per hour. Leaks do appear to be occurring routinely. Test results personally reviewed with patient: Low-dose lung screening completed on December 08, 2024. No suspicious nodules are seen. Recommendation is to continue with annual screening repeating LDCT in 12 months. Intake Vital Signs 03/04/24 13:47 01/01/25 08:12 Height 5 ft 9 in 5 ft 9 in Weight: 289 lb BMI 42.7 BP 115/75 Blood Pressure Location Lt brachial Position Sitting Respiration 20 H Pulse 74 Pulse Source Monitor Temp 97.4 F L Temperature Source Temporal Artery Pulse Oximetry (%) 98 Oxygen Delivery Method room air Intake Visit Reasons: 10 m fu Chief Complaint: Routine f/u Fish Warden Required: No DME Vendor: [employer] Accompanied by: Daughter Allergies aspirin Allergy (Severe, Verified 01/01/25 13:57) Swelling NSAIDS (Non-Steroidal Anti-Inflamma Allergy (Verified (more content not included)... Normal [facility] Low Dose CT Lung Screeningon 12-08-[address] Lung Screening [facility] Imaging Services [address] [place] [address] Lung Screening MR#: [id number] Acct: [id number] Name: YANDEL KRUGER Rep #: [id number] : 1965 M 59 From: Denny marsh MD PCP: Dr. Lilia Hong MD Status: [facility] Study: Low Dose CT Lung Screening Date of Exam: 12/08 Exam# [id number] Ordering Dr: Reena Brooks SECRETARY ADMINISTRATIVE ASSISTANT SECRETARY ADMINISTRATIVE ASSISTANT-C [id number] STUDY: LOW DOSE CT LUNG CANCER SCREENING REASON FOR EXAM: Male, 59 years old. Smoker, 45 years x 2 ppd RADIATION DOSAGE (If Supplied By Facility): CTDIvol = ( 4.02 ) mGy, DLP = ( 137.93 ) mGycm TECHNIQUE: No contrast was administered. Low dose technique was utilized (average mAS-38 and kVp 120). 1.25 mm axial source images with a slice interval of 1.25-mm were reconstructed in lung windows. 2.5 mm axial source images with a slice interval of 2.5-mm were reconstructed in lung windows. 5.0 mm axial source images with a slice interval of 5.0-mm were reconstructed in soft tissue windows. COMPARISON: Comparison is made with prior study dated November 28, 2023. NODULES: No suspicious nodules are seen. Emphysema: Mild degree of scarring in the posterior aspect of the left upper lobe. Endobronchial lesion: None Aorta: Mild degree of atherosclerotic plaque formation of the aortic arch. CORONARY ARTERIES: Coronary artery calcification is seen. Heart: Unremarkable Pulmonary artery: Unremarkable Mediastinal nodes: Small mediastinal lymph nodes. Other chest and abdominal findings: CT/Low Dose CT Lung Screening IMPRESSION: Lung-RADS category 2 - Continue annual screening with LDCT in 12 months. IMPORTANT NOTES FOR USE: ACR Lung-RADS Version 1.1 Assessment Categories Release Date: 2018 Category: Coded 0-4 bases on nodule(s) with highest degree of suspicion. Negative screen is defined as categories 1 and 2; a positive screen is defined as categories 3 and 4. Category 3 and 4A nodules that are unchanged on interval CT should be coded as category 2, and individuals returned to screening in 12 months. Category 4X: Category 3 or 4 nodules with additional imaging findings that increase the suspicion of lung cancer, such as spiculation, GGN that doubles in size in 1 year, enlarged lymph notes, etc. Category Modifiers: S (significant finding unrelated to lung cancer) Electronically Signed: Denny Melendez MD at 14:48 EST Reading Location ID and State: [address] [place] [address] , Service support , CC: MICHELLE Brooks; Dr. Lilia Hong MD University Intern: Signed Normal [facility] International normalized rat io (INR) calculationOrdered By: Maral Guy on 11-30-2024 INR Coag (Bld) [Relative time] 1.9 {INR} [facility] Prothrombin Time w/INRon INR Coag (PPP) [Relative time] 1.9 {INR} Normal [facility] Comment on above: Performed By: #### L 500.2500 #### [facility] [address] [place], [place], [id number] PT Coag (PPP) [Time] 22.1 s High 11.7-14.9 [facility] Comment on above: Performed By: #### L 500.2500 #### [facility] [address] [place], [place], [id number] Prothrombin timeOrdered By: Maral Guy on 11-30-2024 PT Coag (PPP) [Time] 22.1 s High 11.7-14.9 [facility] Absolute neutrophil countOrd ered By: Lilia Hong on 11-21-2024 Neutrophils (Bld) [#/Vol] 3.9 10*3/uL 2.0-7.7 [facility] Albumin to globulin ratioOrd ered By: Lilia Hong on 11-21-2024 Albumin/Globulin [Mass ratio] 0.9 {ratio} 0.9-2.4 [facility] BNP (brain natriuretic pepti de measurement)Ordered By: Lilia Hong on 11-21-2024 Natriuretic peptide B (Bld) [Mass/Vol] 141.4 pg/mL High 0-100 [facility] BNP,B-Type NATRIURETIC PEPTI Zaira 11-21-2024 Natriuretic peptide B (Bld) [Mass/Vol] 141.4 pg/mL High 0-100 [facility] Comment on above: Performed By: #### L 500.4050, L100.0100, L503.6620 #### [facility] [address] [place], [place], [id number] Basophil percentageOrdered B y: Lilia Hong on 11-21-2024 Basophils/100 WBC (Bld) 0.2 % 0-1 [facility] Bilirubin, totalOrdered By: Lilia Hong on 11-21-2024 Bilirubin [Mass/Vol] 1.20 mg/dL High 0.20-1.00 [facility] Comment on above: For patients on eltr ombopag therapy, use of Dimension [place] TBIL is not recommended. Blood urea nitrogen (BUN)/cr eatinine ratioOrdered By: Lilia Hong on 11-21-2024 Urea nitrogen/Creatinine [Mass ratio] 19.3 mg/mg 10-20 [facility] CBC W/Diff, Automatedon 10-26 Absolute Lymph 2.01 X10 3/uL Normal 0.83-4.51 [facility] Comment on above: Order Comment: Order Date: 11/19/24Order Info: 0184-1 - CBCD Performed By: #### L 500.4050, L100.0100, L503.6620 #### [facility] [address] [place], [address] Absolute Neut 3.9 X10 3/uL Normal 2.0-7.7 [facility] Comment on above: Order Comment: Order Date: 11/19/24Order Info: 4- - CBCD Performed By: #### L 500.4050, L100.0100, L503.6620 #### [facility] [address] [place], [address] Basophils/100 WBC (Bld) 0.2 % Normal 0-1 [facility] Comment on above: Order Comment: Order Date: 11/19/24Order Info: 183- - CBCD Performed By: #### L 500.4050, L100.0100, L503.6620 #### [facility] [address] [place], [address] Eosinophils/100 WBC (Bld) 1.6 % Normal 0-5 [facility] Comment on above: Order Comment: Order Date: 11/19/24Order Info: 018- - CBCD Performed By: #### L 500.4050, L100.0100, L503.6620 #### [facility] [address] [place], [address] Erythrocyte distribution width (RBC) [Ratio] 14.2 % Normal 11.6-14.6 [facility] Comment on above: Order Comment: Order Date: 11/19/24Order Info: 0184- - CBCD Performed By: #### L 500.4050, L100.0100, L503.6620 #### [facility] [address] [place], [address] Hematocrit (Bld) [Volume fraction] 43.8 % Normal 40-54 [facility] Comment on above: Order Comment: Order Date: 11/19/24Order Info: 0184- - CBCD Performed By: #### L 500.4050, L100.0100, L503.6620 #### [facility] [address] [place], [address] Hemoglobin (Bld) [Mass/Vol] 13.7 g/dL Normal 13.0-16.5 [facility] Comment on above: Order Comment: Order Date: 11/19/24Order Info: 183- - CBCD Performed By: #### L 500.4050, L100.0100, L503.6620 #### [facility] [address] [place], [address] IG% 0.300 Normal 0.0-0.9 [facility] Comment on above: Order Comment: Order Date: 11/19/24Order Info: 183-11 - CBCD Result Comment: IG% - Immature Granulocytes (promyelocytes, myelocytes and metamyelocytes) > 1% indicates that a LEFT SHIFT is Present. Performed By: #### L 500.4050, L100.0100, L503.6620 #### [facility] [address] [place], [address] Lymphocytes/100 WBC (Bld) 31.3 % Normal 19-41 [facility] Comment on above: Order Comment: Order Date: 11/19/24Order Info: 183- - CBCD Performed By: #### L 500.4050, L100.0100, L503.6620 #### [facility] [address], [address] MCH (RBC) [Entitic mass] 26.2 pg Low 27.0-32.0 [facility] Comment on above: Order Comment: Order Date: 11/19/24Order Info: 183- - CBCD Performed By: #### L 500.4050, L100.0100, L503.6620 #### [facility] [address] [place], [address] MCHC (RBC) [Mass/Vol] 31.3 g/dL Low 32-36 [facility] Comment on above: Order Comment: Order Date: 11/19/24Order Info: 0184-1 - CBCD Performed By: #### L 500.4050, L100.0100, L503.6620 #### [facility] [address] [place], [address] MCV (RBC) [Entitic vol] 83.7 fL Normal 80-94 [facility] Comment on above: Order Comment: Order Date: 11/19/24Order Info: 0184- - CBCD Performed By: #### L 500.4050, L100.0100, L503.6620 #### [facility] [address] [place], [address] Monocytes/100 WBC (Bld) 5.6 % Normal 0-10 [facility] Comment on above: Order Comment: Order Date: 11/19/24Order Info: 018- - CBCD Performed By: #### L 500.4050, L100.0100, L503.6620 #### [facility] [address] [place], [address] Neutrophils/100 WBC (Bld) 61.0 % Normal 47-70 [facility] Comment on above: Order Comment: Order Date: 11/19/24Order Info: 0184-1 - CBCD Performed By: #### L 500.4050, L100.0100, L503.6620 #### [facility] [address] [place], [address] Nucleated RBC (Bld) [#/Vol] 0 10*3/uL Normal 0-5 [facility] Comment on above: Order Comment: Order Date: 11/19/24Order Info: 0184-1 - CBCD Performed By: #### L 500.4050, L100.0100, L503.6620 #### [facility] [address] [place], [address] Platelet mean volume (Bld) [Entitic vol] 9.9 fL Normal 6.2-12.0 [facility] Comment on above: Order Comment: Order Date: 11/19/24Order Info: 0184-1 - CBCD Performed By: #### L 500.4050, L100.0100, L503.6620 #### [facility] [address] [place], [address] Platelets (Bld) [#/Vol] 161 10*3/uL Normal 150-450 [facility] Comment on above: Order Comment: Order Date: 11/19/24Order Info: 0184-1 - CBCD Performed By: #### L 500.4050, L100.0100, L503.6620 #### [facility] [address] [place], [address] RBC (Bld) [#/Vol] 5.23 10*6/uL Normal 4.6-6.2 [facility] Comment on above: Order Comment: Order Date: 11/19/24Order Info: 018-1 - CBCD Performed By: #### L 500.4050, L100.0100, L503.6620 #### [facility] [address] [place], [address] RDW SD 42.9 fl Normal 35.1-43.9 [facility] Comment on above: Order Comment: Order Date: 11/19/24Order Info: 0184-1 - CBCD Performed By: #### L 500.4050, L100.0100, L503.6620 #### [facility] [address] [place], [address] WBC (Bld) [#/Vol] 6.4 10*3/uL Normal 4.4-11.0 [facility] Comment on above: Order Comment: Order Date: 11/19/24Order Info: 0184-1 - CBCD Performed By: #### L 500.4050, L100.0100, L503.6620 #### [facility] [address] [place], [address] Carbon dioxide measurementOr dered By: Lilia Hong on 11-21-2024 CO2 [Moles/Vol] 33.0 mmol/L High 21.0-32.0 [facility] Chloride measurementOrdered By: Lilia Hong on 11-21-2024 Chloride [Moles/Vol] 102 mmol/L 98-107 [facility] Comprehensive Metabolic Prof ilon 11-21-2024 Albumin [Mass/Vol] 3.7 g/dL Normal 3.2-5.0 [facility] Comment on above: Order Comment: Order Date: 11/19/24Order Info: 0786-1 - CMP Performed By: #### L 500.4050, L100.0100, L503.6620 #### [facility] [address] [place], [address] Albumin/Globulin [Mass ratio] 0.9 {ratio} Normal 0.9-2.4 [facility] Comment on above: Order Comment: Order Date: 11/19/24Order Info: 0786-1 - CMP Performed By: #### L 500.4050, L100.0100, L503.6620 #### [facility] [address] [place], [address] ALK P 75 U/L Normal 45-117 [facility] Comment on above: Order Comment: Order Date: 11/19/24Order Info: 0786-1 - CMP Performed By: #### L 500.4050, L100.0100, L503.6620 #### [facility] [address] [place], [address] ALT [Catalytic activity/Vol] 21 U/L Normal 16-61 [facility] Comment on above: Order Comment: Order Date: 11/19/24Order Info: 0786-1 - CMP Performed By: #### L 500.4050, L100.0100, L503.6620 #### [facility] [address] [place], [address] AST [Catalytic activity/Vol] 15 U/L Normal 15-37 [facility] Comment on above: Order Comment: Order Date: 11/19/24Order Info: 0786-1 - CMP Performed By: #### L 500.4050, L100.0100, L503.6620 #### [facility] [address] [place], [address] Bilirubin [Mass/Vol] 1.20 mg/dL High 0.20-1.00 [facility] Comment on above: Order Comment: Order Date: 11/19/24Order Info: 0786-1 - CMP Result Comment: For patients on eltrombopag therapy, use of Dimension [place] TBIL is not recommended. Performed By: #### L 500.4050, L100.0100, L503.6620 #### [facility] [address] [place], [address] BUN/CRE 19.3 RATIO Normal 10-20 [facility] Comment on above: Order Comment: Order Date: 11/19/24Order Info: 0786-1 - CMP Performed By: #### L 500.4050, L100.0100, L503.6620 #### [facility] [address] [place], [address] CA,Total 10.0 mg/dL Normal 8.5-10.1 [facility] Comment on above: Order Comment: Order Date: 11/19/24Order Info: 0786-1 - CMP Performed By: #### L 500.4050, L100.0100, L503.6620 #### [facility] [address] [place], [address] Chloride [Moles/Vol] 102 mmol/L Normal 98-107 [facility] Comment on above: Order Comment: Order Date: 11/19/24Order Info: 0786-1 - CMP Performed By: #### L 500.4050, L100.0100, L503.6620 #### [facility] [address] [place], [address] CO2 [Moles/Vol] 33.0 mmol/L High 21.0-32.0 [facility] Comment on above: Order Comment: Order Date: 11/19/24Order Info: 07- - CMP Performed By: #### L 500.4050, L100.0100, L503.6620 #### [facility] [address] [place], [address] Creatinine [Mass/Vol] 1.09 mg/dL Normal 0.70-1.30 [facility] Comment on above: Order Comment: Order Date: 11/19/24Order Info: 07- - CMP Result Comment: The validity of the calculated GFR GFRAA in patients over 70 years has not been determined. Clinical correlation is essential. Performed By: #### L 500.4050, L100.0100, L503.6620 #### [facility] [address] [place], [address] EST GFR - AA 89 mL/min Normal >60 [facility] Comment on above: Order Comment: Order Date: 11/19/24Order Info: 0786- - CMP Result Comment: Afri can Moroccan GFR Calc Performed By: #### L 500.4050, L100.0100, L503.6620 #### [facility] [address] [place], [address] GAP 3 Low 5-15 [facility] Comment on above: Order Comment: Order Date: 11/19/24Order Info: 0786- - CMP Performed By: #### L 500.4050, L100.0100, L503.6620 #### [facility] [address] [place], [address] GFR/1.73 sq M.predicted among non-blacks MDRD (S/P/Bld) [Vol rate/Area] 73 mL/min/{1.73_m2} Normal >60 [facility] Comment on above: Order Comment: Order Date: 11/19/24Order Info: 0786-1 - CMP Result Comment: Non- GFR Calc Performed By: #### L 500.4050, L100.0100, L503.6620 #### [facility] [address] [place], [address] Globulin (S) [Mass/Vol] 3.9 g/dL Normal 2.2-4.2 [facility] Comment on above: Order Comment: Order Date: 11/19/24Order Info: 0786-1 - CMP Performed By: #### L 500.4050, L100.0100, L503.6620 #### [facility] [address] [place], [address] Glucose [Mass/Vol] 153 mg/dL High 74-106 [facility] Comment on above: Order Comment: Order Date: 11/19/24Order Info: 0786-1 - CMP Result Comment: Fast ing Glucose result greater than or equal to 126 mg/dL suggests DIABETES MELLITUS per A.D.A. criteria. Performed By: #### L 500.4050, L100.0100, L503.6620 #### [facility] [address] [place], [address] Potassium [Moles/Vol] 3.8 mmol/L Normal 3.5-5.1 [facility] Comment on above: Order Comment: Order Date: 11/19/24Order Info: 0786-1 - CMP Performed By: #### L 500.4050, L100.0100, L503.6620 #### [facility] [address] [place], [address] Sodium [Moles/Vol] 138 mmol/L Normal 136-145 [facility] Comment on above: Order Comment: Order Date: 11/19/24Order Info: 0786-1 - CMP Performed By: #### L 500.4050, L100.0100, L503.6620 #### [facility] [address] [place], [address] T PROT 7.6 g/dL Normal 6.4-8.2 [facility] Comment on above: Order Comment: Order Date: 11/19/24Order Info: 0786-1 - CMP Performed By: #### L 500.4050, L100.0100, L503.6620 #### [facility] [address] [place], [address] Urea nitrogen [Mass/Vol] 21 mg/dL High 7-18 [facility] Comment on above: Order Comment: Order Date: 11/19/24Order Info: 0786-1 - CMP Performed By: #### L 500.4050, L100.0100, L503.6620 #### [facility] [address] [place], [address] Eosinophil percentageOrdered By: Lilia Hong on 11-21-2024 Eosinophils/100 WBC (Bld) 1.6 % 0-5 [facility] Erythrocyte distribution wid th ratioOrdered By: Lilia Hong on 11-21-2024 Erythrocyte distribution width (RBC) [Ratio] 14.2 % 11.6-14.6 [facility] Erythrocyte distribution wid th standard deviationOrdered By: Lilia Hong on 11-21-2024 Erythrocyte distribution width (RBC) [Entitic vol] 42.9 fL 35.1-43.9 [facility] Estimated glomerular filtrat ion rate (GFR) AmericanOrdered By: Lilia Hong on 11-21-2024 Estimated GFR (MDRD) Amer 89 mL/min >60 [facility] Comment on above: GFR Calc Glomerular filtration rate ( GFR) estimationOrdered By: Lilia Hong on 11-21-2024 Estimated GFR (MDRD) Non-Af Amer 73 mL/min >60 [facility] Comment on above: Non- GFR Calc Glucose measurementOrdered B y: Lilia Hong on 11-21-2024 Glucose [Mass/Vol] 153 mg/dL High 74-106 [facility] Comment on above: Fasting Glucose resu lt greater than or equal to 126 mg/dL suggests DIABETES MELLITUS per A.D.A. criteria. Hematocrit Auto (Bld) [Volum e fraction]Ordered By: Lilia Hogn on 11-21-2024 Hematocrit (Bld) [Volume fraction] 43.8 % 40-54 [facility] Hemoglobin measurementOrdere d By: Lilia Hong on 11-21-2024 Hemoglobin (Bld) [Mass/Vol] 13.7 g/dL 13.0-16.5 [facility] Immature granulocytes/100 WB C Auto (Bld)Ordered By: Lilia Hong on 11-21-2024 Immature granulocytes/100 WBC (Bld) 0.300 % 0.0-0.9 [facility] Comment on above: IG% - Immature Granu locytes (promyelocytes, myelocytes and metamyelocytes) > 1% indicates that a LEFT SHIFT is Present. Laboratory - Chemistry and C hemistry - challengeOrdered By: Lilia Hong on 11-21-2024 AST [Catalytic activity/Vol] 15 U/L 15-37 [facility] Lymphocytes Auto (Unsp spec) [#/Vol]Ordered By: iLlia Hong on 11-21-2024 Lymphocytes (Bld) [#/Vol] 2.01 10*3/uL 0.83-4.51 [facility] Lymphocytes/100 WBC Auto (Un sp spec)Ordered By: Lilia Hong on 11-21-2024 Lymphocytes/100 WBC (Bld) 31.3 % 19-41 [facility] MCV (mean corpuscular volume ) determinationOrdered By: Lilia Hong on 11-21-2024 MCV (RBC) [Entitic vol] 83.7 fL 80-94 [facility] Mean corpuscular hemoglobin (MCH) determinationOrdered By: Lilia Hong on 11-21-2024 MCH (RBC) [Entitic mass] 26.2 pg Low 27.0-32.0 [facility] Mean corpuscular hemoglobin concentration (MCHC) determinationOrdered By: Lilia Hong on 11-21-2024 MCHC (RBC) [Mass/Vol] 31.3 g/dL Low 32-36 [facility] Mean platelet volume determi nationOrdered By: Lilia Hong on 11-21-2024 Platelet mean volume (Bld) [Entitic vol] 9.9 fL 6.2-12.0 [facility] Monocyte percentageOrdered B y: Lilia Hong on 11-21-2024 Monocytes/100 WBC (Bld) 5.6 % 0-10 [facility] Neutrophil percentageOrdered By: Lilia Hong on 11-21-2024 Neutrophils/100 WBC (Bld) 61.0 % 47-70 [facility] Nucleated red blood cell per centageOrdered By: Lilia Hong on 11-21-2024 Nucleated RBC/100 WBC (Bld) [Ratio] 0 % 0-5 [facility] Platelet countOrdered By: Miguel Hong on 11-21-2024 Platelets (Bld) [#/Vol] 161 10*3/uL 150-450 [facility] Potassium measurementOrdered By: Lilia Hong on 11-21-2024 Potassium [Moles/Vol] 3.8 mmol/L 3.5-5.1 [facility] RBC Auto (Bld) [#/Vol]Ordere d By: Lilia Hong on 11-21-2024 RBC (Bld) [#/Vol] 5.23 10*6/uL 4.6-6.2 [facility] Serum anion gap measurementO rdered By: Lilia Hong on 11-21-2024 Anion gap [Moles/Vol] 3 mmol/L Low 5-15 [facility] Serum globulin measurementOr dered By: Lilia Hong on 11-21-2024 Globulin (S) [Mass/Vol] 3.9 g/dL 2.2-4.2 [facility] Serum or plasma alanine goodman otransferase (ALT) measurementOrdered By: Lilia Hong on 11-21-2024 ALT [Catalytic activity/Vol] 21 U/L 16-61 [facility] Serum or plasma albumin filippo urement (mass/volume)Ordered By: Lilia Hong on 11-21-2024 Albumin [Mass/Vol] 3.7 g/dL 3.2-5.0 [facility] Serum or plasma alkaline rosa sphatase measurementOrdered By: Lilia Hong on 11-21-2024 ALP [Catalytic activity/Vol] 75 U/L 45-117 [facility] Serum or plasma calcium filippo urement (mass/volume)Ordered By: Lilia Hong on 11-21-2024 Calcium [Mass/Vol] 10.0 mg/dL 8.5-10.1 [facility] Serum or plasma creatinine m easurement (mass/volume)Ordered By: Lilia Hong on 11-21-2024 Creatinine [Mass/Vol] 1.09 mg/dL 0.70-1.30 [facility] Comment on above: The validity of the calculated GFR & GFRAA in patients over 70 years has not been determined. Clinical correlation is essential. Serum or plasma urea nitroge n measurement (mass/volume)Ordered By: Lilia Hong on 11-21-2024 Urea nitrogen [Mass/Vol] 21 mg/dL High 7-18 [facility] Sodium levelOrdered By: Claire Hong on 11-21-2024 Sodium [Moles/Vol] 138 mmol/L 136-145 [facility] Total proteinOrdered By: Thomas Hong on 11-21-2024 Protein [Mass/Vol] 7.6 g/dL 6.4-8.2 [facility] White blood cell (WBC) count Ordered By: Lilia Hong on 11-21-2024 WBC (Bld) [#/Vol] 6.4 10*3/uL 4.4-11.0 [facility] Chest PA and Lateralon 11-19 Chest PA and Lateral [facility] [address] [place] [address] Chest PA and Lateral MR#: [id number] Acct: [id number] Name: YANDEL KRUGER Rep #: [id number] : 1965 M 59 From: Richard Sharp MD PCP: Dr. Lilia Hong MD Status: REG CLI Study: Chest PA and Lateral Date of Exam: 11/19/24 Exam# [id number] Ordering Dr: Lilia Hong [id number] STUDY: X-RAY CHEST REASON FOR EXAM: Male, 59 years old. cough. TECHNIQUE: PA and lateral views of the chest. COMPARISON: 11/04/2024 FINDINGS: The lungs are clear and expanded. There is no demonstrated pleural abnormality. Normal size heart. Normal mediastinum and jaret. Normal visualized pulmonary arteries. Normal visualized aortic arch and descending thoracic aorta. Normal visualized thoracic spine. Normal visualized ribs, clavicles, and shoulders. There is no demonstrated abnormality of the visualized soft tissue structures of the upper abdomen. RAD/Chest PA and Lateral IMPRESSION: Normal x-ray examination of the chest. Electronically Signed: Richard Sharp MD at 17:55 EST , CC: Dr. Lilia Hong MD University Intern: Signed Normal [facility] International normalized rat io (INR) calculationOrdered By: Maral Guy on 11-19-2024 INR Coag (Bld) [Relative time] 2.9 {INR} [facility] Prothrombin Time w/INRon INR Coag (PPP) [Relative time] 2.9 {INR} Normal [facility] Comment on above: Performed By: #### L 500.2500, L501.5461, L100.0100 #### [facility] [address] [place], [place], [id number] PT Coag (PPP) [Time] 30.0 s High 11.7-14.9 [facility] Comment on above: Performed By: #### L 500.2500, L501.5425, L100.0100 #### [facility] [address] [place], [address] Prothrombin timeOrdered By: Maral Guy on 11-19-2024 PT Coag (PPP) [Time] 30.0 s High 11.7-14.9 [facility] Prothrombin Time w/INRon INR Coag (PPP) [Relative time] 4.3 {INR} Invalid Interpretation Code [facility] Comment on above: Result Comment: CRIT ICAL VALUE CALLED TO VITALIY MOTTA ([facility]) 11/16/24 0803 Red Galvan. RESULTS READ BACK BY SAME. Performed By: #### L 500.2500 #### [facility] [address] [place], [address] PT Coag (PPP) [Time] 40.7 s High 11.7-14.9 [facility] Comment on above: Performed By: #### L 500.2500 #### [facility] [address] [place], [address] Absolute neutrophil countOrd ered By: Lilia Hong on 11-04-2024 Neutrophils (Bld) [#/Vol] 4.3 10*3/uL 2.0-7.7 [facility] Albumin to globulin ratioOrd ered By: Lilia Hong on 11-04-2024 Albumin/Globulin [Mass ratio] 1.0 {ratio} 0.9-2.4 [facility] BNP (brain natriuretic pepti de measurement)Ordered By: Lilia Hong on 11-04-2024 Natriuretic peptide B (Bld) [Mass/Vol] 163.5 pg/mL High 0-100 [facility] BNP,B-Type NATRIURETIC PEPTI Zaira 11-04-2024 Natriuretic peptide B (Bld) [Mass/Vol] 163.5 pg/mL High 0-100 [facility] Comment on above: Performed By: #### L 500.4050, L100.0100, L503.6620 #### [facility] [address] [place], [address] Basophil percentageOrdered B y: Lilia Hong on 11-04-2024 Basophils/100 WBC (Bld) 0.5 % 0-1 [facility] Bilirubin, totalOrdered By: Lilia Hong on 11-04-2024 Bilirubin [Mass/Vol] 1.00 mg/dL 0.20-1.00 [facility] Comment on above: For patients on eltr ombopag therapy, use of Dimension [place] TBIL is not recommended. Blood urea nitrogen (BUN)/cr eatinine ratioOrdered By: Lilia Hong on 11-04-2024 Urea nitrogen/Creatinine [Mass ratio] 23.5 mg/mg High 10- [facility] CBC W/Diff, Automatedon 10-25 Absolute Lymph 2.42 X10 3/uL Normal 0.83-4.51 [facility] Comment on above: Performed By: #### L 500.4050, L100.0100, L503.6620 #### [facility] [address] [place], [address] Absolute Neut 4.3 X10 3/uL Normal 2.0-7.7 [facility] Comment on above: Performed By: #### L 500.4050, L100.0100, L503.6620 #### [facility] [address] [place], [address] Basophils/100 WBC (Bld) 0.5 % Normal 0-1 [facility] Comment on above: Performed By: #### L 500.4050, L100.0100, L503.6620 #### [facility] [address] [place], [address] Eosinophils/100 WBC (Bld) 1.6 % Normal 0-5 [facility] Comment on above: Performed By: #### L 500.4050, L100.0100, L503.6620 #### [facility] [address] [place], [address] Erythrocyte distribution width (RBC) [Ratio] 14.1 % Normal 11.6-14.6 [facility] Comment on above: Performed By: #### L 500.4050, L100.0100, L503.6620 #### [facility] [address] [place], [address] Hematocrit (Bld) [Volume fraction] 42.1 % Normal 40-54 [facility] Comment on above: Performed By: #### L 500.4050, L100.0100, L503.6620 #### [facility] [address] [place], [address] Hemoglobin (Bld) [Mass/Vol] 13.5 g/dL Normal 13.0-16.5 [facility] Comment on above: Performed By: #### L 500.4050, L100.0100, L503.6620 #### [facility] [address] [place], [address] IG% 0.300 Normal 0.0-0.9 [facility] Comment on above: Result Comment: IG% - Immature Granulocytes (promyelocytes, myelocytes and metamyelocytes) > 1% indicates that a LEFT SHIFT is Present. Performed By: #### L 500.4050, L100.0100, L503.6620 #### [facility] [address] [place], [address] Lymphocytes/100 WBC (Bld) 32.6 % Normal 19-41 [facility] Comment on above: Performed By: #### L 500.4050, L100.0100, L503.6620 #### [facility] [address] [place], [address] MCH (RBC) [Entitic mass] 26.7 pg Low 27.0-32.0 [facility] Comment on above: Performed By: #### L 500.4050, L100.0100, L503.6620 #### [facility] [address] [place], [address] MCHC (RBC) [Mass/Vol] 32.1 g/dL Normal 32-36 [facility] Comment on above: Performed By: #### L 500.4050, L100.0100, L503.6620 #### [facility] [address] [place], [address] MCV (RBC) [Entitic vol] 83.4 fL Normal 80-94 [facility] Comment on above: Performed By: #### L 500.4050, L100.0100, L503.6620 #### [facility] [address] [place], [address] Monocytes/100 WBC (Bld) 7.0 % Normal 0-10 [facility] Comment on above: Performed By: #### L 500.4050, L100.0100, L503.6620 #### [facility] [address] [place], [address] Neutrophils/100 WBC (Bld) 58.0 % Normal 47-70 [facility] Comment on above: Performed By: #### L 500.4050, L100.0100, L503.6620 #### [facility] [address] [place], [address] Nucleated RBC (Bld) [#/Vol] 0 10*3/uL Normal 0-5 [facility] Comment on above: Performed By: #### L 500.4050, L100.0100, L503.6620 #### [facility] [address] [place], [address] Platelet mean volume (Bld) [Entitic vol] 11.0 fL Normal 6.2-12.0 [facility] Comment on above: Performed By: #### L 500.4050, L100.0100, L503.6620 #### [facility] [address] [place], [address] Platelets (Bld) [#/Vol] 148 10*3/uL Low 150-450 [facility] Comment on above: Performed By: #### L 500.4050, L100.0100, L503.6620 #### [facility] [address] [place], [address] RBC (Bld) [#/Vol] 5.05 10*6/uL Normal 4.6-6.2 [facility] Comment on above: Performed By: #### L 500.4050, L100.0100, L503.6620 #### [facility] [address] [place], [address] RDW SD 42.6 fl Normal 35.1-43.9 [facility] Comment on above: Performed By: #### L 500.4050, L100.0100, L503.6620 #### [facility] [address] [place], [address] WBC (Bld) [#/Vol] 7.4 10*3/uL Normal 4.4-11.0 [facility] Comment on above: Performed By: #### L 500.4050, L100.0100, L503.6620 #### [facility] [address] [place], [address] Carbon dioxide measurementOr dered By: Lilia Hong on 11-04-2024 CO2 [Moles/Vol] 30.0 mmol/L 21.0-32.0 [facility] Chest PA and Lateralon 11-04 Chest PA and Lateral [facility] Imaging Services [address] [address] Chest PA and Lateral MR#: [id number] Acct: [id number] Name: YANDEL KRUGER Rep #: [id number] : 1965 M 59 From: Shaun chacon MD PCP: Dr. Lilia Hong MD Status: REG CLI Study: Chest PA and Lateral Date of Exam: 11/04/24 Exam# [id number] Ordering Dr: Lilia Hong [id number] INDICATION: cough, LLL rhonci EXAMINATION/TECHNIQUE : X-RAY - XR Chest 2 Views COMPARISON: Prior study dated: 10/08/2024 __ FINDINGS: LINES/DEVICES: None. LUNGS: The lungs are well expanded. Prominence of the central vasculature without overt edema. No effusion. No consolidation. No pneumothorax. MEDIASTINUM AND CARDIOVASCULAR STRUCTURES: Cardiac silhouette not enlarged. Central airways and mediastinal contour are unremarkable. BONES AND SOFT TISSUES: No acute abnormality. RAD/Chest PA and Lateral IMPRESSION: No consolidation. Central vascular prominence without overt edema. Electronically Signed: Shaun Rose MD at 1:06 EST , CC: Dr. Lilia Hong MD University Intern: Signed Normal [facility] Chloride measurementOrdered By: Lilia Hong on 11-04-2024 Chloride [Moles/Vol] 103 mmol/L 98-107 [facility] Comprehensive Metabolic Prof ilon 11-04-2024 Albumin [Mass/Vol] 3.8 g/dL Normal 3.2-5.0 [facility] Comment on above: Performed By: #### L 500.4050, L100.0100, L503.6620 #### [facility] [address] [place], [address] Albumin/Globulin [Mass ratio] 1.0 {ratio} Normal 0.9-2.4 [facility] Comment on above: Performed By: #### L 500.4050, L100.0100, L503.6620 #### [facility] [address] [place], [address] ALK P 71 U/L Normal 45-117 [facility] Comment on above: Performed By: #### L 500.4050, L100.0100, L503.6620 #### [facility] [address] [place], [address] ALT [Catalytic activity/Vol] 23 U/L Normal 16-61 [facility] Comment on above: Performed By: #### L 500.4050, L100.0100, L503.6620 #### [facility] [address] [place], [address] AST [Catalytic activity/Vol] 18 U/L Normal 15-37 [facility] Comment on above: Performed By: #### L 500.4050, L100.0100, L503.6620 #### [facility] [address] [place], [address] Bilirubin [Mass/Vol] 1.00 mg/dL Normal 0.20-1.00 [facility] Comment on above: Result Comment: For patients on eltrombopag therapy, use of Dimension [place] TBIL is not recommended. Performed By: #### L 500.4050, L100.0100, L503.6620 #### [facility] [address] [place], [address] BUN/CRE 23.5 RATIO High 10-20 [facility] Comment on above: Performed By: #### L 500.4050, L100.0100, L503.6620 #### [facility] [address] [place], [address] CA,Total 9.4 mg/dL Normal 8.5-10.1 [facility] Comment on above: Performed By: #### L 500.4050, L100.0100, L503.6620 #### [facility] [address] [place], [address] Chloride [Moles/Vol] 103 mmol/L Normal 98-107 [facility] Comment on above: Performed By: #### L 500.4050, L100.0100, L503.6620 #### [facility] [address] [place], [address] CO2 [Moles/Vol] 30.0 mmol/L Normal 21.0-32.0 [facility] Comment on above: Performed By: #### L 500.4050, L100.0100, L503.6620 #### [facility] [address] [place], [address] Creatinine [Mass/Vol] 1.15 mg/dL Normal 0.70-1.30 [facility] Comment on above: Result Comment: The validity of the calculated GFR GFRAA in patients over 70 years has not been determined. Clinical correlation is essential. Performed By: #### L 500.4050, L100.0100, L503.6620 #### [facility] [address] [place], [address] EST GFR - AA 83 mL/min Normal >60 [facility] Comment on above: Result Comment: Afri can Moroccan GFR Calc Performed By: #### L 500.4050, L100.0100, L503.6620 #### [facility] [address] [place], [address] GAP 6 Normal 5-15 [facility] Comment on above: Performed By: #### L 500.4050, L100.0100, L503.6620 #### [facility] [address] [place], [address] GFR/1.73 sq M.predicted among non-blacks MDRD (S/P/Bld) [Vol rate/Area] 69 mL/min/{1.73_m2} Normal >60 [facility] Comment on above: Result Comment: Non- GFR Calc Performed By: #### L 500.4050, L100.0100, L503.6620 #### [facility] [address] [place], [address] Globulin (S) [Mass/Vol] 3.8 g/dL Normal 2.2-4.2 [facility] Comment on above: Performed By: #### L 500.4050, L100.0100, L503.6620 #### [facility] [address] [place], [address] Glucose [Mass/Vol] 124 mg/dL High 74-106 [facility] Comment on above: Result Comment: Fast ing Glucose result from 100 to 125 mg/dL suggests IMPAIRED HOMEOSTASIS per A.D.A. criteria. Performed By: #### L 500.4050, L100.0100, L503.6620 #### [facility] [address] [place], [address] Potassium [Moles/Vol] 3.8 mmol/L Normal 3.5-5.1 [facility] Comment on above: Performed By: #### L 500.4050, L100.0100, L503.6620 #### [facility] [address] [place], [address] Sodium [Moles/Vol] 139 mmol/L Normal 136-145 [facility] Comment on above: Performed By: #### L 500.4050, L100.0100, L503.6620 #### [facility] [address] [place], [address] T PROT 7.6 g/dL Normal 6.4-8.2 [facility] Comment on above: Performed By: #### L 500.4050, L100.0100, L503.6620 #### [facility] [address] [place], [place], [address] Urea nitrogen [Mass/Vol] 27 mg/dL High 7-18 [facility] Comment on above: Performed By: #### L 500.4050, L100.0100, L503.5874 #### [facility] [address] [place], [place], [address] Eosinophil percentageOrdered By: Lilia Hong on 11-04-2024 Eosinophils/100 WBC (Bld) 1.6 % 0-5 [facility] Erythrocyte distribution wid th ratioOrdered By: Lilia Hong on 11-04-2024 Erythrocyte distribution width (RBC) [Ratio] 14.1 % 11.6-14.6 [facility] Erythrocyte distribution wid th standard deviationOrdered By: Lilia Hong on 11-04-2024 Erythrocyte distribution width (RBC) [Entitic vol] 42.6 fL 35.1-43.9 [facility] Estimated glomerular filtrat ion rate (GFR) AmericanOrdered By: Lilia Hong on 11-04-2024 Estimated GFR (MDRD) Amer 83 mL/min >60 [facility] Comment on above: GFR Calc Glomerular filtration rate ( GFR) estimationOrdered By: Lilia Hong on 11-04-2024 Estimated GFR (MDRD) Non-Af Amer 69 mL/min >60 [facility] Comment on above: Non- GFR Calc Glucose measurementOrdered B y: Lilia Hong on 11-04-2024 Glucose [Mass/Vol] 124 mg/dL High 74-106 [facility] Comment on above: Fasting Glucose resu lt from 100 to 125 mg/dL suggests IMPAIRED HOMEOSTASIS per A.D.A. criteria. Hematocrit Auto (Bld) [Volum e fraction]Ordered By: Lilia Hong on 11-04-2024 Hematocrit (Bld) [Volume fraction] 42.1 % 40-54 [facility] Hemoglobin measurementOrdere d By: Lilia Hong on 11-04-2024 Hemoglobin (Bld) [Mass/Vol] 13.5 g/dL 13.0-16.5 [facility] Immature granulocytes/100 WB C Auto (Bld)Ordered By: Lilia Hong on 11-04-2024 Immature granulocytes/100 WBC (Bld) 0.300 % 0.0-0.9 [facility] Comment on above: IG% - Immature Granu locytes (promyelocytes, myelocytes and metamyelocytes) > 1% indicates that a LEFT SHIFT is Present. Laboratory - Chemistry and C hemistry - challengeOrdered By: Lilia Hong on 11-04-2024 AST [Catalytic activity/Vol] 18 U/L 15-37 [facility] Lymphocytes Auto (Unsp spec) [#/Vol]Ordered By: Lilia Hong on 11-04-2024 Lymphocytes (Bld) [#/Vol] 2.42 10*3/uL 0.83-4.51 [facility] Lymphocytes/100 WBC Auto (Un sp spec)Ordered By: Lilia Hong on 11-04-2024 Lymphocytes/100 WBC (Bld) 32.6 % 19-41 [facility] MCV (mean corpuscular volume ) determinationOrdered By: Lilia Hong on 11-04-2024 MCV (RBC) [Entitic vol] 83.4 fL 80-94 [facility] Mean corpuscular hemoglobin (MCH) determinationOrdered By: Lilia Hong on 11-04-2024 MCH (RBC) [Entitic mass] 26.7 pg Low 27.0-32.0 [facility] Mean corpuscular hemoglobin concentration (MCHC) determinationOrdered By: Lilia Hong on 11-04-2024 MCHC (RBC) [Mass/Vol] 32.1 g/dL 32-36 [facility] Mean platelet volume determi nationOrdered By: Lilia Hong on 11-04-2024 Platelet mean volume (Bld) [Entitic vol] 11.0 fL 6.2-12.0 [facility] Monocyte percentageOrdered B y: Lilia Hong on 11-04-2024 Monocytes/100 WBC (Bld) 7.0 % 0-10 [facility] Neutrophil percentageOrdered By: Lilia Hong on 11-04-2024 Neutrophils/100 WBC (Bld) 58.0 % 47-70 [facility] Nucleated red blood cell per centageOrdered By: Lilia Hong on 11-04-2024 Nucleated RBC/100 WBC (Bld) [Ratio] 0 % 0-5 [facility] Platelet countOrdered By: Miguel Hong on 11-04-2024 Platelets (Bld) [#/Vol] 148 10*3/uL Low 150-450 [facility] Potassium measurementOrdered By: Lilia Hong on 11-04-2024 Potassium [Moles/Vol] 3.8 mmol/L 3.5-5.1 [facility] RBC Auto (Bld) [#/Vol]Ordere d By: Lilia Hong on 11-04-2024 RBC (Bld) [#/Vol] 5.05 10*6/uL 4.6-6.2 [facility] Serum anion gap measurementO rdered By: Lilia Hong on 11-04-2024 Anion gap [Moles/Vol] 6 mmol/L 5-15 [facility] Serum globulin measurementOr dered By: Lilia Hong on 11-04-2024 Globulin (S) [Mass/Vol] 3.8 g/dL 2.2-4.2 [facility] Serum or plasma alanine goodman otransferase (ALT) measurementOrdered By: Lilia Hong on 11-04-2024 ALT [Catalytic activity/Vol] 23 U/L 16-61 [facility] Serum or plasma albumin filippo urement (mass/volume)Ordered By: Lilia Hong on 11-04-2024 Albumin [Mass/Vol] 3.8 g/dL 3.2-5.0 [facility] Serum or plasma alkaline rosa sphatase measurementOrdered By: Lilia Hong on 11-04-2024 ALP [Catalytic activity/Vol] 71 U/L 45-117 [facility] Serum or plasma calcium filippo urement (mass/volume)Ordered By: Lilia Hong on 11-04-2024 Calcium [Mass/Vol] 9.4 mg/dL 8.5-10.1 [facility] Serum or plasma creatinine m easurement (mass/volume)Ordered By: Lilia Hong on 11-04-2024 Creatinine [Mass/Vol] 1.15 mg/dL 0.70-1.30 [facility] Comment on above: The validity of the calculated GFR & GFRAA in patients over 70 years has not been determined. Clinical correlation is essential. Serum or plasma urea nitroge n measurement (mass/volume)Ordered By: Lilia Hong on 11-04-2024 Urea nitrogen [Mass/Vol] 27 mg/dL High 7-18 [facility] Sodium levelOrdered By: Claire Hong on 11-04-2024 Sodium [Moles/Vol] 139 mmol/L 136-145 [facility] Total proteinOrdered By: Thomas Hnog on 11-04-2024 Protein [Mass/Vol] 7.6 g/dL 6.4-8.2 [facility] White blood cell (WBC) count Ordered By: Lilia Hong on 11-04-2024 WBC (Bld) [#/Vol] 7.4 10*3/uL 4.4-11.0 [facility] International normalized rat io (INR) calculationOrdered By: Marla Guy on 10-17-2024 INR Coag (Bld) [Relative time] 2.2 {INR} [facility] Prothrombin Time w/INRon INR Coag (PPP) [Relative time] 2.2 {INR} Normal [facility] Comment on above: Performed By: #### L 503.6620 #### [facility] [address] [place], [place], [id number] PT Coag (PPP) [Time] 24.3 s High 11.7-14.9 [facility] Comment on above: Performed By: #### L 137.6620 #### [facility] [address] [place], [place], [id number] Prothrombin timeOrdered By: Maral Guy on 10-17-2024 PT Coag (PPP) [Time] 24.3 s High 11.7-14.9 [facility] Chest PA and Lateralon 10-08 Chest PA and Lateral [facility] Imaging Services [address] [place] [address] Chest PA and Lateral MR#: [id number] Acct: [id number] Name: YANDEL KRUGER Rep #: [id number] : 1965 M 59 From: Batool Gonzales MD PCP: Dr. Lilia Hong MD Status: REG CLI Study: Chest PA and Lateral Date of Exam: 10/08/24 Exam# [id number] Ordering Dr: Theresa Hightower MD [id number] INDICATION: Congestive heart failure. Recent pneumonia. EXAMINATION/TECHNIQUE : X-RAY - XR Chest 2 Views COMPARISON: August 11, 2024 __ FINDINGS: LINES/DEVICES: None. LUNGS: There are bilateral prominent interstitial markings. There is a hazy opacity in the right mid and lower lung. No pneumothorax. MEDIASTINUM AND CARDIOVASCULAR STRUCTURES: There is cardiomegaly associated with perihilar fullness. BONES AND SOFT TISSUES: Unremarkable. RAD/Chest PA and Lateral IMPRESSION: Findings may reflect congestive heart failure, cannot exclude associated infectious process. Electronically Signed: Batool Gonzales MD at 8:36 EST , CC: Dr. Theresa Hightower MD; Dr. Lilia Hong MD University Intern: Signed Normal [facility] BNP (brain natriuretic pepti de measurement)Ordered By: Lilia Hong on 10-02-2024 Natriuretic peptide B (Bld) [Mass/Vol] 171.7 pg/mL High 0-100 [facility] BNP,B-Type NATRIURETIC PEPTI Zaira 10-02-2024 Natriuretic peptide B (Bld) [Mass/Vol] 171.7 pg/mL High 0-100 [facility] Comment on above: Performed By: #### L 503.6620 #### [facility] [address] [place], [address] Basic Metabolic Profile (BMP )on 10-02-2024 BUN/CRE 19.4 RATIO Normal 10-20 [facility] Comment on above: Order Comment: Order Date: 09/10/24 Order Info: 666-11 - BMP Performed By: #### L 500.2500 #### [facility] [address] [place], [address] CA,Total 9.4 mg/dL Normal 8.5-10.1 [facility] Comment on above: Order Comment: Order Date: 09/10/24 Order Info: 666-11 - BMP Performed By: #### L 500.2500 #### [facility] [address] [place], [address] Chloride [Moles/Vol] 104 mmol/L Normal 98-107 [facility] Comment on above: Order Comment: Order Date: 09/10/24 Order Info: 666-11 - BMP Performed By: #### L 500.2500 #### [facility] [address] [place], [address] CO2 [Moles/Vol] 30.0 mmol/L Normal 21.0-32.0 [facility] Comment on above: Order Comment: Order Date: 09/10/24 Order Info: 666-11 - BMP Performed By: #### L 500.2500 #### [facility] [address] [place], [address] Creatinine [Mass/Vol] 1.03 mg/dL Normal 0.70-1.30 [facility] Comment on above: Order Comment: Order Date: 09/10/24 Order Info: 666-11 - BMP Result Comment: The validity of the calculated GFR GFRAA in patients over 70 years has not been determined. Clinical correlation is essential. Performed By: #### L 500.2500 #### [facility] [address] [place], [address] EST GFR - AA 95 mL/min Normal >60 [facility] Comment on above: Order Comment: Order Date: 09/10/24 Order Info: 0667- - BMP Result Comment: Afri can Moroccan GFR Calc Performed By: #### L 500.2500 #### [facility] [address] [place], [address] GAP 5 Normal 5-15 [facility] Comment on above: Order Comment: Order Date: 09/10/24 Order Info: 666-11 - BMP Performed By: #### L 500.2500 #### [facility] [address] [place], [place], [address] GFR/1.73 sq M.predicted among non-blacks MDRD (S/P/Bld) [Vol rate/Area] 78 mL/min/{1.73_m2} Normal >60 [facility] Comment on above: Order Comment: Order Date: 09/10/24 Order Info: 666-11 - BMP Result Comment: Non- GFR Calc Performed By: #### L 500.2500 #### [facility] [address] [place], [place], [address] Glucose [Mass/Vol] 157 mg/dL High 74-106 [facility] Comment on above: Order Comment: Order Date: 09/10/24 Order Info: 0667- - BMP Result Comment: Fast ing Glucose result greater than or equal to 126 mg/dL suggests DIABETES MELLITUS per A.D.A. criteria. Performed By: #### L 500.2500 #### [facility] [address] [place], [address] Potassium [Moles/Vol] 3.8 mmol/L Normal 3.5-5.1 [facility] Comment on above: Order Comment: Order Date: 09/10/24 Order Info: 0667- - BMP Performed By: #### L 500.2500 #### [facility] [address] [place], [address] Sodium [Moles/Vol] 139 mmol/L Normal 136-145 [facility] Comment on above: Order Comment: Order Date: 09/10/24 Order Info: 0667-1 - BMP Performed By: #### L 500.2500 #### [facility] [address] [place], [place], [address] Urea nitrogen [Mass/Vol] 20 mg/dL High 7-18 [facility] Comment on above: Order Comment: Order Date: 09/10/24 Order Info: 0667-1 - BMP Performed By: #### L 500.2500 #### [facility] [address] [place], [place], [address] Blood urea nitrogen (BUN)/cr eatinine ratioOrdered By: Lilia Hong on 10-02-2024 Urea nitrogen/Creatinine [Mass ratio] 19.4 mg/mg 10-20 [facility] Carbon dioxide measurementOr dered By: Lilia Hong on 10-02-2024 CO2 [Moles/Vol] 30.0 mmol/L 21.0-32.0 [facility] Chloride measurementOrdered By: Lilia Hong on 10-02-2024 Chloride [Moles/Vol] 104 mmol/L 98-107 [facility] Estimated glomerular filtrat ion rate (GFR) AmericanOrdered By: Lilia Hong on 10-02-2024 Estimated GFR (MDRD) Amer 95 mL/min >60 [facility] Comment on above: GFR Calc Glomerular filtration rate ( GFR) estimationOrdered By: Lilia Hong on 10-02-2024 Estimated GFR (MDRD) Non-Af Amer 78 mL/min >60 [facility] Comment on above: Non- GFR Calc Glucose measurementOrdered B y: Lilia Hong on 10-02-2024 Glucose [Mass/Vol] 157 mg/dL High 74-106 [facility] Comment on above: Fasting Glucose resu lt greater than or equal to 126 mg/dL suggests DIABETES MELLITUS per A.D.A. criteria. Potassium measurementOrdered By: Lilia Hong on 10-02-2024 Potassium [Moles/Vol] 3.8 mmol/L 3.5-5.1 [facility] Serum anion gap measurementO rdered By: Lilia Hong on 10-02-2024 Anion gap [Moles/Vol] 5 mmol/L 5-15 [facility] Serum or plasma calcium filippo urement (mass/volume)Ordered By: Lilia Hong on 10-02-2024 Calcium [Mass/Vol] 9.4 mg/dL 8.5-10.1 [facility] Serum or plasma creatinine m easurement (mass/volume)Ordered By: Lilia Hong on 10-02-2024 Creatinine [Mass/Vol] 1.03 mg/dL 0.70-1.30 [facility] Comment on above: The validity of the calculated GFR & GFRAA in patients over 70 years has not been determined. Clinical correlation is essential. Serum or plasma urea nitroge n measurement (mass/volume)Ordered By: Lilia Hong on 10-02-2024 Urea nitrogen [Mass/Vol] 20 mg/dL High 7-18 [facility] Sodium levelOrdered By: Claire Hong on 10-02-2024 Sodium [Moles/Vol] 139 mmol/L 136-145 [facility] Cardiology Visit Reporton Cardiology Visit Report [facility] [address] [place] [address] OFFICE VISIT Date of Service: 09/10/24 MR#: [id number] Acct: [id number] Name: YANDEL KRUGER Rep #: [id number] : 1965 Provider: TOMMIE Jordan Age/Sex: 59/M [place] [facility] [place] Signed HPI HPI History of Present Illness Details: Yandel Kruger is a 59-year-old gentleman who presents here today for a cardiovascular follow-up. He does have a history of chronic diastolic heart failure. He was admitted to [facility] on 08/29/2023 for new onset of atrial flutter. He was placed on a Cardizem drip. He did have an echocardiogram which demonstrated an ejection fraction of 50% with stage III diastolic dysfunction with a hypokinetic apex. 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 Because of this he was not started on anticoagulation at that time. 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 He states he is to follow up in 1 year. Seen in the emergency department on 08/03/2024 for shortness of breath. EKG showed atrial fibrillation RVR to 127 bpm. He received 1 dose of diltiazem high sensitive troponin was negative x 2. BNP was elevated 163. Project Leader notes that there is confusion over his medications. She thinks that he stopped his metoprolol. He still does have a cough. He does not have any palpitations, cloth piecer notes that his HR is elevated. He does have SOB with exertion. He does not have any chest pain. Intake Vital Signs 03/04/24 13:47 08/12/24 14:38 09/10/24 14:44 Height 5 ft 9 in 5 ft 9 in 5 ft 9 in Weight: 287 lb BMI 42.3 BP 98/65 Blood Pressure Location Lt brachial Position Sitting Respiration 18 Pulse 98 Pulse Source Monitor Pulse Oximetry (%) 98 Intake Visit Reasons: 6 M Fish Warden Required: No Is patient in pain?: No Allergies aspirin Allergy (Severe, Verified 09/10/24 14:44) Swelling NSAIDS (Non-Steroidal Anti-Inflamma Allergy (Verified 09/10/24 14:44) Swelling Medications ???Medication ???Instructions ???Recorded ???Confirmed ???Type multivitamin 1 ea PO DAILY supplement 06/22/17 09/10/24 History omeprazole 20 mg capsule,delayed 20 mg PO QDAY acid reflux 02/09/18 09/10/24 History release potassium chloride 20 mEq 20 meq PO QDAY supplement 02/09/18 09/10/24 History tablet,extended release cholecalciferol (vitamin D3) 50 2,000 unit PO QDAY supplement 02/10/18 09/10/24 History mcg (2,000 unit) capsule cyanocobalamin (vitamin B-12) 2,500 mcg PO Q OTHER DAY supplement 11/06/21 09/10/24 History 2,500 mcg tablet furosemide 40 mg tablet 40 mg PO .COMPLEX diuresis 11/06/21 09/10/24 History rosuvastatin 40 mg tablet 40 mg PO DAILY cholesterol 06/21/22 09/10/24 History acetaminophen 500 mg tablet 500 mg PO TID PRN PRN Pain 07/24/22 09/10/24 History albuterol sulfate 90 mcg/actuation 2 inh inhalation Q4-6H PRN 03/04/24 09/10/24 History aerosol inhaler shortness of breath or wheezing warfarin 4 mg tablet 4 mg PO .COMPLEX #60 tabs 06/17/24 09/10/24 Rx coenzyme Q10 100 mg capsule 200 mg PO DAILY antioxidant 08/06/24 09/10/24 History (CoQ-10) metoprolol tartrate 50 mg tablet 50 mg PO BID 08/11/24 09/10/24 History dextromethorphan-guai fenesin ER 60 1 tab PO BID 7 days #14 tabs 08/13/24 09/10/24 Rx mg-1,200 mg tab,extend release,12hr doxycycline monohydrate 100 mg 100 mg PO BID 6 days #12 tabs 08/13/24 09/10/24 Rx tablet needle (disp) 32 gauge 32 gauge x #100 ea 08/13/24 Rx 5/16 prednisone 20 mg tablet 40 mg (2 x 20 mg) PO DAILY 5 days 08/13/24 09/10/24 Rx #10 tabs semaglutide 14 mg tablet (Rybelsus) 14 mg PO QDAY 09/10/24 09/10/24 History PFSH Medical History Chronic pain Pneumonia Rheumatoid arthritis Smoker CPAP (continuous positive airway pressure) dependence Sleep apnea On home oxygen therapy COPD (chronic obstructive pulmonary disease) Atrial fibrillation Congestive heart failure (CHF) Chest pain residential (current) use of anticoagulants Pancreatic cyst Wears dentures Wears glasses Former smoker CPAP (continuous positive airway pressure) dependence On home oxygen therapy Mass of pancreas Atrial flutter Chronic venous insufficiency Varicose veins of both lower extremities with inflammation Gastroesophageal reflux disease Dependence on nocturnal oxygen therapy Diabetes mellitus Morbid obesity Leg edema Leg swelling Mild pulmonary arterial systolic hypertension Dyspnea DEBI (obstructive sleep apnea) Hypersomnia Chronic diastolic heart failure Restrictive lung disease Obesity GERD (gastroesophageal reflux disease) Hyperlipidemia Surgical History (Revi (more content not included)... Normal [facility] Prothrombin Time w/INRon INR Coag (PPP) [Relative time] 3.1 {INR} Normal [facility] Comment on above: Performed By: #### L 500.4050, L100.0100, L503.6620 #### [facility] [address] [place], [address] PT Coag (PPP) [Time] 31.4 s High 11.7-14.9 [facility] Comment on above: Performed By: #### L 500.4050, L100.0100, L503.6620 #### [facility] [address] [place], [address] Prothrombin Time w/INRon INR Coag (PPP) [Relative time] 3.0 {INR} Normal [facility] Comment on above: Performed By: #### L 500.2500 #### [facility] [address] [place], [address] PT Coag (PPP) [Time] 30.5 s High 11.7-14.9 [facility] Comment on above: Performed By: #### L 500.2500 #### [facility] [address] [place], [address] Culture, Blood (WB)on 2023 CUB Blood Cultures x2, from different sites No growth in 5 days. Normal [facility] Comment on above: Performed By: #### L 500.2500, L501.5425, L100.0100 #### [facility] [address] [place], [address] Prothrombin Time w/INRon INR Coag (PPP) [Relative time] 4.1 {INR} Invalid Interpretation Code [facility] Comment on above: Order Comment: Order Date: 09/10/24 Order Info: [id number] - BMP Performed By: #### L 500.2500 #### [facility] [address] [place], [address] PT Coag (PPP) [Time] 39.6 s High 11.7-14.9 [facility] Comment on above: Order Comment: Order Date: 09/10/24 Order Info: [id number] - BMP Performed By: #### L 500.2500 #### [facility] [address] [place], [place], [address] Prothrombin Time w/INRon INR Normal [facility] Comment on above: Result Comment: Canc elled via OM: Order cancelled - Patient discharged Performed By: #### L 500.2500 #### [facility] [address] [place], [place], [address] PROTIME Normal 11.7-14.9 [facility] Comment on above: Result Comment: Canc elled via OM: Order cancelled - Patient discharged Performed By: #### L 500.2500 #### [facility] [address] [place], [place], [address] Bedside Glucoseon 08-13-2024 FINGERSTICK GLU 238 mg/dL High 74-106 [facility] Comment on above: Result Comment: CHERELLE VASQUES OF PATIENT CARE PER NURSING PROTOCOL Performed By: #### L 500.2500 #### [facility] [address] [place], [place], [address] Discharge Instructionon 07-26 Discharge Instruction [facility] Medical Records Department [address] [place] [address] Instructions for Home/Discharge Instructions 08/13/24 1153 MR#: [id number] Acct: [id number] Name: YANDEL KRUGER Rep #: [id number] : 1965 59 From: Denys Parra MD PCP: Dr. Lilia Hong MD Status:ADM IN Discharge Instructions Diet Discharge Diet: No restrictions, 1800 Calorie Control Diet, 6 Cup Fluid Restriction, 8 Cup Fluid Restriction and 2000 mg Sodium Diet Activity Discharge Activity: Return to Normal Activity Weight Bearing Status: Weight bearing as tolerated Dressing / Incision Call your doctor if you observe: Fever of 101 or Higher, Coldness, Increased Pain, Numbness or Tingling, Change in Color, Inability to urinate, Inability to have a bowel movement, Shortness of breath, Dizziness, Fainting spells, Swelling in the ankles, Chest pain, Prolonged hiccupping, Increased palpitations (irregular heartbeat) and Calf discomfort Follow Up Care When: IN 2 WEEKS Test Results: Test results from this visit will be discussed in further detail at your follow-up appointment, if applicable. Discharge Plan Admission Admit Date/Time: 08/12/24 15:20 Primary Reason for Your Visit: COPD exacerbation Attending Provider: Denys Parra Primary Care Provider: Lilia Hong Consulting Providers: Jerica Hou Discharge Orders/Prescriptions Prescriptions: New dextromethorphan-guai fenesin 60-1,200 mg tablet extended release 12 hr 1 tab PO BID 7 Days Qty: 14 0RF insulin lispro [Humalog KwikPen Insulin] 100 unit/mL Insulin Pen See Protocol subcut ACHS 30 Days Qty: 15 2RF Protocol: 5. Sliding Scale Insulin High Dosing Condition: 150-209 mg/dl = 3 units Condition: 210-259 mg/dl = 6 units Condition: 260-324 mg/dl = 9 units Condition: 325-374 mg/dl = 12 units Condition: 375-409 mg/dl = 14 units Condition: 410-449 mg/dl = 16 units Condition: Greater than 449 call physician Protocol Text: Suggested for: - Patients on Total Daily Insulin Dose of 81-120 units - Very insulin resistant patients HIGH DOSING ALGORITHM cefdinir 300 mg capsule 300 mg PO BID 6 Days Qty: 12 0RF doxycycline monohydrate 100 mg tablet 100 mg PO BID 6 Days Qty: 12 0RF prednisone 20 mg tablet 40 mg PO DAILY 5 Days Qty: 10 0RF insulin glargine [Lantus Solostar U-100 Insulin] 100 unit/mL (3 mL) insulin pen 15 unit subcut DAILY Qty: 15 0RF Rx Instructions: Hold if glucose less than 130 mg/dl (DME) needle (disp) 32 gauge 32 gauge x 5/16 needle See Rx Instructions .ROUTE .MEDSUPPLY Qty: 100 2RF Rx Instructions: As directed Continued cholecalciferol (vitamin D3) 2,000 unit capsule 2,000 unit PO QDAY omeprazole 20 mg capsule,delayed release(DR/EC) 20 mg PO QDAY potassium chloride 20 mEq tablet extended release 20 meq PO QDAY cyanocobalamin (vitamin B-12) 2,500 mcg tablet 2,500 mcg PO Q OTHER DAY rosuvastatin 40 mg tablet 40 mg PO DAILY albuterol sulfate 90 mcg/actuation HFA aerosol inhaler 2 inh inhalation Q4-6H PRN (Reason: shortness of breath or wheezing) multivitamin 1 EACH tablet 1 ea PO DAILY Patient Comments: VITAMIN furosemide 40 mg tablet 40 mg PO .COMPLEX Rx Instructions: 40 mg PO; 2 tabs qam, 1 tab qpm acetaminophen 500 mg Tablet 500 mg PO TID PRN PRN (Reason: Pain) coenzyme Q10 [CoQ-10] 100 mg capsule 200 mg PO DAILY metoprolol tartrate 50 mg tablet 50 mg PO BID warfarin 4 mg tablet 4 mg PO .COMPLEX Qty: 60 11RF Protocol: Dose Management Condition: Saturday Dose/Route: 8 mg Instruction: 2 x 4 mg tablets Condition: Saturday Dose/Route: 8 mg Instruction: 2 x 4 mg tablets Condition: Saturday Dose/Route: 8 mg Instruction: 2 x 4 mg tablets Condition: Saturday Dose/Route: 8 mg Instruction: 2 x 4 mg tablets Condition: Dose/Route: 8 mg Instruction: 2 x 4 mg tablets Condition: Saturday Dose/Route: 8 mg Instruction: 2 x 4 mg tablets Condition: Saturday Dose/Route: 8 mg Instruction: 2 x 4 mg tablets Protocol Text: Adjustment Start Date: Saturday08/10/24 INR Value: 2.3 INR Date: 08/10/24 Recheck Date: 08/17/24 Rx Instructions: 8 mg (2 tabs)Sat-Sat; 4mg (1 tab) Sat/Sun; or as directed Referrals / Follow Up: Lilia Hong MD [Primary Care Provider] - Alfredo Arias DO [Med Staff - Active Staff] - Within 2 Weeks Disposition Disposition (needs filled in before D/C Order can be placed): Home, Self Care 08/13/24 3659 Denys Parra MD CC: Dr. Jerica Hou MD; Dr. Lilia Hong MD Signed [facility] Prothrombin Time w/INRon INR Coag (PPP) [Relative time] 1.9 {INR} [facility] Comment on above: Performed By: #### L 500.4050, L100.0100, L503.6620 #### [facility] [address] [place], [address] PT Coag (PPP) [Time] 21.4 s High 11.7-14.9 [facility] Comment on above: Performed By: #### L 500.4050, L100.0100, L503.6620 #### [facility] [address] [place], [address] Respiratory Cultureon 2023 RESPC List Antibiotics Las t 48 Hours? y Mixed normal respiratory jaye. No Streptococcus pneumoniae, beta-hemolytic Streptococcus or Staphylococcus aureus isolated. [facility] Comment on above: Performed By: #### L 500.2500, L501.5425, L100.0100 #### [facility] [address] [place], [address] Bedside Glucoseon 08-12-2024 FINGERSTICK GLU 157 mg/dL High 74-106 [facility] Comment on above: Result Comment: CHERELLE GEMENT OF PATIENT CARE PER NURSING PROTOCOL Performed By: #### L 503.6620 #### [facility] [address] [place], [address] FINGERSTICK GLU 200 mg/dL High 74-106 [facility] Comment on above: Result Comment: CHERELLE GEMENT OF PATIENT CARE PER NURSING PROTOCOL Performed By: #### L 503.6620 #### [facility] [address] [place], [address] FINGERSTICK GLU 182 mg/dL High 74-106 [facility] Comment on above: Result Comment: CHERELLE GEMENT OF PATIENT CARE PER NURSING PROTOCOL Performed By: #### L 500.4050, L100.0100, L503.6620 #### [facility] [address] [place], [address] FINGERSTICK GLU 126 mg/dL High 74-106 [facility] Comment on above: Result Comment: CHERELLE GEMENT OF PATIENT CARE PER NURSING PROTOCOL Performed By: #### L 503.6620 #### [facility] [address] [place], [address] FINGERSTICK GLU 276 mg/dL High 74-106 [facility] Comment on above: Result Comment: CHERELLE GEMENT OF PATIENT CARE PER NURSING PROTOCOL Performed By: #### L 503.6620 #### [facility] [address] [place], [address] CBC W/Diff, Automatedon 07-26-2023 Absolute Lymph 2.62 X10 3/uL Normal 0.83-4.51 [facility] Comment on above: Performed By: #### L 503.6620 #### [facility] [address] [place], [address] Absolute Neut 5.9 X10 3/uL Normal 2.0-7.7 [facility] Comment on above: Performed By: #### L 503.6620 #### [facility] [address] [place], [address] Basophils/100 WBC (Bld) 0.3 % Normal 0-1 [facility] Comment on above: Performed By: #### L 503.6620 #### [facility] [address] [place], [address] Eosinophils/100 WBC (Bld) 0.3 % Normal 0-5 [facility] Comment on above: Performed By: #### L 503.6620 #### [facility] [address] [place], [address] Erythrocyte distribution width (RBC) [Ratio] 13.5 % Normal 11.6-14.6 [facility] Comment on above: Performed By: #### L 503.6620 #### [facility] [address] [place], [address] Hematocrit (Bld) [Volume fraction] 44.4 % Normal 40-54 [facility] Comment on above: Performed By: #### L 051.20 #### [facility] [address] [place], [address] Hemoglobin (Bld) [Mass/Vol] 13.9 g/dL Normal 13.0-16.5 [facility] Comment on above: Performed By: #### L 501.20 #### [facility] [address] [place], [address] IG% 0.400 Normal 0.0-0.9 [facility] Comment on above: Result Comment: IG% - Immature Granulocytes (promyelocytes, myelocytes and metamyelocytes) > 1% indicates that a LEFT SHIFT is Present. Performed By: #### L 333.6619 #### [facility] [address] [place], [address] Lymphocytes/100 WBC (Bld) 27.9 % Normal 19-41 [facility] Comment on above: Performed By: #### L 343.20 #### [facility] [address] [place], [address] MCH (RBC) [Entitic mass] 27.1 pg Normal 27.0-32.0 [facility] Comment on above: Performed By: #### L 182.6619 #### [facility] [address] [place], [address] MCHC (RBC) [Mass/Vol] 31.3 g/dL Low 32-36 [facility] Comment on above: Performed By: #### L 559.6619 #### [facility] [address] [place], [address] MCV (RBC) [Entitic vol] 86.5 fL Normal 80-94 [facility] Comment on above: Performed By: #### L 034.20 #### [facility] [address] [place], [address] Monocytes/100 WBC (Bld) 7.9 % Normal 0-10 [facility] Comment on above: Performed By: #### L 503.6619 #### [facility] [address] [place], [address] Neutrophils/100 WBC (Bld) 63.2 % Normal 47-70 [facility] Comment on above: Performed By: #### L 503.6619 #### [facility] [address] [place], [address] Nucleated RBC (Bld) [#/Vol] 0 10*3/uL Normal 0-5 [facility] Comment on above: Performed By: #### L 503.6619 #### [facility] [address] [place], [address] Platelet mean volume (Bld) [Entitic vol] 11.7 fL Normal 6.2-12.0 [facility] Comment on above: Performed By: #### L 503.6619 #### [facility] [address] [place], [address] Platelets (Bld) [#/Vol] 171 10*3/uL Normal 150-450 [facility] Comment on above: Performed By: #### L 503 #### [facility] [address] [place], [address] RBC (Bld) [#/Vol] 5.13 10*6/uL Normal 4.6-6.2 [facility] Comment on above: Performed By: #### L 503 #### [facility] [address] [place], [address] RDW SD 43.2 fl Normal 35.1-43.9 [facility] Comment on above: Performed By: #### L 503.6619 #### [facility] [address] [place], [address] WBC (Bld) [#/Vol] 9.4 10*3/uL Normal 4.4-11.0 [facility] Comment on above: Performed By: #### L 503.6620 #### [facility] [address] [place], [address] Comprehensive Metabolic Prof ilon 08-12-2024 Albumin [Mass/Vol] 3.5 g/dL Normal 3.2-5.0 [facility] Comment on above: Performed By: #### L 503.6620 #### [facility] [address] [place], [address] Albumin/Globulin [Mass ratio] 0.9 {ratio} Normal 0.9-2.4 [facility] Comment on above: Performed By: #### L 503.6620 #### [facility] [address] [place], [address] ALK P 70 U/L Normal 45-117 [facility] Comment on above: Performed By: #### L 503.6620 #### [facility] [address] [place], [address] ALT [Catalytic activity/Vol] 71 U/L High 16-61 [facility] Comment on above: Performed By: #### L 503.6620 #### [facility] [address] [place], [address] AST [Catalytic activity/Vol] 40 U/L High 15-37 [facility] Comment on above: Result Comment: Slig ht Hemolysis, Result may be falsely increased. Performed By: #### L 503.6620 #### [facility] [address] [place], [address] Bilirubin [Mass/Vol] 1.10 mg/dL High 0.20-1.00 [facility] Comment on above: Result Comment: For patients on eltrombopag therapy, use of Dimension [place] TBIL is not recommended. Performed By: #### L 503.20 #### [facility] [address] [place], [address] BUN/CRE 22.9 RATIO High 10-20 [facility] Comment on above: Performed By: #### L 503.20 #### [facility] [address] [place], [address] CA,Total 9.3 mg/dL Normal 8.5-10.1 [facility] Comment on above: Performed By: #### L 503.20 #### [facility] [address] [place], [address] Chloride [Moles/Vol] 102 mmol/L Normal 98-107 [facility] Comment on above: Performed By: #### L 503.20 #### [facility] [address] [place], [address] CO2 [Moles/Vol] 28.0 mmol/L Normal 21.0-32.0 [facility] Comment on above: Performed By: #### L 503.20 #### [facility] [address] [place], [address] Creatinine [Mass/Vol] 1.31 mg/dL High 0.70-1.30 [facility] Comment on above: Result Comment: The validity of the calculated GFR GFRAA in patients over 70 years has not been determined. Clinical correlation is essential. Performed By: #### L 503.20 #### [facility] [address] [place], [address] ECRCL 80.63 ml/min Normal [facility] Comment on above: Performed By: #### L 503.20 #### [facility] [address] [place], [address] EST GFR - AA 72 mL/min Normal >60 [facility] Comment on above: Result Comment: Afri can Moroccan GFR Calc Performed By: #### L 503.20 #### [facility] [address] [place], [address] GAP 4 Low 5-15 [facility] Comment on above: Performed By: #### L 503.6620 #### [facility] [address] [place], [address] GFR/1.73 sq M.predicted among non-blacks MDRD (S/P/Bld) [Vol rate/Area] 59 mL/min/{1.73_m2} Low >60 [facility] Comment on above: Result Comment: Non- GFR Calc Performed By: #### L 503.20 #### [facility] [address] [place], [address] Globulin (S) [Mass/Vol] 3.7 g/dL Normal 2.2-4.2 [facility] Comment on above: Performed By: #### L 503.20 #### [facility] [address] [place], [address] Glucose [Mass/Vol] 129 mg/dL High 74-106 [facility] Comment on above: Result Comment: Fast ing Glucose result greater than or equal to 126 mg/dL suggests DIABETES MELLITUS per A.D.A. criteria. Performed By: #### L 503.20 #### [facility] [address] [place], [address] Potassium [Moles/Vol] 4.5 mmol/L Normal 3.5-5.1 [facility] Comment on above: Result Comment: Slig ht Hemolysis, Result may be falsely increased. Performed By: #### L 503.6620 #### [facility] [address] [place], [address] Sodium [Moles/Vol] 134 mmol/L Low 136-145 [facility] Comment on above: Performed By: #### L 503.6620 #### [facility] [address] [place], [address] T PROT 7.2 g/dL Normal 6.4-8.2 [facility] Comment on above: Performed By: #### L 503.6620 #### [facility] [address] [place], [address] Urea nitrogen [Mass/Vol] 30 mg/dL High 06-11 [facility] Comment on above: Performed By: #### L 503.6620 #### [facility] [address] [place], [address] Gram Stainon 08-12-2024 GS List Antibiotics Las t 48 Hours? y Acceptable Specimen? Yes (<25 Epithelial cells per/lpf) Gram Stain 2+ Gram positive cocci 1+ Gram positive rods 1+ White Blood Cells 1+ Epithelial cells Normal [facility] Comment on above: Performed By: #### L 500.2500, L501.5425, L100.0100 #### [facility] [address] [place], [address] Hemoglobin A1con 08-12-2024 HbA1c (Bld) [Mass fraction] 6.7 % High 3.8-5.6 [facility] Comment on above: Result Comment: Norm al < 5.7 % Prediabetic 5.7 - 6.4 % Diabetic >or= 6.5 % Please note range changes. Performed By: #### L 503.6620 #### [facility] [address] [place], [address] Legionella Antigen Urineon 0 08-12-2024 LEGU URINE, CLEAN CATCH Legionella Antigen result interpretation: L pneumo Ag Ur Ql Negative Presumptive negative for Legionella pneumophila serogroup 1 antigen in urine, suggesting no recent or current infection. Legionella Ag, Urine Negative (See interpretation below) Normal [facility] Comment on above: Performed By: #### L 500.2500, L501.5425, L100.0100 #### [facility] [address] [place], [address] M100.019on 08-12-2024 M100.019 Negative Normal [facility] Comment on above: Performed By: #### L 500.4050, L100.0100, L503.6620 #### [facility] [address] [place], [address] Prothrombin Time w/INRon INR Coag (PPP) [Relative time] 1.8 {INR} Normal [facility] Comment on above: Performed By: #### L 503.6620 #### [facility] [address] [place], [address] PT Coag (PPP) [Time] 20.5 s High 11.7-14.9 [facility] Comment on above: Performed By: #### L 503.6620 #### [facility] [address] [place], [address] RESPIRATORY PANEL MOLECULARo n 08-12-2024 RP PANEL ADENOVIRUS Not Detected INFLUENZA A Not Detected INFLUENZA A (SUBTYPE H1) Not Detected INFLUENZA A (SUBTYPE H3) Not Detected INFLUENZA B Not Detected HUMAN METAPHNEUMO Not Detected PARAINFLUENZA 1 Not Detected PARAINFLUENZA 2 Not Detected PARAINFLUENZA 3 Not Detected PARAINFLUENZA 4 Not Detected RHINOVIRUS Not Detected RSV A Not Detected RSV B Not Detected Normal [facility] Comment on above: Performed By: #### L 500.2500, L501.5425, L100.0100 #### [facility] [address] [place], [address] Strep pneumoniae Antig(UR,CS F)on 08-12-2024 STPAG URINE, CLEAN CATCH URINE INTERPRETATION Strep pneumoniae Antig(UR,CSF) Strep pneumoniae Antig(UR,CSF) Negative Urine Presumptive negative for pneumococcal pneumonia, suggesting no current or recent pneumococcal infection. Infection due to S pneumoniae cannot be ruled out since the antigen present in the sample may be below the detection limit of the test. Strep pneumo Test Negative URINE (See interpretation below) Normal [facility] Comment on above: Performed By: #### L 500.2500, L501.5425, L100.0100 #### [facility] [address] [place], [address] BNP,B-Type NATRIURETIC PEPTI Zaira 08-11-2024 Natriuretic peptide B (Bld) [Mass/Vol] 127.1 pg/mL High 0-100 [facility] Comment on above: Performed By: #### L 500.4050, L100.0100, L503.6620 #### [facility] [address] [place], [address] Basic Metabolic Profile (BMP )on 08-11-2024 BUN/CRE 19.6 RATIO Normal 10-20 [facility] Comment on above: Order Comment: 1 Y Performed By: #### L 500.2500, L501.5425, L100.0100 #### [facility] [address] [place], [address] CA,Total 9.3 mg/dL Normal 8.5-10.1 [facility] Comment on above: Order Comment: 1 Y Performed By: #### L 500.2500, L501.5425, L100.0100 #### [facility] [address] [place], [address] Chloride [Moles/Vol] 103 mmol/L Normal 98-107 [facility] Comment on above: Order Comment: 1 Y Performed By: #### L 500.2500, L501.5425, L100.0100 #### [facility] [address] [place], [address] CO2 [Moles/Vol] 28.0 mmol/L Normal 21.0-32.0 [facility] Comment on above: Order Comment: 1 Y Performed By: #### L 500.2500, L501.5425, L100.0100 #### [facility] [address] [place], [address] Creatinine [Mass/Vol] 1.43 mg/dL High 0.70-1.30 [facility] Comment on above: Order Comment: 1 Y Result Comment: The validity of the calculated GFR GFRAA in patients over 70 years has not been determined. Clinical correlation is essential. Performed By: #### L 500.2500, L501.5425, L100.0100 #### [facility] [address] [place], [address] ECRCL 73.70 ml/min Normal [facility] Comment on above: Order Comment: 1 Y Performed By: #### L 500.2500, L501.5425, L100.0100 #### [facility] [address] [place], [address] EST GFR - AA 65 mL/min Normal >60 [facility] Comment on above: Order Comment: 1 Y Result Comment: Afri can Moroccan GFR Calc Performed By: #### L 500.2500, L501.5425, L100.0100 #### [facility] [address] [place], [address] GAP 6 Normal 5-15 [facility] Comment on above: Order Comment: 1 Y Performed By: #### L 500.2500, L501.5425, L100.0100 #### [facility] [address] [place], [address] GFR/1.73 sq M.predicted among non-blacks MDRD (S/P/Bld) [Vol rate/Area] 54 mL/min/{1.73_m2} Low >60 [facility] Comment on above: Order Comment: 1 Y Result Comment: Non- GFR Calc Performed By: #### L 500.2500, L501.5425, L100.0100 #### [facility] [address] [place], [address] Glucose [Mass/Vol] 165 mg/dL High 74-106 [facility] Comment on above: Order Comment: 1 Y Result Comment: Fast ing Glucose result greater than or equal to 126 mg/dL suggests DIABETES MELLITUS per A.D.A. criteria. Performed By: #### L 500.2500, L501.5425, L100.0100 #### [facility] [address] [place], [address] Potassium [Moles/Vol] 4.7 mmol/L Normal 3.5-5.1 [facility] Comment on above: Order Comment: 1 Y Performed By: #### L 500.2500, L501.5425, L100.0100 #### [facility] [address] [place], [address] Sodium [Moles/Vol] 137 mmol/L Normal 136-145 [facility] Comment on above: Order Comment: 1 Y Performed By: #### L 500.2500, L501.5425, L100.0100 #### [facility] [address] [place], [address] Urea nitrogen [Mass/Vol] 28 mg/dL High 7-18 [facility] Comment on above: Order Comment: 1 Y Performed By: #### L 500.2500, L501.5425, L100.0100 #### [facility] [address] [place], [address] CBC W/Diff, Automatedon 09- Absolute Lymph 3.17 X10 3/uL Normal 0.83-4.51 [facility] Comment on above: Performed By: #### L 500.2500, L501.5425, L100.0100 #### [facility] [address] [place], [address] Absolute Neut 7.4 X10 3/uL Normal 2.0-7.7 [facility] Comment on above: Performed By: #### L 500.2500, L501.5425, L100.0100 #### [facility] [address] [place], [address] Basophils/100 WBC (Bld) 0.3 % Normal 0-1 [facility] Comment on above: Performed By: #### L 500.2500, L501.5425, L100.0100 #### [facility] [address] [place], [address] Eosinophils/100 WBC (Bld) 0.7 % Normal 0-5 [facility] Comment on above: Performed By: #### L 500.2500, L501.5425, L100.0100 #### [facility] [address] [place], [address] Erythrocyte distribution width (RBC) [Ratio] 13.4 % Normal 11.6-14.6 [facility] Comment on above: Performed By: #### L 500.2500, L501.5425, L100.0100 #### [facility] [address] [place], [address] Hematocrit (Bld) [Volume fraction] 45.5 % Normal 40-54 [facility] Comment on above: Performed By: #### L 500.2500, L501.5425, L100.0100 #### [facility] [address] [place], [address] Hemoglobin (Bld) [Mass/Vol] 14.3 g/dL Normal 13.0-16.5 [facility] Comment on above: Performed By: #### L 500.2500, L501.5425, L100.0100 #### [facility] [address] [place], [address] IG% 0.500 Normal 0.0-0.9 [facility] Comment on above: Result Comment: IG% - Immature Granulocytes (promyelocytes, myelocytes and metamyelocytes) > 1% indicates that a LEFT SHIFT is Present. Performed By: #### L 500.2500, L501.5425, L100.0100 #### [facility] [address], [address] Lymphocytes/100 WBC (Bld) 27.2 % Normal 19-41 [facility] Comment on above: Performed By: #### L 500.2500, L501.5425, L100.0100 #### [facility] [address] [place], [address] MCH (RBC) [Entitic mass] 26.9 pg Low 27.0-32.0 [facility] Comment on above: Performed By: #### L 500.2500, L501.5425, L100.0100 #### [facility] [address] [place], [address] MCHC (RBC) [Mass/Vol] 31.4 g/dL Low 32-36 [facility] Comment on above: Performed By: #### L 500.2500, L501.5425, L100.0100 #### [facility] [address] [place], [address] MCV (RBC) [Entitic vol] 85.5 fL Normal 80-94 [facility] Comment on above: Performed By: #### L 500.2500, L501.5425, L100.0100 #### [facility] [address] [place], [address] Monocytes/100 WBC (Bld) 7.3 % Normal 0-10 [facility] Comment on above: Performed By: #### L 500.2500, L501.5425, L100.0100 #### [facility] [address] [place], [address] Neutrophils/100 WBC (Bld) 64.0 % Normal 47-70 [facility] Comment on above: Performed By: #### L 500.2500, L501.5425, L100.0100 #### [facility] [address] [place], [address] Nucleated RBC (Bld) [#/Vol] 0 10*3/uL Normal 0-5 [facility] Comment on above: Performed By: #### L 500.2500, L501.5425, L100.0100 #### [facility] [address] [place], [address] Platelet mean volume (Bld) [Entitic vol] 10.9 fL Normal 6.2-12.0 [facility] Comment on above: Performed By: #### L 500.2500, L501.5425, L100.0100 #### [facility] [address] [place], [address] Platelets (Bld) [#/Vol] 181 10*3/uL Normal 150-450 [facility] Comment on above: Performed By: #### L 500.2500, L501.5425, L100.0100 #### [facility] [address] [place], [address] RBC (Bld) [#/Vol] 5.32 10*6/uL Normal 4.6-6.2 [facility] Comment on above: Performed By: #### L 500.2500, L501.5425, L100.0100 #### [facility] [address] [place], [address] RDW SD 41.6 fl Normal 35.1-43.9 [facility] Comment on above: Performed By: #### L 500.2500, L501.5425, L100.0100 #### [facility] [address] [place], [address] WBC (Bld) [#/Vol] 11.6 10*3/uL High 4.4-11.0 [facility] Comment on above: Performed By: #### L 500.2500, L501.5425, L100.0100 #### [facility] [address] [place], [address] CTA Chest W/WO Contraston CTA Chest W/WO Contrast [facility] Services [address] [place] [address] CTA Chest W/WO Contrast MR#: [id number] Acct: [id number] Name: YANDEL KRUGER Rep #: [id number] : 1965 M 59 From: Bandar mcneal MD PCP: Dr. Lilia Hong MD Status: REG ER Study: CTA Chest W/WO Contrast Date of Exam: 08/11/24 Exam# [id number] Ordering Dr: Israel Bhatti DO [id number] EXAM: CT ANGIOGRAPHY CHEST WITHOUT AND WITH INTRAVENOUS CONTRAST CLINICAL INDICATION: Dyspnea TECHNIQUE: Helically acquired angiography images were obtained of the chest without and with intravenous contrast. This CT exam was performed using one or more of the following dose reduction techniques: automated exposure control, adjustment of the mA and/or kV according to patient size, and/or use of iterative reconstruction technique. MIP reconstructed images were created and reviewed. CONTRAST: IV 100mL [id number] RADIATION DOSE: Total DLP: 572.60 mGy-cm. COMPARISON: Portable chest radiograph of this date. CTA chest of 08/29/2023. CT abdomen and pelvis of 08/30/2023. FINDINGS: LIMITATIONS: Respiratory motion. PULMONARY ARTERIES: Unremarkable. Normal in caliber. No evidence of pulmonary embolism, when allowing for the respiratory motion.. AORTA: Thoracic aorta is minimally calcific and is normal in caliber. No aneurysm or intimal flap. GREAT VESSELS OF AORTIC ARCH: Unremarkable. Normal in caliber. No evidence of dissection. LUNGS AND PLEURAL SPACES: Minimal asymmetric patchy subpleural airspace disease has developed posteriorly within the right lower lobe. Mild peribronchial cuffing is present bilaterally indicating bronchial wall inflammation. No mass. HEART: Coronary artery calcification is present. No significant pericardial effusion. MEDIASTINUM: Numerous normal-sized mediastinal lymph nodes are present. A borderline enlarged pretracheal lymph node is present measuring 10 mm in short axis diameter, slightly larger than on the prior study. A 1.5 cm short axis diameter lymph nodes seen to the left of the distal trachea in the AP window region. A slightly enlarged left hilar lymph node has developed measuring 11 mm in short axis diameter. Interposed between the descending thoracic aorta and left atrium is a developing borderline size measuring 10 mm in short axis diameter. At the right hilum, a slightly enlarged node measuring 11 mm short axis diameter is present, unchanged. No axillary adenopathy. Esophagus is unremarkable. No hiatal hernia. THYROID: Unremarkable. No thyroid lesions. BONES/JOINTS: Flowing osteophytes throughout the mid to lower thoracic spine. Degenerative vacuum disc phenomenon and endplate sclerosis at the T11/12 level. INTRAPERITONEAL SPACE: There is reflux of contrast into the IVC and hepatic veins, which may be due to the rapid bolus infusion of contrast versus right heart dysfunction. Visualized portions of the spleen and adrenal glands and renal upper poles are unremarkable. There is ill-defined enlargement of the pancreatic tail, again suspicious for mass , which measures approximately 3.5 cm in diameter unchanged. No pneumoperitoneum is noted. CT/CTA Chest W/WO Contrast IMPRESSION: Negative for PE. No thoracic aortic dissection. Interval development of minimal patchy airspace disease in the right lower lobe, consistent with pneumonia. Minimal mediastinal and hilar adenopathy. Stable ill-defined mass within the pancreatic tail. Electronically Signed: Bandar Zuñiga MD at 22:13 EDT , CC: Dr. Lilia Hong MD; Dr. Israel Bhatti DO [employer] Intern: Signed Normal [facility] Chest 1 View (Portable)on Chest 1 View (Portable) [facility] Services [address] [place], [place] [id number] Chest 1 View (Portable) MR#: [id number] Acct: [id number] Name: YANDEL KRUGER Rep #: [id number] : 1965 M 59 From: Florian romano MD PCP: Dr. Lilia Hong MD Status: REG ER Study: Chest 1 View (Portable) Date of Exam: 08/11/24 Exam# [id number] Ordering Dr: Israel Bhatti DO [id number] STUDY: X-RAY CHEST REASON FOR EXAM: Male, 59 years old. chest pain TECHNIQUE: Single AP portable view of the chest. COMPARISON: 08/03/2024. FINDINGS: Normal lung volumes. Increasing ill-defined patchy pulmonary opacities of the right lung and left lung base. Findings could be multifocal pneumonia or patchy pulmonary edema. Suggest further evaluation with CT scan. Normal size heart. Normal mediastinum and jaret. Normal visualized pulmonary arteries. Normal visualized aortic arch and descending thoracic aorta. There are diffuse degenerative changes of the visualized thoracic spine. Normal visualized ribs, clavicles, and shoulders. There is no demonstrated abnormality of the visualized soft tissue structures of the upper abdomen. RAD/Chest 1 View (Portable) IMPRESSION: Patchy pulmonary opacities increasing throughout the right lung and in the left lung base. Electronically Signed: Florian Ramírez MD at 20:34 EDT , CC: Dr. Lilia Hong MD; Dr. Israel Bhatti DO University Intern: Signed Normal [facility] Emergency Department Summary on 08-11-2024 Emergency Department Summary [facility] Medical Records Department [address] [place] [id number] Emergency Department Summary 08/11/24 MR#: [id number] Acct: [id number] Name: YANDEL KRUGER Rep #: [id number] : 1965 59 From: Israel Bhatti DO PCP: Dr. Lilia Hong MD Status:ADM TYLER Location: [address] History of Present Illness Chief Complaint: Chest Pain Informant: patient Onset/Context/Timing Onset: Weeks (1) Activity at onset: gradual Timing: Continuous Quality: Positive for Aching Location: Left Chest Worsened By: Nothing Relieved By: Nothing Associated Symptoms: Positive for Nausea, Vomiting, Diaphoresis, Dyspnea, Cough, Lightheadedness and Palpitations; Negative for Fever or Acid Reflux Narrative Narrative: Patient presents with chest pain and shortness of breath is getting worse over the past week. Patient is gradually getting worse. Patient states he developed some nausea and vomiting today. Patient admits to shortness of breath and cough with it. Patient states it is mainly over the left side of his chest. Patient states he also felt lightheaded and some palpitations with his pain today. Patient admits to some subjective chills but denies any fevers. CVD Risk Factors: Positive for Hypercholesterolemia, Family History 1' for Hypertension or Diabetes PE Risk Factors: Negative for Recent Travel/Surgery, Recent Immobilization, Prior DVT or PE, Cancer or OCP + Smoking + >/=35 PFSH PFSH Medical History Rheumatoid arthritis Smoker CPAP (continuous positive airway pressure) dependence Sleep apnea On home oxygen therapy COPD (chronic obstructive pulmonary disease) Atrial fibrillation Congestive heart failure (CHF) Chest pain residential (current) use of anticoagulants Pancreatic cyst Wears dentures Wears glasses Former smoker CPAP (continuous positive airway pressure) dependence On home oxygen therapy Mass of pancreas Atrial flutter Chronic venous insufficiency Varicose veins of both lower extremities with inflammation Gastroesophageal reflux disease Dependence on nocturnal oxygen therapy Diabetes mellitus Morbid obesity Leg edema Leg swelling Mild pulmonary arterial systolic hypertension Dyspnea DEBI (obstructive sleep apnea) Hypersomnia Chronic diastolic heart failure Restrictive lung disease Obesity GERD (gastroesophageal reflux disease) Hyperlipidemia Home Medications ???Medication ???Instructions ???Recorded ???Last Taken ???Type multivitamin 1 ea PO DAILY supplement 06/22/17 06/22/17 History omeprazole 20 mg capsule,delayed 20 mg PO QDAY acid reflux 02/09/18 Unknown History release potassium chloride 20 mEq 20 meq PO QDAY supplement 02/09/18 Unknown History tablet,extended release cholecalciferol (vitamin D3) 50 2,000 unit PO QDAY supplement 02/10/18 Unknown History mcg (2,000 unit) capsule cyanocobalamin (vitamin B-12) 2,500 mcg PO Q OTHER DAY supplement 11/06/21 Unknown History 2,500 mcg tablet furosemide 40 mg tablet 40 mg PO .COMPLEX diuresis 11/06/21 Unknown History rosuvastatin 40 mg tablet 40 mg PO DAILY cholesterol 06/21/22 Unknown History acetaminophen 500 mg tablet 500 mg PO TID PRN PRN Pain 07/24/22 Unknown History albuterol sulfate 90 mcg/actuation 2 inh inhalation Q4-6H PRN 03/04/24 Unknown History aerosol inhaler shortness of breath or wheezing warfarin 4 mg tablet 4 mg PO .COMPLEX #60 tabs 06/17/24 Unknown Rx coenzyme Q10 100 mg capsule 200 mg PO DAILY antioxidant 08/06/24 Unknown History (CoQ-10) metoprolol tartrate 50 mg tablet 50 mg PO BID 08/11/24 Unknown History Allergy/AdvReac Type Severity Reaction Status Date / Time aspirin Allergy Severe Swelling Verified 08/11/24 18:40 NSAIDS (Non-Steroidal Allergy Swelling Verified 08/11/24 18:40 Anti-Inflamma Family History Father Heart disease Sister Cancer GI Brother Leukemia Mother COPD (chronic obstructive pulmonary disease) Parkinson disease Emphysema lung Daughter Ovarian cancer Cervical cancer Surgical History History of total left knee replacement (06/06/21) skin graft/muscle reconstruction of legs Social History household members: spouse Smoking Status: Current every day smoker tobacco type: cigarettes Tobacco: How many years used: 35 how long ago did patient quit smokin09/04/23 second hand exposure: Yes alcohol intake: never substance use type: does not use caffeine: Yes Type: coffee Number of servings: 6 ROS ROS ED Constitutional Constitutional ED: Reports chills, subjective and sweats; Denies fever(s) Eyes Eyes: Denies blurry vision or change in vision (more content not included)... Normal [facility] H AND P Exam - [facility] 08-11-2024 H&P Exam - Hospitalist [facility] Medical Records Department [address] [place] [address] H P Exam - Hospitalist 08/11/24 2300 MR#: [id number] Acct: [id number] Name: YANDEL KRUGER Rep #: [id number] : 1965 59 From: Jerica Hou MD PCP: Dr. Lilia Hong MD Status:ADM TYLER Location: [address] HPI - General General Date of Admission: 08/11/24 Date of Service: 08/11/24 Chief Complaint: Dyspnea, URI symptoms, cough, malaise, LH/Dizziness, chest discomfort. HPI Narrative The patient is a 59 y/o M w/ PMHx: Diabetes mellitus type II, CKD stage II per GFR trending, Morbid obesity, DEBI on CPAP w/ 2L NC q HS bled in, COPD/RLD, PAF/Flutter, HTN, HLD, Tobacco use, Rheumatoid arthritis, PVD, Chronic pancreatic cyst/benign vascular neoplasm, Chronic BL LE edema/lymphedema, HFpEF, GERD who presents to the [facility] ED on 08/11/24 with continuous aching chest discomfort reporting primarily sensation in his left chest with associated nausea, emesis, diaphoresis, dyspnea, cough, lightheadedness, loose stools, congestion and palpitations worsening over the last week and ongoing not abating with subjective chills but denies any specific fevers prompting eventual ED evaluation to be cautious. He notes that he has had no sick contacts and his with whom he lives has been well. Workup in the ED included T97.5, heart 71, BP 116/79, respiratory rate 16, 94% on room air noted initially however eventually transitioned to 3 L nasal cannula with most recent repeat vital signs pulse ox 96% on 3 L nasal cannula (not hypoxic in the ED but given supplementation for comfort per discussion with ED physician), CBC with WC 11.6, human 14.3, platelets 181 without shift, coags with PT 21.4, INR 1.9, PTT 29.4, BMP with BUN/creatinine 28/1.43, GFR 54, glucose 165, BNP mildly elevated 127.1, troponin 24 with repeat delta 29, chest x-ray with patchy pulmonary opacities increasing throughout the right lung and in the left lung base, follow-up CTPA with no evidence of pulmonary emboli, no evidence of any thoracic aortic dissection, interval development of minimal patchy airspace disease in the right lower lobe consistent with pneumonia, minimal mediastinal and hilar adenopathy, stable ill-defined mass within the pancreatic tail, EKG with with sinus rhythm with nonspecific ST-T wave changes with no acute evidence of ischemia unchanged from previous. In the ED patient ministered Rocephin 2 g IV x 1 as well as azithromycin 500 mg IV x 1 in addition to sublingual nitroglycerin. [facility] Medical History Rheumatoid arthritis Smoker CPAP (continuous positive airway pressure) dependence Sleep apnea On home oxygen therapy COPD (chronic obstructive pulmonary disease) Atrial fibrillation Congestive heart failure (CHF) Chest pain residential (current) use of anticoagulants Pancreatic cyst Wears dentures Wears glasses Former smoker CPAP (continuous positive airway pressure) dependence On home oxygen therapy Mass of pancreas Atrial flutter Chronic venous insufficiency Varicose veins of both lower extremities with inflammation Gastroesophageal reflux disease Dependence on nocturnal oxygen therapy Diabetes mellitus Morbid obesity Leg edema Leg swelling Mild pulmonary arterial systolic hypertension Dyspnea DEBI (obstructive sleep apnea) Hypersomnia Chronic diastolic heart failure Restrictive lung disease Obesity GERD (gastroesophageal reflux disease) Hyperlipidemia Home Medications ???Medication ???Instructions ???Recorded ???Last Taken ???Type multivitamin 1 ea PO DAILY supplement 06/22/17 06/22/17 History omeprazole 20 mg capsule,delayed 20 mg PO QDAY acid reflux 02/09/18 Unknown History release potassium chloride 20 mEq 20 meq PO QDAY supplement 02/09/18 Unknown History tablet,extended release cholecalciferol (vitamin D3) 50 2,000 unit PO QDAY supplement 02/10/18 Unknown History mcg (2,000 unit) capsule cyanocobalamin (vitamin B-12) 2,500 mcg PO Q OTHER DAY supplement 11/06/21 Unknown History 2,500 mcg tablet furosemide 40 mg tablet 40 mg PO .COMPLEX diuresis 11/06/21 Unknown History rosuvastatin 40 mg tablet 40 mg PO DAILY cholesterol 06/21/22 Unknown History acetaminophen 500 mg tablet 500 mg PO TID PRN PRN Pain 07/24/22 Unknown History albuterol sulfate 90 mcg/actuation 2 inh inhalation Q4-6H PRN 03/04/24 Unknown History aerosol inhaler shortness of breath or wheezing warfarin 4 mg tablet 4 mg PO .COMPLEX #60 tabs 06/17/24 Unknown Rx coenzyme Q10 100 mg capsule 200 mg PO DAILY antioxidant 08/06/24 Unknown History (CoQ-10) metoprolol tartrate 50 mg tablet 50 mg PO BID 08/11/24 Unknown History Allergy/AdvReac Type Severity Reaction Status Date / Time aspirin Allergy Severe Swelling Verified 08/11/24 18:40 NSAIDS (Non-Ster (more content not included)... Normal [facility] L501.4020on 08-11-2024 TROPONIN-I HS 29 pg/mL Normal 3.0-78.0 [facility] Comment on above: Result Comment: Plea se Note: New Test Units and Gender Specific Reference Ranges. For more information see Policy Stat Procedure [facility] High Sensitivity Troponin (TNIH) and attachments. Performed By: #### L 300.3900, L300.4310 #### [facility] [address] [place], [address] L501.5425on 08-11-2024 TROPONIN-I HS 24 pg/mL Normal 3.0-78.0 [facility] Comment on above: Order Comment: 1 Y Result Comment: Lakesha yang Note: New Test Units and Gender Specific Reference Ranges. For more information see Policy Stat Procedure [facility] High Sensitivity Troponin (TNIH) and attachments. Performed By: #### L 500.2500, L501.5425, L100.0100 #### [facility] [address] [place], [address] Partial Thromboplast Timeon 08-11-2024 aPTT Coag (Bld) [Time] 29.4 s Normal 24.1-36.2 [facility] Comment on above: Performed By: #### L 300.3900, L300.4310 #### [facility] [address] [place], [address] Prothrombin Time w/INRon INR Coag (PPP) [Relative time] 1.9 {INR} Normal [facility] Comment on above: Performed By: #### L 300.3900, L300.4310 #### [facility] [address] [place], [address] PT Coag (PPP) [Time] 21.4 s High 11.7-14.9 [facility] Comment on above: Performed By: #### L 300.3900, L300.4310 #### [facility] [address] [place], [address] Prothrombin Time w/INRon INR Coag (PPP) [Relative time] 2.3 {INR} Normal [facility] Comment on above: Performed By: #### L 300.3900, L300.4310 #### [facility] [address] [place], [address] PT Coag (PPP) [Time] 24.8 s High 11.7-14.9 [facility] Comment on above: Performed By: #### L 300.3900, L300.4310 #### [facility] [address] [place], [address] Prothrombin Time w/INRon INR Coag (PPP) [Relative time] 4.1 {INR} Invalid Interpretation Code [facility] Comment on above: Order Comment: CRITI AUGUSTO VALUE CALLED TO [id number]/14/24 1030 Columba Lollo.RESULTS READ BACK BY SAME. Performed By: #### L 500.4050, L100.0100, L503.6620 #### [facility] [address] [place], [address] PT Coag (PPP) [Time] 39.7 s High 11.7-14.9 [facility] Comment on above: Order Comment: CRITI AUGUSTO VALUE CALLED TO [id number]/14/24 1030 Columba Lollo.RESULTS READ BACK BY SAME. Performed By: #### L 500.4050, L100.0100, L503.6620 #### [facility] [address] [place], [address] 12 Lead EKG performed by [facility] on 08-06-2024 12 Lead EKG performed by [facility] [address] [place] [address] 12 Lead EKG performed by [facility] 08/06/24953 MR#: [id number] Acct: [id number] Name: YANDEL KRUGER Rep #: [id number] : 1965 59 From: Xu Collazo NP SECRETARY ADMINISTRATIVE ASSISTANT-C Attending Dr: MICHELLE Jimenez Status: DEP AMB Ordering Dr: Xu Collazo NP SECRETARY ADMINISTRATIVE ASSISTANT-C Date: 08/06/24 Location: [facility] Sex: M C Admitted: [facility]/12 Lead EKG performed by [facility] ECG Report Interpretation -----Atrial fibrillation - T-abnormality -Lateral ischemia. ABNORMAL Electronically signed on 08/06/2024 at 15:59 by Ethan Stanford Software Version [id number] 08/06/24 1602 Date Xu Collazo NP SECRETARY ADMINISTRATIVE ASSISTANT-C CC: Dr. Lilia Hong MD Date Dictated: 08/06/24953 Date Transcribed: 08/06/24953 University Intern: ARTUR Signed Normal [facility] Cardiology Visit Reporton Cardiology Visit Report [facility] [address] [place] [address] OFFICE VISIT Date of Service: 08/06/24 MR#: [id number] Acct: [id number] Name: YADNEL KRUGER Rep #: [id number] : 1965 Provider: MICHELLE kingsley Age/Sex: 59/M Location: [facility] Status: Signed [facility] History of Present Illness Details: Yandel Kruger is a 59-year-old gentleman who presents here today for a cardiovascular follow-up. He does have a history of chronic diastolic heart failure. He was admitted to [facility] on 08/29/2023 for new onset of atrial flutter. He was placed on a Cardizem drip. He did have an echocardiogram which demonstrated an ejection fraction of 50% with stage III diastolic dysfunction with a hypokinetic apex. 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 Because of this he was not started on anticoagulation at that time. 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 He states he is to follow up in 1 year. Seen in the emergency department on 08/03/2024 for shortness of breath. EKG showed atrial fibrillation RVR to 127 bpm. He received 1 dose of diltiazem high sensitive troponin was negative x 2. BNP was elevated 163. He acknowledges daily left sided chest heaviness. He denies palpitations. He acknowledges bilateral lower extreme edema with left worse than right. He denies claudication. He acknowledges shortness breath with activity, shortness of breath at rest, and wheezing. He denies orthopnea, cough, or PND. He denies lightheadedness, dizziness, near-syncope, or syncope. He denies fatigue. Intake Vital Signs 08/03/24 10:13 08/06/24 09:54 08/06/24 10:23 Height 5 ft 9 in 5 ft 9 in Weight: 283 lb BMI 41.8 BP 96/60 Blood Pressure Location Rt brachial Position Sitting Respiration 23 H Pulse 110 H 157 H Pulse Source Monitor Pulse Oximetry (%) 90 Oxygen Delivery Method room air Comment ECG Intake Visit Reasons: chest pain, a flutter. Accompanied by: Self Is patient in pain?: Yes (Left chest ) Pain scale (1-10): 3 Allergies aspirin Allergy (Severe, Verified 08/06/24 09:57) Swelling NSAIDS (Non-Steroidal Anti-Inflamma Allergy (Verified 08/06/24 09:57) Swelling Medications ???Medication ???Instructions ???Recorded ???Confirmed ???Type multivitamin 1 ea PO DAILY supplement 06/22/17 08/06/24 History omeprazole 20 mg capsule,delayed 20 mg PO QDAY acid reflux 02/09/18 08/06/24 History release potassium chloride 20 mEq 20 meq PO QDAY supplement 02/09/18 08/06/24 History tablet,extended release cholecalciferol (vitamin D3) 50 2,000 unit PO QDAY supplement 02/10/18 08/06/24 History mcg (2,000 unit) capsule cyanocobalamin (vitamin B-12) 2,500 mcg PO Q OTHER DAY supplement 11/06/21 08/06/24 History 2,500 mcg tablet furosemide 40 mg tablet 40 mg PO .COMPLEX diuresis 11/06/21 08/06/24 History rosuvastatin 40 mg tablet 40 mg PO DAILY cholesterol 06/21/22 08/06/24 History acetaminophen 500 mg tablet 500 mg PO TID PRN PRN Pain 07/24/22 08/06/24 History albuterol sulfate 90 mcg/actuation 2 inh inhalation Q4-6H PRN 03/04/24 08/06/24 History aerosol inhaler warfarin 4 mg tablet 4 mg PO .COMPLEX #60 tabs 06/17/24 08/06/24 Rx bupropion HCl 150 mg 24 hr tablet, 150 mg PO QDAY 08/06/24 08/06/24 History extended release coenzyme Q10 100 mg capsule 200 mg PO DAILY antioxidant 08/06/24 08/06/24 History (CoQ-10) metoprolol tartrate 50 mg tablet 50 mg PO BID 08/06/24 08/06/24 History Ejection fraction %: 50 PFSH Medical History residential (current) use of anticoagulants Pancreatic cyst Wears dentures Wears glasses Former smoker CPAP (continuous positive airway pressure) dependence On home oxygen therapy Mass of pancreas Atrial flutter Chronic venous insufficiency Varicose veins of both lower extremities with inflammation Gastroesophageal reflux disease Dependence on nocturnal oxygen therapy Diabetes mellitus Morbid obesity Leg edema Leg swelling Mild pulmonary arterial systolic hypertension Dyspnea DEBI (obstructive sleep apnea) Hypersomnia Chronic diastolic heart failure Restrictive lung disease Obesity GERD (gastroesophageal reflux disease) Hyperlipidemia Surgical History History of total left knee replacement (06/06/21) skin graft/muscle reconstruction of legs Family History Father Heart disease Sister Cancer GI Brother Leukemia Mother COPD (chronic obstructive pulmonary disease) Parkinson disease Emphysema lung Daughter Ovarian cancer Cervical cancer Social History (Reviewed 08/06/24 @ (more content not included)... Normal [facility] CBC AND ELECTRONIC DIFFon Basophils (Bld) [#/Vol] K/uL 0.00 - 0.09 K/uL [facility] Basophils/100 WBC (Bld) 0.3 % O [facility] Differential cell count method Nom (Bld) Electronic Differential [facility] Eosinophils (Bld) [#/Vol] 0.12 10*3/uL 0.00 - 0.48 K/uL [facility] Eosinophils/100 WBC (Bld) 1.6 % [facility] Erythrocyte distribution width (RBC) [Ratio] 13.0 % 10.9 - 14.3 % [facility] Hematocrit (Bld) [Volume fraction] 45.7 % 39.6 - 48.8 % [facility] Hemoglobin (Bld) [Mass/Vol] 14.9 g/dL 13.4 - 16.8 g/dL [facility] Immature granulocytes (Bld) [#/Vol] K/uL NINF - 0.07 K/uL [facility] Immature granulocytes/100 WBC (Bld) 0.4 % [facility] Lymphocytes (Bld) [#/Vol] 2.33 10*3/uL 0.83 - 3.57 K/uL [facility] Lymphocytes/100 WBC (Bld) 30.8 % [facility] MCH (RBC) [Entitic mass] 27.3 pg 26. 1 - 33.3 pg [facility] MCHC (RBC) [Mass/Vol] 32.6 g/dL 31.9 - 36.5 g/dL [facility] MCV (RBC) [Entitic vol] 83.9 fL 79.0 - 94.5 fL [facility] Monocytes (Bld) [#/Vol] 0.52 10*3/uL 0.24 - 0.93 K/uL [facility] Monocytes/100 WBC (Bld) 6.9 % [facility] Neutrophils (Bld) [#/Vol] 4.54 10*3/uL 1.57 - 6.19 K/uL [facility] Nucleated RBC/100 WBC (Bld) [Ratio] 0.0 % [facility] Platelet mean volume (Bld) [Entitic vol] 9.9 fL 8.7 - 12.3 fL [facility] Platelets (Bld) [#/Vol] 179 10*3/uL 146 - 337 K/uL [facility] RBC (Bld) [#/Vol] 5.45 10*6/uL [facility] Segmented neutrophils/100 WBC (Bld) 60.0 % [facility] WBC (Bld) [#/Vol] 7.56 10*3/uL 3.73 - 10.10 K/uL [facility] Laboratory - Chemistry and C hemistry - challengeOrdered By: Gemini Madera on 10-10-2023 Cancer Ag 19-9 Qn U/mL NINF - 37.00 U/mL [facility] Comment on above: This test was perfor med on the [email or web address] Immunoassay platform which is a 2-step sandwich chemiluminescent immunoassay. It is important to note that assays using different manufacturers and/or methods may not be comparable. Laboratory - Chemistry and C hemistry - challengeon 10-10-2023 Albumin [Mass/Vol] 4.5 g/dL 3.5 - 5.0 g/dL [facility] ALP [Catalytic activity/Vol] 61 U/L 32 - 126 U/L [facility] ALT [Catalytic activity/Vol] 20 U/L 10 - 52 U/L [facility] Anion gap [Moles/Vol] 12 mmol/L 7 - 17 mmol/L [facility] AST [Catalytic activity/Vol] 17 U/L 10 - 39 U/L [facility] Bilirubin [Mass/Vol] 0.6 mg/dL NINF - 1.5 mg/dL [facility] Calcium [Mass/Vol] 10.0 mg/dL 8.6 - 10. 5 mg/dL [facility] Chloride [Moles/Vol] 102 mmol/L 98 - 10 8 mmol/L [facility] CO2 [Moles/Vol] 28 mmol/L 21 - 31 mmol/L [facility] Creatinine [Mass/Vol] 0.77 mg/dL 0.70 - 1.30 mg/dL [facility] Glucose [Mass/Vol] 106 mg/dL High 70 - 99 mg/dL [facility] Osmolality Calc [Osmolality] 290 [facility] Potassium [Moles/Vol] 4.1 mmol/L 3.5 - 5.0 mmol/L [facility] Protein [Mass/Vol] 7.8 g/dL 6.4 - 8.3 g/dL [facility] Sodium [Moles/Vol] 138 mmol/L 135 - 145 mmol/L [facility] Urea nitrogen [Mass/Vol] 13 mg/dL 7 - 25 mg/dL [facility] Urea nitrogen/Creatinine [Mass ratio] 17 mg/mg [facility] No Panel InformationOrdered By: Gemini Madera on 10-10-2023 Interpretation and review of laboratory results Normal [facility] No Panel Informationon 10-10 eGFR, CKD-EPI, Male - PINF [facility] Comment on above: Reported eGFR is bas ed on the CKD-EPI 2020 equation using creatinine, age, and sex. Interpretation and review of laboratory results Abnormal [facility] INR in Blood by Coagulation assayOrdered By: Soco Tyler on 09-19-2023 INR Coag (Bld) [Relative time] 0.9 {INR} [facility] - CoagulationOrde red By: Soco Tyler on 09-19-2023 aPTT Coag (Bld) [Time] 25.3 s 24.1-36.2 [facility] PT Coag (PPP) [Time] 12.4 s 11.7-14.9 [facility] Platelets bldOrdered By: Bryson Tyler on 09-19-2023 Platelets (Bld) [#/Vol] 150 10*3/uL 150-450 [facility] Absolute lymphocyte countOrd ered By: Melo Ross on 09-01-2023 Lymphocytes Auto (Unsp spec) [#/Vol] 2.33 10*3/uL 0.83-4.51 [facility] Basophil percentageOrdered B y: Melo Ross on 09-01-2023 Basophils/100 WBC (Bld) 0.3 % 0-1 [facility] Chloride [Moles/Vol] 105 mmol/L 98-107 [facility] Eosinophils/100 WBC (Bld) 1.2 % 0-5 [facility] Glucose [Mass/Vol] 133 mg/dL 74-106 [facility] Comment on above: Fasting Glucose resu lt greater than or equal to 126 mg/dL suggests DIABETES MELLITUS per A.D.A. criteria. Neutrophils (Bld) [#/Vol] 4.4 10*3/uL 2.0-7.7 [facility] Neutrophils/100 WBC (Bld) 58.9 % 47-70 [facility] Potassium [Moles/Vol] 3.8 mmol/L 3.5-5.1 [facility] Sodium [Moles/Vol] 138 mmol/L 136-145 [facility] WBC (Bld) [#/Vol] 7.4 10*3/uL 4.4-11.0 [facility] Blood erythrocytes count (nu mber/volume)Ordered By: Melo Ross on 09-01-2023 RBC (Bld) [#/Vol] 5.11 10*6/uL 4.6-6.2 [facility] Blood hemoglobin measurement (mass/volume)Ordered By: Melo Ross on 09-01-2023 Hemoglobin (Bld) [Mass/Vol] 13.9 g/dL 13.0-16.5 [facility] Blood lymphocytes/100 leukoc ytesOrdered By: Melo Ross on 09-01-2023 Lymphocytes/100 WBC (Bld) 31.5 % 19-41 [facility] Blood monocytes/100 leukocyt esOrdered By: Melo Ross on 09-01-2023 Monocytes/100 WBC (Bld) 7.8 % 0-10 [facility] Blood platelet mean volumeOr dered By: Melo Ross on 09-01-2023 Platelet mean volume (Bld) [Entitic vol] 10.3 fL 6.2-12.0 [facility] Determination of erythrocyte mean corpuscular volume (MCV)Ordered By: Melo Ross on 09-01-2023 MCV (RBC) [Entitic vol] 85.1 fL 80-94 [facility] Hematocrit Auto (Bld) [Volum e fraction]Ordered By: Melo Ross on 09-01-2023 Hematocrit (Bld) [Volume fraction] 43.5 % 40-54 [facility] - Chemistry and C hemistry - challengeOrdered By: Melo Ross on 09-01-2023 CO2 [Moles/Vol] 29.0 mmol/L 21.0-32.0 [facility] Urea nitrogen/Creatinine [Mass ratio] 22.0 mg/mg 10-20 [facility] - Hematology and Cell countsOrdered By: Melo Ross on 09-01-2023 Erythrocyte distribution width (RBC) [Entitic vol] 40.1 fL 35.1-43.9 [facility] Erythrocyte distribution width (RBC) [Ratio] 13.0 % 11.6-14.6 [facility] Immature granulocytes/100 WBC (Bld) 0.300 % 0.0-0.9 [facility] Comment on above: IG% - Immature Granu locytes (promyelocytes, myelocytes and metamyelocytes) > 1% indicates that a LEFT SHIFT is Present. MCH (RBC) [Entitic mass] 27.2 pg 27.0-32.0 [facility] Nucleated RBC/100 WBC (Bld) [Ratio] 0 % 0-5 [facility] MCHC Auto (RBC) [Mass/Vol]Or dered By: Melo Ross on 09-01-2023 MCHC (RBC) [Mass/Vol] 32.0 g/dL 32-36 [facility] No Panel InformationOrdered By: Melo Ross on 09-01-2023 Estimated Creatinine Clearance Calc 93.84 ml/min [facility] Estimated GFR (MDRD) Amer 123 mL/min >60 [facility] Comment on above: GFR Calc Estimated GFR (MDRD) Non-Af Amer 102 mL/min >60 [facility] Comment on above: Non- GFR Calc Platelets bldOrdered By: Stepan Ross on 09-01-2023 Platelets (Bld) [#/Vol] 147 10*3/uL 150-450 [facility] Serum or plasma calcium filippo urement (mass/volume)Ordered By: Melo Ross on 09-01-2023 Calcium [Mass/Vol] 9.3 mg/dL 8.5-10.1 [facility] Serum or plasma creatinine m easurement (mass/volume)Ordered By: Melo Ross on 09-01-2023 Creatinine [Mass/Vol] 0.82 mg/dL 0.70-1.30 [facility] Comment on above: The validity of the calculated GFR & GFRAA in patients over 70 years has not been determined. Clinical correlation is essential. Serum or plasma urea nitroge n measurement (mass/volume)Ordered By: Melo Ross on 09-01-2023 Urea nitrogen [Mass/Vol] 18 mg/dL 7-18 [facility] Thin prep Papanicolaou smear with manual screeningOrdered By: Melo Ross on 09-01-2023 Thin prep Papanicolaou smear with manual screening 4 5-15 [facility] Basophil percentageOrdered B y: Melo Ross on 08-31-2023 Basophil percentage 3.5 mg/dL 2.5-4.9 [facility] Glucose Glucometer (BldC) [M ass/Vol]Ordered By: Sona Pierre on 08-31-2023 Glucose [Mass/Vol] 122 mg/dL 74-106 [facility] Comment on above: MANAGEMENT OF PATIEN T CARE PER NURSING PROTOCOL Laboratory - Chemistry and C hemistry - challengeOrdered By: Melo Ross on 08-31-2023 Magnesium [Mass/Vol] 2.2 mg/dL 1.6-2.6 [facility] Basophil percentageOrdered B y: Jerica White on 08-30-2023 Bilirubin [Mass/Vol] 0.70 mg/dL 0.20-1.00 [facility] Comment on above: For patients on eltr ombopag therapy, use of Dimension [place] TBIL is not recommended. Cholesterol [Mass/Vol] 126 mg/dL <200 [facility] Comment on above: <200 mg/dL Desirable 200-240 mg/dL Borderline >240 mg/dL High Risk Protein [Mass/Vol] 7.1 g/dL 6.4-8.2 [facility] Triglyceride [Mass/Vol] 180 mg/dL <199 [facility] Comment on above: The drugs N-Acetylcy steine and Metamizole may falsely depress this assay.Serum Triglycerides Reference Interval Normal <150 mg/dL Borderline high 150 - 199 mg/dL High 200 - 499 mg/dL Very High > or = 500 mg/dL Laboratory - Chemistry and C hemistry - challengeOrdered By: Jerica Hou on 08-30-2023 ALP [Catalytic activity/Vol] 65 U/L 45-117 [facility] ALT [Catalytic activity/Vol] 30 U/L 16-61 [facility] Globulin (S) [Mass/Vol] 3.5 g/dL 2.2-4.2 [facility] Laboratory - Microbiology an d Antimicrobial susceptibilityOrdered By: Jerica Hou on 08-30-2023 SARS-CoV-2 (COVID-19) RNA BIANCA+probe Ql (Unsp spec) [facility] No Panel InformationOrdered By: Jerica Hou on 08-30-2023 Thyroid Stimulating Hormone (TSH) 0.71 uIU/mL 0.358-3.74 [facility] Troponin I High Sensitivity 32 pg/mL 3.0-78.0 [facility] Comment on above: Please Note: New [place] t Units and Gender Specific Reference Ranges. For more information see Policy Stat Procedure [facility] High Sensitivity Troponin (TNIH) and attachments. Respiratory pathogens DNA an d RNA panel BIANCA+probe (Resp)Ordered By: Jerica Hou on 08-30-2023 Respiratory Panel (PCR) Rhinovirus [facility] Serum or plasma albumin filippo urement (mass/volume)Ordered By: Jerica Hou on 08-30-2023 Albumin [Mass/Vol] 3.6 g/dL 3.2-5.0 [facility] Serum or plasma albumin/glob ulin mass ratioOrdered By: Jerica Hou on 08-30-2023 Albumin/Globulin [Mass ratio] 1.0 {ratio} 0.9-2.4 [facility] Serum or plasma cholesterol in HDL measurement (mass/volume)Ordered By: Jerica Hou on 08-30-2023 Cholesterol in HDL [Mass/Vol] 32 mg/dL >40 [facility] Comment on above: The drugs N-Acetylcy steine and Metamizole may falsely depress this assay. Reference Range HDL <40 mg/dL Low HDL Cholesterol HDL >or= 60 mg/dL High HDL Cholesterol Serum or plasma cholesterol in VLDL measurement (mass/volume)Ordered By: Jerica Hou on 08-30-2023 Cholesterol in VLDL [Mass/Vol] 36 mg/dL 5-40 [facility] Serum or plasma low density lipoprotein (LDL) cholesterol measurement (mass/volume)Ordered By: Jerica Hou on 08-30-2023 Cholesterol in LDL [Mass/Vol] 58 mg/dL 0-130 [facility] Thin prep Papanicolaou smear with manual screeningOrdered By: [facility] Savi on 08-30-2023 Thin prep Papanicolaou smear with manual screening 13 U/L 15-37 [facility] Whole blood hemoglobin A1c/t otal hemoglobin ratio (mass fraction)Ordered By: Jerica Hou on 08-30-2023 HbA1c (Bld) [Mass fraction] 6.4 % 3.8-5.6 [facility] Comment on above: Normal < 5.7 % Predi abetic 5.7 - 6.4 % Diabetic >or= 6.5 % Please note range changes. Laboratory - Chemistry and C hemistry - challengeOrdered By: Israel Bhatti on 08-29-2023 Natriuretic peptide B (Bld) [Mass/Vol] 123.2 pg/mL 0-100 [facility] Lipase [Catalytic activity/Vol] 32 U/L 13-75 [facility] Comment on above: Please note:LIPASE r evised reference range effective 23. New Lipase methodology. Expected to produce lower values than the previous assay method. NEW Reference Range: 13 - 75 U/L Serum procalcitonin measurem entOrdered By: Jerica Hou on 08-29-2023 Procalcitonin [Mass/Vol] ng/mL 0.00-0.09 [facility] Comment on above: A procalcitonin (PCT ) level above 2.0 ng/mL on the first day of ICU admission is associated with a high risk for progression to severe sepsis and/or septic shock. A PCT level below 0.5 ng/mL on the first day of ICU admission is associated with a low risk for progression to severe and/or septic shock. Note: Concentrations <0.5 ng/mL do not exclude an infection on account of localized infections (without systemic signs) which can be associated with such low concentrations, or a systemic infection in its initial stages (<6 hours). Furthermore, increased procalcitonin can occur without infection. PCT concentrations between 0.5 and 2.0 ng/mL should be interpreted taking into account the patient's history. It is recommended to retest PCT within 6-24 hours if any concentrations <2 ng/mL are obtained. Laboratory - Microbiology an d Antimicrobial susceptibilityon 08-20-2022 SARS-CoV-2 (COVID-19) RNA BIANCA+probe Ql (Unsp spec) Negative Not Detect [facility] Work Phone: Comment on above: Normal Reference Ran ge: Not DetectedMethod:(RT-PCR) real-time reverse transcriptase PCRLuminex [employer] Instrument*The Food and Drug Administration (FDA) has issued an Emergency Use Authorization (EAU) for the [employer] SARS-CoV-2 Assay for the rapid detection of the virus that causes COVID-19. This test has been validated, but the FDAs independent review of this validation is pending.*Negative results do not preclude infection and should not be used as the sole basis for treatment or patient management. Optimum specimen types and timing for peak viral levels during infections caused by SARS-CoV-2 have not been determined. Collection of multiple specimens from the same patient may be necessary to detect the virus. The possibility of a false negative result should be considered if the patient has clinical presentation or has had recent exposure. Basophil percentageon 2021 Bilirubin [Mass/Vol] 0.60 mg/dL 0.20-1.00 [facility] Work Phone: Comment on above: For patients on eltr ombopag therapy, use of Dimension [place] TBIL is not recommended. Chloride [Moles/Vol] 106 mmol/L 98-107 [facility] Work Phone: Cholesterol [Mass/Vol] 148 mg/dL <200 [facility] Work Phone: Comment on above: <200 mg/dL Desirable 200-240 mg/dL Borderline >240 mg/dL High Risk Glucose [Mass/Vol] 107 mg/dL 74-106 [facility] Work Phone: Comment on above: Fasting Glucose resu lt from 100 to 125 mg/dL suggests IMPAIRED HOMEOSTASIS per A.D.A. criteria. Potassium [Moles/Vol] 4.1 mmol/L 3.5-5.1 [facility] Work Phone: [phone] Protein [Mass/Vol] 7.6 g/dL 6.4-8.2 [facility] Work Phone: [phone] Sodium [Moles/Vol] 142 mmol/L 136-145 [facility] Work Phone: [phone] Triglyceride [Mass/Vol] 175 mg/dL <199 [facility] Work Phone: [phone] Comment on above: The drugs N-Acetylcy steine and Metamizole may falsely depress this assay.Serum Triglycerides Reference Interval Normal <150 mg/dL Borderline high 150 - 199 mg/dL High 200 - 499 mg/dL Very High > or = 500 mg/dL WBC (Bld) [#/Vol] 5.8 10*3/uL 4.4-11.0 [facility] Work Phone: [phone] Blood erythrocytes count (nu mber/volume)on 08-14-2022 RBC (Bld) [#/Vol] 5.37 10*6/uL 4.6-6.2 [facility] Work Phone: [phone] Blood hemoglobin measurement (mass/volume)on 08-14-2022 Hemoglobin (Bld) [Mass/Vol] 15.0 g/dL 13.0-16.5 [facility] Work Phone: [phone] Blood platelet mean volumeon 08-14-2022 Platelet mean volume (Bld) [Entitic vol] 10.8 fL 6.2-12.0 [facility] Work Phone: [phone] Determination of erythrocyte mean corpuscular volume (MCV)on 08-14-2022 MCV (RBC) [Entitic vol] 86.0 fL 80-94 [facility] Work Phone: [phone] Hematocrit Auto (Bld) [Volum e fraction]on 08-14-2022 Hematocrit (Bld) [Volume fraction] 46.2 % 40-54 [facility] Work Phone: Laboratory - Chemistry and C hemistry - challengeon 08-14-2022 ALP [Catalytic activity/Vol] 73 U/L 45-117 [facility] Work Phone: ALT [Catalytic activity/Vol] 39 U/L 16-61 [facility] Work Phone: [phone] CO2 [Moles/Vol] 29.0 mmol/L 21.0-32.0 [facility] Work Phone: Globulin (S) [Mass/Vol] 3.9 g/dL 2.2-4.2 [facility] Work Phone: Urea nitrogen/Creatinine [Mass ratio] 20.2 mg/mg 10-20 [facility] Work Phone: Laboratory - Hematology and Cell countson 08-14-2022 Erythrocyte distribution width (RBC) [Entitic vol] 40.4 fL 35.1-43.9 [facility] Work Phone: Erythrocyte distribution width (RBC) [Ratio] 13.0 % 11.6-14.6 [facility] Work Phone: MCH (RBC) [Entitic mass] 27.9 pg 27.0-32.0 [facility] Work Phone: MCHC Auto (RBC) [Mass/Vol]on 08-14-2022 MCHC (RBC) [Mass/Vol] 32.5 g/dL 32-36 [facility] Work Phone: No Panel Informationon 08-14 Estimated GFR (MDRD) Amer 121 mL/min >60 [facility] Work Phone: Comment on above: GFR Calc Estimated GFR (MDRD) Non-Af Amer 100 mL/min >60 [facility] Work Phone: Comment on above: Non- GFR Calc Platelets bldon 08-14-2022 Platelets (Bld) [#/Vol] 169 10*3/uL 150-450 [facility] Work Phone: Serum or plasma albumin filippo urement (mass/volume)on 08-14-2022 Albumin [Mass/Vol] 3.7 g/dL 3.2-5.0 [facility] Work Phone: Serum or plasma albumin/glob ulin mass ratioon 08-14-2022 Albumin/Globulin [Mass ratio] 0.9 {ratio} 0.9-2.4 [facility] Work Phone: Serum or plasma calcium filippo urement (mass/volume)on 08-14-2022 Calcium [Mass/Vol] 9.2 mg/dL 8.5-10.1 [facility] Work Phone: Serum or plasma cholesterol in HDL measurement (mass/volume)on 08-14-2022 Cholesterol in HDL [Mass/Vol] 37 mg/dL >40 [facility] Work Phone: Comment on above: The drugs N-Acetylcy steine and Metamizole may falsely depress this assay. Reference Range HDL <40 mg/dL Low HDL Cholesterol HDL >or= 60 mg/dL High HDL Cholesterol Serum or plasma cholesterol in VLDL measurement (mass/volume)on 08-14-2022 Cholesterol in VLDL [Mass/Vol] 35 mg/dL 5-40 [facility] Work Phone: Serum or plasma creatinine m easurement (mass/volume)on 08-14-2022 Creatinine [Mass/Vol] 0.84 mg/dL 0.70-1.30 [facility] Work Phone: Comment on above: The validity of the calculated GFR & GFRAA in patients over 70 years has not been determined. Clinical correlation is essential. Serum or plasma low density lipoprotein (LDL) cholesterol measurement (mass/volume)on 08-14-2022 Cholesterol in LDL [Mass/Vol] 76 mg/dL 0-130 [facility] Work Phone: Serum or plasma urea nitroge n measurement (mass/volume)on 08-14-2022 Urea nitrogen [Mass/Vol] 17 mg/dL 7-18 [facility] Work Phone: Thin prep Papanicolaou smear with manual screeningon 08-14-2022 Thin prep Papanicolaou smear with manual screening 19 U/L 15-37 [facility] Work Phone: Thin prep Papanicolaou smear with manual screening 7 5-15 [facility] Work Phone: .Auto Diffon 06-07-2021 Basophil, Absolute 0.00 10 3/mcL Normal 0.00-0.19 [facility] ([place] Comment on above: Performed By: #### C BC ADCECY ANEU, BMP #### [address] [address] #### GFR #### [address] [address] Basophils/100 WBC (Bld) 0.3 % Normal 0.0-2.5 [facility] ([place]) Comment on above: Performed By: #### C BC ADCECY ANEU, BMP #### [address] [address] #### GFR #### [address] [address] Eosinophil, Absolute 0.00 10 3/mcL Normal 0.00-0.40 [facility] ([place]) Comment on above: Performed By: #### C BCBROOKLYNN ANEU, BMP #### [address] [address] #### GFR #### [address] [address] Eosinophils/100 WBC (Bld) 0.0 % Normal 0.0-7.0 [facility] ([place]) Comment on above: Performed By: #### C BC ADCECY, ANEU, BMP #### [place] [address] #### GFR #### [address] [address] Lymphocyte, Absolute 1.60 10 3/mcL Normal 0.77-3.85 [facility] ([place] Comment on above: Performed By: #### C BC, ADIFF, ANEU, BMP #### [address] [address] #### GFR #### [address] [address] Lymphocytes/100 WBC (Bld) 10.8 % Normal 10.0-50.0 [facility] ([place]) Comment on above: Performed By: #### C BC, ADIFF, ANEU, BMP #### [address] [address] #### GFR #### [address] [address] Monocyte, Absolute 1.00 10 3/mcL Normal 0.15-1.00 [facility] ([place]) Comment on above: Performed By: #### C BC, ADIFF, ANEU, BMP #### [address] [address] #### GFR #### [address] [address] Monocytes/100 WBC (Bld) 6.8 % Normal 1.7-13.0 [facility] ([place]) Comment on above: Performed By: #### C BC, ADIFF, ANEU, BMP #### [address] [address] #### GFR #### [address] [address] Neutrophils/100 WBC (Bld) 82.1 % High 37.0-80.0 [facility] ([place]) Comment on above: Performed By: #### C BC, ADIFF, ANEU, BMP #### [address] [address] #### GFR #### [address] [address] .GFRon 06-07-2021 GFR Non- 104 ml/min/1.73sqm Normal [facility] ([place]) Comment on above: Result Comment: GFR Population mean for , Non- Americans Ages 20-29 = 116 mL/min/1.73 sq.m. Ages 30-39 = 107 mL/min/1.73 sq.m. Ages 40-49 = 99 mL/min/1.73 sq.m. Ages 50-59 = 93 mL/min/1.73 sq.m. Ages 60-69 = 85 mL/min/1.73 sq.m. Ages 70+ = 75 mL/min/1.73 sq.m. Chronic Kidney Disease: Less than 60 mL/min/1.73 square meters End Stage Renal Disease: Less than 15 mL/min/1.73 square meters Performed By: #### C BC, ADIFF, ANEU, BMP #### [address] [address] #### GFR #### [address] [address] GFR 126 ml/min/1.73sqm Normal [facility] ([place]) Comment on above: Result Comment: GFR Population mean for , Non- Americans Ages 20-29 = 116 mL/min/1.73 sq.m. Ages 30-39 = 107 mL/min/1.73 sq.m. Ages 40-49 = 99 mL/min/1.73 sq.m. Ages 50-59 = 93 mL/min/1.73 sq.m. Ages 60-69 = 85 mL/min/1.73 sq.m. Ages 70+ = 75 mL/min/1.73 sq.m. Chronic Kidney Disease: Less than 60 mL/min/1.73 square meters End Stage Renal Disease: Less than 15 mL/min/1.73 square meters Performed By: #### C BC, ADIFF, ANEU, BMP #### [address] [address] #### GFR #### [address] [address] .NEUABSon 06-07-2021 Neutrophil, Absolute 12.10 10 3/mcL High 2.85-6.16 [facility] ([place]) Comment on above: Performed By: #### C BC, ADIFF, ANEU, BMP #### [address] [address] #### GFR #### [address] [address] BMPon 06-07-2021 BUN/Creatinine Ratio 19 ratio Normal 7-27 [facility] ([place] Comment on above: Performed By: #### C BC ADCECY, ANEU, BMP #### [address] [address] #### GFR #### [place] [address] Calcium [Mass/Vol] 8.8 mg/dL Normal 8.4-10.2 [facility] ([place]) Comment on above: Performed By: #### C BC, ADCECY, ANEU, BMP #### [address] [address] #### GFR #### [place] [address] Chloride [Moles/Vol] 101 mmol/L Normal 98-107 [facility] ([place] Comment on above: Performed By: #### C BC ADCECY, ANEU, BMP #### [place] [address] #### GFR #### [place] [address] CO2 [Moles/Vol] 28 mmol/L Normal 22-29 [facility] ([place] Comment on above: Performed By: #### C BC ADCECY, ANEU, BMP #### [address] [address] #### GFR #### [place] [address] Creatinine [Mass/Vol] 0.77 mg/dL Normal 0.70-1.30 [facility] ([place] Comment on above: Performed By: #### C BC ADIFF, ANEU, BMP #### [address] [address] #### GFR #### [place] [address] Electrolyte Balance 8.0 mEq/L Normal [facility] ([place]) Comment on above: Performed By: #### C BC, ADIFF, ANEU, BMP #### [address] [address] #### GFR #### [address] [address] Glucose [Mass/Vol] 150 mg/dL High 70-105 [facility] ([place]) Comment on above: Performed By: #### C BC, ADIFF, ANEU, BMP #### [address] [address] #### GFR #### [address] [address] Potassium [Moles/Vol] 4.6 mmol/L Normal 3.5-5.1 [facility] ([place] Comment on above: Performed By: #### C BC, ADIFF, ANEU, BMP #### [address] [address] #### GFR #### [address] [address] Sodium [Moles/Vol] 137 mmol/L Normal 136-145 [facility] ([place]) Comment on above: Performed By: #### C BC, ADIFF, ANEU, BMP #### [address] [address] #### GFR #### [address] [address] Urea nitrogen [Mass/Vol] 15 mg/dL Normal 7-18 [facility] ([place]) Comment on above: Performed By: #### C BC, ADIFF, ANEU, BMP #### [address] [address] #### GFR #### [address] [address] CBCon 06-07-2021 Erythrocyte distribution width (RBC) [Ratio] 13.2 % Normal 11.5-14.5 [facility] ([place]) Comment on above: Performed By: #### C BC, ADIFF, ANEU, BMP #### [address] [address] #### GFR #### [place] [address] Hematocrit (Bld) [Volume fraction] 38.4 % Low 42.0-52.0 [facility] ([place]) Comment on above: Performed By: #### C BROOKLYNN KEY ANEU, BMP #### [address] [address] #### GFR #### [place] [address] Hgb 12.9 G/dL Low 14.0-18.0 [facility] ([place] Comment on above: Performed By: #### C BROOKLYNN KEY ANEU, BMP #### [place] [address] #### GFR #### [place] [address] MCH (RBC) [Entitic mass] 28.7 pg Normal 27.0-31.2 [facility] ([place]) Comment on above: Performed By: #### BROOKLYNN GARCIA ANEU, BMP #### [place] [address] #### GFR #### [place] [address] MCHC 33.6 G/dL Normal 31.8-35.4 [facility] ([place]) Comment on above: Performed By: #### C BROOKLYNN KEY ANEU, BMP #### [place] [address] #### GFR #### [place] [address] MCV (RBC) [Entitic vol] 85.4 fL Normal 80.0-94.0 [facility] ([place] Comment on above: Performed By: #### C BROOKLYNN KEY ANEU, BMP #### [place] [address] #### GFR #### [place] [address] Platelet 133 10 3/mcL Normal 130-400 [facility] ([place] Comment on above: Performed By: #### C VIDYA KEYIFF, ANEU, BMP #### [place] [address] #### GFR #### [place] [address] Platelet mean volume (Bld) [Entitic vol] 9.4 fL Normal 7.4-10.4 [facility] ([place] Comment on above: Performed By: #### C BC, ADIFF, ANEU, BMP #### [place] [address] #### GFR #### [place] [address] RBC 4.50 10 6/mcL Normal 4.04-6.13 [facility] ([place] Comment on above: Performed By: #### C BC, ADIFF, ANEU, BMP #### [place] [address] #### GFR #### [place] [address] WBC 14.80 10 3/mcL High 4.60-10.80 [facility] ([place] Comment on above: Performed By: #### C BC, ADIFF, ANEU, BMP #### [place] [address] #### GFR #### [place] [address] XR KNEE 1 OR 2 VIEWS LEFTon 06-06-2021 XR KNEE 1 OR 2 VIEWS LEFT ORIGINAL INDICATION:ORDERING SYSTEM PROVIDED HISTORY: Status Post Arthroplasty Reason for Exam: Status Post Arthroplasty TECHNIQUE: KNEE 1 or 2 VIEWS LEFT COMPARISON: None available FINDINGS/IMPRESSION: Total knee arthroplasty and patellar resurfacing in anatomic alignment without evidence for hardware complication. There is no acute fracture or dislocation. There is moderate soft tissue swelling. There is a small suprapatellar joint effusion. Interpreted by: Julian Adam Preliminary Report By: Julian Adam Electronically signed By Julian Adam Dictated Date: 06/06/2021 11:04:06 AM Prelim Date: 06/06/2021 11:04:40 AM Sign Date: 06/06/2021 11:04:40 AM Ordering Provider: TEODORA Melgar [facility] ([place]) .Auto Diffon 05-18-2021 Basophil, Absolute 0.00 10 3/mcL Normal 0.00-0.19 [facility] ([place] Comment on above: Performed By: #### C BC, ADIFF, ANEU, BMP #### [place] [address] #### GFR #### [address] [address] Basophils/100 WBC (Bld) 0.6 % Normal 0.0-2.5 [facility] ([place]) Comment on above: Performed By: #### C BC, ADIFF, ANEU, BMP #### [place] [address] #### GFR #### [address] [address] Eosinophil, Absolute 0.10 10 3/mcL Normal 0.00-0.40 [facility] ([place]) Comment on above: Performed By: #### C BC, ADIFF, ANEU, BMP #### [place] [address] #### GFR #### [address] [address] Eosinophils/100 WBC (Bld) 1.5 % Normal 0.0-7.0 [facility] ([place]) Comment on above: Performed By: #### C BC, ADIFF, ANEU, BMP #### [place] [address] #### GFR #### [address] [address] Lymphocyte, Absolute 1.70 10 3/mcL Normal 0.77-3.85 [facility] ([place]) Comment on above: Performed By: #### C BC, ADIFF, ANEU, BMP #### [place] [address] #### GFR #### [address] [address] Lymphocytes/100 WBC (Bld) 21.9 % Normal 10.0-50.0 [facility] ([place]) Comment on above: Performed By: #### C BC, ADIFF, ANEU, BMP #### [address] [address] #### GFR #### [address] [address] Monocyte, Absolute 0.50 10 3/mcL Normal 0.15-1.00 [facility] ([place] Comment on above: Performed By: #### C BC, ADIFF, ANEU, BMP #### [address] [address] #### GFR #### [address] [address] Monocytes/100 WBC (Bld) 6.2 % Normal 1.7-13.0 [facility] ([place]) Comment on above: Performed By: #### C BC, ADIFF, ANEU, BMP #### [address] [address] #### GFR #### [address] [address] Neutrophils/100 WBC (Bld) 69.8 % Normal 37.0-80.0 [facility] ([place]) Comment on above: Performed By: #### C BC, ADIFF, ANEU, BMP #### [address] [address] #### GFR #### [address] [address] .GFRon 05-18-2021 GFR 116 ml/min/1.73sqm Normal [facility] ([place]) Comment on above: Result Comment: GFR Population mean for , Non- Americans Ages 20-29 = 116 mL/min/1.73 sq.m. Ages 30-39 = 107 mL/min/1.73 sq.m. Ages 40-49 = 99 mL/min/1.73 sq.m. Ages 50-59 = 93 mL/min/1.73 sq.m. Ages 60-69 = 85 mL/min/1.73 sq.m. Ages 70+ = 75 mL/min/1.73 sq.m. Chronic Kidney Disease: Less than 60 mL/min/1.73 square meters End Stage Renal Disease: Less than 15 mL/min/1.73 square meters Performed By: #### C BCBROOKLYNN ANEU, BMP #### [address] [address] #### GFR #### [address] [address] GFR Non- 95 ml/min/1.73sqm Normal [facility] ([place]) Comment on above: Result Comment: GFR Population mean for , Non- Americans Ages 20-29 = 116 mL/min/1.73 sq.m. Ages 30-39 = 107 mL/min/1.73 sq.m. Ages 40-49 = 99 mL/min/1.73 sq.m. Ages 50-59 = 93 mL/min/1.73 sq.m. Ages 60-69 = 85 mL/min/1.73 sq.m. Ages 70+ = 75 mL/min/1.73 sq.m. Chronic Kidney Disease: Less than 60 mL/min/1.73 square meters End Stage Renal Disease: Less than 15 mL/min/1.73 square meters Performed By: #### C BCBROOKLYNN ANEU, BMP #### [address] [address] #### GFR #### [address] [address] .NEUABSon 05-18-2021 Neutrophil, Absolute 5.30 10 3/mcL Normal 2.85-6.16 [facility] ([place] Comment on above: Performed By: #### C BCBROOKLYNN ANEU, BMP #### [address] [address] #### GFR #### [address] [address] BMPon 05-18-2021 BUN/Creatinine Ratio 25 ratio Normal 7-27 [facility] ([place] Comment on above: Performed By: #### C BC, ADCECY, ANEU, BMP #### [address] [address] #### GFR #### [address] [address] Calcium [Mass/Vol] 9.1 mg/dL Normal 8.4-10.2 [facility] ([place]) Comment on above: Performed By: #### C BC, ADIFF, ANEU, BMP #### [address] [address] #### GFR #### [address] [address] Chloride [Moles/Vol] 104 mmol/L Normal 98-107 [facility] ([place] Comment on above: Performed By: #### C BC, ADIFF, ANEU, BMP #### [address] [address] #### GFR #### [address] [address] CO2 [Moles/Vol] 28 mmol/L Normal 22-29 [facility] ([place]) Comment on above: Performed By: #### C BC, ADIFF, ANEU, BMP #### [address] [address] #### GFR #### [address] [address] Creatinine [Mass/Vol] 0.83 mg/dL Normal 0.70-1.30 [facility] ([place]) Comment on above: Performed By: #### C BC, ADIFF, ANEU, BMP #### [address] [address] #### GFR #### [address] [address] Electrolyte Balance 10.0 mEq/L Normal [facility] ([place]) Comment on above: Performed By: #### C BC, ADIFF, ANEU, BMP #### [address] [address] #### GFR #### [address] [address] Glucose [Mass/Vol] 119 mg/dL High 70-105 [facility] ([place]) Comment on above: Performed By: #### C BC, ADIFF, ANEU, BMP #### [address] [address] #### GFR #### [address] [address] Potassium [Moles/Vol] 4.1 mmol/L Normal 3.5-5.1 [facility] ([place] Comment on above: Performed By: #### C BC, ADIFF, ANEU, BMP #### [address] [address] #### GFR #### [address] [address] Sodium [Moles/Vol] 142 mmol/L Normal 136-145 [facility] ([place]) Comment on above: Performed By: #### C BC, ADIFF, ANEU, BMP #### [address] [address] #### GFR #### [address] [address] Urea nitrogen [Mass/Vol] 21 mg/dL High 7-18 [facility] ([place]) Comment on above: Performed By: #### C BC, ADIFF, ANEU, BMP #### [address] [address] #### GFR #### [address] [address] CBCon 05-18-2021 Erythrocyte distribution width (RBC) [Ratio] 13.2 % Normal 11.5-14.5 [facility] ([place]) Comment on above: Order Comment: Pre-A dmission Testing Performed By: #### C BC, ADIFF, ANEU, BMP #### [address] [address] #### GFR #### [address] [address] Hematocrit (Bld) [Volume fraction] 44.8 % Normal 42.0-52.0 [facility] ([place] Comment on above: Order Comment: Pre-A dmission Testing Performed By: #### C BC, ADIFF, ANEU, BMP #### [place] [address] #### GFR #### [place] [address] Hgb 15.4 G/dL Normal 14.0-18.0 [facility] ([place] Comment on above: Order Comment: Pre-A dmission Testing Performed By: #### C BC, ADIFF, ANEU, BMP #### [place] [address] #### GFR #### [place] [address] MCH (RBC) [Entitic mass] 29.1 pg Normal 27.0-31.2 [facility] ([place] Comment on above: Order Comment: Pre-A dmission Testing Performed By: #### C BC, ADIFF, ANEU, BMP #### [place] [address] #### GFR #### [place] [address] MCHC 34.4 G/dL Normal 31.8-35.4 [facility] ([place] Comment on above: Order Comment: Pre-A dmission Testing Performed By: #### C BC, ADIFF, ANEU, BMP #### [place] [address] #### GFR #### [place] [address] MCV (RBC) [Entitic vol] 84.7 fL Normal 80.0-94.0 [facility] ([place] Comment on above: Order Comment: Pre-A dmission Testing Performed By: #### C BC, ADIFF, ANEU, BMP #### [place] [address] #### GFR #### [place] [address] Platelet 151 10 3/mcL Normal 130-400 [facility] ([place]) Comment on above: Order Comment: Pre-A dmission Testing Performed By: #### C BC, ADIFF, ANEU, BMP #### [address] [address] #### GFR #### [place] [address] Platelet mean volume (Bld) [Entitic vol] 8.5 fL Normal 7.4-10.4 [facility] ([place] Comment on above: Order Comment: Pre-A dmission Testing Performed By: #### C BC, ADIFF, ANEU, BMP #### [place] [address] #### GFR #### [place] [address] RBC 5.29 10 6/mcL Normal 4.04-6.13 [facility] ([place] Comment on above: Order Comment: Pre-A dmission Testing Performed By: #### C BC, ADIFF, ANEU, BMP #### [place] [address] #### GFR #### [place] [address] WBC 7.70 10 3/mcL Normal 4.60-10.80 [facility] ([place] Comment on above: Order Comment: Pre-A dmission Testing Performed By: #### C BC, ADIFF, ANEU, BMP #### [place] [address] #### GFR #### [place] [address] CT KNEE W/O CONTRAST LEFTon 05-18-2021 CT KNEE W/O CONTRAST LEFT ORIGINAL CT KNEE W/O CONTRAST LEFT CLINICAL STATEMENT: Traumatic arthropathy left knee. Chronic pain with prior surgery due to trauma. COMPARISON: None TECHNIQUE: Axial images were obtained through the left knee without contrast. Survey images of the left hip and left ankle were obtained. Coronal and sagittal reformatted images were generated from the axial dataset. This exam was performed according to our departmental dose optimization program, and includes the following measures where applicable: automated exposure control, adjustment of the mAs and/or kVp according to patient size and/or exam, and an iterative reconstruction algorithm. FINDINGS: Moderate to severe medial tibiofemoral compartment joint space narrowing with associated subchondral sclerosis and osteophytosis. Mild lateral tibiofemoral and patellofemoral joint space narrowing. Extensive tricompartmental subchondral cystic change. Lateral tilt of the patella noted.. A well-corticated ossicle just superior to the fibular head may relate to prior injury. Limited survey of the left hip demonstrates no significant degenerative changes or aggressive lesion. Femoral head is appropriately seated within the acetabulum. Included pelvic structures are unremarkable. Limited survey of the left ankle demonstrates mild to moderate degenerative changes at the intertarsal joints with subchondral cystic change. Multiple tiny ossicles are present anterior and medial to the anterior process of calcaneus, measuring up to 7 mm. A tiny ossicle lateral to the calcaneus. Trace suprapatellar joint effusion. No soft tissue lesion. Severe fatty involution of the distal vastus intermedius and vastus lateralis muscles. Venous varices throughout the posterior and lateral left lower extremity. 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 Lateral tilt of the patella. Trace suprapatellar joint effusion. Severe fatty infiltration of the distal vastus lateralis muscles. Posterior and lateral venous varices throughout the lower extremity. I have personally reviewed the images of this examination and agree with the resident's findings and interpretation. Interpreted By: Tony Rivera MD Preliminary Report By: Eric Milian DO Electronically Signed By: Tony Rivera MD Dictated Date: 05/18/2021 10:25:58 AM Prelim Date: 05/18/2021 10:55:29 AM Sign Date: 05/18/2021 1:24:25 PM Ordering Provider:Teodora Javed [facility] ([place] XR CHEST 2 VIEWSon XR CHEST 2 VIEWS ORIGINAL XR CHEST 2 VIEWS CLINICAL STATEMENT: Pre-admission testing. COMPARISON: None FINDINGS: The heart is normal in size and there is no vascular congestion present. The lungs are clear and there is no pleural fluid seen. There are minor degenerative changes noted in the spine and at the AC joint. IMPRESSION: No acute finding. Interpreted By: Chris Brandon MD Preliminary Report By: Chris Brandon MD Electronically Signed By: Chris Brandon MD Dictated Date: 05/18/2021 11:37:38 AM Prelim Date: 05/18/2021 11:37:38 AM Sign Date: 05/18/2021 11:37:55 AM Ordering Provider:Teodora Javed [facility] ([place] Vital Signs Date Time Vital Sign Value Performing Clinician Facility 07-09-2025 08:09-0400 Body height 175.[address] Lilia Hong MD Work Phone: 0(867)392-197719 [place] [address] 07-09-2025 08:09-0400 Body mass index (BMI) [Ratio] 43.1 kg/m2 Dr. Lilia Hong MD Work Phone: 5(734)534-256219 [place] [address] 07-09-2025 08:09-0400 Body weight 132.[address] Lilia Hong MD Work Phone: 2(512)169-186619 [place] [address] 07-09-2025 08:09-0400 Diastolic blood pressure 62 mm[Hg] Dr. Lilia Hong MD Work Phone: 8(107)345-798419 [place] [address] 07-09-2025 08:09-0400 Heart rate 118 /min Dr. Lilia Hong MD Work Phone: 5(003)963-930919 [place] [address] 07-09-2025 08:09-0400 Respiratory rate 20 /min Dr. Lilia Hong MD Work Phone: 7(844)528-736419 [place] [address] 07-09-2025 08:09-0400 SaO2% (BldA) [Mass fraction] 92 % Dr. Lilia Hong MD Work Phone: 3(366)440-886919 [place] [address] 07-09-2025 08:09-0400 Systolic blood pressure 107 mm[Hg] Dr. Lilia Hong MD Work Phone: 1(158)568-184919 [place] [address] 03-12-2025 07:30-0400 Body mass index (BMI) [Ratio] 43.5 kg/m2 Dr. iLlia Hong MD Work Phone: 4(191)862-538019 [place] [address] 03-12-2025 07:30-0400 Body weight 133.[address] Lilia Hong MD Work Phone: 8(569)429-063919 [place] [address] 03-12-2025 07:30-0400 Diastolic blood pressure 72 mm[Hg] Dr. Lilia Hong MD Work Phone: 8(501)823-491507 [place] [address] 03-12-2025 07:30-0400 Heart rate 92 /min Dr. Lilia Hong MD Work Phone: [facility] 03-12-2025 07:30-0400 Respiratory rate 18 /min Dr. Lilia Hong MD Work Phone: 4(106)724-213107 [place] [address] 03-12-2025 07:30-0400 SaO2% (BldA) [Mass fraction] 94 % Dr. Lilia Hong MD Work Phone: 6(687)616-383619 [place] [address] 03-12-2025 07:30-0400 Systolic blood pressure 126 mm[Hg] Dr. Lilia Hong MD Work Phone: 9(231)887-956619 [place] [address] 03-09-2025 07:52-0400 Body height 175.[address] Lilia Hong MD Work Phone: 0(708)392-454619 [place] [address] 03-09-2025 07:52-0400 Body mass index (BMI) [Ratio] 43 kg/m2 Dr. Lilia Hong MD Work Phone: 5(623)302-151819 [place] [address] 03-09-2025 07:52-0400 Body temperature 97 [degF] Dr. Lilia Hong MD Work Phone: 0(185)880-153619 [place] [address] 03-09-2025 07:52-0400 Body weight 131.[address] Lilia Hong MD Work Phone: 1(788)973-084219 [place] [address] 03-09-2025 07:52-0400 Diastolic blood pressure 67 mm[Hg] Dr. Lilia Hong MD Work Phone: 9(499)751-679619 [place] [address] 03-09-2025 07:52-0400 Respiratory rate 18 /min Dr. Lilia Hong MD Work Phone: 0(214)773-245019 [place] [address] 03-09-2025 07:52-0400 SaO2% (BldA) [Mass fraction] 96 % Dr. Lilia Hong MD Work Phone: 7(399)484-789919 [place] [address] 03-09-2025 07:52-0400 Systolic blood pressure 95 mm[Hg] Dr. Lilia Hong MD Work Phone: 4(924)134-366819 [place] [address] 01-21-2025 09:02-0500 Body height 175.[address] Lilia Hong MD Work Phone: 6(630)462-425319 [place] [address] 01-21-2025 09:02-0500 Body weight 135.[address] Lilia Hong MD Work Phone: 1(713)295-388019 [place] [address] 01-21-2025 09:02-0500 Heart rate 102 /min Dr. Lilia Hong MD Work Phone: 2(743)576-350519 [place] [address] 01-21-2025 09:02-0500 SaO2% (BldA) [Mass fraction] 93 % Dr. Lilia Hong MD Work Phone: 4(159)079-791719 [place] [address] 01-01-2025 08:12-0500 Body mass index (BMI) [Ratio] 42.7 kg/m2 Dr. Lilia Hong MD Work Phone: 3(721)879-663919 [place] [address] 01-01-2025 08:12-0500 Body temperature 97.4 [degF] Dr. Lilia Hong MD Work Phone: 6(329)665-979419 [place] [address] 01-01-2025 08:12-0500 Body weight 131.[address] Lilia Hong MD Work Phone: 9(738)617-797119 [place] [address] 01-01-2025 08:12-0500 Diastolic blood pressure 75 mm[Hg] Dr. Lilia Hong MD Work Phone: 1(416)308-477719 [place] [address] 01-01-2025 08:12-0500 Heart rate 74 /min Dr. Lilia Hong MD Work Phone: 5(184)111-646119 [place] [address] 01-01-2025 08:12-0500 Respiratory rate 20 /min Dr. Lilia Hong MD Work Phone: 9(598)741-773019 [place] [address] 01-01-2025 08:12-0500 SaO2% (BldA) [Mass fraction] 98 % Dr. Lilia Hong MD Work Phone: [facility] 01-01-2025 08:12-0500 Systolic blood pressure 115 mm[Hg] Dr. Lilia Hong MD Work Phone: [facility] 10-10-2023 11:31-0500 Body height 173.3 cm Fadi Mathew MD Work Phone: [facility] Comment on above: Measured today w/o shoes 10-10-2023 11:31-0500 Body mass index (BMI) [Ratio] 44.6 kg/m2 Fadi Mathew MD Work Phone: [facility] 10-10-2023 11:31-0500 Body temperature 98.29 [degF] Fadi Mathew MD Work Phone: [facility] 10-10-2023 11:31-0500 Body weight 133.95 kg Fadi Mathew MD Work Phone: [facility] 10-10-2023 11:31-0500 Diastolic blood pressure 62 mm[Hg] Fadi Mathwe MD Work Phone: [facility] 10-10-2023 11:31-0500 Heart rate 73 /min Fadi Mathew MD Work Phone: [facility] 10-10-2023 11:31-0500 Respiratory rate 18 /min Fadi Mathew MD Work Phone: [facility] 10-10-2023 11:31-0500 SaO2% (BldA) [Mass fraction] 95 % Fadi Mathew MD Work Phone: [facility] Comment on above: On room air 10-10-2023 11:31-0500 Systolic blood pressure 127 mm[Hg] Fadi Mathew MD Work Phone: [facility] 09-26-2023 10:34-0400 Body height 175.[address] Abdifatah Hong Work Phone: [facility] 09-26-2023 10:34-0400 Body mass index (BMI) [Ratio] 43.4 kg/m2 Dr. Abdifatah Hong Work Phone: [facility] 09-26-2023 10:34-0400 Body temperature 98.5 [degF] Dr. Abdifatah Hong Work Phone: [facility] 09-26-2023 10:34-0400 Body weight 133.[address] Abdifatah Hong Work Phone: [facility] 09-26-2023 10:34-0400 Diastolic blood pressure 71 mm[Hg] Dr. Abdifatah Hong Work Phone: [facility] 09-26-2023 10:34-0400 Heart rate 63 /min Dr. Abdifatah Hong Work Phone: [facility] 09-26-2023 10:34-0400 Respiratory rate 18 /min Dr. Abdifatah Hong Work Phone: [facility] 09-26-2023 10:34-0400 SaO2% (BldA) [Mass fraction] 95 % Dr. Abdifatah Hong Work Phone: [facility] 09-26-2023 10:34-0400 Systolic blood pressure 127 mm[Hg] Dr. Abdifatah Hong Work Phone: [facility] 09-19-2023 10:48-0400 Body temperature 98 [degF] Dr. Abdifatah Hong Work Phone: [facility] 09-19-2023 10:48-0400 Diastolic blood pressure 63 mm[Hg] Dr. Abdifatah Hong Work Phone: [facility] 09-19-2023 10:48-0400 Heart rate 66 /min Dr. Abdifatah Hong Work Phone: [facility] 09-19-2023 10:48-0400 Respiratory rate 18 /min Dr. Abdifatah Hong Work Phone: [facility] 09-19-2023 10:48-0400 SaO2% (BldA) [Mass fraction] 98 % Dr. Abdifatah Hong Work Phone: [facility] 09-19-2023 10:48-0400 Systolic blood pressure 121 mm[Hg] Dr. Abdifatah Hong Work Phone: 3(070)915-395519 [place] [address] 09-19-2023 09:09-0400 Inhaled oxygen flow rate 3 L/min Dr. Abdifatah Hong Work Phone: 6(148)676-897219 [place] [address] 09-19-2023 08:26-0400 Body height 175.[address] Abdifatah Hong Work Phone: 5(482)623-558919 [place] [address] 09-19-2023 08:26-0400 Body mass index (BMI) [Ratio] 43.8 kg/m2 Dr. Abdifatah Hong Work Phone: 7(412)023-216319 [place] [address] 09-19-2023 08:26-0400 Body weight 134.[address] Abdifatah Hong Work Phone: 4(799)454-974719 [place] [address] 09-09-2023 10:03-0400 Body mass index (BMI) [Ratio] 44.8 kg/m2 Dr. Abdifatah Hong Work Phone: 8(565)527-306119 [place] [address] 09-09-2023 10:03-0400 Body weight 133.[address] Abdifatah Hong Work Phone: 7(769)686-907119 [place] [address] 09-09-2023 10:03-0400 Diastolic blood pressure 85 mm[Hg] Dr. Abdifatah Hong Work Phone: 3(087)235-273619 [place] [address] 09-09-2023 10:03-0400 Heart rate 57 /min Dr. Abdifatah Hong Work Phone: 3(640)529-846419 [place] [address] 09-09-2023 10:03-0400 Respiratory rate 20 /min Dr. Abdifatah Hong Work Phone: 0(846)482-981507 [place] [address] 09-09-2023 10:03-0400 SaO2% (BldA) [Mass fraction] 94 % Dr. Abdifatah Hong Work Phone: [facility] 09-09-2023 10:03-0400 Systolic blood pressure 116 mm[Hg] Dr. Abdifatah Hong Work Phone: [facility] 09-05-2023 14:03-0400 Body mass index (BMI) [Ratio] 44.1 kg/m2 Dr. Abdifatah Hong Work Phone: 6(027)559-094271 [address] 09-05-2023 14:03-0400 Body temperature 98.5 [degF] Dr. Abdifatah Hong Work Phone: 7(278)271-636019 [place] [address] 09-05-2023 14:03-0400 Body weight 131.[address] Abdifatah Hong Work Phone: 5(232)389-131619 [place] [address] 09-05-2023 14:03-0400 Diastolic blood pressure 69 mm[Hg] Dr. Abdifatah Hong Work Phone: 8(622)935-422619 [place] [address] 09-05-2023 14:03-0400 Heart rate 69 /min Dr. Abdifatah Hong Work Phone: 6(953)429-847619 [place] [address] 09-05-2023 14:03-0400 Respiratory rate 16 /min Dr. Abdifatah Hong Work Phone: 0(794)056-132919 [place] [address] 09-05-2023 14:03-0400 SaO2% (BldA) [Mass fraction] 94 % Dr. Abdifatah Hong Work Phone: 8(866)506-744607 [place] [address] 09-05-2023 14:03-0400 Systolic blood pressure 111 mm[Hg] Dr. Abdifatah Hong Work Phone: 2(246)397-678719 [place] [address] 09-01-2023 11:00-0400 Body temperature 98 [degF] Dr. Abdifatah Hong Work Phone: 5(013)002-487171 [address] 09-01-2023 11:00-0400 Diastolic blood pressure 82 mm[Hg] Dr. Abdifatah Hong Work Phone: 3(046)651-336971 [address] 09-01-2023 11:00-0400 Heart rate 72 /min Dr. Abdifatah Hong Work Phone: [facility] 09-01-2023 11:00-0400 Respiratory rate 18 /min Dr. Abdifatah Hong Work Phone: [facility] 09-01-2023 11:00-0400 SaO2% (BldA) [Mass fraction] 95 % Dr. Abdifatah Hong Work Phone: [facility] 09-01-2023 11:00-0400 Systolic blood pressure 118 mm[Hg] Dr. Abdifatah Hong Work Phone: [facility] 09-01-2023 07:45-0400 Inhaled oxygen flow rate 2 L/min Dr. Abdifatah Hong Work Phone: [facility] 09-01-2023 04:47-0400 Body mass index (BMI) [Ratio] 44.5 kg/m2 Dr. Abdifatah Hong Work Phone: [facility] 09-01-2023 04:47-0400 Body weight 132.[address] Abdifatah Hong Work Phone: [facility] 08-31-2023 19:33-0400 Inhaled oxygen concentration 30 % Dr. Abdifatah Hong Work Phone: [facility] 08-14-2022 08:17-0400 Body mass index (BMI) [Ratio] 43.9 kg/m2 Dr. Abdifatah Hong Work Phone: [facility] Work Phone: 08-14-2022 08:17-0400 Body temperature 96.7 [degF] Dr. Abdifatah Hong Work Phone: [facility] Work Phone: 07-31-2022 08:52-0400 Diastolic blood pressure 85 mm[Hg] Dr. Abdifatah Hong Work Phone: [facility] Work Phone: 07-31-2022 08:52-0400 Heart rate 79 /min Dr. Abdifatah Hong Work Phone: [facility] Work Phone: 07-31-2022 08:52-0400 Respiratory rate 17 /min Dr. Abdifatah Hong Work Phone: [facility] Work Phone: 07-31-2022 08:52-0400 Systolic blood pressure 143 mm[Hg] Dr. Abdifatah Hong Work Phone: [facility] Work Phone: 07-26-2022 00:48-0400 Body weight 135.[address] Abdifatah Hong Work Phone: [facility] Work Phone: 07-24-2022 08:44-0400 Body height 175.[address] Abdifatah Hong Work Phone: [facility] Work Phone: 07-24-2022 08:44-0400 Body mass index (BMI) [Ratio] 43.9 kg/m2 Dr. Abdifatah Hong Work Phone: [facility] Work Phone: 07-24-2022 08:44-0400 Body temperature 96.8 [degF] Dr. Abdifatah Hong Work Phone: [facility] Work Phone: 07-24-2022 08:44-0400 Body weight 135.[address] Abdifatah Hong Work Phone: [facility] Work Phone: 07-24-2022 08:44-0400 Diastolic blood pressure 70 mm[Hg] Dr. Abdifatah Hong Work Phone: [facility] Work Phone: 07-24-2022 08:44-0400 Heart rate 70 /min Dr. Abdifatah Hong Work Phone: [facility] Work Phone: 07-24-2022 08:44-0400 Respiratory rate 18 /min Dr. Abdifatah Hong Work Phone: [facility] Work Phone: 07-24-2022 08:44-0400 Systolic blood pressure 140 mm[Hg] Dr. Abdifatah Hong Work Phone: [facility] Work Phone: 06-21-2022 13:01-0400 Body mass index (BMI) [Ratio] 44.9 kg/m2 Dr. Abdifatah Hong Work Phone: [facility] Work Phone: 06-21-2022 13:01-0400 Body weight 137.[address] Abdifatah Hong Work Phone: [facility] Work Phone: 06-21-2022 13:01-0400 Diastolic blood pressure 83 mm[Hg] Dr. Abdifatah Hong Work Phone: [facility] Work Phone: 06-21-2022 13:01-0400 Heart rate 80 /min Dr. Abdifatah Hong Work Phone: [facility] Work Phone: 06-21-2022 13:01-0400 Respiratory rate 16 /min Dr. Abdifatah Hong Work Phone: [facility] Work Phone: 06-21-2022 13:01-0400 SaO2% (BldA) [Mass fraction] 93 % Dr. Abdifatah Hong Work Phone: [facility] Work Phone: 06-21-2022 13:01-0400 Systolic blood pressure 132 mm[Hg] Dr. Abdifatah Hong Work Phone: [facility] Work Phone: Encounters Encounter Date Encounter Type Care Provider Facility Start: 08-13-2025 ambulatory Lilia Quach lity:[facility] Start: 07-26-2025 ambulatory Lilia Quach lity:[facility] Start: 07-09-2025 End: 07-09-[address] Lilia Hong MD Work Phone: -Laboratory Start: 07-09-2025 End: 07-09-2025 Discharged Recurring Maral Guy SECRETARY ADMINISTRATIVE ASSISTANT-C -Laboratory Work Phone: Start: 07-09-2025 End: 07-09-2025 Patient encounter procedure Eri REILLY -[facility] Work Phone: Start: 07-09-2025 End: 07-09-[address] Lilia Hong MD Work Phone: -[facility] Start: 06-26-2025 Registered Recurring Maral Franco P-C -Laboratory Work Phone: Start: 04-15-2025 End: 04-15-[address] Lilia Hong MD Work Phone: [facility] Work Phone: Start: 04-15-2025 End: 04-15-2025 Discharged Recurring Maral Guy NP-C -Laboratory Work Phone: Start: 04-02-2025 Registered Recurring Maral Franco P-C -Laboratory Work Phone: Start: 04-01-2025 Non-patient / Non-visit Dr. Ethan Stanford MD -[facility] Start: 04-01-2025 End: 04-01-[address] Lilia Hong MD Work Phone: [facility] Work Phone: Start: 04-01-2025 End: 04-01-2025 Patient encounter procedure Eri REILLY -Cardiovascular Services Work Phone: Start: 04-01-2025 End: 04-01-2025 ambulatory Lilia Hong Facility:[facility] Start: 03-12-2025 End: 03-12-2025 Patient encounter procedure Eri Gutierrez [place] -[facility] Work Phone: Start: 03-12-2025 End: 03-12-[facility] Start: 03-09-2025 End: 03-09-2025 Patient encounter procedure Reena ALICIAC -[facility] Work Phone: Start: 03-09-2025 End: 03-09-2025 ambulatory Lilia Hong Facility:[facility] Start: 02-20-2025 End: 02-20-[address] Lilia Hong MD Work Phone: [facility] Work Phone: Start: 02-20-2025 End: 02-20-2025 Discharged Recurring Maral Guy SECRETARY ADMINISTRATIVE ASSISTANT-C -Laboratory Work Phone: Start: 01-30-2025 Registered Recurring Maral Guy N P-C -Laboratory Work Phone: Start: 01-25-2025 End: 01-25-[address] Lilia Hong MD Work Phone: [facility] Work Phone: Start: 01-25-2025 End: 01-25-2025 Patient encounter procedure Reena MARTINEZ -Sleep Lab Work Phone: Start: 01-25-2025 End: 01-25-2025 ambulatory Lilia Hong Facility:[facility] Start: 01-22-2025 ambulatory Lilia Hong Faci lity:[facility] Start: 01-22-2025 Non-patient / Non-visit Dr. Alfredo Arias DO -[facility] Start: 01-21-2025 End: 01-21-[address] Lilia Hong MD Work Phone: [facility] Work Phone: Start: 01-21-2025 End: 01-21-2025 Patient encounter procedure Reena Brooks SECRETARY ADMINISTRATIVE ASSISTANT-C -Pulmonary Services/Neurology Work Phone: Start: 01-21-2025 End: 01-21-2025 ambulatory [facility] Facility:[facility] Start: 01-07-2025 End: 01-22-2025 ambulatory [facility] Facility:[facility] Start: 01-07-2025 End: 01-22-2025 Discharged Recurring Maral Guy SECRETARY ADMINISTRATIVE ASSISTANT-C -Laboratory Work Phone: Start: 01-07-2025 End: 01-07-2025 Patient encounter procedure Reena Brooks SECRETARY ADMINISTRATIVE ASSISTANT-C -Pulmonary Services/Neurology Work Phone: Start: 01-07-2025 End: 01-07-2025 ambulatory [facility] Facility:[facility] Start: 01-01-2025 End: 01-01-2025 Patient encounter procedure Reena Brooks SECRETARY ADMINISTRATIVE ASSISTANT-C -[facility] Work Phone: Start: 01-01-2025 End: 01-01-2025 ambulatory [facility] Facility:[facility] Start: 12-08-2024 End: 12-08-2024 Patient encounter procedure Reena Brooks SECRETARY ADMINISTRATIVE ASSISTANT-C -Cat Scan, [facility] Work Phone: Start: 12-08-2024 End: 12-08-2024 ambulatory [facility] Facility:[facility] Start: 11-30-2024 End: 11-30-2024 Discharged Recurring Maral Guy SECRETARY ADMINISTRATIVE ASSISTANT-C -Laboratory Work Phone: Start: 11-30-2024 End: 11-30-2024 ambulatory [facility] Facility:[facility] Start: 11-21-2024 End: 11-21-[address] Lilia Hong MD -Laboratory Work Phone: Start: 11-21-2024 End: 11-21-2024 ambulatory [facility] Facility:[facility] Start: 11-19-2024 End: 11-19-[address] Lilia Hong MD -Radiology, [place] Work Phone: Start: 11-19-2024 End: 11-19-2024 ambulatory Lilia Hong Facility:[facility] Start: 11-19-2024 End: 11-19-2024 Discharged Recurring Maral Guy SECRETARY ADMINISTRATIVE ASSISTANT-C -Laboratory Work Phone: Start: 11-19-2024 End: 11-19-2024 ambulatory Lilia Hong Facility:[facility] Start: 11-04-2024 End: 11-04-[address] Lilia Hong MD -Laboratory, [place] Work Phone: Start: 11-04-2024 End: 11-04-2024 ambulatory Lilia Hong Facility:[facility] Start: 10-17-2024 End: 10-24-2024 Discharged Recurring Maral Guy SECRETARY ADMINISTRATIVE ASSISTANT-C -Laboratory Work Phone: Start: 10-17-2024 End: 10-24-2024 ambulatory Lilia Hong Facility:[facility] Start: 10-15-2024 ambulatory LILIA HONG Fa jo annty:GEMINI Start: 10-08-2024 End: 10-08-[address] Theresa Hightower MD -Radiology, [place] Work Phone: Start: 10-08-2024 End: 10-08-2024 ambulatory Lilia Hong Facility:[facility] Start: 09-10-2024 End: 09-10-2024 ambulatory Lilia Hong Facility:[facility] Start: 09-07-2024 End: 09-07-2024 ambulatory Lilia Hong Facility:[facility] Start: 08-24-2024 End: 08-24-2024 ambulatory Lilia Hong Facility:[facility] Start: 08-13-2024 ambulatory Lilia Hong Faci lity:[facility] Start: 08-12-2024 ambulatory Jerica L White Facility :[facility] Start: 08-12-2024 End: 08-13-2024 Evaluation and management of inpatient Jerica L White Facility:[facility] Start: 08-11-2024 ambulatory Jerica L White Facility :[facility] Start: 08-06-2024 End: 08-06-2024 ambulatory Christmelina Hong Facility:[facility] Start: 11-28-2023 Non-patient / Non-visit Dr. Abdifatah Hong Work Phone: [facility] Start: 11-28-2023 End: 11-28-[address] Abdifatah Hong Work Phone: [facility] Work Phone: Start: 11-28-2023 End: 11-28-[address] Abdifatah Hong Work Phone: [facility]-Cardiovascular Services Work Phone: Start: 10-10-2023 End: 10-10-2023 Clinical Support Encounter Fadi Mathew MD Work Phone: [facility] 1 Comment on above: Mass of pancreas Start: 10-10-2023 End: 10-10-2023 Office outpatient new 60 minutes Fadi Mathew MD Work Phone: [facility] Comment on above: Mass of pancreas (Pr imary Dx); Other abnormal tumor markers Start: 10-10-2023 End: 10-10-2023 Clinical Support Encounter Fadi Mathew MD Work Phone: [facility] 1 Comment on above: Mass of pancreas; Other abnormal tumor markers Start: 09-26-2023 End: 09-26-[address] Abdifatah Hong Work Phone: [facility] Work Phone: Start: 09-19-2023 End: 09-19-[address] Abdifatah Hong Work Phone: [facility] Work Phone: Start: 09-19-2023 End: 09-19-[address] Abdifatah Hong Work Phone: [facility] Work Phone: Start: 09-13-[address] Abdifatah Hong Work Phone: [facility] Start: 09-09-2023 End: 09-09-[address] Abdifatah Hong Work Phone: [facility] Work Phone: Start: 09-05-2023 End: 09-05-[address] Abdifatah Hong Work Phone: [facility] Work Phone: Start: 09-01-2023 Non-patient / Non-visit Dr. Abdifatah Hong Work Phone: [facility] Inpatient Physicians Work Phone: Start: 08-31-2023 Non-patient / Non-visit Dr. Abdifatah Hong Work Phone: [facility] Start: 08-30-2023 Non-patient / Non-visit Dr. Abdifatah oHng Work Phone: [facility] Start: 08-30-2023 Non-patient / Non-visit Dr. Abdifatah Hong Work Phone: [facility] Work Phone: Start: 08-29-2023 End: 09-01-2023 Evaluation and management of inpatient Dr. Abdifatah Hong Work Phone: [facility]-Progressive Care Unit Work Phone: Start: 08-20-2022 End: 08-20-[address] Abdifatah Hong Work Phone: [facility] Work Phone: Start: 08-20-2022 End: 08-20-[address] Abdifatah Hong Work Phone: [facility]-Laboratory, Specimen Start: 08-14-2022 End: 08-14-[address] Abdifatah Hong Work Phone: [facility] Work Phone: Start: 08-14-2022 End: 08-14-[address] Abdifatah Hong Work Phone: [facility] Start: 08-14-2022 End: 08-14-[address] Abdifatah Hong Work Phone: [facility]-Laboratory Start: 07-24-2022 End: 07-25-[address] Abdifatah Hong Work Phone: [facility] Start: 06-21-2022 End: 06-21-[address] Abdifatah Hong Work Phone: [facility] Procedures Date Procedure Procedure Detail Performing Clinician Start: 03-12-2025 Evaluation of diagnostic study results Dr. Lilia Hong MD Work Phone: Start: 12-08-[address] Lilia bertrand MD Work Phone: Start: 11-19-2024 X-ray of chest, PA and lateral views Dr. Lilia Hong MD Work Phone: Start: 11-04-2024 X-ray of chest, PA and lateral views Dr. Lilia Hong MD Work Phone: Start: 10-08-2024 X-ray of chest, PA and lateral views Dr. Lilia Hong MD Work Phone: Start: 11-28-[address] Abdifatah mcneal Work Phone: Start: 10-10-2023 CBC AND ELECTRONIC DIFF Dodie hoffmann MATE FISHING VESSEL-PROTECTION ANALYST, DNP Work Phone: Start: 10-10-2023 Complete blood count with white cell differential, automated Dodie Landon MATE FISHING VESSEL-PROTECTION ANALYST, DNP Work Phone: Start: 10-10-2023 Comprehensive metabolic panel Dodie Landon MATE FISHING VESSEL-PROTECTION ANALYST, DNP Work Phone: Start: 10-10-2023 Immunoassay tumor antigen quantitative ca 19-9 Dodie Sepulveda Leonardo MEADOWS, [facility] Work Phone: Start: 09-19-2023 Biopsy/Inj or Needle Placement Dr. Abdifatah Hong Work Phone: Start: 08-30-2023 Coronavirus COVID-[address] Abdifatah Hong Work Phone: Start: 08-30-[address] Abdifatah mcneal Work Phone: Start: 08-30-2023 Computed tomography of abdomen and pelvis with contrast Dr. Abdifatah Hong Work Phone: Start: 08-29-2023 CT angiography of chest with contrast Dr. Abdifatah Hong Work Phone: Start: 08-29-2023 Plain chest X-ray Dr. Abdifatah mcneal Work Phone: Laboratory test resu lt abnormal Other abnormal tumor markers Fadi Mathew MD Work Phone: Plan of Treatment Date Care Activity Detail Author Start: 12-24-2027 Tetanus vaccination TETANUS [facility] Start: 07-09-2025 Evaluation of diagnostic study results [facility] Start: 10-10-2024 Potassium [Moles/volume] in Serum or Plasma POTASSIUM [facility] Start: 10-31-2023 End: 10-31-2023 Telemedicine consultation with patient 10/31/2023 3:30 PM EST Telemedicine [facility] [address] [place] [address] Fadi Mathew MD [address] [place] [address] [place] [address] [facility] Start: 10-22-2023 End: 10-22-2023 Patient encounter procedure 10/22/2023 8:30 AM EST Appointment [facility] [address] [facility] [address] [place] [address] Brandie Eason MD, MPH [address] [place] [address] [facility] Start: 10-10-2023 End: 10-10-2024 IGG4 (IMMUNOGLOBULIN G SUBCLASS 4) [facility] Work Phone: Comment on above: Expected: 10/10/2023, Expires: Start: 10-10-2023 End: 10-10-2024 UPPER EUS UPPER EUS GI/Bronch Urgent Mass of pancreas Expected: 10/10/2023, Expires: 10/10/2024 [facility] Comment on above: Expected: 10/10/2023, Expires: Start: 09-26-2023 Patient referral [facility] Work Phone: Start: 09-19-2023 Biopsy pancrea percutaneous needle NEEDLE BIOPSY PANCREAS [facility] Start: 09-19-2023 Catheterization of vein [facility] Start: 09-19-2023 Oxygen therapy [facility] Start: 09-19-2023 Patient discharge [facility] Start: 09-19-2023 Vital signs measurements [facility] Start: 09-19-2023 Following clinical pathway protocol [facility] Start: 09-01-2023 Patient discharge [facility] Start: 08-31-2023 Continuous pulse oximetry [facility] Start: 08-31-2023 Care planning and problem solving actions [facility] Start: 08-30-2023 Respiratory secretion precautions [facility] Start: 08-30-2023 Care planning and problem solving actions [facility] Start: 08-30-2023 Following clinical pathway protocol [facility] Start: 08-30-2023 Assessment of risk of venous thromboembolism [facility] Start: 08-30-2023 Care regimes management [facility] Start: 08-30-2023 Continuous positive airway pressure ventilation treatment [facility] Start: 08-30-2023 Inhalation therapy procedure [facility] Start: 08-30-2023 Insertion of catheter into peripheral vein [facility] Start: 08-30-2023 Introduction of urinary catheter [facility] Start: 08-30-2023 Measuring intake and output [facility] Start: 08-30-2023 Notification of physician [facility] Start: 08-30-2023 Oxygen therapy [facility] Start: 08-30-2023 Providing care according to standard [facility] Start: 08-30-2023 Provision of activity privileges [facility] Start: 08-30-2023 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 [facility] Start: 08-30-2023 Referral to service [facility] Start: 08-30-2023 Tobacco use cessation education [facility] Start: 08-30-2023 [facility] Start: 08-29-2023 Admission procedure [facility] Start: 07-26-2023 COVID-19 VACCINE ( season) COVID-19 VACCINE () [facility] Start: 07-26-2023 Influenza vaccination INFLUENZA VACCINE (#1) [facility] Start: 11-11-2018 PNEUMOCOCCAL VACCINE SERIES (2 - PCV) PNEUMOCOCCAL VACCINE SERIES (2 - PCV) [facility] Start: 07-10-2017 End: 07-10-2017 Appointment Appointment Pulmonary Medicine juan antonio kingsley Jacinda Work Phone: Start: 02-20-2014 Prostate specific antigen measurement PROSTATE CANCER SCREENING DISCUSSION [facility] Start: 02-20-2014 Screening for malignant neoplasm of lung LUNG CANCER SCREENING [facility] Start: 02-20-2014 Zoster vaccine hzv live for subcutaneous use ZOSTER (SHINGLES) VACCINE (1 of 2) [facility] Start: 02-20-2009 Screening for malignant neoplasm of colon COLORECTAL CANCER SCREENING DISCUSSION [facility] Start: 2004 Lipid panel LIPID SCREENING [facility] Start: 02-20-1979 HIV screening HIV SCREENING DISCUSSION [facility] Start: 1965 Hepatitis C screening HEPATITIS C VIRUS SCREENING [facility] CT Chest [facility] Measurement of respiratory function [facility] Heart Views W str ess and W radionuclide IV [facility] NM Heart Views W str ess and W radionuclide IV [facility] Patient Education [facility] Work Phone: Patient referral [facility] Work Phone: [facility] Walking distance 6 minutes [facility] Immunizations Immunization Date Immunization Notes Care Provider Fa cility 10-20-2021 Covid (Moderna) Dr. Rommel Hong MD Work Phone: [facility] 04-06-2021 Covid (Moderna) Dr. Rommel Hong MD Work Phone: [facility] 03-09-2021 Covid (Moderna) Dr. Rommel Hong MD Work Phone: [facility] 08-20-2018 influenza virus vaccine, unspecified formulation Astrid Powell RN [facility] 12-24-2017 tetanus toxoid, redu edward diphtheria toxoid, and acellular pertussis vaccine, adsorbed Dr. Lilia Hong MD Work Phone: [facility] 11-11-2017 pneumococcal polysaccharide vaccine, [address] Lilia Hong MD Work Phone: [facility] Payers Date Payer Category Payer Self-pay [id number] 2022 Medicare MEDICARE [employer] HMO PPO MEDICARE [employer] HMO PPO [id number] 2022-Present [address] [address] [place] [address] [id number] 2022 Private Health Insurance [id number] 2016 Unknown [id number] 1965 Unknown [id number] 2.16.840.1.715715.3.579.2.5 94 Medicare MEDICARE PART A B [id number] Medicare [employer] MEDICARE HMO [id number] Unknown [facility] [id number] Unknown [id number] 2.16.840.1.436974.3.579.2.4 62 Unknown [id number] 2.16.840.1.849755.3.579.2.4 62 Unknown [id number] 2.16.840.1.871958.3.579.2.4 62 Unknown [id number] 2.16.840.1.216015.3.579.2.4 62 Unknown [id number] 2.16.840.1.116181.3.579.2.4 62 Unknown [id number] 2.16.840.1.293805.3.579.2.4 62 Unknown [id number] 2.16.840.1.609166.3.579.2.4 62 Unknown [id number] 2.16.840.1.896810.3.579.2.4 62 Unknown [id number] 2.16.840.1.271461.3.579.2.4 62 Unknown [id number] 2.16.840.1.262412.3.579.2.4 62 Unknown [id number] 2.16.840.1.249414.3.579.2.4 62 Unknown [id number] 2.16.840.1.954883.3.579.2.4 62 Unknown [id number] 2.16.840.1.332559.3.579.2.4 62 Unknown [id number] 2.16.840.1.102742.3.579.2.4 62 Unknown [id number] 2.16.840.1.886688.3.579.2.4 62 Unknown [id number] 2.16.840.1.847614.3.579.2.4 62 Unknown [id number] 2.16.840.1.995348.3.579.2.4 62 Unknown [id number] 2.16.840.1.037437.3.579.2.4 62 Unknown [id number] 2.16.840.1.078310.3.579.2.4 62 Unknown [id number] 2.16.840.1.673363.3.579.2.4 62 Unknown [id number] 2.16.840.1.556302.3.579.2.4 62 Unknown [id number] 2.16.840.1.689341.3.579.2.4 62 Unknown [id number] 2.16.840.1.445088.3.579.2.4 62 Unknown [id number] 2.16.840.1.871708.3.579.2.4 62 Unknown [id number] 2.16.840.1.386889.3.579.2.4 62 Unknown [id number] 2.16.840.1.063144.3.579.2.4 62 Unknown [id number] 2.16.840.1.985574.3.579.2.4 62 Unknown [id number] 2.16.840.1.506466.3.579.2.4 62 Unknown [id number] 2.16.840.1.105733.3.579.2.4 62 Unknown [id number] 2.16.840.1.533373.3.579.2.4 62 Unknown [id number] 2.16.840.1.875420.3.579.2.4 62 Unknown [id number] 2.16.840.1.043728.3.579.2.4 62 Unknown [id number] 2.16.840.1.264207.3.579.2.4 62 Unknown [id number] 2.16.840.1.923434.3.579.2.4 62 Unknown [id number] 2.16.840.1.154122.3.579.2.4 62 Social History Date Type Detail Facility Start: 07-24-2022 End: 11-28-2023 Tobacco smoking status NHIS Unknown if ever smoked [facility] Start: 06-23-2017 None [facility] Start: 06-23-2017 Spouse/ Signif icant Other [facility] Start: 1965 Sex Assigned At Male W [facility] Start: 10-10-2023 End: 03-09-2025 Tobacco smoking status NHIS Smokes tobacco daily [facility] History of tobacco use Cigarette Smoker [facility] Start: 10-10-2023 Cigarettes smoked current (pack per day) - Reported 1 [facility] Start: 10-10-2023 Tobacco use and exposure Smokeless tobacco non-user [facility] Start: 10-10-2023 Alcohol intake Ex-drinker (finding) [facility] Start: 10-10-2023 Tobacco use panel [facility] Start: 1965 Sex Assigned At Not on file [facility] Start: 10-10-2023 Gender identity Identifies as male gender (finding) [facility] Start: 10-10-2023 Sexual orientation Heterosexual (fin ding) [facility] Start: 02-04-2025 End: 02-22-2025 Sex Male (finding) [facility] Medical Equipment Procedure Code Equipment Code Equipment Origin al Text Equipment Identifier Dates Needle (Disp) 32 Gauge 32 gauge x 5/16 needle Start: 08-13-2024 Needle (Disp) 32 Gauge 32 gauge x 5/16 needle Start: 08-13-2024 Needle (Disp) 32 Gauge 32 gauge x 5/16 needle Start: 08-13-2024 Needle (Disp) 32 Gauge 32 gauge x 5/16 needle Start: 08-13-2024 Needle (Disp) 32 Gauge 32 gauge x 5/16 needle Start: 08-13-2024 Needle (Disp) 32 Gauge 32 gauge x 5/16 needle Start: 08-13-2024 Needle (Disp) 32 Gauge 32 gauge x 5/16 needle Start: 08-13-2024 Goals Date Patient Goal Desired Activity /State Functional Status Date Assessment Result Facility 09-01-2023 Functional status Ambulates [facility] Work Phone: Mental Status Date Assessment Result Facility 09-19-2023 Cognitive function Voice/Name [facility] Work Phone: 09-01-2023 Cognitive function Voice/Name [facility] Work Phone: Clinical Notes 10-10-2023 to 07-09-2025 Note Date & Type Note Facility 07-09-2025 Evaluation note Diagnosis Onset Date Resolution Left ventricular systolic dysfunction acute June 7:48am Atrial flutter chronic June 7:48am [facility] Work Phone: 1(762) 104-609004-18-2025 Evaluation note* Diagnosis Onset Date Resolution Status Admit Date Atrial flutter chronic February 8:04am Chronic diastolic heart failure chronic March 12, 2025 8:04am Atrial flutter chronic June 7:48am Chronic diastolic heart failure chronic July 09 7:48am [facility] Work Phone: 1(393) 865-651902-28-2025 Procedure notey [facility] Pulmonary Services/Neurology [address] [place] [address] MR#: [id number] Acct: [id number] Name: YANDEL KRUGER Luz Rep #:[id number] : 1965 59 From: Alfredo Arias DO Referring Dr: Reena Brooks SECRETARY ADMINISTRATIVE ASSISTANT SECRETARY ADMINISTRATIVE ASSISTANT-C Status: REG CLI Location: PSN Date: Sex: M C PSN 6 Minute Walk Test 6 Minute Walk Test 6 Minute Walk Test: 6 Minute Walk Test PSN:6-Minute Walk Test Start: 01/21/25 09:02 Freq: Status: Active Protocol: [id number] Document 01/21/25 09:02 [facility] (Rec: 01/21/25 09:10 [facility] [id number]) 6 Minute Walk Test Date Performed 01/21/25 Time Performed 08:00 Height 5 ft 9 in Weight: 298 lb Weight in Pounds 298.[address]: Reena Brooks NP Assistive device None used: Pre-test Oxygen Delivery Room Air Method Pulse Ox (%) 93 Pulse Rate (60-100 102 H beats/min) Dyspnea Sole Scale ( 0 0-10) Number of Rests 0 Taken 1st minute Oxygen Delivery Room Air Method Pulse Ox (%) 92 Pulse Rate (60-100 110 H beats/min) Dyspnea Sole Scale ( 0 0-10) Number of Rests 0 Taken 2nd minute Oxygen Delivery Room Air Method Pulse Ox (%) 92 Pulse Rate (60-100 107 H beats/min) Dyspnea Sole Scale ( 0 0-10) Number of Rests 0 Taken 3rd minute Oxygen Delivery Room Air Method Pulse Ox (%) 91 Pulse Rate (60-100 110 H beats/min) Dyspnea Sloe Scale ( 0 0-10) Number of Rests 0 Taken 4th minute Oxygen Delivery Room Air Method Pulse Ox (%) 91 Pulse Rate (60-100 97 beats/min) Dyspnea Sole Scale ( 0 0-10) Number of Rests 0 Taken 5th minute Oxygen Delivery Room Air Method Pulse Ox (%) 90 Pulse Rate (60-100 100 beats/min) Dyspnea Sole Scale ( 0 0-10) Number of Rests 0 Taken 6th minute Oxygen Delivery Room Air Method Pulse Ox (%) 92 Pulse Rate (60-100 114 H beats/min) Dyspnea Sole Scale ( 0 0-10) Number of Rests 0 Taken Post-test Oxygen Delivery Room Air Method Pulse Ox (%) 93 Pulse Rate (60-100 104 H beats/min) Dyspnea Sole Scale ( 0 0-10) Number of Rests 0 Taken Full Laps Walked 14 Partial Lap, Number 31 of Tiles Walked Total Distance 857 Walked (ft) Interpretation Interpretation: The patient ambulated 857 feet over the course of 6 minutes beginning on room air without assistivedevices. Pretesting oxygen saturation was noted to be 93%on room air. With ambulation, the lucio oxygen saturation was 90%. There was no significant exertional oxygen desaturation. Recommendations Recommendations: There is no indication for the use of supplemental oxygen at this time. 01/22/25 1010 O> Date _ Alfredo Arias DO CC: ~ Date Dictated: 01/22/25 1009 Date Transcribed: 01/22/25 100 University Intern: Dr. Alfredo Arias DO Signed [facility]02-07-2025 Evaluation note* Diagnosis Onset Date Resolution Status Admit Date Obesity chronic January 01, 2025 1:40pm DEBI (obstructive sleep apnea) chroni c January 01, 2025 1:40pm Restrictive lung disease chronic January 01, 2025 1:40pm Smoking greater than 20 pack years chronic January 01 1:40pm [facility] Work Phone: 1(202) 253-261402-07-2025 Evaluation note* Diagnosis Onset Date Resolution Status Admit Date Obesity chronic January 01, 2025 1:40pm DEBI (obstructive sleep apnea) chroni c January 01, 2025 1:40pm Restrictive lung disease chronic January 01, 2025 1:40pm Smoking greater than 20 pack years chronic January 01 1:40pm Moderate COPD (chronic obstructive pulmonary disease) chronic March 09, 2025 7:46am Obesity chronic March 09 7:46am DEBI (obstructive sleep apnea) chroni c March 09, 2025 7:46am Restrictive lung disease chronic March 09, 2025 7:46am Smoking greater than 20 pack years chronic March 09, 2025 7:46am Atrial flutter chronic February 8:04am Chronic diastolic heart failure chronic March 12, 2025 8:04am [facility] Work Phone: 1(221) 940-702709-19-2024 [facility] Medical Records Department [address] [place] [address] Discharge Summary 08/13/24 1209 MR#: [id number] Acct: [id number] Name: YANDEL KRUGER Rep #: [id number] : 1965 59 From: Denys Parra MD PCP: Dr. Lilia Hong MD Status:DIS IN Location: [facility] [id number] Providers Date of Admission: 08/12/24 Date of Discharge: 08/13/24 Primary Care Physician: Dr. Lilia Hong MD Reason For Visit: RLL PNA Diagnosis Discharge Diagnosis (1) Pneumonia: Status: Acute Code(s): J18.9 - Pneumonia, unspecified organism Plan The patient is a 59 y/o M was admitted with left-sided chest discomfort along with nausea, vomiting, diaphoresis dyspnea, cough tightness loose stool nasal congestion palpitation. Subjective chills but denies fever. #1. RLL Pneumonia: Patient is being admitted in PCU. Chest CT scan and chest x- ray newly reviewed which shows patchy right lower lobe infiltrate consistent with pneumonia. On IV antibiotics Rocephin and azithromycin. Blood culture pending. Urinary antigens negative.Gram stain shows 2 close PCP normal. GPR, 1+ WBC. COVID PCR and respiratory panel negative. 08/13: Patient wants to go home acute he wanted to go home yesterday. Patient is discharged on 6 more days of cefdinir and doxycycline. Advised to follow-up in pulmonary clinic. He follows Dr. Arias. #2. Mild COPD exacerbation due to pneumonia: IV Solu-Medrol 40 mg every 12 hourly. Patient is being managed on scheduled bronchodilator, IV Solu-Medrol, Mucinex, incentive spirometry and Pep. 08/13: Shortness of breath is improved. Prescription for Solu-Medrol and Mucinex DM given. Patient has albuterol in order. 3. CRISTINO on chronic Kidney Disease Stage II : Admission BUN/Cr 28/1.43, baseline renal function primarily 0.7 to more recently 1.0 on 08/03/2024, mild improvement in creatinine. 08/13: Creatinine improved from 1.43-1.31. Prescription for metformin not given as patient recovering from CRISTINO. Follow with PCP. 4. Diabetes mellitus type II: ADA diet, Accu-Chek before meals and at bedtime with Humalog sliding scale coverage and hypoglycemia protocol. A1c 6.7% 08/13: New onset as per the patient. Prescription for Lantus insulin and Humalog insulin sliding scale given. 5. GERD: On PPI #6. HFpEF: 11/28/2023 echocardiogram with normal LV size, LV systolic function lower limits normal, EF 50%, apex hypokinetic. #7. PAF/Flutter: On home metoprolol regimen. continue patient home Coumadin. INR subtherapeutic 1.8. Continue warfarin. #8. Rheumatoid arthritis: Noted in chart history, not on any rheumatological medications, encourage continued outpatient follow-up with rheumatology as previously arranged #9. Hypertension: Continue home regimen including metoprolol, Lasix with continued renal function monitoring, PRN hydralazine. #10. Hyperlipidemia: continue patient on statin therapy. #11. Chronic pancreatic cyst/benign vascular neoplasm: CT as noted with stable ill-defined mass within the pancreatic tail with known pancreatic cyst as well as benign vascular neoplasm previously referred to [facility] with biopsy performed consistent with benign vascular neoplasm, encourage continued outpatient follow-up. #12. Chronic HFrEF chronic BL LE edema/lymphedema: Last echo in December 18 shows EF 50% lower limit of normal. [place] hypokinetic. Normal RV size systolic function. LA moderately enlarged. Patient is on furosemide and advised to continue. Follow-up in cardiology clinic #13. Chronic cigarette, nicotine tobacco Abuse: Patient is still smokes a pack per day. Encouraged cessation, inpatient consultation per RT, NR if desired. #14. Morbid Obesity: Weight loss and lifestyle changes encouraged. #15. DEBI: maintain on CPAP w/ 2L NC q HS bled in. 16. DVT prophylaxis: We will continue patient Coumadin with INR trending. #18. CODE status: Patient does not have healthcare power of employee benefits attorney or living will in place but notes his and daughter would be his decision makers if necessary. Discussed CODE status at length including difference between FULL code, DNR-CCA and DNR-CC status. Following discussions about the differences in these status, requested Full Code status. Medications at Discharge Home Medications multivitamin 1 ea PO DAILY supplement 06/22/17 omeprazole 20 mg capsule,delayed release 20 mg PO QDAY acid reflux 02/09/18 potassium chloride 20 mEq tablet,extended release 20 meq PO QDAY supplement 02/09/18 cholecalciferol (vitamin D3) 50 mcg (2,000 unit) capsule 2,000 unit PO QDAY supplement 02/10/18 cyanocobalamin (vitamin B-12) 2,500 mcg tablet 2,500 mcg PO Q OTHER DAY supplement 11/06/21 furosemide 40 mg tablet 40 mg PO .COMPLEX diuresis 11/06/21 rosuvastatin 40 mg tablet 40 mg PO DAILY cholesterol 06/21/22 acetaminophen 500 mg tablet 500 mg PO TID PRN PRN Pain 07/24/22 albuterol sulfate (more content not included)...[facility] 10-10-2023 History and physical note* Dodie Landon, MATE FISHING VESSEL-PROTECTION ANALYST, DNP - 10/10/2023 12:00 PM EST Images from the original note were not included. Chief Complaint: Chief Complaint Patient presents with New Patient Clinical Care Team: Referring Provider: Anastasiya Vo MB* Primary Care Provider: Lilia Hong History of Present Illness: Mr. Kruger is a 58 y.o. male with a past medical history significant for atrial flutter, diastolic HF(2017), GERD, HLD, DEBI. He presents to [facility] clinic for surgical evaluation of a mass in the TOP. Oncologic History: Yandel Kruger initially presented with SOB to OSH and underwent CT chest for possible PE. RSV 08/29/2023 CT chest OSH: concern for mass in the pancreas 08/30/2023 CT abd/pelvis OSH: 3.3 x 3.5 cm mass in the TOP 09/19/2023: CT guided biopsy TOP mass OSH ([place]): path returned benign. Will have slides reviewed here. Previous abdominal surgeries: none Blood thinners: none Colonoscopy: 2019: ok Our team has reviewed all outside records available prior to patient visit. Mr. Kruger is here today with his and daughter for his appointment. He complains of no complaints. Past Medical History: Diagnosis Date Congestive heart failure GERD (gastroesophageal reflux disease) Hyperlipidemia DEBI (obstructive sleep apnea) USES CPAP WITH 2 LITERS OF OXYGEN NOCTURNALLY Past Surgical History: Procedure Laterality Date KNEE REPLACEMENT Left 2017 FREE SKIN GRAFT 1990 LEFT LEG Allergies Allergen Reactions Nsaids Swelling Current Outpatient Medications Medication Sig Dispense Refill Acetaminophen 500 MG capsule Take 3 tablets by mouth every 6 hours as needed for Mild Pain. Coenzyme Q10 (CoQ10) 100 MG capsule Take 1 capsule by mouth daily. cyanocobalamin 1000 MCG tablet Take 1 tablet by mouth daily. furOSEmide 40 MG tablet Take by mouth 2 times daily. 80 MG IN AM AND 40 MG IN PM Multivitamin w/ minerals tablet Take 1 tablet by mouth daily. omeprazole [address] capsule Take 1 capsule by mouth daily. Potassium chloride 20 MEQ Tab CR tablet Take 1 tablet by mouth daily. Rosuvastatin 40 MG tablet Take 1 tablet by mouth daily. Rybelsus 3 MG tablet Take 1 tablet by mouth daily. Turmeric (QC TUMERIC COMPLEX PO) Take 1,500 mg by mouth daily. VITAMIN D PO Take 50 mcg by mouth daily. No current facility-administered medications for this visit. Social History Socioeconomic History Marital status: Spouse name: Not on file Number of children: Not on file Years of education: Not on file Highest education level: Not on file Occupational History Not on file Tobacco Use Smoking status: Every Day Packs/day: 1.00 Years: 30.00 Additional pack years: 0.00 Total pack years: 30.00 Types: Cigarettes Smokeless tobacco: Never Vaping Use Vaping Use: Never used Substance and Sexual Activity Alcohol use: Not Currently Drug use: Not Currently Sexual activity: Not on file Other Topics Concern Not on file Social History Narrative Lives with Social Determinants of Health Financial Resource Strain: Not on file Food Insecurity: Not on file Transportation Needs: Not on file Physical Activity: Not on file Stress: Not on file Social Connections: Not on file Intimate Partner Violence: Not on file Housing Stability: Not on file Family History Problem Relation Age of Onset Parkinson Mother Heart Disease - Other Father Cancer Father STOMACH CANCER OF SOME SORT Leukemia Brother Heart Disease - Other Brother No known problems Maternal Grandmother No known problems Maternal Grandfather No known problems Paternal Grandmother No known problems Paternal Grandfather Cancer Half Sister STOMACH Ovarian Cancer Daughter Cervical Cancer Daughter Review of Systems: Systems negative unless noted in BOLD: Consitutional: fever, chills, significant change in weight, fatigue. Cardiovascular: history of heart disease, hypertension, angina, shortness of breath, ankle swelling, palpitations, or heart murmurs. Respiratory: chronic cough, hemoptysis, asthma. Gastrointestinal: anorexia, nausea, vomiting, diarrhea, constipation, melena, hematemesis, abdominal pain, distension. Genitourinary: urinary frequency, urgency, hematuria, or dysuria. Musculoskeletal: back pain, bone pain. Integumentary: rashes, hives Neurological: history of dizziness, falling, numbness or tingling of the hands or feet, forgetfulness. Psychiatric: excessive worry, depression Endocrine: history of thyroid disease Hematologic/Lymphatic: history of easy bruising or bleeding. history of blood clots. Physical Exam: Vitals: BP 127/62 Pulse 73 Temp 98.3 F (36.8 C) (Oral) Resp 18 Ht 1.733 m (5' 8.23) Comment: Measured today w/o shoes Wt 133.9 kg (295 lb 4.8 oz) SpO2 95% Comment: On room air BMI 44.60 kg/m Smoking Status Every Day General: The patient is a obese male who appears his stated age of 58 y.o. Neuro/Psych: His speech patterns and movements are normal. His affect is appropriate. He is oriented to person, place and time. Recent and remote memory is intact. HEENT: Normocephalic, atraumatic. EOMI. The sclera are anicteric. The mucous membranes are moist. Hearing is grossly intact. Neck: The trachea is in the midline. Neck is supple without lymphadenopathy or thyromegaly. Lungs/Chest: Clear to auscultation bilaterally without wheezes/rales/rhonchi Cardiac: Regular rate and rhythm without murmurs. Abd: Soft, NT/ND. No hepatosplenomegaly, ascites or hernia. Musculoskeletal:Normal range of motion in all four extremities, with normal strength equally and symmetrically. Warm and dry, 2+ peripheral pulses, no edema Lymphatics: There is no suspicious submandibular, cervical, supraclavicular lymphadenopathy. Integumentary: Skin is warm and dry. Flush, pallor and rash absent. ECOG Performance Status: 1 1 - Symptomatic but completely ambulatory (Restricted in physically strenuous activity but ambulatory and able to carry out work of a light or sedentary nature. For example, light housework, office work) Laboratory evaluation: Lab Results Component Value Date SODIUM 138 10/10/2023 POTASSIUM 4.1 10/10/2023 CHLORIDE 102 10/10/2023 CO2 28 10/10/2023 BUN 13 10/10/2023 CREATSERUM 0.77 10/10/2023 GLUCOSE 106 (H) 10/10/2023 Lab Results Component Value Date WBC 7.56 10/10/2023 HGB 14.9 10/10/2023 HCT 45.7 10/10/2023 PLATELET 179 10/10/2023 MCV 83.9 10/10/2023 No results found for: HGBA1C Lab Results Component Value Date ALT 20 10/10/2023 AST 17 10/10/2023 ALKPHOS 61 10/10/2023 BILITOTAL 0.6 10/10/2023 Tumor Markers: No results found for: CEA, CA199, AFPTMRMKR, CHROMOGRANA, CA125 Radiographic/ Diagnostic evaluation: CT abd/pelvis OSH 08/30/2023: Pathology: 09/19/2023 MICROSCOPIC DIAGNOSIS Pancreatic mass, CT-guided core biopsy: Negative for carcinoma. See comment. SJ:rg 09/23/2023 COMMENT The specimen is evaluated at the time of biopsy by Dr. Goldberg. Immediate Evaluation = Negative for malignant cells. Immunohistochemistry ([id number]) supports the above diagnosis, IHC profile suggests benign vascular neoplasm. Correlation with clinical, radiologic findings and appropriate follow up are necessary. Case has been reviewed in consultation with Dr. Lew who concurs with the above diagnosis. IDC:AM MICROSCOPIC DESCRIPTION Slides are reviewed. GROSS DESCRIPTION Received in fixative is one container labeled with the patient's name and designated pancreatic mass. The specimen consists of multiple irregular fragments of denney soft tissue that in aggregate measure 1.5 x 0.1 x 0.1 cm. The specimen is totally submitted in one cassette. Four touch imprints are prepared at the time of core biopsy. Assessment Mr. Kruger is a 58 y.o. male with a pancreas mass. Given his biopsy locally was by percutaneous approach, will obtain EUS here. Will also ask our pathology department to review slides from local. Plan Patient seen and evaluated by myself and , all available relevant imaging and labs reviewed, and the plan was developed collaboratively. Nicotine Dependence Use per Day: 1 Patient is ready to quit Quit Date: n/a Discussed pharmacotherapy. Offered Rx to be sent to pharmacy of choice.-- His PCP has already prescribed patches. He plans to start these on . We discussed health risks and resources. Offered referral to [facility] Smoking Cessation clinic (AMB REFERRAL TO SMOKING CESSATION) -- he is not interested since already working with his PCP Spent 3-5 minutes counseling on this topic EUS now Will discuss at multidisciplinary pancreas review board after EUS Will add IGG4 to be drawn today RTC telehealth after EUS and TB discussion Orders Placed This Encounter CA 19-9 CBC, EDIF, PLATELET COMPREHENSIVE METABOLIC PANEL IGG4 (IMMUNOGLOBULIN G SUBCLASS 4) AMB REFERRAL TO PATHOLOGY UPPER EUS FNA All questions were answered to the patient's satisfaction. He was instructed to call the office with any further questions. Total time PROTECTION ANALYST spent prior to patient visit obtaining and reviewing records, and with patient reviewing HPI, pertinent medical, surgical and social history and conducting physical exam: 25 minutes. Dodie Landon DNP, DORI Nurse Practitioner, GI Surgical Oncology [facility]11-16-2023 History and physical note* DORI Eldridge DNP - 10/10/2023 12:00 PM EST Images from the original note were not included. Chief Complaint: Chief Complaint Patient presents with New Patient Clinical Care Team: Referring Provider: Anastasiya Vo MB* Primary Care Provider: Lilia Hong History of Present Illness: Mr. Kruger is a 58 y.o. male with a past medical history significant for atrial flutter, diastolic HF(2016), GERD, HLD, DEBI. He presents to [facility] GI [facility] Oncology clinic for surgical evaluation of a mass in the TOP. Oncologic History: Yandel Kruger initially presented with SOB to OSH and underwent CT chest for possible PE. RSV 08/29/2023 CT chest OSH: concern for mass in the pancreas 08/30/2023 CT abd/pelvis OSH: 3.3 x 3.5 cm mass in the TOP 09/19/2023: CT guided biopsy TOP mass OSH ([facility]): path returned benign. Will have slides reviewed here. Previous abdominal surgeries: none Blood thinners: none Colonoscopy: 2019: ok Our team has reviewed all outside records available prior to patient visit. Mr. Kruger is here today with his and daughter for his appointment. He complains of no complaints. Past Medical History: Diagnosis Date Congestive heart failure GERD (gastroesophageal reflux disease) Hyperlipidemia DEBI (obstructive sleep apnea) USES CPAP WITH 2 LITERS OF OXYGEN NOCTURNALLY Past Surgical History: Procedure Laterality Date KNEE REPLACEMENT Left 2017 FREE SKIN GRAFT 1991 LEFT LEG Allergies Allergen Reactions Nsaids Swelling Current Outpatient Medications Medication Sig Dispense Refill Acetaminophen 500 MG capsule Take 3 tablets by mouth every 6 hours as needed for Mild Pain. Coenzyme Q10 (CoQ10) 100 MG capsule Take 1 capsule by mouth daily. cyanocobalamin 1000 MCG tablet Take 1 tablet by mouth daily. furOSEmide 40 MG tablet Take by mouth 2 times daily. 80 MG IN AM AND 40 MG IN PM Multivitamin w/ minerals tablet Take 1 tablet by mouth daily. omeprazole [address] capsule Take 1 capsule by mouth daily. Potassium chloride 20 MEQ Tab CR tablet Take 1 tablet by mouth daily. Rosuvastatin 40 MG tablet Take 1 tablet by mouth daily. Rybelsus 3 MG tablet Take 1 tablet by mouth daily. Turmeric (QC TUMERIC COMPLEX PO) Take 1,500 mg by mouth daily. VITAMIN D PO Take 50 mcg by mouth daily. No current facility-administered medications for this visit. Social History Socioeconomic History Marital status: Spouse name: Not on file Number of children: Not on file Years of education: Not on file Highest education level: Not on file Occupational History Not on file Tobacco Use Smoking status: Every Day Packs/day: 1.00 Years: 30.00 Additional pack years: 0.00 Total pack years: 30.00 Types: Cigarettes Smokeless tobacco: Never Vaping Use Vaping Use: Never used Substance and Sexual Activity Alcohol use: Not Currently Drug use: Not Currently Sexual activity: Not on file Other Topics Concern Not on file Social History Narrative Lives with Social Determinants of Health Financial Resource Strain: Not on file Food Insecurity: Not on file Transportation Needs: Not on file Physical Activity: Not on file Stress: Not on file Social Connections: Not on file Intimate Partner Violence: Not on file Housing Stability: Not on file Family History Problem Relation Age of Onset Parkinson Mother Heart Disease - Other Father Cancer Father STOMACH CANCER OF SOME SORT Leukemia Brother Heart Disease - Other Brother No known problems Maternal Grandmother No known problems Maternal Grandfather No known problems Paternal Grandmother No known problems Paternal Grandfather Cancer Half Sister STOMACH Ovarian Cancer Daughter Cervical Cancer Daughter Review of Systems: Systems negative unless noted in BOLD: Consitutional: fever, chills, significant change in weight, fatigue. Cardiovascular: history of heart disease, hypertension, angina, shortness of breath, ankle swelling, palpitations, or heart murmurs. Respiratory: chronic cough, hemoptysis, asthma. Gastrointestinal: anorexia, nausea, vomiting, diarrhea, constipation, melena, hematemesis, abdominal pain, distension. Genitourinary: urinary frequency, urgency, hematuria, or dysuria. Musculoskeletal: back pain, bone pain. Integumentary: rashes, hives Neurological: history of dizziness, falling, numbness or tingling of the hands or feet, forgetfulness. Psychiatric: excessive worry, depression Endocrine: history of thyroid disease Hematologic/Lymphatic: history of easy bruising or bleeding. history of blood clots. Physical Exam: Vitals: BP 127/62 Pulse 73 Temp 98.3 F (36.8 C) (Oral) Resp 18 Ht 1.733 m (5' 8.23) Comment: Measured today w/o shoes Wt 133.9 kg (295 lb 4.8 oz) SpO2 95% Comment: On room air BMI 44.60 kg/m Smoking Status Every Day General: The patient is a obese male who appears his stated age of 58 y.o. Neuro/Psych: His speech patterns and movements are normal. His affect is appropriate. He is oriented to person, place and time. Recent and remote memory is intact. HEENT: Normocephalic, atraumatic. EOMI. The sclera are anicteric. The mucous membranes are moist. Hearing is grossly intact. Neck: The trachea is in the midline. Neck is supple without lymphadenopathy or thyromegaly. Lungs/Chest: Clear to auscultation bilaterally without wheezes/rales/rhonchi Cardiac: Regular rate and rhythm without murmurs. Abd: Soft, NT/ND. No hepatosplenomegaly, ascites or hernia. Musculoskeletal:Normal range of motion in all four extremities, with normal strength equally and symmetrically. Warm and dry, 2+ peripheral pulses, no edema Lymphatics: There is no suspicious submandibular, cervical, supraclavicular lymphadenopathy. Integumentary: Skin is warm and dry. Flush, pallor and rash absent. ECOG Performance Status: 1 1 - Symptomatic but completely ambulatory (Restricted in physically strenuous activity but ambulatory and able to carry out work of a light or sedentary nature. For example, light housework, office work) Laboratory evaluation: Lab Results Component Value Date SODIUM 138 10/10/2023 POTASSIUM 4.1 10/10/2023 CHLORIDE 102 10/10/2023 CO2 28 10/10/2023 BUN 13 10/10/2023 CREATSERUM 0.77 10/10/2023 GLUCOSE 106 (H) 10/10/2023 Lab Results Component Value Date WBC 7.56 10/10/2023 HGB 14.9 10/10/2023 HCT 45.7 10/10/2023 PLATELET 179 10/10/2023 MCV 83.9 10/10/2023 No results found for: HGBA1C Lab Results Component Value Date ALT 20 10/10/2023 AST 17 10/10/2023 ALKPHOS 61 10/10/2023 BILITOTAL 0.6 10/10/2023 Tumor Markers: No results found for: CEA, CA199, AFPTMRMKR, CHROMOGRANA, CA125 Radiographic/ Diagnostic evaluation: CT abd/pelvis OSH 08/30/2023: Pathology: 09/19/2023 MICROSCOPIC DIAGNOSIS Pancreatic mass, CT-guided core biopsy: Negative for carcinoma. See comment. SJ:rg 09/23/2023 COMMENT The specimen is evaluated at the time of biopsy by Dr. Goldberg. Immediate Evaluation = Negative for malignant cells. Immunohistochemistry ([id number]) supports the above diagnosis, IHC profile suggests benign vascular neoplasm. Correlation with clinical, radiologic findings and appropriate follow up are necessary. Case has been reviewed in consultation with Dr. Lew who concurs with the above diagnosis. IDC:AM MICROSCOPIC DESCRIPTION Slides are reviewed. GROSS DESCRIPTION Received in fixative is one container labeled with the patient's name and designated pancreatic mass. The specimen consists of multiple irregular fragments of denney soft tissue that in aggregate measure 1.5 x 0.1 x 0.1 cm. The specimen is totally submitted in one cassette. Four touch imprints are prepared at the time of core biopsy. Assessment Mr. Kruger is a 58 y.o. male with a pancreas mass. Given his biopsy locally was by percutaneous approach, will obtain EUS here. Will also ask our pathology department to review slides from local. Plan Patient seen and evaluated by myself and , all available relevant imaging and labs reviewed, and the plan was developed collaboratively. Nicotine Dependence Use per Day: 1 Patient is ready to quit Quit Date: n/a Discussed pharmacotherapy. Offered Rx to be sent to pharmacy of choice.-- His PCP has already prescribed patches. He plans to start these on . We discussed health risks and resources. Offered referral to [facility] Smoking Cessation clinic (AMB REFERRAL TO SMOKING CESSATION) -- he is not interested since already working with his PCP Spent 3-5 minutes counseling on this topic EUS now Will discuss at multidisciplinary pancreas review board after EUS Will add IGG4 to be drawn today RTC telehealth after EUS and TB discussion Orders Placed This Encounter CA 19-9 CBC, EDIF, PLATELET COMPREHENSIVE METABOLIC PANEL IGG4 (IMMUNOGLOBULIN G SUBCLASS 4) AMB REFERRAL TO PATHOLOGY UPPER EUS FNA All questions were answered to the patient's satisfaction. He was instructed to call the office with any further questions. Total time PROTECTION ANALYST spent prior to patient visit obtaining and reviewing records, and with patient reviewing HPI, pertinent medical, surgical and social history and conducting physical exam: 25 minutes. Dodie Landon DNP, ANDI-CARMEN Nurse Practitioner, GI Surgical Oncology [facility] History of Present illness Narrative* Fadi Mathew MD - 10/10/2023 12:00 PM EST Surgical Oncology Attending Mr Kruger is a 58yo M who was found to incidentally have a pancreatic tail mass on CT chest imaging. Subsequent CT A/P shows a mass-like area in the tail of the pancreas without surrounding adenopathy or evidence of distant metastases; the remainder of the pancreas was normal appearing. Labs are unremarkable including CA 199<15. CT guided biopsy was read as negative for carcinoma, IHC profile suggest benign vascular neoplasm. The remainder of the history and physical are available in the note by Dodie Landon NP which I have reviewed and agree with. My impression is pancreatic tail mass. Despite the negative biopsy, malignancy must be ruled out. Recommend EUS with biopsy. Will also order IgG4 to rule out AIP. While surgical resection could be considered now, given his elevated perioperative risk profile, prefer making diagnosis first. Can thendiscuss at pancreas tumor board. I had a long conversation with Mr Kruger and his family about the natural history, prognosis, and management of pancreatic masses. They asked several insightful questions which I answered to their satisfaction. They are encouraged to contact me if additional questions or concerns arise. [facility]* Diagnosis Onset Date Resolution Status Chronic diastolic heart failure chronic Dependence on nocturnal oxygen therapy acute Diabetes mellitus acute Gastroesophageal reflux disease acute Leg edema acute Leg swelling acute Morbid obesity acute Smoking greater than 20 pack years acute Varicose veins of both lower extremities with inflammation acute Chronic diastolic heart failure chronic Chronic venous insufficiency chronic Hyperlipidemia chronic Hypersomnia chronic Mild pulmonary arterial systolic hypertension chronic Nicotine dependence, cigarettes, uncomplicated chronic DEBI (obstructive sleep apnea) chronic Restrictive lung disease chr onic Dependence on nocturnal oxygen therapy acute Diabetes mellitus acute Gastroesophageal reflux disease acute Leg edema acute Leg swelling acute Morbid obesity acute Smoking greater than 20 pack years acute Varicose veins of both lower extremities with inflammation acute Chronic diastolic heart failure chronic Chronic venous insufficiency chronic Hyperlipidemia chronic Hypersomnia chronic Mild pulmonary arterial systolic hypertension chronic Nicotine dependence, cigarettes, uncomplicated chronic DEBI (obstructive sleep apnea) chronic Restrictive lung disease chr onic [facility] Work Phone: Evaluation note* Diagnosis Onset Date Resolution Status Atrial flutter chronic Chronic diastolic heart failure chronic DEBI (obstructive sleep apnea) chronic Dyspnea resolved Tachycardia resolved Mass of pancreas acute Atrial flutter chronic Chronic diastolic heart failure chronic [facility] Work Phone: Evaluation note* Diagnosis Mass of pancreas Unspecified disease of pancreas Other abnormal tumor markers [facility] Diagnosis Mass of pancreas Unspecified disease of pancreas [facility]* Diagnosis Mass of pancreas- Primary Unspecified disease of pancreas Other abnormal tumor markers [facility]* Diagnosis Onset Date Resolution Status Atrial flutter chronic Chronic diastolic heart failure chronic DEBI (obstructive sleep apnea) chronic Dyspnea resolved Tachycardia resolved Mass of pancreas acute Atrial flutter chronic Chronic diastolic heart failure chronic Mass of pancreas acute [facility] Work Phone: Reason for referral (narrative)No reason for referral information availableWACMC [facility] Work Phone: Summary Purpose Family History No Family History Records Found Relationship Condition Age at Onset Recorded Date/T laurie father Cardiac disease Unknown sister Malignant neoplasm Unknown Relationship Condition Age at Onset Recorded Date/T laurie father Cardiac disease Unknown sister Malignant neoplasm Unknown brother Leukemia Unknown mother Chronic obstructive pulmonary disease Unk nown Parkinson's disease Unknown Pulmonary emphysema Unknown daughter Malignant neoplasm of ovary Unknown Malignant neoplasm of cervix Unknown Advance Directives No Advanced Directives Records Found Advance Directive Response Recorded Date/ Time Advance Directives No December 27, 2016 4:08pm Living Will No January 16 11:28am Power of Personal Injury Legal Assistant No January 16, 2019 11:28am Advance Directive Response Recorded Date/ Time Advance Directives No December 27, 2016 4:08pm Living Will No August 30 12:55am Power of Personal Injury Legal Assistant No August 30 12:55am Advance Directive Response Recorded Date/ Time Advance Directives No December 27, 2016 3:08pm Living Will No August 29 11:55pm Power of Personal Injury Legal Assistant No August 29 11:55pm Advance Directive Response Recorded Date/ Time Living Will No August 30 12:55am Power of Personal Injury Legal Assistant No August 30 12:55am Living Will No August 12, 2024 12:51am Power of Personal Injury Legal Assistant No July 12:51am Living Will No October 24 10:39pm Power of Personal Injury Legal Assistant No October 24, 2024 10:39pm Living Will No November 24 10:59pm Power of Personal Injury Legal Assistant No November 24, 2024 10:59pm Living Will No December 25 9:53pm Power of Personal Injury Legal Assistant No December 25, 2024 9:53pm Living Will No January 23, 2025 3:56am Power of Personal Injury Legal Assistant No January 23 3:56am Advance Directives No December 27, 2016 4:08pm Advance Directive Response Recorded Date/ Time Living Will No August 30 12:55am Do you have a Healthcare Power of Personal Injury Legal Assistant? No August 30, 2023 12:55am Living Will No October 24 10:39pm Do you have a Healthcare Power of Personal Injury Legal Assistant? No October 24, 2024 10:39pm Living Will No November 24 10:59pm Do you have a Healthcare Power of Personal Injury Legal Assistant? No November 24, 2024 10:59pm Living Will No December 25 9:53pm Do you have a Healthcare Power of Personal Injury Legal Assistant? No December 25, 2024 9:53pm Living Will No January 23, 2025 3:56am Do you have a Healthcare Power of Personal Injury Legal Assistant? No January 23, 2025 3:56am Advance Directives No December 27, 2016 4:08pm Advance Directive Response Recorded Date/ Time Living Will No August 30 12:55am Do you have a Healthcare Power of Personal Injury Legal Assistant? No August 30, 2023 12:55am Living Will No August 12, 2024 12:51am Do you have a Healthcare Power of Personal Injury Legal Assistant? No August 12, 2024 12:51am Living Will No December 25 9:53pm Do you have a Healthcare Power of Personal Injury Legal Assistant? No December 25, 2024 9:53pm Living Will No January 23, 2025 3:56am Do you have a Healthcare Power of Personal Injury Legal Assistant? No January 23, 2025 3:56am Living Will No February 22, 2025 9:36pm Do you have a Healthcare Power of Personal Injury Legal Assistant? No February 22, 2025 9:36pm Advance Directives No December 27, 2016 4:08pm Advance Directive Response Recorded Date/ Time Living Will No August 12, 2024 12:51am Do you have a Healthcare Power of Personal Injury Legal Assistant? No August 12, 2024 12:51am Living Will No February 22, 2025 9:36pm Do you have a Healthcare Power of Personal Injury Legal Assistant? No February 22, 2025 9:36pm Living Will No April 24, 2025 8 :21pm Do you have a Healthcare Power of Personal Injury Legal Assistant? No April 24, 2025 8:21pm Advance Directives No December 27, 2016 4:08pm Advance Directive Response Recorded Date/ Time Living Will No February 22, 2025 9:36pm Do you have a Healthcare Power of Personal Injury Legal Assistant? No February 22, 2025 9:36pm Living Will No April 24, 2025 8 :21pm Do you have a Healthcare Power of Personal Injury Legal Assistant? No April 24, 2025 8:21pm Advance Directives No December 27, 2016 4:08pm Chief Complaint and Reason for Visit Chief Complaint 6 M FU/MOVED FROM 05/29 wound INT LABS wound Reason for Visit Chronic diastolic he art failure Dependence on nocturnal oxygen therapy Diabetes mellitus Gastroesophageal reflux disease Leg edema Leg swelling Morbid obesity Smoking greater than 20 pack years Varicose veins of both lower extremities with inflammation Chronic diastolic heart failure Chronic venous insufficiency Hyperlipidemia Hypersomnia Mild pulmonary arterial systolic hypertension Nicotine dependence, cigarettes, uncomplicated DEBI (obstructive sleep apnea) Restrictive lung disease Dependence on nocturnal oxygen therapy Diabetes mellitus Gastroesophageal reflux disease Leg edema Leg swelling Morbid obesity Smoking greater than 20 pack years Varicose veins of both lower extremities with inflammation Chronic diastolic heart failure Chronic venous insufficiency Hyperlipidemia Hypersomnia Mild pulmonary arterial systolic hypertension Nicotine dependence, cigarettes, uncomplicated DEBI (obstructive sleep apnea) Restrictive lung disease Chief Complaint VIRAL SYNDROME, SVT, POSSIBLE PANCREATIC MASS VIRAL SYNDROME, SVT, POSSIBLE PANCREATIC MASS VIRAL SYNDROME, SVT, POSSIBLE PANCREATIC MASS VIRAL SYNDROME, SVT, POSSIBLE PANCREATIC MASS VIRAL SYNDROME, SVT, POSSIBLE PANCREATIC MASS VIRAL SYNDROME, SVT, POSSIBLE PANCREATIC MASS NEW PT - PANCREATIC MASS S/P [facility] 10/ Other specified diseases of pancreas Reason for Visit Atrial flutter Chronic diastolic heart failure DEBI (obstructive sleep apnea) Dyspnea Tachycardia Mass of pancreas Atrial flutter Chronic diastolic heart failure Chief Complaint VIRAL SYNDROME, SVT, POSSIBLE PANCREATIC MASS VIRAL SYNDROME, SVT, POSSIBLE PANCREATIC MASS VIRAL SYNDROME, SVT, POSSIBLE PANCREATIC MASS VIRAL SYNDROME, SVT, POSSIBLE PANCREATIC MASS VIRAL SYNDROME, SVT, POSSIBLE PANCREATIC MASS VIRAL SYNDROME, SVT, POSSIBLE PANCREATIC MASS NEW PT - PANCREATIC MASS S/P [facility] 10/ Other specified diseases of pancreas 3WKS NO LABS REVIEW PATH I50.32; NICOTINE DEPENDENCE Reason for Visit Atrial flutter Chronic diastolic heart failure DEBI (obstructive sleep apnea) Dyspnea Tachycardia Mass of pancreas Atrial flutter Chronic diastolic heart failure Mass of pancreas Chief Complaint Admit Date chest xray October 08, 2024 10:27am s/o INR October 17, 2024 9:53am cough, LLL rhonci November 04, 2024 2:16pm s/o INR November 19, 2024 10:27am E-ORDER November 19, 2024 12:49pm s/o INR November 30, 2024 1: 09pm Nicotine dependence, cigarettes, uncompl icated December 08, 2024 7:15am 10 m fu January 01, 2025 1 :40pm R06.02 - Shortness of breath January 072024 6:30am s/o INR January 07, 2025 8:04am R06.02 - Shortness of breath January 212024 7:49am R06.02 - Shortness of breath January 222024 10:09am DEBI January 25, 2025 5:40 pm S/O- INR January 30, 2025 7:14 am Reason for Visit Admit Date Obesity January 01, 2025 1 :40pm DEBI (obstructive sleep apnea) January 012024 1:40pm Restrictive lung disease January 01 025 1:40pm Smoking greater than 20 pack years 2024 1:40pm Chief Complaint Admit Date cough, LLL rhonci November 04, 2024 2:16pm s/o INR November 19, 2024 10:27am E-ORDER November 19, 2024 12:49pm s/o INR November 30, 2024 1: 09pm Nicotine dependence, cigarettes, uncompl icated December 08, 2024 7:15am 10 m fu January 01, 2025 1 :40pm R06.02 - Shortness of breath January 072024 6:30am s/o INR January 07, 2025 8:04am R06.02 - Shortness of breath January 212024 7:49am R06.02 - Shortness of breath January 222024 10:09am DEBI January 25, 2025 5:40 pm S/O- INR February 20, 2025 6:5 7am Chief Complaint Admit Date Nicotine dependence, cigarettes, uncompl icated December 08, 2024 7:15am 10 m fu January 01, 2025 1 :40pm R06.02 - Shortness of breath January 072024 6:30am s/o INR January 07, 2025 8:04am R06.02 - Shortness of breath January 212024 7:49am R06.02 - Shortness of breath January 222024 10:09am DEBI January 25, 2025 5:40 pm S/O- INR February 20, 2025 6:5 7am 2 M F/U March 09, 2025 7:4 6am 6 M FU March 12, 2025 8:0 4am ATRIAL FIB FLUTTER April 01, 2025 7:32am S/O- INR April 02, 2025 3:56pm Reason for Visit Admit Date Obesity January 01, 2025 1 :40pm DEBI (obstructive sleep apnea) January 012024 1:40pm Restrictive lung disease January 01 025 1:40pm Smoking greater than 20 pack years 2024 1:40pm Moderate COPD (chronic obstructive pulmo nary disease) March 09, 2025 7:46am Obesity March 09, 2025 7:4 6am DEBI (obstructive sleep apnea) February 7:46am Restrictive lung disease March 09 7:46am Smoking greater than 20 pack years March 09, 2025 7:46am Atrial flutter March 12, 2025 8:0 4am Chronic diastolic heart failure March 122024 8:04am Chief Complaint Admit Date 10 m fu January 01, 2025 1 :40pm R06.02 - Shortness of breath January 072024 6:30am s/o INR January 07, 2025 8:04am R06.02 - Shortness of breath January 212024 7:49am R06.02 - Shortness of breath January 222024 10:09am DEBI January 25, 2025 5:40 pm S/O- INR February 20, 2025 6:5 7am 2 M F/U March 09, 2025 7:4 6am 6 M FU March 12, 2025 8:0 4am ATRIAL FIB FLUTTER April 01, 2025 7:32am S/O- INR April 15, 2025 6:00a m Chief Complaint Admit Date 6 M FU March 12, 2025 8:0 4am ATRIAL FIB FLUTTER April 01, 2025 7:32am S/O- INR April 15, 2025 6:00a m S/O- INR June 26, 2025 7:1 3am 4 M FU July 09, 2025 7: 48am Reason for Visit Admit Date Atrial flutter March 12, 2025 8:0 4am Chronic diastolic heart failure March 122024 8:04am Atrial flutter July 09, 2025 7: 48am Chronic diastolic heart failure June 252024 7:48am Chief Complaint Admit Date ATRIAL FIB FLUTTER April 01, 2025 7:32am S/O- INR April 15, 2025 6:00a m 4 M FU July 09, 2025 7: 48am S/O- INR July 09, 2025 9: 04am Reason for Visit Admit Date Left ventricular systolic dysfunction Au magdalene 2024 7:48am Atrial flutter July 09, 2025 7: 48am Reason for Referral Specialty Diagnoses / Procedures Referred By Contac t Referred To Contact Diagnoses Mass of pancreas Procedures UPPER EUS DE EGD INTRMURAL US NEEDLE ASPIRATE/BIOPSY ESOPHAGS Dodie LandonANDI-PROTECTION ANALYST, DNP [address] [place] [address] Referral ID Status Reason Start Date Expiration Date Visits Requested Visits Authorized [id number] Authorized - 10/10/2023 11/03/2024 1 1 Specialty Diagnoses / Procedures Referred By Contac t Referred To Contact Clinical Pathology/Laboratory Medicine Diagnoses Mass of pancreas Dodie Landon, ANDI-PROTECTION ANALYST, DNP [address] [place] [address] Referral ID Status Reason Start Date Expiration Date V isits Requested Visits Authorized [id number] New Request 10/08/2023 11/01/2024 1 1 Additional Source Comments (unrecognized sect ion and content) No Status Records FoundNo Status Records FoundNo Status Records Found INFORMATION SOURCE (unrecogn ized section and content) DATE CREATED AUTHOR 06/22/2021 [facility] ([place]) DATE CREATED AUTHOR AUTHOR'S ORGANIZ ATION 10/23/2024 [facility] DATE CREATED AUTHOR AUTHOR'S ORGANIZ ATION 08/06/2025 [facility] Goals (unrecognized section and content) Goals may be documented in a n alternate sectionGoals may be documented in an alternate sectionGoals may be documented in an alternate sectionGoals may be documented in an alternate sectionGoals may be documented in an alternate sectionGoals may be documented in an alternate sectionGoals may be documented in an alternate sectionGoals may be documented in an alternate sectionGoals may be documented in an alternate section Care Teams (unrecognized sec tion and content) Team Status: Active Member Role Status Dates Dr. Abdifatah Hong MD Family Provider Active Dr. Abdifatah Hong MD Primary Care Provider Activ e Team Status: Active Member Role Status Dates Dr. Abdifatah Hong MD Primary Care Provider Activ e Dr. Israel Bhatti DO Emergency Provider Active Dr. Jerica Hou MD Admit Provider, Other Provider Active Dr. Ethan Stanford MD Other Provider Active Dr. Melo Ross MD Attending Provider, Other Provid er Active Team Status: Active Member Role Status Dates Dr. Abdifatah Hong MD Primary Care Provider Activ e Dr. Ethan Stanford MD Attending Provider Active Dr. Jerica Hou MD Referring Provider Active Team Status: Active Member Role Status Dates Dr. Abdifatah Hong MD Primary Care Provider Activ e Dr. Israel Bhatti , DO Emergency Provider Active Dr. Jerica Hou MD Admit Provider, Other Provider Active Dr. Ethan Stanford MD Attending Provider, Other Provide r Active Dr. Sona Pierre MD Other Provider Active Dr. Melo Ross MD Other Provider Active Team Status: Active Member Role Status Dates Dr. Abdifatah Hong MD Primary Care Provider Activ e Dr. Israel Bhatti , DO Emergency Provider Active Dr. Jerica Hou MD Admit Provider, Other Provider Active Dr. Ethan Stanford MD Other Provider Active Dr. Sona Pierre MD Attending Provider, Other Provid er Active Dr. Melo Ross MD Other Provider Active Team Status: Inactive Member Role Status Dates Dr. Abdifatah Hong MD Primary Care Provider, Refe rring Provider Active Eri Gutierrez PA, PA Attending Provider Active Team Status: Inactive Member Role Status Dates Dr. Abdifatah Hong MD Primary Care Provider, Refe rring Provider Active Dr. Anastasiya Vo MD Attending Provider Active Team Status: Inactive Member Role Status Dates Dr. Abdifatah Hong MD Primary Care Provider Activ e Dr. Israel Bhatti , Emergency Provider Active Dr. Jerica Hou MD Admit Provider, Other Provider Active Dr. Ethan Stanford MD Other Provider Active Dr. Melo Ross MD Other Provider Active Dr. Sona Pierre MD Attending Provider Active Team Status: Inactive Member Role Status Dates Dr. Abdifatah Hong MD Primary Care Provider Activ e Dr. Anastasiya Vo MD Attending Provider, Referrin g Provider Active Tree Trimming Line Technician Relationship Specialty Start Date End Date Lilia Hong MD [address] [place] [address] PCP - General Family Medicine 09/26/23 Anastasiya Vo [facility] [address] [place] [address] Oncologist Medical Oncology 09/26/23 Astrid Judd, RN Registered Nurse 09/26/23 Tree Trimming Line Technician Relationship Specialty Start Date End Date Lilia Hong MD [address] [place] [address] PCP - General Family Medicine 09/26/23 [facility] [address] [place] [address] Oncologist Medical Oncology 09/26/23 Astrid Judd, RN Registered Nurse 09/26/23 Tree Trimming Line Technician Relationship Specialty Start Date End Date Lilia Hong MD [address] [place] [address] PCP - General Family Medicine 09/26/23 [facility] [address] [place] [address] Oncologist Medical Oncology 09/26/23 Astrid Judd, RN Registered Nurse 09/26/23 Team Status: Active Member Role Status Dates Dr. Abdifatah Hong MD Primary Care Provider Activ e Dr. Ethan Stanford MD Attending Provider Active Team Status: Inactive Member Role Status Dates Dr. Abdifatah Hong MD Primary Care Provider Activ e Reena Brooks SECRETARY ADMINISTRATIVE ASSISTANT, SECRETARY ADMINISTRATIVE ASSISTANT-C Attending Provider, Refercece kaufman Provider Active Eri Gutierrez PA, PA Other Provider Active Team Status: Active Member Role Status Dates Dr. Lilia Hong MD Primary Care Provider Acti ve Team Status: Inactive Member Role Status Dates Dr. Lilia Hong MD Primary Care Provider Acti ve Start: October 08, 2024 End: October 08, 2024 Theresa Hightower MD Attending Provider Active Start : October 08, 2024 End: October 08, 2024 Theresa Hightower MD Referring Provider Active Start : October 08, 2024 End: October 08, 2024 Team Status: Inactive Member Role Status Dates Dr. Lilia Hong MD Primary Care Provider Acti ve Start: October 17, 2024 End: October 24, 2024 Maral Guy SECRETARY ADMINISTRATIVE ASSISTANT, SECRETARY ADMINISTRATIVE ASSISTANT-C Attending Provider Active Start: October 17, 2024 End: October 24, 2024 Maral Guy SECRETARY ADMINISTRATIVE ASSISTANT, SECRETARY ADMINISTRATIVE ASSISTANT-C Referring Provider Active Start: October 17, 2024 End: October 24, 2024 Team Status: Inactive Member Role Status Dates Dr. Lilia Hong MD Primary Care Provider Acti ve Start: November 04, 2024 End: November 04, 2024 Dr. Lilia Hong MD Attending Provider Active Start: November 04, 2024 End: November 04, 2024 Dr. Lilia Hong MD Referring Provider Active Start: November 04, 2024 End: November 04, 2024 Team Status: Inactive Member Role Status Dates Dr. Lilia Hong MD Primary Care Provider Acti ve Start: November 19, 2024 End: November 19, 2024 Maral Guy SECRETARY ADMINISTRATIVE ASSISTANT, SECRETARY ADMINISTRATIVE ASSISTANT-C Attending Provider Active Start: November 19, 2024 End: November 19, 2024 Maral Guy SECRETARY ADMINISTRATIVE ASSISTANT, SECRETARY ADMINISTRATIVE ASSISTANT-C Referring Provider Active Start: November 19, 2024 End: November 19, 2024 Team Status: Inactive Member Role Status Dates Dr. Lilia Hong MD Primary Care Provider Acti ve Start: November 19, 2024 End: November 19, 2024 Dr. Lilia Hong MD Attending Provider Active Start: November 19, 2024 End: November 19, 2024 Dr. Lilia Hong MD Referring Provider Active Start: November 19, 2024 End: November 19, 2024 Team Status: Inactive Member Role Status Dates Dr. Lilia Hong MD Primary Care Provider Acti ve Start: November 21, 2024 End: November 21, 2024 Dr. Lilia Hong MD Attending Provider Active Start: November 21, 2024 End: November 21, 2024 Dr. Lilia Hong MD Referring Provider Active Start: November 21, 2024 End: November 21, 2024 Team Status: Inactive Member Role Status Dates Dr. Lilia Hong MD Primary Care Provider Acti ve Start: November 30, 2024 End: November 30, 2024 Maral Guy SECRETARY ADMINISTRATIVE ASSISTANT, SECRETARY ADMINISTRATIVE ASSISTANT-C Attending Provider Active Start: November 30, 2024 End: November 30, 2024 Maral Guy SECRETARY ADMINISTRATIVE ASSISTANT, SECRETARY ADMINISTRATIVE ASSISTANT-C Referring Provider Active Start: November 30, 2024 End: November 30, 2024 Team Status: Inactive Member Role Status Dates Dr. Lilia Hong MD Primary Care Provider Acti ve Start: December 08, 2024 End: December 08, 2024 Reena Brooks SECRETARY ADMINISTRATIVE ASSISTANT, SECRETARY ADMINISTRATIVE ASSISTANT-C Attending Provider Active Start: December 08, 2024 End: December 08, 2024 Reena Brooks SECRETARY ADMINISTRATIVE ASSISTANT, SECRETARY ADMINISTRATIVE ASSISTANT-C Referring Provider Active Start: December 08, 2024 End: December 08, 2024 Team Status: Inactive Member Role Status Dates Dr. Lilia Hong MD Primary Care Provider Acti ve Start: January 01, 2025 End: January 01, 2025 Dr. Lilia Hong MD Referring Provider Active Start: January 01, 2025 End: January 01, 2025 Reena Brooks SECRETARY ADMINISTRATIVE ASSISTANT, SECRETARY ADMINISTRATIVE ASSISTANT-C Attending Provider Active Start: January 01, 2025 End: January 01, 2025 Team Status: Inactive Member Role Status Dates Dr. Lilia Hong MD Primary Care Provider Acti ve Start: January 07, 2025 End: January 07, 2025 Reena Brooks SECRETARY ADMINISTRATIVE ASSISTANT, SECRETARY ADMINISTRATIVE ASSISTANT-C Attending Provider Active Start: January 07, 2025 End: January 07, 2025 Reena Brooks SECRETARY ADMINISTRATIVE ASSISTANT, SECRETARY ADMINISTRATIVE ASSISTANT-C Referring Provider Active Start: January 07, 2025 End: January 07, 2025 Team Status: Inactive Member Role Status Dates Dr. Lilia Hong MD Primary Care Provider Acti ve Start: January 07, 2025 End: January 22, 2025 Maral Guy SECRETARY ADMINISTRATIVE ASSISTANT, SECRETARY ADMINISTRATIVE ASSISTANT-C Attending Provider Active Start: January 07, 2025 End: January 22, 2025 Maral Guy SECRETARY ADMINISTRATIVE ASSISTANT, SECRETARY ADMINISTRATIVE ASSISTANT-C Referring Provider Active Start: January 07, 2025 End: January 22, 2025 Team Status: Inactive Member Role Status Dates Dr. Lilia Hong MD Primary Care Provider Acti ve Start: January 21, 2025 End: January 21, 2025 Reena Brooks SECRETARY ADMINISTRATIVE ASSISTANT, SECRETARY ADMINISTRATIVE ASSISTANT-C Attending Provider Active Start: January 21, 2025 End: January 21, 2025 Reena Brooks SECRETARY ADMINISTRATIVE ASSISTANT, SECRETARY ADMINISTRATIVE ASSISTANT-C Referring Provider Active Start: January 21, 2025 End: January 21, 2025 Team Status: Active Member Role Status Dates Dr. Lilia Hong MD Primary Care Provider Acti ve Start: January 22, 2025 Reena Brooks SECRETARY ADMINISTRATIVE ASSISTANT, SECRETARY ADMINISTRATIVE ASSISTANT-C Referring Provider Active Start: January 22, 2025 Reena Brooks SECRETARY ADMINISTRATIVE ASSISTANT, SECRETARY ADMINISTRATIVE ASSISTANT-C Other Provider Active Start: January 22, 2025 Dr. Alfredo Arias DO Attending Provider Active S tart: January 22, 2025 Team Status: Active Member Role Status Dates Dr. Lilia Hong MD Primary Care Provider Acti ve Start: January 25, 2025 Reena Brooks SECRETARY ADMINISTRATIVE ASSISTANT, SECRETARY ADMINISTRATIVE ASSISTANT-C Attending Provider Active Start: January 25, 2025 Team Status: Active Member Role Status Dates Dr. Lilia Hong MD Primary Care Provider Acti ve Start: January 30, 2025 Maral Guy SECRETARY ADMINISTRATIVE ASSISTANT, SECRETARY ADMINISTRATIVE ASSISTANT-C Attending Provider Active Start: January 30, 2025 Maral Guy SECRETARY ADMINISTRATIVE ASSISTANT, SECRETARY ADMINISTRATIVE ASSISTANT-C Referring Provider Active Start: January 30, 2025 Team Status: Inactive Member Role Status Dates Dr. Lilia Hong MD Primary Care Provider Acti ve Start: January 25, 2025 End: January 25, 2025 Reena Brooks SECRETARY ADMINISTRATIVE ASSISTANT, SECRETARY ADMINISTRATIVE ASSISTANT-C Attending Provider Active Start: January 25, 2025 End: January 25, 2025 Team Status: Inactive Member Role Status Dates Dr. Lilia Hong MD Primary Care Provider Acti ve Start: February 20, 2025 End: February 20, 2025 Maral Guy SECRETARY ADMINISTRATIVE ASSISTANT, SECRETARY ADMINISTRATIVE ASSISTANT-C Attending Provider Active Start: February 20, 2025 End: February 20, 2025 Maral Guy SECRETARY ADMINISTRATIVE ASSISTANT, SECRETARY ADMINISTRATIVE ASSISTANT-C Referring Provider Active Start: February 20, 2025 End: February 20, 2025 Team Status: Inactive Member Role Status Dates Dr. Lilia Hong MD Primary Care Provider Acti ve Start: March 09, 2025 End: March 09, 2025 Dr. Lilia Hong MD Referring Provider Active Start: March 09, 2025 End: March 09, 2025 Reena Brooks SECRETARY ADMINISTRATIVE ASSISTANT, SECRETARY ADMINISTRATIVE ASSISTANT-C Attending Provider Active Start: March 09, 2025 End: March 09, 2025 Team Status: Inactive Member Role Status Dates Dr. Lilia Hong MD Primary Care Provider Acti ve Start: March 12, 2025 End: March 12, 2025 Dr. Lilia Hong MD Referring Provider Active Start: March 12, 2025 End: March 12, 2025 Eri Gutierrez PA, PA Attending Provider Active Start: March 12, 2025 End: March 12, 2025 Team Status: Inactive Member Role Status Dates Dr. Lilia Hong MD Primary Care Provider Acti ve Start: April 01, 2025 End: April 01, 2025 Eri Gutierrez PA, PA Attending Provider Active Start: April 01, 2025 End: April 01, 2025 Eri Gutierrez PA, PA Referring Provider Active Start: April 01, 2025 End: April 01, 2025 Team Status: Active Member Role Status Dates Dr. Lilia Hong MD Primary Care Provider Acti ve Start: April 01, 2025 Dr. Ethan Stanford MD Attending Provider Active S tart: April 01, 2025 Team Status: Active Member Role Status Dates Dr. Lilia Hong MD Primary Care Provider Acti ve Start: April 02, 2025 Maral Guy SECRETARY ADMINISTRATIVE ASSISTANT, SECRETARY ADMINISTRATIVE ASSISTANT-C Attending Provider Active Start: April 02, 2025 Maral Guy SECRETARY ADMINISTRATIVE ASSISTANT, SECRETARY ADMINISTRATIVE ASSISTANT-C Referring Provider Active Start: April 02, 2025 Team Status: Inactive Member Role Status Dates Dr. Lilia Hong MD Primary Care Provider Acti ve Start: April 15, 2025 End: April 15, 2025 Maral Guy SECRETARY ADMINISTRATIVE ASSISTANT, SECRETARY ADMINISTRATIVE ASSISTANT-C Attending Provider Active Start: April 15, 2025 End: April 15, 2025 Maral Guy SECRETARY ADMINISTRATIVE ASSISTANT, SECRETARY ADMINISTRATIVE ASSISTANT-C Referring Provider Active Start: April 15, 2025 End: April 15, 2025 Team Status: Active Member Role/Relationship Status Dates Dr. Lilia Hong MD Primary Care Provider Acti ve Team Status: Inactive Member Role/Relationship Status Dates Dr. Lilia Hong MD Primary Care Provider Acti ve Start: March 12, 2025 End: March 12, 2025 Dr. Lilia Hong MD Referring Provider Active Start: March 12, 2025 End: March 12, 2025 Eri Gutierrez PA, PA Attending Provider Active Start: March 12, 2025 End: March 12, 2025 Team Status: Inactive Member Role/Relationship Status Dates Dr. Lilia Hong MD Primary Care Provider Acti ve Start: April 01, 2025 End: April 01, 2025 Eri REILLY, PA Attending Provider Active Start: April 01, 2025 End: April 01, 2025 Eri Gutierrez PA, PA Referring Provider Active Start: April 01, 2025 End: April 01, 2025 Team Status: Active Member Role/Relationship Status Dates Dr. Lilia Hong MD Primary Care Provider Acti ve Start: April 01, 2025 Dr. Ethan Stanford MD Attending Provider Active S tart: April 01, 2025 Team Status: Inactive Member Role/Relationship Status Dates Dr. Lilia Hong MD Primary Care Provider Acti ve Start: April 15, 2025 End: April 15, 2025 Maral Guy SECRETARY ADMINISTRATIVE ASSISTANT, SECRETARY ADMINISTRATIVE ASSISTANT-C Attending Provider Active Start: April 15, 2025 End: April 15, 2025 Maral Guy SECRETARY ADMINISTRATIVE ASSISTANT, SECRETARY ADMINISTRATIVE ASSISTANT-C Referring Provider Active Start: April 15, 2025 End: April 15, 2025 Team Status: Active Member Role/Relationship Status Dates Dr. Lilia Hong MD Primary Care Provider Acti ve Start: June 26, 2025 Maral Guy SECRETARY ADMINISTRATIVE ASSISTANT, SECRETARY ADMINISTRATIVE ASSISTANT-C Attending Provider Active Start: June 26, 2025 Maral Guy SECRETARY ADMINISTRATIVE ASSISTANT, SECRETARY ADMINISTRATIVE ASSISTANT-C Referring Provider Active Start: June 26, 2025 Eri Gutierrez PA, PA Other Provider Active Start: June 26, 2025 Team Status: Inactive Member Role/Relationship Status Dates Dr. Lilia Hong MD Primary Care Provider Acti ve Start: July 09, 2025 End: July 09, 2025 Dr. Lilia Hong MD Referring Provider Active Start: July 09, 2025 End: July 09, 2025 Eri REILLY, PA Attending Provider Active Start: July 09, 2025 End: July 09, 2025 Team Status: Inactive Member Role/Relationship Status Dates Dr. Lilia Hong MD Primary Care Provider Acti ve Start: April 01, 2025 End: April 01, 2025 Eri Gutierrez PA, PA Attending Provider Active Start: April 01, 2025 End: April 01, 2025 Eri Gutierrez PA, PA Referring Provider Active Start: April 01, 2025 End: April 01, 2025 Team Status: Active Member Role/Relationship Status Dates Dr. Lilia Hong MD Primary Care Provider Acti ve Start: April 01, 2025 Dr. Ethan Stanford MD Attending Provider Active S tart: April 01, 2025 Team Status: Inactive Member Role/Relationship Status Dates Dr. Lilia Hong MD Primary Care Provider Acti ve Start: April 15, 2025 End: April 15, 2025 Maral Guy SECRETARY ADMINISTRATIVE ASSISTANT, SECRETARY ADMINISTRATIVE ASSISTANT-C Attending Provider Active Start: April 15, 2025 End: April 15, 2025 Maral Guy NP, SECRETARY ADMINISTRATIVE ASSISTANT-C Referring Provider Active Start: April 15, 2025 End: April 15, 2025 Team Status: Inactive Member Role/Relationship Status Dates Dr. Lilia Hong MD Primary Care Provider Acti ve Start: July 09, 2025 End: July 09, 2025 Dr. Lilia Hong MD Referring Provider Active Start: July 09, 2025 End: July 09, 2025 Eri REILLY, PA Attending Provider Active Start: July 09, 2025 End: July 09, 2025 Team Status: Inactive Member Role/Relationship Status Dates Dr. Lilai Hong MD Primary Care Provider Acti ve Start: July 09, 2025 End: July 09, 2025 Maral Guy NP, SECRETARY ADMINISTRATIVE ASSISTANT-C Attending Provider Active Start: July 09, 2025 End: July 09, 2025 Maral Guy NP, SECRETARY ADMINISTRATIVE ASSISTANT-C Referring Provider Active Start: July 09, 2025 End: July 09, 2025 Eri Gutierrez PA, PA Other Provider Active Start: July 09, 2025 End: July 09, 2025 Reason for Visit (unrecogniz ed section and content) Reason Comments Labs Only Reason Comments New Patient Specialty Diagnoses / Procedures Referred By Contac t Referred To Contact Surgical Oncology Diagnoses Other specified diseases of pancreas Anastasiya Vo, [facility] [address] [place] [address] Fadi Mathew MD [address] [address] Referral ID Status Reason Start Date Expiration Date Visits Requested Visits Authorized [id number] New Request Surgical Evaluation Diagnostic 09/26/2023 10/20/2024 1 1 FOR RECORDS PERTAINING TO PATIENTS WHO ARE OR HAVE BEEN ENROLLED IN A CHEMICAL DEPENDENCY/SUBSTANCEABUSE PROGRAM, SOME INFORMATION MAY BE OMITTED. This clinical summary was aggregated from multiple sources. Caution should be exercised in using it in the provision of clinical care. This summary normalizes information from multiple sources, and as a consequence, information in this document may materially change the coding, format and clinical context of patient data. In addition, data may be omitted in some cases. CLINICAL DECISIONS SHOULD BE BASED ON THE PRIMARY CLINICAL RECORDS. [facility]. provides no warranty or guarantee of the accuracy or completeness of information in this document.
--- NOTE | 2025-08-13 17:16 | STRESSREP ---
Stress Test Report Pharmacologic myocardial perfusion stress test. 60-year-old man with a history of atrial fibrillation. Resting EKG demonstrates atrial fibrillation with a rate of 99 bpm. Resting blood pressure is 106/76 mmHg. 0.4 mg of regadenoson was infused per usual protocol followed by rapid intravenous saline flush injection. Continuous EKG monitoring was performed. The maximum heart rate was 116 bpm which was 72% of max impacted heart rate the maximum workload was 1 metabolic equivalent. At rest there were no ST or T wave changes noted to suggest ischemia and at peak infusion nonspecific ST changes were noted which did not meet the criteria for ischemia. No clinical angina is noted. The final blood pressure was 108/70 mmHg. Myocardial perfusion protocol. 15 mCi of technetium 99m sestamibi was injected at rest. 0.4 mg of regadenoson was infused per usual protocol. At peak infusion 45 mCi of technetium 99m sestamibi was injected stress images were obtained stress and rest images were reconstructed and compared in the short axis vertical long and horizontal long axis. Gated images were also obtained. Perfusion SPECT analysis: Review of the stress images demonstrate normal uptake of tracer noted in all areas of the myocardium. The inferior wall appears to have reduced perfusion on the stress and resting images. No areas of reversibility are noted to suggest ischemia. Previous inferior infarct cannot be excluded but a cardiomyopathy could account for the above findings as well. Gated SPECT analysis: The gated ejection fraction is 26%. Conclusion: Abnormal pharmacologic myocardial perfusion stress test. Reduced ejection fraction. 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
== END | disposition home or self-care (01) ==
LOC: CVS 06:01
PROVIDERS: PCP Family Medicine; Referring Provider Physician Assistant Medical; Visit Provider Physician Assistant Medical
DX: I48.92 Unspecified atrial flutter (principal); R94.31 Abnormal electrocardiogram [ECG] [EKG]
CPT/HCPCS: 78452; 93017; A9500; A4216; J2785

== ENCOUNTER 2025-08-27 09:52 | Outpatient (RCR) | payer MEDICARE, SELFPAY ==
[2025-08-27 10:22] LABS: Prothrombin Time (Protime)PT. 13.5 SECONDS (11.7-14.9)
[2025-08-27 10:29] LABS: AST(SGOT) 17 U/L (<=37); Alanine Aminotransfer ALT/SGPT 14 U/L (<=46); Albumin, Serum 4.4 g/dL (3.4-4.8); Alkaline Phosphatase 83 U/L (40-129); Bilirubin, Direct 0.32 mg/dL (0.00-0.30); Cholesterol 180 mg/dL (<=200); Globulin 3.3 g/dL (2.2-4.2); Low Density Lipoprotein Calc. 95 mg/dL; Triglycerides 220 mg/dL; Very Low Density Lipoprotein 44 mg/dL (5-40); cholesterol:hdl ratio screen 4.36
== END 2025-08-27 18:00 | disposition home or self-care (01) ==
LOC: LAB 09:52
PROVIDERS: Physician Assistant Medical; PCP Family Medicine; Referring Provider Nurse Practitioner Gerontology; Visit Provider Nurse Practitioner Gerontology
DX: Z79.01 Long term (current) use of anticoagulants (principal); E78.00 Pure hypercholesterolemia, unspecified
CPT/HCPCS: 80061; 80076; 85610

== ENCOUNTER 2025-09-09 10:13 | Day surgery (SDC) | payer MEDICARE, SELFPAY ==
[2025-08-27 10:31] LABS: Anion Gap 13 (5-15); BUN 22 mg/dL (4-19); BUN/Creat Ratio 24.3 RATIO (10-20); Calcium,Total 10.1 mg/dL (7.6-11.0); Carbon Dioxide 27.4 mmol/L (21.0-32.0); Chloride 99 mmol/L (98-108); Glucose 144 mg/dL (70-99); Potassium 4.4 mmol/L (3.3-5.1)
[2025-09-08 09:19] VITALS: BMI 43.2
--- NOTE | 2025-09-09 12:26 | PRO.PCM_ITS ---
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 Informed consent was obtained. The patient was seen by Dr. Arias of the critical care division. Anterior-posterior pads were applied. 6 mg of intravenous etomidate was administered and then 300 J of biphasic DC cardioversion energy were applied which was unsuccessful in restoring sinus rhythm. 360 J of biphasic DC cardioversion energy were then applied with prompt reversal to sinus rhythm. Patient tolerated the procedure well. Procedure findings: Successful DC cardioversion from atrial fibrillation to sinus rhythm
--- NOTE | 2025-09-09 12:35 | PCM.OP.PRO2 ---
Procedures Pulmonary Pulmonary Procedures /Diagnostic Testin Con Sedation Bedside Procedural Bedside Procedure Information Date of Procedure: 09/09/25 Description of procedure: CONSCIOUS SEDATION REPORT DATE OF SERVICE: September 09, 2025 BRIEF HISTORY OF PRESENT ILLNESS: The patient is a 60-year-old male who presented to [facility] to undergo an elective outpatient cardioversion due to underlying atrial fibrillation. The patient has never previously undergone a cardioversion. He denied any prior anesthetic complications. The patient does have a known history of moderate obstructive lung disease and obstructive sleep apnea, for which he is prescribed nocturnal CPAP therapy. The patient is systemically anticoagulated on Eliquis. His last surface echocardiogram demonstrated an ejection fraction of approximately 35%. PHYSICAL EXAMINATION: VITAL SIGNS: Reviewed and were acceptable. GENERAL: The patient is a male, in no apparent distress, speaking in full sentences. HEENT: Normocephalic, atraumatic. Mucous membranes are moist and pink. Good mouth opening noted. Trachea is midline. Good neck mobility. CHEST: S1, S2 irregularly irregular. No murmurs, rubs or gallops were noted. LUNGS: Clear to auscultation bilaterally without appreciable wheezes, rales or rhonchi. ABDOMEN: Soft, nontender, nondistended. Positive bowel sounds. EXTREMITIES: There is no clubbing, cyanosis or edema. ASA Class: II DESCRIPTION OF PROCEDURE: After confirmation of informed consent, the patient's anesthesia plan was reviewed in detail. Etomidate was chosen. Risks and benefits were reviewed and the patient agreed to proceed. At 1218, the patient was given 6 mg of etomidate. The patient required 2 separate attempts at cardioversion, the first at 300 J and the second at 360 J, in order to achieve yazidi of normal sinus rhythm. The patient was monitored until 1233, at which time he reached his baseline mental status and function. The patient tolerated the procedure well. COMPLICATIONS: None ESTIMATED BLOOD LOSS: None RECOMMENDATIONS: Okay to recover in usual fashion.
== END 2025-09-09 13:35 | disposition home or self-care (01) ==
PROVIDERS: Physician Assistant Medical; PCP Family Medicine; Referring Provider Internal Medicine Cardiovascular Disease; Visit Provider Internal Medicine Cardiovascular Disease
DX: I48.91 Unspecified atrial fibrillation (principal); I50.32 Chronic diastolic (congestive) heart failure; J44.9 Chronic obstructive pulmonary disease, unspecified; E11.9 Type 2 diabetes mellitus without complications; Z79.01 Long term (current) use of anticoagulants; Z79.84 Long term (current) use of oral hypoglycemic drugs; Z79.899 Other long term (current) drug therapy; K21.9 Gastro-esophageal reflux disease without esophagitis; E78.5 Hyperlipidemia, unspecified; F17.210 Nicotine dependence, cigarettes, uncomplicated; E66.9 Obesity, unspecified; R94.39 Abnormal result of other cardiovascular function study
CPT/HCPCS: 36415; 80048; 92960; 93005